=== PATIENT | female | born 2000 | race Asian ===

== ENCOUNTER 2022-06-03 15:49 | Inpatient (IN) ==
--- NOTE | 2022-06-03 16:01 | ED Triage Note ---
Date of Service June 03, 2022 History of Present Illness This patient was briefly evaluated while in triage. An abbreviated physical exam was performed. This patient is a 22-year-old Female who presents to the ED for evaluation of vaginal bleeding with positive test. LMP 04/15/22. Reports passing a large blood clot on 05/29. She denies any further bleeding. Reports fever, back and pelvic pain. States home tests continue to be positive. Physical Exam Constitutional: alert and oriented x3. no acute distress. Respiratory: lungs are clear to auscultation without wheezes, rhonchi, or rales bilaterally. equal chest rise. normal respiratory effort, no accessory muscle use. Cardiovascular: normal heart sounds without murmur. regular rate and rhythm. GI: abdomen is soft, nontender. nl bowel sounds present throughout. No palpable masses. No rebound tenderness or guarding. Psych:appropriate mood and affect. Initial orders for labs and / or imaging were placed and patient was placed in the waiting area until a bed is available. Please see further documentation for the full ED course.
[2022-06-03 16:30] LABS: Appearance Urine Clear (Clear); Bilirubin Urine Negative (Negative); Blood Urine Negative (Negative); Color Urine Yellow; Glucose Urine UA Negative (Negative); Ketones Urine Negative (Negative); Leukocyte Esterase Urine Negative (Negative); Nitrite Urine Negative (Negative); Protein Urine Negative (Negative); Specific Gravity Urine 1.004 (1.000-1.030); Urobilinogen Urine Negative (Negative); pH Urine 7.5 (4.5-7.5)
[2022-06-03 16:49] LABS: Alanine Aminotransferase 20 U/L (7-52); Albumin Globulin Ratio 1.6 (0.9-2); Albumin Level 4.5 gm/dl (3.4-5.0); Alkaline Phosphatase 50 U/L (34-104); Anion Gap 6 (3-11); Aspartate Aminotransferase 24 U/L (13-39); BUN Creatinine Ratio 16.4 (10-20); Bilirubin,Total 0.3 mg/dl (0.2-1.0); Blood Urea Nitrogen 9 mg/dl (6-23); Calcium 9.5 mg/dl (8.6-10.3); Carbon Dioxide 28 mmol/L (21-32); Chloride 105 mmol/L (98-107); Creatinine Clr Calc Pharmacy 138.5 ml/min; Est GFR (African American) > 150.0 ml/min; Est GFR (Non-African American) 133.1 ml/min; Globulin 2.8 gm/dl (2.5-4.0); Glucose 91 mg/dl (70-99(Fasting)); Lipase 18 U/L (11-82); Potassium 3.4 mmol/L (3.5-5.1); Sodium 139 mmol/L (136-145); Total Protein 7.3 gm/dl (6.0-8.3)
[2022-06-03 16:53] LABS: Hematocrit (blood only) 36.3 % (37.0-47.0); Hemoglobin 12.1 g/dl (12.0-16.0); Mean Corpuscular Hemoglobin 27.4 pg (25.0-34.0); Mean Corpuscular Hgb Conc 33.3 g/dL (32.0-36.0); Mean Corpuscular Volume 82.3 fL (80.0-100.0); Mean Platelet Volume 8.5 fL (9.4-12.4); Platelet Count 329 K/uL (130-400); RDW Coefficient of Variation 13.8 % (11.5-14.5); RDW Standard Deviation 41.3 fL (36.4-46.3); Red Blood Count 4.41 M/uL (4.20-5.40); White Blood Count 8.11 K/ul (4.8-10.8)
[2022-06-03 17:53] LABS: Basophils # (auto) 0.08 K/uL (0-0.2); Eosinophils # (auto) 0.14 K/uL (0-0.50); Eosinophils % (auto) 1.7 %; Immature Granulocytes # (auto) 0.02 K/uL (0.01-0.20); Immature Granulocytes % (auto) 0.2 %; Lymphocytes # (auto) 4.64 K/uL (1.2-3.4); Lymphocytes % (auto) 57.2 %; Monocytes % (auto) 7.4 %; Neutrophils # (auto) 2.63 K/uL (1.40-6.50); Neutrophils % (auto) 32.5 %
--- NOTE | 2022-06-03 18:04 | Emergency Department Note ---
Impression & Plan Ectopic ED Provider Note HISTORY OF PRESENT ILLNESS: Patient is a 22-year-old female presenting with fatigue and vaginal spotting. Patient reports she had a positive home test 2 weeks ago. She reports that for the following week she had some spotting and vaginal bleeding. Reports passing large clots. She thought she had miscarried. However, in the last 5 days she has been having a continually positive home test. Reports that she had a fever last week. Has had some nausea and fatigue for the last 5 days. Denies any dysuria or hematuria. Denies any chest pain or shortness of breath. Denies any abdominal pain. Reports that last week she was having a low-grade fever and some left-sided low back pain. Reports that she still having brown blood discharge from her vagina. She reports that she had previously had a miscarriage in February 2022. She is not evaluated at the time for this. She is unsure her blood type. ROS: as above PHYSICAL EXAM: Constitutional: Patient appears in no acute distress. HENT: Head: Normocephalic and atraumatic. Eyes: EOMI, PERRL Mouth/Throat: Mucous membranes moist. Neck: Trachea midline. Neck supple. Cardiovascular: RRR, No murmurs, rubs or gallops. Intact distal pulses. Pulmonary/Chest: No respiratory distress. Breath sounds clear and equal bilaterally. No wheezes or rales. Abdominal: BS +. Abdomen soft, no tenderness, rebound or guarding. Musculoskeletal: No edema, tenderness or deformity noted. Skin: Warm and dry. No rash, erythema, pallor or cyanosis Psychiatric: Appropriate mood and affect for situation. Neurological: Alert and keenly responsive. CN II-XII grossly intact, moving all extremities equally and fully. MDM: - Vitals signs showed tachycardia - History obtained via patient. Patient presents with fatigue and vaginal spotting. Patient reports she had a positive home test 2 weeks ago. Reports that 1 week ago she had some spotting and vaginal bleeding and passing of large clots. She thought she had miscarried. She states that for the last 5 days she has been having a continually positive home test but no longer bleeding. She has had significant nausea and fatigue in the last 5 days. Reports that a week ago she had a low-grade fever and some left-sided low back pain. Reports she still having some brown vaginal discharge. - Chronic conditions affecting care: None - Differential diagnoses include, but are not limited to: retained products of conception; UTI; ectopic - Order placed for continuous cardiac monitoring. At this time, monitor showed rate of 90 bpm with normal sinus rhythm, per my interpretation. - External medical records reviewed. - Laboratory workup interpreted by myself showed normal WBC; stable hemoglobin; hypokalemia (K 3.4) - UA negative for infection - hCG positive - Transvaginal and transabdominal ultrasound show findings suspicious for ectopic in left adnexa. - Blood type is O positive. - Discussion had with OB concrete tile machine operator, Dr. Matos, about patient's case. He came to evaluate the patient and plans to take the patient to the OR. ASSESSMENT AND PLAN: Diagnosis: left adnexa ectopic Plan: To OR Past Med/Surg History Medical History (Updated 06/03/22 @ 21:08 by Jo Mazariegos MD) No significant medical problems Surgical History (Updated 06/03/22 @ 21:06 by Lynn Velazquez DO) No significant past surgical history Social History Smoking Status: Never smoker Feels Safe at Home: Yes Allergies Allergies Allergy/AdvReac Type Severity Reaction Status Date / Time amoxicillin Allergy Rash Unverified 04/04/22 11:29 Home Meds Home Medications Medication Instructions Recorded Confirmed methylphenidate HCl 10 mg tablet 0 mg PO UD 04/04/22 04/04/22 methylphenidate HCl 27 mg 27 mg PO DAILY 04/04/22 04/04/22 tablet,extended release 24 hr Previous Rx's Medication Instructions Recorded sulfamethoxazole 800 1 tab PO Q12H #14 tabs 04/04/22 mg-trimethoprim 160 mg tablet (Bactrim DS) Results & Data (ED) Vital Signs Vital Signs - 24 hr 06/03/22 15:57 06/03/22 19:10 06/03/22 20:55 Temperature 36.4 C L Temperature Source Temporal Artery Scan Pulse Rate 114 H 90 Pulse Rate [Finger] 90 Pulse Rhythm Regular Respiratory Rate 20 16 16 Respiratory Effort / Characteristics Non-Labored Spontaneous Non-Labored Spontaneous Respiratory Depth Normal Normal Respiratory Pattern Regular Blood Pressure 115/75 135/80 Blood Pressure [Left Arm] 116/74 Blood Pressure Mean 88 Blood Pressure Mean [Left Arm] 88 Pulse Oximetry 99 97 97 Oxygen Delivery Method Room Air Room Air Sepsis Recent Fever Within 48 Hours No Sepsis New/Unexplained Change in Mental Status No Sepsis Action Taken by Nursing No Action Required Laboratory Data 06/03/22 16:18 06/03/22 16:18 Lab Results 06/03/22 06/03/22 06/03/22 Range/Units 16:18 16:18 16:18 WBC 8.11 (4.8-10.8) K/ul RBC 4.41 (4.20-5.40) M/uL Hgb 12.1 (12.0-16.0) g/dl Hct 36.3 L (37.0-47.0) % MCV 82.3 (80.0-100.0) fL MCH 27.4 (25.0-34.0) pg MCHC 33.3 (32.0-36.0) g/dL RDW Std Deviation 41.3 (36.4-46.3) fL RDW Coeff of Myra 13.8 (11.5-14.5) % Plt Count 329 (130-400) K/uL MPV 8.5 L (9.4-12.4) fL Immature Gran % (Auto) 0.2 % Neut % (Auto) 32.5 % Lymph % (Auto) 57.2 % [place] % (Auto) 7.4 % Eos % (Auto) 1.7 % Baso % (Auto) 1.0 % Neut # (Auto) 2.63 (1.40-6.50) K/uL Lymph # (Auto) 4.64 H (1.2-3.4) K/uL [place] # (Auto) 0.60 H (0.11-0.59) K/uL Eos # (Auto) 0.14 (0-0.50) K/uL Baso # (Auto) 0.08 (0-0.2) K/uL Immature Gran # (Auto) 0.02 (0.01-0.20) K/uL Sodium 139 (136-145) mmol/L Potassium 3.4 L (3.5-5.1) mmol/L Chloride 105 (98-107) mmol/L Carbon Dioxide 28 (21-32) mmol/L Anion Gap 6 (3-11) BUN 9 (6-23) mg/dl Creatinine 0.55 L (0.6-1.2) mg/dl Est Cr Clr Drug Dosing 138.5 ml/min Est GFR ( Amer) > 150.0 ml/min Est GFR (Non-Af Amer) 133.1 ml/min BUN/Creatinine Ratio 16.4 (10-20) Glucose 91 (70-99(Fasting)) mg/dl Calcium 9.5 (8.6-10.3) mg/dl Total Bilirubin 0.3 (0.2-1.0) mg/dl AST 24 (13-39) U/L ALT 20 (7-52) U/L Alkaline Phosphatase 50 (34-104) U/L Total Protein 7.3 (6.0-8.3) gm/dl Albumin 4.5 (3.4-5.0) gm/dl Globulin 2.8 (2.5-4.0) gm/dl Albumin/Globulin Ratio 1.6 (0.9-2) Lipase 18 (11-82) U/L HCG, Quant 7249 mIU/ml Urine Color Urine Appearance (Clear) Urine pH (4.5-7.5) Ur Specific [place] (1.000-1.030) Urine Protein (Negative) Urine Glucose (UA) (Negative) Urine Ketones (Negative) Urine Blood (Negative) Urine Nitrite (Negative) Urine Bilirubin (Negative) Urine Urobilinogen (Negative) Ur Leukocyte Esterase (Negative) Blood Type Antibody Screen 06/03/22 06/03/22 Range/Units 18:09 Unknown WBC (4.8-10.8) K/ul RBC (4.20-5.40) M/uL Hgb (12.0-16.0) g/dl Hct (37.0-47.0) % MCV (80.0-100.0) fL MCH (25.0-34.0) pg MCHC (32.0-36.0) g/dL RDW Std Deviation (36.4-46.3) fL RDW Coeff of Myra (11.5-14.5) % Plt Count (130-400) K/uL MPV (9.4-12.4) fL Immature Gran % (Auto) % Neut % (Auto) % Lymph % (Auto) % [place] % (Auto) % Eos % (Auto) % Baso % (Auto) % Neut # (Auto) (1.40-6.50) K/uL Lymph # (Auto) (1.2-3.4) K/uL [place] # (Auto) (0.11-0.59) K/uL Eos # (Auto) (0-0.50) K/uL Baso # (Auto) (0-0.2) K/uL Immature Gran # (Auto) (0.01-0.20) K/uL Sodium (136-145) mmol/L Potassium (3.5-5.1) mmol/L Chloride (98-107) mmol/L Carbon Dioxide (21-32) mmol/L Anion Gap (3-11) BUN (6-23) mg/dl Creatinine (0.6-1.2) mg/dl Est Cr Clr Drug Dosing ml/min Est GFR ( Amer) ml/min Est GFR (Non-Af Amer) ml/min BUN/Creatinine Ratio (10-20) Glucose (70-99(Fasting)) mg/dl Calcium (8.6-10.3) mg/dl Total Bilirubin (0.2-1.0) mg/dl AST (13-39) U/L ALT (7-52) U/L Alkaline Phosphatase (34-104) U/L Total Protein (6.0-8.3) gm/dl Albumin (3.4-5.0) gm/dl Globulin (2.5-4.0) gm/dl Albumin/Globulin Ratio (0.9-2) Lipase (11-82) U/L HCG, Quant mIU/ml Urine Color Yellow Urine Appearance Clear (Clear) Urine pH 7.5 (4.5-7.5) Ur Specific [place] 1.004 (1.000-1.030) Urine Protein Negative (Negative) Urine Glucose (UA) Negative (Negative) Urine Ketones Negative (Negative) Urine Blood Negative (Negative) Urine Nitrite Negative (Negative) Urine Bilirubin Negative (Negative) Urine Urobilinogen Negative (Negative) Ur Leukocyte Esterase Negative (Negative) Blood Type O Positive Antibody Screen NEGATIVE Imaging Data Radiologist's Impression: Pelvic/Transvag US 06/03/22 16:01 US ectopic CLINICAL HISTORY: +hpt, vaginal bleeding, abd pain Technique: Real-time sonographic images of the pelvic contents were obtained with transabdominal and transvaginal technique. COMPARISON: None available at the time of this dictation. FINDINGS: Uterus measures 7.5 x 4.0 x 4.1 cm. Endometrial stripe measures 0.9 cm. No gestational sac is seen. The right ovary measures 2.1 x 3.1 x 1.3 cm. Left ovary measures 2.9 x 1.9 x 1.9 cm. Blood flow is seen bilaterally. There is a 1.2 x 0.9 x 1.0 cm cystic lesion in the left ovary with surrounding blood flow, this may represent a corpus luteum cyst. There is a 1.8 x 1.6 x 1.7 cm structure in the left adnexa superior to the uterus with a likely pole and heart motion. [place]-rump length is 0.4 cm, heart rate 122 bpm. IMPRESSION: Findings are highly suspicious for an ectopic in the left adnexa, which may be isthmic in location. ACT 112: Negative or not required by law. Electronically signed by: Jovanny Mccartney M.D. 06/03/2022 7:12 PM Discharge Plan Visit Data Chief Complaint: Abdominal Pain Stated Complaint: PREG,STOMACH PAIN,HEADACHE,FATIGUE ED Provider: Jo Mazariegos Discharge Problem: Ectopic Discharge Instructions Interventions: ED Discharge Assessment Last Done: 06/03/22 20:55 Forms Stand Alone Forms: My [facility] [employer] Prescriptions Prescriptions: No Action methylphenidate HCl 10 mg tablet 0 mg PO UD methylphenidate HCl 27 mg tablet extended release 24hr 27 mg PO DAILY sulfamethoxazole-trimethoprim [Bactrim DS] 800-160 mg tablet 1 tab PO Q12H Qty: 14 0RF Referrals Referrals: [place] [Primary Care Provider] -
--- NOTE | 2022-06-03 19:14 | Ultrasound Report ---
US ectopic CLINICAL HISTORY: +hpt, vaginal bleeding, abd pain Technique: Real-time sonographic images of the pelvic contents were obtained with transabdominal and transvaginal technique. COMPARISON: None available at the time of this dictation. FINDINGS: Uterus measures 7.5 x 4.0 x 4.1 cm. Endometrial stripe measures 0.9 cm. No gestational sac is seen. The right ovary measures 2.1 x 3.1 x 1.3 cm. Left ovary measures 2.9 x 1.9 x 1.9 cm. Blood flow is se en bilaterally. There is a 1.2 x 0.9 x 1.0 cm cystic lesion in the left ovary with surrounding blood flow, this may r epresent a corpus luteum cyst. There is a 1.8 x 1.6 x 1.7 cm structure in the left adnexa superior to the uterus with a likely pole and heart motion. [place]-rump length is 0.4 cm, heart rate 122 bpm. IMPRESSION: Findings are highly suspicious for an ectopic in the left adnexa, which may be isthmic in l ocation. ACT 112: Negative or not required by law. Electronically signed by: Jovanny Mccartney M.D. 06/03/2022 7:12 PM
--- NOTE | 2022-06-03 20:53 | History & Physical Report ---
Date of Service June 03, 2022 History of Present Illness Chief Complaint: vaginal bleeding Primary Care Provider: [facility] 22 F [id number] LMP 04/15/22 regular with unprotected intercourse and no control use had positvei home test and c/o vaginal bleeding with passage of small clot 05/29. No abdominal pain or any significant heavy vaginal bleeding. She thought she had a spontaneous miscarriage and wanted to come to ER to see if she was still . Had what she describes as chemical last year with no treatment. No prior control use. 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 no contraceptive use Review of Systems All systems reviewed & are unremarkable except as noted in HPI & below Physical Exam Constitutional: WD/WN, vitals as above Eyes: PERRL, conjunctivae normal, anicteric sclerae Respiratory: normal respiratory effort, lungs clear to auscultation Cardiovascular: RRR, no murmur, no edema Gastrointestinal (Abdomen): normal bowel sounds, soft, nontender, no hepatosplenomegaly Musculoskeletal: Extremities: extremities normal to inspection Skin: no rashes, warm and dry Neurologic: patellar DTR's 2+ bilat, sensation intact Psychiatric: A+Ox3, euthymic affect Genitourinary: neg Results & Data Vital Signs (Past 12 Hours) Vital Signs Temp Pulse Pulse Resp BP BP Pulse Ox 06/03/22 19:10 90 16 116/74 97 06/03/22 15:57 36.4 C L 114 H 20 115/75 99 O2 Del Method 06/03/22 19:10 Room Air 06/03/22 15:57 Laboratory Results Laboratory Results - last 72 hr 04/06/03/22 06/03/22 16:18 16:18 16:18 WBC 8.11 RBC 4.41 Hgb 12.1 Hct 36.3 L MCV 82.3 MCH 27.4 MCHC 33.3 RDW Std Deviation 41.3 RDW Coeff of Myra 13.8 Plt Count 329 MPV 8.5 L Immature Gran % (Auto) 0.2 Neut % (Auto) 32.5 Lymph % (Auto) 57.2 [place] % (Auto) 7.4 Eos % (Auto) 1.7 Baso % (Auto) 1.0 Neut # (Auto) 2.63 Lymph # (Auto) 4.64 H [place] # (Auto) 0.60 H Eos # (Auto) 0.14 Baso # (Auto) 0.08 Immature Gran # (Auto) 0.02 Sodium 139 Potassium 3.4 L Chloride 105 Carbon Dioxide 28 Anion Gap 6 BUN 9 Creatinine 0.55 L Est Cr Clr Drug Dosing 138.5 Est GFR ( Amer) > 150.0 Est GFR (Non-Af Amer) 133.1 BUN/Creatinine Ratio 16.4 Glucose 91 Calcium 9.5 Total Bilirubin 0.3 AST 24 ALT 20 Alkaline Phosphatase 50 Total Protein 7.3 Albumin 4.5 Globulin 2.8 Albumin/Globulin Ratio 1.6 Lipase 18 HCG, Quant 7249 Urine Color Urine Appearance Urine pH Ur Specific [place] Urine Protein Urine Glucose (UA) Urine Ketones Urine Blood Urine Nitrite Urine Bilirubin Urine Urobilinogen Ur Leukocyte Esterase Blood Type Antibody Screen 06/03/22 06/03/22 18:09 Unknown WBC RBC Hgb Hct MCV MCH MCHC RDW Std Deviation RDW Coeff of Myra Plt Count MPV Immature Gran % (Auto) Neut % (Auto) Lymph % (Auto) [place] % (Auto) Eos % (Auto) Baso % (Auto) Neut # (Auto) Lymph # (Auto) [place] # (Auto) Eos # (Auto) Baso # (Auto) Immature Gran # (Auto) Sodium Potassium Chloride Carbon Dioxide Anion Gap BUN Creatinine Est Cr Clr Drug Dosing Est GFR ( Amer) Est GFR (Non-Af Amer) BUN/Creatinine Ratio Glucose Calcium Total Bilirubin AST ALT Alkaline Phosphatase Total Protein Albumin Globulin Albumin/Globulin Ratio Lipase HCG, Quant Urine Color Yellow Urine Appearance Clear Urine pH 7.5 Ur Specific [place] 1.004 Urine Protein Negative Urine Glucose (UA) Negative Urine Ketones Negative Urine Blood Negative Urine Nitrite Negative Urine Bilirubin Negative Urine Urobilinogen Negative Ur Leukocyte Esterase Negative Blood Type O Positive Antibody Screen NEGATIVE Code Status & VTE Plan VTE Prophylaxis Plan VTE Prophylaxis will be ordered: No
[2022-06-03] MEDS ORDERED: ePHEDrine sulfate 50 MG/ML AMP IV PRN (21:06)
[2022-06-03] MEDS ORDERED: ONDANSETRON INJ 2 MG/ML 2 ML VIAL IV PRN (21:06)
[2022-06-03] MEDS ORDERED: MEPERIDINE HCL 25 MG/ML CARP/VIAL IV PRN (21:06)
[2022-06-03] MEDS ORDERED: ATROPINE SULFATE 0.1 MG/ML 10ML SYR IV PRN (21:06)
[2022-06-03] MEDS ORDERED: MoRPHine SULFATE 10 MG/ML CARP/VIAL IV PRN (21:06)
[2022-06-03] MEDS ORDERED: PROMETHAZINE HCL 12.5 MG in SODIUM CHLORIDE 0.9% 50 ML IV PRN (21:06)
[2022-06-03] MEDS ORDERED: fentaNYL citrate PF 100 MCG/2 ML VIAL IV PRN (21:06)
--- NOTE | 2022-06-03 21:06 | Anesthesiology Consultation ---
Date of Service June 03, 2022 Assessment & Plan Chart Review Chart Review: Acceptable Risk for Surgery Consults Requested none ASA [id number] Proposed Anesthesia Anesthesia Type: General (RSI) Risk / Benefits Reviewed With: PT / POA / Parent / Guardian, Accepts Plan and Informed Consent Obtained History Surgery Operation Date: 06/03/22 21:30 Proposed Procedures p Laparoscopic Operative(Left) - Cliff Matos MD Height/Weight Height: 5 ft 4 in Weight: 58.2 kg Allergies Allergy/AdvReac Type Severity Reaction Status Date / Time amoxicillin Allergy Rash Unverified 04/04/22 11:29 Medications Home Medications Medication Instructions Recorded Confirmed Last Taken methylphenidate HCl 10 mg tablet 0 mg PO UD 04/04/22 04/04/22 Unknown methylphenidate HCl 27 mg 27 mg PO DAILY 04/04/22 04/04/22 04/04/22 tablet,extended release 24 hr sulfamethoxazole 800 1 tab PO Q12H #14 tabs 04/04/22 Unknown mg-trimethoprim 160 mg tablet (Bactrim DS) NPO Date Last Intake of Fluids: 06/03/22 Time Last Intake of Fluids: 16:00 Date Last Intake of Solids: 06/03/22 Time Last Intake of Solids: 13:00 Past Medical History Medical History ADD (attention deficit disorder) Marijuana use Exercise / Class Metabolic Activity II 4-5 Yardwork/Stairs/Walk up hill Past Surgical History Surgical History (Updated 06/03/22 @ 21:26 by Lynn Velazquez DO) History of strabismus surgery Past Anesthesia History No Hx of Anesthesia Complications and No Family Hx of Anesthesia Complications History of PONV No Hx of PONV and No Hx of Motion Sickness Social History Smoking Status: Never smoker Hx Substance Use: Yes substance use type: marijuana (most days) Physical Exam Vital Signs Last Vital Signs Temp 36.4 C L 06/03/22 15:57 Pulse 90 06/03/22 20:55 Resp 16 06/03/22 20:55 BP 135/80 06/03/22 20:55 Pulse Ox 97 06/03/22 20:55 O2 Del Method Room Air 06/03/22 20:55 Constitutional no acute distress ENMT Mouth: no TMJ abnormality Thyromental Distance: > or= 3.5 Finger Breadths Mallampati Class: II Neck normal visual inspection and trachea midline; neck extension not limited Respiratory normal respiratory effort Auscultation: lungs clear to auscultation bilaterally Cardiovascular Rate/Rhythm: regular rate and regular rhythm Heart Sounds: no murmur Musculoskeletal Spine: normal cervical ROM Extremities: full ROM of extremities Neurologic moves all extremities Psychiatric Orientation: alert and oriented x 3 Testing Laboratory Results 06/03/22 16:18 06/03/22 16:18 HCG, Quant 7249 mIU/ml 06/03/22 16:18 Urine Color Yellow 06/03/22 Unknown Urine Appearance Clear (Clear) 06/03/22 Unknown Urine pH 7.5 (4.5-7.5) 06/03/22 Unknown Ur Specific [place] 1.004 (1.000-1.030) 06/03/22 Unknown Urine Protein Negative (Negative) 06/03/22 Unknown Urine Glucose (UA) Negative (Negative) 06/03/22 Unknown Urine Ketones Negative (Negative) 06/03/22 Unknown Urine Nitrite Negative (Negative) 06/03/22 Unknown Ur Leukocyte Esterase Negative (Negative) 06/03/22 Unknown Blood Type O Positive 06/03/22 18:09 Antibody Screen NEGATIVE 06/03/22 18:09 06/03/22 16:18 HCG, Quant 7249
[2022-06-03] MEDS ORDERED: LIDOCAINE 2% 20 MG/ML 5 ML SYR IV ONE (21:11)
[2022-06-03] MEDS ORDERED: SUCCINYLCHOLINE CHLORIDE 20 MG/ML 10 ML VIAL IV ONE (21:11)
[2022-06-03] MEDS ORDERED: fentaNYL citrate PF 100 MCG/2 ML VIAL ONE ×2 (21:11→22:07)
[2022-06-03] MEDS ORDERED: MIDAZOLAM HCL 1 MG/ML 2ML VIAL ONE (21:11)
[2022-06-03] MEDS ORDERED: METOCLOPRAMIDE HCL INJ 5 MG/ML 2 ML VIAL ONE (21:11)
[2022-06-03] MEDS ORDERED: PROPOFOL IV EMULSION 10 MG/ML 20 ML VIAL IV ONE (21:11)
[2022-06-03] MEDS ORDERED: ONDANSETRON INJ 2 MG/ML 2 ML VIAL ONE (21:11)
[2022-06-03] MEDS ORDERED: DEXAMETHASONE SOD INJ 4 MG/ML VIAL ONE (21:13)
[2022-06-03] MEDS ORDERED: BUPIVACAINE 0.5 % 5 MG/1 ML MPF 30ML VIAL ONE (21:54)
[2022-06-03] MEDS ORDERED: ROCURONIUM BROMIDE 10 MG/ML 5 ML VIAL IV ONE (21:59)
[2022-06-03] MEDS ORDERED: NEOSTIGMINE METHYLSULFATE 1 MG/ML 10ML VIAL ONE (22:19)
[2022-06-03] MEDS ORDERED: GLYCOPYRROLATE 0.2 MG/ML VIAL ONE (22:19)
[2022-06-03] MEDS ORDERED: KETOROLAC 30 MG/ML VIAL ONE (22:41)
--- NOTE | 2022-06-03 23:17 | Post Operative Brief Note ---
Immediate Post Op Note v1 Date of Surgery June 03, 2022 Pre & Post Diagnosis Operation Date: 06/03/22 21:30 Pre-Op Diagnosis: Left Ectopic Post-Op Diagnosis: Left Ectopic I identified the patient and participated in the time-out.: Yes Procedure Operation Date: 06/03/22 21:30 Actual Procedures p Laparoscopic Left Partial Salpingectomy with Removal of Ectopic (Left) - Cliff Matos MD Surgeon Cliff Matos MD Screen Printing Paster Nicole VIBRATING SCREEN OPERATOR Estimated Blood Loss 5 Findings Consistent with Post-Op Diagnosis left isthmic ectopic unruptured Fluids LR Specimens left partial tube and ectopic Anesthesia Type General Complications none Disposition Accompanied Patient To Recovery: Yes Overlapping Procedure I was present for: the critical portions of procedure. I was immediately available: during the entire case. Back up surgeon: was not required during procedure.
[2022-06-03] MEDS ORDERED: TRIAMCINOLONE ACET 40 MG/ML VIAL ONE ×2 (23:22→23:23)
[2022-06-03] MEDS ORDERED: BUPIVACAINE 0.5 % 5 MG/1 ML PF 10ML VIAL ONE (23:26)
[2022-06-03] MEDS ORDERED: LACTATED RINGER'S 1,000 ML IV SCH (23:38)
[2022-06-03] MEDS: LACTATED RINGER'S 1,000 ML IV SCH (23:43)
--- NOTE | 2022-06-03 23:58 | Operative Report (OR) ---
DATE OF SURGERY: 06/03/2022 PREOPERATIVE DIAGNOSIS: Left ectopic . POSTOPERATIVE DIAGNOSIS: Left ectopic . PROCEDURE PERFORMED: Laparoscopic left partial salpingectomy with removal of ectopic on the left. SURGEON: Cliff Matos MD. MACHINE PRINTER: MIREILLE Rivera. ESTIMATED BLOOD LOSS: 5 mL FINDINGS: Consistent with postoperative diagnosis left isthmic ectopic unruptured. COMPLICATIONS: None. ANESTHESIA: General. DRAINS: None. CLINICAL HISTORY: The patient is a 22-year-old female, para 0-0-1-0, who presents to the [facility] with complaints of vaginal bleeding. Home test was positive and passage of clot several days ago. She presented to find out if she was still . An ultrasound revealed that she had a left ectopic and a decision was made for operative intervention due to the fact that the hCG was elevated with heartbeat noted. DESCRIPTION OF PROCEDURE: Under satisfactory general endotracheal anesthesia, the patient was prepped and draped in the usual sterile fashion. Goss catheter was inserted. HUMI intrauterine manipulator was inserted into the cervix. Attention was then directed abdominally where an infraumbilical local of 0.5% Marcaine was given along with a suprapubic infiltration as well. Stab wound was made with a #11 knife blade. Veress needle was inserted and approximately 2.5 liters of carbon dioxide were instilled creating the artificial pneumoperitoneum. The Veress needle was withdrawn. The incision was widened slightly. A 5 trocar was inserted and the scope was inserted visualizing the pelvic and abdominal organs. There was a small amount of blood in the cul-de-sac. The upper abdomen was explored and the liver edge was smooth and there was no blood in the upper abdomen. A 5 mm trocar was inserted under direct visualization in the midline. A probe was inserted and the left tube and ovary were found to be consistent with an ectopic that was unruptured in the isthmus. The right tube and ovary were normal. The uterus appeared normal. A third port was placed laterally on the left hand side. A grasper was inserted through this port and then the LigaSure device was attached and then the ectopic was lifted up and then the ectopic was then removed with the LigaSure device. The 5 mm port was then replaced in the midline with an 8 mm port and then the EndoCatch bag large was inserted through this port and then the tube with the ectopic was removed through this port after the incision was widened slightly and then removing the bag. The bag was intact at the end of the procedure. The ectopic was then submitted to Pathology as a separate specimen. The tube was inspected. There was no bleeding from the remaining portion of the tube and the ovary was within normal limits. All remaining instruments were then removed from the abdomen. The pneumoperitoneum was then removed. The 3 ports were then closed with 3-0 Vicryl suture. The instrument was then removed from the cervix and then the Goss was then removed. Goss draining 100 mL of clear urine. ESTIMATED BLOOD LOSS: 5 mL. The final sponge, needle, and instrument count were found to be correct. The patient was then placed supine on a stretcher. She was removed to recovery in stable condition. Job ID: [id number] [facility]
--- NOTE | 2022-06-04 00:04 | Anesthesiology Progress Note ---
Date of Service June 04, 2022 Anesthesia Post Procedure Vital Signs Vital Signs: Temp Pulse Pulse Resp BP BP Pulse Ox 06/04/22 00:00 36.8 C 84 16 113/74 99 06/03/22 23:45 36.6 C 84 12 118/73 100 06/03/22 23:26 36.5 C 82 20 113/73 99 06/03/22 23:16 36.5 C 81 17 115/73 100 06/03/22 23:05 36.5 C 74 14 113/73 100 06/03/22 20:55 90 16 135/80 97 06/03/22 19:10 90 16 116/74 97 06/03/22 15:57 36.4 C L 114 H 20 115/75 99 O2 Del Method O2 Flow Rate 06/04/22 00:00 Room Air 06/03/22 23:45 Room Air 06/03/22 23:26 Room Air 06/03/22 23:16 Room Air 06/03/22 23:05 Oxymask 7 06/03/22 20:55 Room Air 06/03/22 19:10 Room Air 06/03/22 15:57 Pain Intensity Abdomen: Pain Intensity: 4 Transfer of Care Handoff Completed per policy Notes Mental Status: alert / awake / arousable Patient Amnestic to Procedure: Yes Nausea / Vomiting: adequately controlled Pain: adequately controlled Airway Patency, RR, SpO2: stable & adequate BP & HR: stable & adequate Hydration State: stable & adequate Anesthetic Complications: no major complications apparent and Pt Satisfied with anesthetic care
[2022-06-04] MEDS: KETOROLAC 30 MG/ML VIAL IV PRN ×2 (00:53→18:49)
[2022-06-04 06:35] LABS: Hematocrit (blood only) 34.2 % (37.0-47.0); Hemoglobin 11.5 g/dl (12.0-16.0); Mean Corpuscular Hemoglobin 27.2 pg (25.0-34.0); Mean Corpuscular Hgb Conc 33.6 g/dL (32.0-36.0); Mean Corpuscular Volume 80.9 fL (80.0-100.0); Mean Platelet Volume 8.5 fL (9.4-12.4); Platelet Count 292 K/uL (130-400); RDW Coefficient of Variation 13.7 % (11.5-14.5); RDW Standard Deviation 40.1 fL (36.4-46.3); Red Blood Count 4.23 M/uL (4.20-5.40); White Blood Count 9.84 K/ul (4.8-10.8)
[2022-06-04] MEDS: IBUPROFEN 600 MG TAB PO PRN ×3 (09:07→20:33)
--- NOTE | 2022-06-04 09:40 | Gynecologic Progress Note ---
Date of Service June 04, 2022 Assessment & Plan Admission and Anticipated Discharge Date Admission Date: June 03, 2022 Subjective Postop check Patient is seen and examined Feels well, no complaints Pain is under control with meds No CP/ SOB/ Dizziness/ N&V/ VB/ Leg pain OOB to BRX2 Tolerating clears, is hungry and ready to eat her breakfast. Vital Signs Temp Pulse Resp BP Pulse Ox O2 Del Method O2 Flow Rate 06/04/22 09:05 37 C 93 H 16 109/62 100 Room Air 06/04/22 03:00 36.8 C 72 18 108/60 98 Room Air 06/04/22 01:50 36.8 C 71 16 110/60 97 Room Air 06/04/22 00:45 36.7 C 77 16 117/72 97 Room Air 06/04/22 00:15 36.9 C 80 16 120/70 98 Room Air 06/04/22 00:00 36.8 C 84 16 113/74 99 Room Air 06/03/22 23:45 36.6 C 84 12 118/73 100 Room Air 06/03/22 23:26 36.5 C 82 20 113/73 99 Room Air 06/03/22 23:16 36.5 C 81 17 115/73 100 Room Air 06/03/22 23:05 36.5 C 74 14 113/73 100 Oxymask 7 Lab Results 06/03/22 06/03/22 06/03/22 Range/Units 16:18 16:18 16:18 WBC 8.11 (4.8-10.8) K/ul RBC 4.41 (4.20-5.40) M/uL Hgb 12.1 (12.0-16.0) g/dl Hct 36.3 L (37.0-47.0) % MCV 82.3 (80.0-100.0) fL MCH 27.4 (25.0-34.0) pg MCHC 33.3 (32.0-36.0) g/dL RDW Std Deviation 41.3 (36.4-46.3) fL RDW Coeff of Myra 13.8 (11.5-14.5) % Plt Count 329 (130-400) K/uL MPV 8.5 L (9.4-12.4) fL Immature Gran % (Auto) 0.2 % Neut % (Auto) 32.5 % Lymph % (Auto) 57.2 % Hunt % (Auto) 7.4 % Eos % (Auto) 1.7 % Baso % (Auto) 1.0 % Neut # (Auto) 2.63 (1.40-6.50) K/uL Lymph # (Auto) 4.64 H (1.2-3.4) K/uL Hunt # (Auto) 0.60 H (0.11-0.59) K/uL Eos # (Auto) 0.14 (0-0.50) K/uL Baso # (Auto) 0.08 (0-0.2) K/uL Immature Gran # (Auto) 0.02 (0.01-0.20) K/uL Sodium 139 (136-145) mmol/L Potassium 3.4 L (3.5-5.1) mmol/L Chloride 105 (98-107) mmol/L Carbon Dioxide 28 (21-32) mmol/L Anion Gap 6 (3-11) BUN 9 (6-23) mg/dl Creatinine 0.55 L (0.6-1.2) mg/dl Est Cr Clr Drug Dosing 138.5 ml/min Est GFR ( Amer) > 150.0 ml/min Est GFR (Non-Af Amer) 133.1 ml/min BUN/Creatinine Ratio 16.4 (10-20) Glucose 91 (70-99(Fasting)) mg/dl Calcium 9.5 (8.6-10.3) mg/dl Total Bilirubin 0.3 (0.2-1.0) mg/dl AST 24 (13-39) U/L ALT 20 (7-52) U/L Alkaline Phosphatase 50 (34-104) U/L Total Protein 7.3 (6.0-8.3) gm/dl Albumin 4.5 (3.4-5.0) gm/dl Globulin 2.8 (2.5-4.0) gm/dl Albumin/Globulin Ratio 1.6 (0.9-2) Lipase 18 (11-82) U/L HCG, Quant 7249 mIU/ml Urine Color Urine Appearance (Clear) Urine pH (4.5-7.5) Ur Specific [place] (1.000-1.030) Urine Protein (Negative) Urine Glucose (UA) (Negative) Urine Ketones (Negative) Urine Blood (Negative) Urine Nitrite (Negative) Urine Bilirubin (Negative) Urine Urobilinogen (Negative) Ur Leukocyte Esterase (Negative) SARS-CoV-2, RNA, NAAT (NEGATIVE) Blood Type Antibody Screen 06/03/22 06/03/22 06/03/22 Range/Units 18:09 20:42 Unknown WBC (4.8-10.8) K/ul RBC (4.20-5.40) M/uL Hgb (12.0-16.0) g/dl Hct (37.0-47.0) % MCV (80.0-100.0) fL MCH (25.0-34.0) pg MCHC (32.0-36.0) g/dL RDW Std Deviation (36.4-46.3) fL RDW Coeff of Myra (11.5-14.5) % Plt Count (130-400) K/uL MPV (9.4-12.4) fL Immature Gran % (Auto) % Neut % (Auto) % Lymph % (Auto) % Hunt % (Auto) % Eos % (Auto) % Baso % (Auto) % Neut # (Auto) (1.40-6.50) K/uL Lymph # (Auto) (1.2-3.4) K/uL Hunt # (Auto) (0.11-0.59) K/uL Eos # (Auto) (0-0.50) K/uL Baso # (Auto) (0-0.2) K/uL Immature Gran # (Auto) (0.01-0.20) K/uL Sodium (136-145) mmol/L Potassium (3.5-5.1) mmol/L Chloride (98-107) mmol/L Carbon Dioxide (21-32) mmol/L Anion Gap (3-11) BUN (6-23) mg/dl Creatinine (0.6-1.2) mg/dl Est Cr Clr Drug Dosing ml/min Est GFR ( Amer) ml/min Est GFR (Non-Af Amer) ml/min BUN/Creatinine Ratio (10-20) Glucose (70-99(Fasting)) mg/dl Calcium (8.6-10.3) mg/dl Total Bilirubin (0.2-1.0) mg/dl AST (13-39) U/L ALT (7-52) U/L Alkaline Phosphatase (34-104) U/L Total Protein (6.0-8.3) gm/dl Albumin (3.4-5.0) gm/dl Globulin (2.5-4.0) gm/dl Albumin/Globulin Ratio (0.9-2) Lipase (11-82) U/L HCG, Quant mIU/ml Urine Color Yellow Urine Appearance Clear (Clear) Urine pH 7.5 (4.5-7.5) Ur Specific [place] 1.004 (1.000-1.030) Urine Protein Negative (Negative) Urine Glucose (UA) Negative (Negative) Urine Ketones Negative (Negative) Urine Blood Negative (Negative) Urine Nitrite Negative (Negative) Urine Bilirubin Negative (Negative) Urine Urobilinogen Negative (Negative) Ur Leukocyte Esterase Negative (Negative) SARS-CoV-2, RNA, NAAT NEGATIVE (NEGATIVE) Blood Type O Positive Antibody Screen NEGATIVE 06/04/22 Range/Units 05:56 WBC 9.84 (4.8-10.8) K/ul RBC 4.23 (4.20-5.40) M/uL Hgb 11.5 L (12.0-16.0) g/dl Hct 34.2 L (37.0-47.0) % MCV 80.9 (80.0-100.0) fL MCH 27.2 (25.0-34.0) pg MCHC 33.6 (32.0-36.0) g/dL RDW Std Deviation 40.1 (36.4-46.3) fL RDW Coeff of Myra 13.7 (11.5-14.5) % Plt Count 292 (130-400) K/uL MPV 8.5 L (9.4-12.4) fL Immature Gran % (Auto) % Neut % (Auto) % Lymph % (Auto) % Hunt % (Auto) % Eos % (Auto) % Baso % (Auto) % Neut # (Auto) (1.40-6.50) K/uL Lymph # (Auto) (1.2-3.4) K/uL Hunt # (Auto) (0.11-0.59) K/uL Eos # (Auto) (0-0.50) K/uL Baso # (Auto) (0-0.2) K/uL Immature Gran # (Auto) (0.01-0.20) K/uL Sodium (136-145) mmol/L Potassium (3.5-5.1) mmol/L Chloride (98-107) mmol/L Carbon Dioxide (21-32) mmol/L Anion Gap (3-11) BUN (6-23) mg/dl Creatinine (0.6-1.2) mg/dl Est Cr Clr Drug Dosing ml/min Est GFR ( Amer) ml/min Est GFR (Non-Af Amer) ml/min BUN/Creatinine Ratio (10-20) Glucose (70-99(Fasting)) mg/dl Calcium (8.6-10.3) mg/dl Total Bilirubin (0.2-1.0) mg/dl AST (13-39) U/L ALT (7-52) U/L Alkaline Phosphatase (34-104) U/L Total Protein (6.0-8.3) gm/dl Albumin (3.4-5.0) gm/dl Globulin (2.5-4.0) gm/dl Albumin/Globulin Ratio (0.9-2) Lipase (11-82) U/L HCG, Quant mIU/ml Urine Color Urine Appearance (Clear) Urine pH (4.5-7.5) Ur Specific [place] (1.000-1.030) Urine Protein (Negative) Urine Glucose (UA) (Negative) Urine Ketones (Negative) Urine Blood (Negative) Urine Nitrite (Negative) Urine Bilirubin (Negative) Urine Urobilinogen (Negative) Ur Leukocyte Esterase (Negative) SARS-CoV-2, RNA, NAAT (NEGATIVE) Blood Type Antibody Screen PE: General: Alert, orientedx3, NAD CVS: S1S2 RRR Lungs: CTAB Abd: soft, NT, ND, BS+, Incisions C/D/I No VB Ext: NT, no edema, SCD's on AP: 22 yo female s/p Laparoscopy for ectopic and left partial salpingectomy by Dr Matos, pod#1 VSS Afebrile doing well Continue to routine postop care Encourage PO intake, may ambulate D/C home today Results & Data Vital Signs (Past 12 Hours) Vital Signs Temp Pulse Resp BP Pulse Ox O2 Del Method O2 Flow Rate 06/04/22 09:05 37 C 93 H 16 109/62 100 Room Air 06/04/22 03:00 36.8 C 72 18 108/60 98 Room Air 06/04/22 01:50 36.8 C 71 16 110/60 97 Room Air 06/04/22 00:45 36.7 C 77 16 117/72 97 Room Air 06/04/22 00:15 36.9 C 80 16 120/70 98 Room Air 06/04/22 00:00 36.8 C 84 16 113/74 99 Room Air 06/03/22 23:45 36.6 C 84 12 118/73 100 Room Air 06/03/22 23:26 36.5 C 82 20 113/73 99 Room Air 06/03/22 23:16 36.5 C 81 17 115/73 100 Room Air 06/03/22 23:05 36.5 C 74 14 113/73 100 Oxymask 7
[2022-06-04] MEDS: oxyCODONE HCL IR 5 MG TAB (IMMEDIATE RELEASE) PO PRN ×2 (15:27→20:07)
[2022-06-04] MEDS: ACETAMINOPHEN 325 MG TAB PO PRN ×2 (16:02→22:06)
[2022-06-04] MEDS: MoRPHine SULFATE 2 MG/ML CARP IV PRN (16:57)
[2022-06-04 17:58] LABS: Albumin Level 3.6 gm/dl (3.4-5.0); Bilirubin,Total 0.3 mg/dl (0.2-1.0); Calcium 8.4 mg/dl (8.6-10.3); Potassium 3.8 mmol/L (3.5-5.1)
[2022-06-04 18:04] LABS: Albumin Globulin Ratio 1.3 (0.9-2); BUN Creatinine Ratio 16.1 (10-20); Creatinine Clr Calc Pharmacy 122.9 ml/min; Est GFR (African American) 148.3 ml/min; Globulin 2.7 gm/dl (2.5-4.0); Total Protein 6.3 gm/dl (6.0-8.3)
[2022-06-04 19:05] LABS: Hematocrit (blood only) 35.4 % (37.0-47.0); Hemoglobin 11.6 g/dl (12.0-16.0); Mean Corpuscular Hemoglobin 27.6 pg (25.0-34.0); Mean Corpuscular Hgb Conc 32.8 g/dL (32.0-36.0); Mean Corpuscular Volume 84.3 fL (80.0-100.0); Mean Platelet Volume 8.8 fL (9.4-12.4); Platelet Count 291 K/uL (130-400); RDW Coefficient of Variation 13.7 % (11.5-14.5); RDW Standard Deviation 42.3 fL (36.4-46.3); White Blood Count 18.26 K/ul (4.8-10.8)
[2022-06-04] MEDS ORDERED: GENTAMICIN CONSULT ACTIVE PRN (19:18)
[2022-06-04] MEDS: CLINDAMYCIN/D5W 900 MG/50 ML BAG IV SCH (19:36)
[2022-06-04 19:47] LABS: Basophils # (auto) 0.11 K/uL (0-0.2); Basophils % (auto) 0.6 %; Echinocytes 2+; Eosinophils # (auto) 0.07 K/uL (0-0.50); Eosinophils % (auto) 0.4 %; Immature Granulocytes # (auto) 0.06 K/uL (0.01-0.20); Immature Granulocytes % (auto) 0.3 %; Lymphocytes # (auto) 3.79 K/uL (1.2-3.4); Lymphocytes % (auto) 20.8 %; Monocytes % (auto) 4.4 %; Neutrophils # (auto) 13.43 K/uL (1.40-6.50); Neutrophils % (auto) 73.5 %
[2022-06-04] MEDS ORDERED: GENTAMICIN SULFATE IV ONE (20:00)
[2022-06-04] MEDS ORDERED: DEXTROSE 5% IV ONE (20:00)
--- NOTE | 2022-06-04 21:05 | Obstetrical Progress Note ---
Date of Service June 04, 2022 Assessment & Plan Admission and Anticipated Discharge Date Admission Date: June 03, 2022 Subjective Patient started to have increased pain this afternoon and unable to walk in hallways She has received IV Morphine earlier and now asking for PO Oxycodone. She c/o lower pelvic and vaginal pain. Paased gas once No BM Had lunch with no N7V, skipped dinner PE: Skin facial erythema, warm to touch, feels like she has fever, temp is 37.7 Abd soft, tender to palpation, ND, +BS, INCISIONS C/D/I VE; 1 finger, normal, no foreign objects Rectal exam, anal sph message done by patient's permission with her nurse in the room Vital Signs Temp Pulse Resp BP Pulse Ox O2 Del Method 06/04/22 16:25 36.9 C 86 20 96/55 L 100 Room Air 06/04/22 12:00 36.6 C 95 H 18 121/65 98 Room Air Lab Results 06/03/22 06/03/22 06/03/22 Range/Units 16:18 16:18 16:18 WBC 8.11 (4.8-10.8) K/ul RBC 4.41 (4.20-5.40) M/uL Hgb 12.1 (12.0-16.0) g/dl Hct 36.3 L (37.0-47.0) % MCV 82.3 (80.0-100.0) fL MCH 27.4 (25.0-34.0) pg MCHC 33.3 (32.0-36.0) g/dL RDW Std Deviation 41.3 (36.4-46.3) fL RDW Coeff of Myra 13.8 (11.5-14.5) % Plt Count 329 (130-400) K/uL MPV 8.5 L (9.4-12.4) fL Immature Gran % (Auto) 0.2 % Neut % (Auto) 32.5 % Lymph % (Auto) 57.2 % Andrew % (Auto) 7.4 % Eos % (Auto) 1.7 % Baso % (Auto) 1.0 % Neut # (Auto) 2.63 (1.40-6.50) K/uL Lymph # (Auto) 4.64 H (1.2-3.4) K/uL Andrew # (Auto) 0.60 H (0.11-0.59) K/uL Eos # (Auto) 0.14 (0-0.50) K/uL Baso # (Auto) 0.08 (0-0.2) K/uL Immature Gran # (Auto) 0.02 (0.01-0.20) K/uL Echinocytes Sodium 139 (136-145) mmol/L Potassium 3.4 L (3.5-5.1) mmol/L Chloride 105 (98-107) mmol/L Carbon Dioxide 28 (21-32) mmol/L Anion Gap 6 (3-11) BUN 9 (6-23) mg/dl Creatinine 0.55 L (0.6-1.2) mg/dl Est Cr Clr Drug Dosing 138.5 ml/min Est GFR ( Amer) > 150.0 ml/min Est GFR (Non-Af Amer) 133.1 ml/min BUN/Creatinine Ratio 16.4 (10-20) Glucose 91 (70-99(Fasting)) mg/dl Calcium 9.5 (8.6-10.3) mg/dl Total Bilirubin 0.3 (0.2-1.0) mg/dl AST 24 (13-39) U/L ALT 20 (7-52) U/L Alkaline Phosphatase 50 (34-104) U/L Total Protein 7.3 (6.0-8.3) gm/dl Albumin 4.5 (3.4-5.0) gm/dl Globulin 2.8 (2.5-4.0) gm/dl Albumin/Globulin Ratio 1.6 (0.9-2) Lipase 18 (11-82) U/L HCG, Quant 7249 mIU/ml Urine Color Urine Appearance (Clear) Urine pH (4.5-7.5) Ur Specific [place] (1.000-1.030) Urine Protein (Negative) Urine Glucose (UA) (Negative) Urine Ketones (Negative) Urine Blood (Negative) Urine Nitrite (Negative) Urine Bilirubin (Negative) Urine Urobilinogen (Negative) Ur Leukocyte Esterase (Negative) SARS-CoV-2, RNA, NAAT (NEGATIVE) Blood Type Antibody Screen 06/03/22 06/03/22 06/03/22 Range/Units 18:09 20:42 Unknown WBC (4.8-10.8) K/ul RBC (4.20-5.40) M/uL Hgb (12.0-16.0) g/dl Hct (37.0-47.0) % MCV (80.0-100.0) fL MCH (25.0-34.0) pg MCHC (32.0-36.0) g/dL RDW Std Deviation (36.4-46.3) fL RDW Coeff of Myra (11.5-14.5) % Plt Count (130-400) K/uL MPV (9.4-12.4) fL Immature Gran % (Auto) % Neut % (Auto) % Lymph % (Auto) % Andrew % (Auto) % Eos % (Auto) % Baso % (Auto) % Neut # (Auto) (1.40-6.50) K/uL Lymph # (Auto) (1.2-3.4) K/uL Andrew # (Auto) (0.11-0.59) K/uL Eos # (Auto) (0-0.50) K/uL Baso # (Auto) (0-0.2) K/uL Immature Gran # (Auto) (0.01-0.20) K/uL Echinocytes Sodium (136-145) mmol/L Potassium (3.5-5.1) mmol/L Chloride (98-107) mmol/L Carbon Dioxide (21-32) mmol/L Anion Gap (3-11) BUN (6-23) mg/dl Creatinine (0.6-1.2) mg/dl Est Cr Clr Drug Dosing ml/min Est GFR ( Amer) ml/min Est GFR (Non-Af Amer) ml/min BUN/Creatinine Ratio (10-20) Glucose (70-99(Fasting)) mg/dl Calcium (8.6-10.3) mg/dl Total Bilirubin (0.2-1.0) mg/dl AST (13-39) U/L ALT (7-52) U/L Alkaline Phosphatase (34-104) U/L Total Protein (6.0-8.3) gm/dl Albumin (3.4-5.0) gm/dl Globulin (2.5-4.0) gm/dl Albumin/Globulin Ratio (0.9-2) Lipase (11-82) U/L HCG, Quant mIU/ml Urine Color Yellow Urine Appearance Clear (Clear) Urine pH 7.5 (4.5-7.5) Ur Specific [place] 1.004 (1.000-1.030) Urine Protein Negative (Negative) Urine Glucose (UA) Negative (Negative) Urine Ketones Negative (Negative) Urine Blood Negative (Negative) Urine Nitrite Negative (Negative) Urine Bilirubin Negative (Negative) Urine Urobilinogen Negative (Negative) Ur Leukocyte Esterase Negative (Negative) SARS-CoV-2, RNA, NAAT NEGATIVE (NEGATIVE) Blood Type O Positive Antibody Screen NEGATIVE 06/04/22 06/04/22 06/04/22 Range/Units 05:56 17:30 17:30 WBC 9.84 18.26 H (4.8-10.8) K/ul RBC 4.23 4.20 (4.20-5.40) M/uL Hgb 11.5 L 11.6 L (12.0-16.0) g/dl Hct 34.2 L 35.4 L (37.0-47.0) % MCV 80.9 84.3 (80.0-100.0) fL MCH 27.2 27.6 (25.0-34.0) pg MCHC 33.6 32.8 (32.0-36.0) g/dL RDW Std Deviation 40.1 42.3 (36.4-46.3) fL RDW Coeff of Myra 13.7 13.7 (11.5-14.5) % Plt Count 292 291 (130-400) K/uL MPV 8.5 L 8.8 L (9.4-12.4) fL Immature Gran % (Auto) 0.3 % Neut % (Auto) 73.5 % Lymph % (Auto) 20.8 % Andrew % (Auto) 4.4 % Eos % (Auto) 0.4 % Baso % (Auto) 0.6 % Neut # (Auto) 13.43 H (1.40-6.50) K/uL Lymph # (Auto) 3.79 H (1.2-3.4) K/uL Andrew # (Auto) 0.80 H (0.11-0.59) K/uL Eos # (Auto) 0.07 (0-0.50) K/uL Baso # (Auto) 0.11 (0-0.2) K/uL Immature Gran # (Auto) 0.06 (0.01-0.20) K/uL Echinocytes 2+ Sodium 135 L (136-145) mmol/L Potassium 3.8 (3.5-5.1) mmol/L Chloride 105 (98-107) mmol/L Carbon Dioxide 22 (21-32) mmol/L Anion Gap 8 (3-11) BUN 10 (6-23) mg/dl Creatinine 0.62 (0.6-1.2) mg/dl Est Cr Clr Drug Dosing 122.9 ml/min Est GFR ( Amer) 148.3 ml/min Est GFR (Non-Af Amer) 128.0 ml/min BUN/Creatinine Ratio 16.1 (10-20) Glucose 116 H (70-99(Fasting)) mg/dl Calcium 8.4 L (8.6-10.3) mg/dl Total Bilirubin 0.3 (0.2-1.0) mg/dl AST 30 (13-39) U/L ALT 18 (7-52) U/L Alkaline Phosphatase 41 (34-104) U/L Total Protein 6.3 (6.0-8.3) gm/dl Albumin 3.6 (3.4-5.0) gm/dl Globulin 2.7 (2.5-4.0) gm/dl Albumin/Globulin Ratio 1.3 (0.9-2) Lipase (11-82) U/L HCG, Quant mIU/ml Urine Color Urine Appearance (Clear) Urine pH (4.5-7.5) Ur Specific [place] (1.000-1.030) Urine Protein (Negative) Urine Glucose (UA) (Negative) Urine Ketones (Negative) Urine Blood (Negative) Urine Nitrite (Negative) Urine Bilirubin (Negative) Urine Urobilinogen (Negative) Ur Leukocyte Esterase (Negative) SARS-CoV-2, RNA, NAAT (NEGATIVE) Blood Type Antibody Screen H&H stable Elevated WBCC, low K Plan to start IV AB, KCL, PO reglan, continue to monitor closely Results & Data Vital Signs (Past 12 Hours) Vital Signs Temp Pulse Resp BP Pulse Ox O2 Del Method 06/04/22 16:25 36.9 C 86 20 96/55 L 100 Room Air 06/04/22 12:00 36.6 C 95 H 18 121/65 98 Room Air 06/04/22 09:05 37 C 93 H 16 109/62 100 Room Air
[2022-06-04] MEDS: METOCLOPRAMIDE HCL 10 MG TABLET PO SCH (21:15)
[2022-06-04] MEDS ORDERED: SIMETHICONE 80 MG CHEW PO ONE (21:27)
[2022-06-04] MEDS ORDERED: Nursing to Pharmacy Communication SCH (21:45)
[2022-06-04] MEDS: POTASSIUM CHLORIDE / WTR 10 MEQ/100 ML PLCT IV SCH ×2 (21:47→22:58)
[2022-06-04] MEDS ORDERED: ACETAMINOPHEN 325 MG TAB PO STA (23:14)
--- NOTE | 2022-06-05 00:43 | Gynecologic Progress Note ---
Date of Service June 05, 2022 Assessment & Plan Admission and Anticipated Discharge Date Admission Date: June 03, 2022 Subjective Patient is reevaluated. She has been sleeping. We had to woke her up to talk. Denies pain in abdomen/ pelvis nor vagina. No CP/SOB/ Fever/ chills Temp has came down CXR appears normal, report pending. Abd soft, NT, ND, incisions C/D/I No VB Continue to monitor closely Moraning labs Results & Data Vital Signs (Past 12 Hours) Vital Signs Temp Pulse Resp BP Pulse Ox O2 Del Method 06/05/22 00:35 37.0 C 06/04/22 23:03 38.4 C H 105 H 18 117/57 L 96 Room Air 06/04/22 22:00 37.5 C 06/04/22 20:15 37.6 C H 06/04/22 21:15 38.4 C H 06/04/22 19:30 Room Air 06/04/22 19:30 37.1 C 108 H 18 116/60 94 Room Air 06/04/22 16:25 36.9 C 86 20 96/55 L 100 Room Air
[2022-06-05] MEDS: IBUPROFEN 600 MG TAB PO PRN (02:03)
[2022-06-05] MEDS: METOCLOPRAMIDE HCL 10 MG TABLET PO SCH ×4 (02:05→19:42)
[2022-06-05] MEDS: CLINDAMYCIN/D5W 900 MG/50 ML BAG IV SCH ×2 (03:40→12:06)
[2022-06-05] MEDS: oxyCODONE HCL IR 5 MG TAB (IMMEDIATE RELEASE) PO PRN ×3 (05:02→23:25)
--- NOTE | 2022-06-05 07:02 | XRay Report ---
TWO VIEW CHEST CLINICAL HISTORY: Postoperative fever. FINDINGS: PA and lateral chest radiographs are obtained. No prior studies are available for compariso n at the time of dictation. The cardiomediastinal silhouette is unremarkable. The lungs and pleural spaces are clear. There is no pneumothorax. The bony thorax appears intact. Intraperitoneal free air is seen below the diaphragm. IMPRESSION: 1. The lungs are clear. 2. Intraperitoneal free air is seen below the diaphragm. This may be related to recent surgery and cl inical correlation will be essential. ACT 112: Negative or not required by law. Electronically signed by: Delta Loredo M.D. 06/05/2022 7:01 AM
[2022-06-05 07:34] LABS: Hematocrit (blood only) 32.1 % (37.0-47.0); Mean Corpuscular Hemoglobin 27.5 pg (25.0-34.0); Mean Corpuscular Hgb Conc 34.3 g/dL (32.0-36.0); Mean Corpuscular Volume 80.3 fL (80.0-100.0); Mean Platelet Volume 8.5 fL (9.4-12.4); Platelet Count 283 K/uL (130-400); RDW Standard Deviation 40.9 fL (36.4-46.3); White Blood Count 24.61 K/ul (4.8-10.8)
[2022-06-05] MEDS ORDERED: SIMETHICONE 80 MG CHEW PO PRN (08:00)
[2022-06-05 08:06] LABS: Albumin Globulin Ratio 1.4 (0.9-2); Albumin Level 3.3 gm/dl (3.4-5.0); BUN Creatinine Ratio 13.8 (10-20); Bilirubin,Total 0.6 mg/dl (0.2-1.0); Calcium 8.3 mg/dl (8.6-10.3); Creatinine Clr Calc Pharmacy 117.2 ml/min; Est GFR (African American) 146.1 ml/min; Globulin 2.4 gm/dl (2.5-4.0); Potassium 3.7 mmol/L (3.5-5.1); Total Protein 5.7 gm/dl (6.0-8.3)
--- NOTE | 2022-06-05 08:30 | Gynecologic Progress Note ---
Date of Service June 05, 2022 Assessment & Plan Admission and Anticipated Discharge Date Admission Date: June 03, 2022 Subjective Patient slept for most of the night. Now she states she is about the same, pain is 5/10. Unable to pass gas Afebrile since MN. WBCC is more elevated 24 K. Abd: tender to palpation, guarding+, slightly distended compared to yesterday, decreased BS Plan to order CT of abdomen pelvis, signed out to Dr Dias. Lab Results 06/03/22 06/03/22 06/03/22 Range/Units 16:18 16:18 16:18 WBC 8.11 (4.8-10.8) K/ul RBC 4.41 (4.20-5.40) M/uL Hgb 12.1 (12.0-16.0) g/dl Hct 36.3 L (37.0-47.0) % MCV 82.3 (80.0-100.0) fL MCH 27.4 (25.0-34.0) pg MCHC 33.3 (32.0-36.0) g/dL RDW Std Deviation 41.3 (36.4-46.3) fL RDW Coeff of Myra 13.8 (11.5-14.5) % Plt Count 329 (130-400) K/uL MPV 8.5 L (9.4-12.4) fL Immature Gran % (Auto) 0.2 % Neut % (Auto) 32.5 % Lymph % (Auto) 57.2 % [place] % (Auto) 7.4 % Eos % (Auto) 1.7 % Baso % (Auto) 1.0 % Neut # (Auto) 2.63 (1.40-6.50) K/uL Lymph # (Auto) 4.64 H (1.2-3.4) K/uL [place] # (Auto) 0.60 H (0.11-0.59) K/uL Eos # (Auto) 0.14 (0-0.50) K/uL Baso # (Auto) 0.08 (0-0.2) K/uL Immature Gran # (Auto) 0.02 (0.01-0.20) K/uL Absolute Nucleated RBC Nucleated RBC % (auto) Neutrophils % (Manual) Band Neutrophils % Lymphocytes % (Manual) Prolymphocyte % Reactive Lymphs % (Man) Monocytes % (Manual) Eosinophils % (Manual) Basophils % (Manual) Metamyelocytes % (Man) Myelocytes % (Man) Promyelocytes % (Man) Blast Cells % (Manual) Plasma Cell % (Manual) Other Cells % Nucleated RBC % Neutrophils # (Manual) Band Neutrophils # Total Absolute Neuts Lymphocytes # (Manual) Prolymphocyte # Reactive Lymphs # Total Abs Lymphocytes Monocytes # (Manual) Eosinophils # (Manual) Basophils # (Manual) Metamyelocytes # (Man) Myelocytes # (Manual) Promyelocytes # (Man) Blast Cells # (Man) Plasma Cell # (Manual) Other Cells # Nucleated RBCs # (Man) Hypersegmented Neuts Hyposegmented Neuts Hypogranular Neuts Large Granular Lymphs # Lrg Granular Lymphs Hairy Cells Smudge Cells Toxic Granulation Toxic Vacuolation Dohle Bodies David Rods Platelet Estimate Hypogranular Platelets Giant Platelets Platelet Satelliting RBC Morphology Polychromasia Hypochromasia Poikilocytosis Basophilic Stippling Anisocytosis Microcytosis Macrocytosis Spherocytes Pappenheimer Bodies Sickle Cells Target Cells Tear Drop Cells Ovalocytes Stomatocytes Hunter-Sprague Bodies Echinocytes Acanthocytes (Spur) Rouleaux RBC Agglutinates Schistocytes Sezary Cell Sodium 139 (136-145) mmol/L Potassium 3.4 L (3.5-5.1) mmol/L Chloride 105 (98-107) mmol/L Carbon Dioxide 28 (21-32) mmol/L Anion Gap 6 (3-11) BUN 9 (6-23) mg/dl Creatinine 0.55 L (0.6-1.2) mg/dl Est Cr Clr Drug Dosing 138.5 ml/min Est GFR ( Amer) > 150.0 ml/min Est GFR (Non-Af Amer) 133.1 ml/min BUN/Creatinine Ratio 16.4 (10-20) Glucose 91 (70-99(Fasting)) mg/dl Calcium 9.5 (8.6-10.3) mg/dl Total Bilirubin 0.3 (0.2-1.0) mg/dl AST 24 (13-39) U/L ALT 20 (7-52) U/L Alkaline Phosphatase 50 (34-104) U/L Total Protein 7.3 (6.0-8.3) gm/dl Albumin 4.5 (3.4-5.0) gm/dl Globulin 2.8 (2.5-4.0) gm/dl Albumin/Globulin Ratio 1.6 (0.9-2) Lipase 18 (11-82) U/L HCG, Quant 7249 mIU/ml Urine Color Urine Appearance (Clear) Urine pH (4.5-7.5) Ur Specific Bishop (1.000-1.030) Urine Protein (Negative) Urine Glucose (UA) (Negative) Urine Ketones (Negative) Urine Blood (Negative) Urine Nitrite (Negative) Urine Bilirubin (Negative) Urine Urobilinogen (Negative) Ur Leukocyte Esterase (Negative) SARS-CoV-2, RNA, NAAT (NEGATIVE) Blood Parasites ID Blood Type Antibody Screen 06/03/22 06/03/22 06/03/22 Range/Units 18:09 20:42 Unknown WBC (4.8-10.8) K/ul RBC (4.20-5.40) M/uL Hgb (12.0-16.0) g/dl Hct (37.0-47.0) % MCV (80.0-100.0) fL MCH (25.0-34.0) pg MCHC (32.0-36.0) g/dL RDW Std Deviation (36.4-46.3) fL RDW Coeff of Myra (11.5-14.5) % Plt Count (130-400) K/uL MPV (9.4-12.4) fL Immature Gran % (Auto) % Neut % (Auto) % Lymph % (Auto) % [place] % (Auto) % Eos % (Auto) % Baso % (Auto) % Neut # (Auto) (1.40-6.50) K/uL Lymph # (Auto) (1.2-3.4) K/uL [place] # (Auto) (0.11-0.59) K/uL Eos # (Auto) (0-0.50) K/uL Baso # (Auto) (0-0.2) K/uL Immature Gran # (Auto) (0.01-0.20) K/uL Absolute Nucleated RBC Nucleated RBC % (auto) Neutrophils % (Manual) Band Neutrophils % Lymphocytes % (Manual) Prolymphocyte % Reactive Lymphs % (Man) Monocytes % (Manual) Eosinophils % (Manual) Basophils % (Manual) Metamyelocytes % (Man) Myelocytes % (Man) Promyelocytes % (Man) Blast Cells % (Manual) Plasma Cell % (Manual) Other Cells % Nucleated RBC % Neutrophils # (Manual) Band Neutrophils # Total Absolute Neuts Lymphocytes # (Manual) Prolymphocyte # Reactive Lymphs # Total Abs Lymphocytes Monocytes # (Manual) Eosinophils # (Manual) Basophils # (Manual) Metamyelocytes # (Man) Myelocytes # (Manual) Promyelocytes # (Man) Blast Cells # (Man) Plasma Cell # (Manual) Other Cells # Nucleated RBCs # (Man) Hypersegmented Neuts Hyposegmented Neuts Hypogranular Neuts Large Granular Lymphs # Lrg Granular Lymphs Hairy Cells Smudge Cells Toxic Granulation Toxic Vacuolation Dohle Bodies David Rods Platelet Estimate Hypogranular Platelets Giant Platelets Platelet Satelliting RBC Morphology Polychromasia Hypochromasia Poikilocytosis Basophilic Stippling Anisocytosis Microcytosis Macrocytosis Spherocytes Pappenheimer Bodies Sickle Cells Target Cells Tear Drop Cells Ovalocytes Stomatocytes Hunter-Sprague Bodies Echinocytes Acanthocytes (Spur) Rouleaux RBC Agglutinates Schistocytes Sezary Cell Sodium (136-145) mmol/L Potassium (3.5-5.1) mmol/L Chloride (98-107) mmol/L Carbon Dioxide (21-32) mmol/L Anion Gap (3-11) BUN (6-23) mg/dl Creatinine (0.6-1.2) mg/dl Est Cr Clr Drug Dosing ml/min Est GFR ( Amer) ml/min Est GFR (Non-Af Amer) ml/min BUN/Creatinine Ratio (10-20) Glucose (70-99(Fasting)) mg/dl Calcium (8.6-10.3) mg/dl Total Bilirubin (0.2-1.0) mg/dl AST (13-39) U/L ALT (7-52) U/L Alkaline Phosphatase (34-104) U/L Total Protein (6.0-8.3) gm/dl Albumin (3.4-5.0) gm/dl Globulin (2.5-4.0) gm/dl Albumin/Globulin Ratio (0.9-2) Lipase (11-82) U/L HCG, Quant mIU/ml Urine Color Yellow Urine Appearance Clear (Clear) Urine pH 7.5 (4.5-7.5) Ur Specific Bishop 1.004 (1.000-1.030) Urine Protein Negative (Negative) Urine Glucose (UA) Negative (Negative) Urine Ketones Negative (Negative) Urine Blood Negative (Negative) Urine Nitrite Negative (Negative) Urine Bilirubin Negative (Negative) Urine Urobilinogen Negative (Negative) Ur Leukocyte Esterase Negative (Negative) SARS-CoV-2, RNA, NAAT NEGATIVE (NEGATIVE) Blood Parasites ID Blood Type O Positive Antibody Screen NEGATIVE 06/04/22 06/04/22 06/04/22 Range/Units 05:56 17:30 17:30 WBC 9.84 18.26 H (4.8-10.8) K/ul RBC 4.23 4.20 (4.20-5.40) M/uL Hgb 11.5 L 11.6 L (12.0-16.0) g/dl Hct 34.2 L 35.4 L (37.0-47.0) % MCV 80.9 84.3 (80.0-100.0) fL MCH 27.2 27.6 (25.0-34.0) pg MCHC 33.6 32.8 (32.0-36.0) g/dL RDW Std Deviation 40.1 42.3 (36.4-46.3) fL RDW Coeff of Myra 13.7 13.7 (11.5-14.5) % Plt Count 292 291 (130-400) K/uL MPV 8.5 L 8.8 L (9.4-12.4) fL Immature Gran % (Auto) 0.3 % Neut % (Auto) 73.5 % Lymph % (Auto) 20.8 % [place] % (Auto) 4.4 % Eos % (Auto) 0.4 % Baso % (Auto) 0.6 % Neut # (Auto) 13.43 H (1.40-6.50) K/uL Lymph # (Auto) 3.79 H (1.2-3.4) K/uL [place] # (Auto) 0.80 H (0.11-0.59) K/uL Eos # (Auto) 0.07 (0-0.50) K/uL Baso # (Auto) 0.11 (0-0.2) K/uL Immature Gran # (Auto) 0.06 (0.01-0.20) K/uL Absolute Nucleated RBC Nucleated RBC % (auto) Neutrophils % (Manual) Band Neutrophils % Lymphocytes % (Manual) Prolymphocyte % Reactive Lymphs % (Man) Monocytes % (Manual) Eosinophils % (Manual) Basophils % (Manual) Metamyelocytes % (Man) Myelocytes % (Man) Promyelocytes % (Man) Blast Cells % (Manual) Plasma Cell % (Manual) Other Cells % Nucleated RBC % Neutrophils # (Manual) Band Neutrophils # Total Absolute Neuts Lymphocytes # (Manual) Prolymphocyte # Reactive Lymphs # Total Abs Lymphocytes Monocytes # (Manual) Eosinophils # (Manual) Basophils # (Manual) Metamyelocytes # (Man) Myelocytes # (Manual) Promyelocytes # (Man) Blast Cells # (Man) Plasma Cell # (Manual) Other Cells # Nucleated RBCs # (Man) Hypersegmented Neuts Hyposegmented Neuts Hypogranular Neuts Large Granular Lymphs # Lrg Granular Lymphs Hairy Cells Smudge Cells Toxic Granulation Toxic Vacuolation Dohle Bodies David Rods Platelet Estimate Hypogranular Platelets Giant Platelets Platelet Satelliting RBC Morphology Polychromasia Hypochromasia Poikilocytosis Basophilic Stippling Anisocytosis Microcytosis Macrocytosis Spherocytes Pappenheimer Bodies Sickle Cells Target Cells Tear Drop Cells Ovalocytes Stomatocytes Hunter-Sprague Bodies Echinocytes 2+ Acanthocytes (Spur) Rouleaux RBC Agglutinates Schistocytes Sezary Cell Sodium 135 L (136-145) mmol/L Potassium 3.8 (3.5-5.1) mmol/L Chloride 105 (98-107) mmol/L Carbon Dioxide 22 (21-32) mmol/L Anion Gap 8 (3-11) BUN 10 (6-23) mg/dl Creatinine 0.62 (0.6-1.2) mg/dl Est Cr Clr Drug Dosing 122.9 ml/min Est GFR ( Amer) 148.3 ml/min Est GFR (Non-Af Amer) 128.0 ml/min BUN/Creatinine Ratio 16.1 (10-20) Glucose 116 H (70-99(Fasting)) mg/dl Calcium 8.4 L (8.6-10.3) mg/dl Total Bilirubin 0.3 (0.2-1.0) mg/dl AST 30 (13-39) U/L ALT 18 (7-52) U/L Alkaline Phosphatase 41 (34-104) U/L Total Protein 6.3 (6.0-8.3) gm/dl Albumin 3.6 (3.4-5.0) gm/dl Globulin 2.7 (2.5-4.0) gm/dl Albumin/Globulin Ratio 1.3 (0.9-2) Lipase (11-82) U/L HCG, Quant mIU/ml Urine Color Urine Appearance (Clear) Urine pH (4.5-7.5) Ur Specific Bishop (1.000-1.030) Urine Protein (Negative) Urine Glucose (UA) (Negative) Urine Ketones (Negative) Urine Blood (Negative) Urine Nitrite (Negative) Urine Bilirubin (Negative) Urine Urobilinogen (Negative) Ur Leukocyte Esterase (Negative) SARS-CoV-2, RNA, NAAT (NEGATIVE) Blood Parasites ID Blood Type Antibody Screen 06/05/22 06/05/22 06/05/22 Range/Units 05:53 05:53 07:09 WBC Cancelled 24.61 H (4.8-10.8) K/ul RBC Cancelled 4.00 L (4.20-5.40) M/uL Hgb Cancelled 11.0 L (12.0-16.0) g/dl Hct Cancelled 32.1 L (37.0-47.0) % MCV Cancelled 80.3 (80.0-100.0) fL MCH Cancelled 27.5 (25.0-34.0) pg MCHC Cancelled 34.3 (32.0-36.0) g/dL RDW Std Deviation Cancelled 40.9 (36.4-46.3) fL RDW Coeff of Myra Cancelled 14.0 (11.5-14.5) % Plt Count Cancelled 283 (130-400) K/uL MPV Cancelled 8.5 L (9.4-12.4) fL Immature Gran % (Auto) Cancelled % Neut % (Auto) Cancelled % Lymph % (Auto) Cancelled % [place] % (Auto) Cancelled % Eos % (Auto) Cancelled % Baso % (Auto) Cancelled % Neut # (Auto) Cancelled (1.40-6.50) K/uL Lymph # (Auto) Cancelled (1.2-3.4) K/uL [place] # (Auto) Cancelled (0.11-0.59) K/uL Eos # (Auto) Cancelled (0-0.50) K/uL Baso # (Auto) Cancelled (0-0.2) K/uL Immature Gran # (Auto) Cancelled (0.01-0.20) K/uL Absolute Nucleated RBC Cancelled Nucleated RBC % (auto) Cancelled Neutrophils % (Manual) Cancelled Band Neutrophils % Cancelled Lymphocytes % (Manual) Cancelled Prolymphocyte % Cancelled Reactive Lymphs % (Man) Cancelled Monocytes % (Manual) Cancelled Eosinophils % (Manual) Cancelled Basophils % (Manual) Cancelled Metamyelocytes % (Man) Cancelled Myelocytes % (Man) Cancelled Promyelocytes % (Man) Cancelled Blast Cells % (Manual) Cancelled Plasma Cell % (Manual) Cancelled Other Cells % Cancelled Nucleated RBC % Cancelled Neutrophils # (Manual) Cancelled Band Neutrophils # Cancelled Total Absolute Neuts Cancelled Lymphocytes # (Manual) Cancelled Prolymphocyte # Cancelled Reactive Lymphs # Cancelled Total Abs Lymphocytes Cancelled Monocytes # (Manual) Cancelled Eosinophils # (Manual) Cancelled Basophils # (Manual) Cancelled Metamyelocytes # (Man) Cancelled Myelocytes # (Manual) Cancelled Promyelocytes # (Man) Cancelled Blast Cells # (Man) Cancelled Plasma Cell # (Manual) Cancelled Other Cells # Cancelled Nucleated RBCs # (Man) Cancelled Hypersegmented Neuts Cancelled Hyposegmented Neuts Cancelled Hypogranular Neuts Cancelled Large Granular Lymphs Cancelled # Lrg Granular Lymphs Cancelled Hairy Cells Cancelled Smudge Cells Cancelled Toxic Granulation Cancelled Toxic Vacuolation Cancelled Dohle Bodies Cancelled David Rods Cancelled Platelet Estimate Cancelled Hypogranular Platelets Cancelled Giant Platelets Cancelled Platelet Satelliting Cancelled RBC Morphology Cancelled Polychromasia Cancelled Hypochromasia Cancelled Poikilocytosis Cancelled Basophilic Stippling Cancelled Anisocytosis Cancelled Microcytosis Cancelled Macrocytosis Cancelled Spherocytes Cancelled Pappenheimer Bodies Cancelled Sickle Cells Cancelled Target Cells Cancelled Tear Drop Cells Cancelled Ovalocytes Cancelled Stomatocytes Cancelled Hunter-Sprague Bodies Cancelled Echinocytes Cancelled Acanthocytes (Spur) Cancelled Rouleaux Cancelled RBC Agglutinates Cancelled Schistocytes Cancelled Sezary Cell Cancelled Sodium 133 L (136-145) mmol/L Potassium 3.7 (3.5-5.1) mmol/L Chloride 103 (98-107) mmol/L Carbon Dioxide 19 L (21-32) mmol/L Anion Gap 11 (3-11) BUN 9 (6-23) mg/dl Creatinine 0.65 (0.6-1.2) mg/dl Est Cr Clr Drug Dosing 117.2 ml/min Est GFR ( Amer) 146.1 ml/min Est GFR (Non-Af Amer) 126.0 ml/min BUN/Creatinine Ratio 13.8 (10-20) Glucose 141 H (70-99(Fasting)) mg/dl Calcium 8.3 L (8.6-10.3) mg/dl Total Bilirubin 0.6 (0.2-1.0) mg/dl AST 27 (13-39) U/L ALT 18 (7-52) U/L Alkaline Phosphatase 35 (34-104) U/L Total Protein 5.7 L (6.0-8.3) gm/dl Albumin 3.3 L (3.4-5.0) gm/dl Globulin 2.4 L (2.5-4.0) gm/dl Albumin/Globulin Ratio 1.4 (0.9-2) Lipase (11-82) U/L HCG, Quant mIU/ml Urine Color Urine Appearance (Clear) Urine pH (4.5-7.5) Ur Specific Bishop (1.000-1.030) Urine Protein (Negative) Urine Glucose (UA) (Negative) Urine Ketones (Negative) Urine Blood (Negative) Urine Nitrite (Negative) Urine Bilirubin (Negative) Urine Urobilinogen (Negative) Ur Leukocyte Esterase (Negative) SARS-CoV-2, RNA, NAAT (NEGATIVE) Blood Parasites ID Cancelled Blood Type Antibody Screen Results & Data Vital Signs (Past 12 Hours) Vital Signs Temp Pulse Resp BP Pulse Ox O2 Del Method 06/05/22 03:30 37.3 C 105 H 18 110/62 96 Room Air 06/05/22 04:53 36.8 C 108 H 16 105/60 98 Room Air 06/05/22 02:00 37.7 C H 06/05/22 00:35 37.0 C 06/04/22 23:03 38.4 C H 105 H 18 117/57 L 96 Room Air 06/04/22 22:00 37.5 C 06/04/22 21:15 38.4 C H
[2022-06-05 08:48] LABS: Basophils # (auto) 0.07 K/uL (0-0.2); Basophils % (auto) 0.3 %; Echinocytes 1+; Immature Granulocytes % (auto) 0.8 %; Lymphocytes # (auto) 3.48 K/uL (1.2-3.4); Lymphocytes % (auto) 14.1 %; Monocytes # (auto) 0.38 K/uL (0.11-0.59); Monocytes % (auto) 1.5 %; Neutrophils # (auto) 20.48 K/uL (1.40-6.50); Neutrophils % (auto) 83.3 %; Ovalocytes 1+
[2022-06-05] MEDS: LACTATED RINGER'S 1,000 ML IV SCH ×3 (08:54→20:35)
[2022-06-05] MEDS: KETOROLAC 30 MG/ML VIAL IV PRN ×2 (10:49→19:43)
[2022-06-05] MEDS ORDERED: OPTIRAY 350 100ml IV ONE (11:35)
[2022-06-05] MEDS ORDERED: DEXTROSE 5% IV SCH ×2 (12:00→20:00)
[2022-06-05] MEDS ORDERED: GENTAMICIN SULFATE IV SCH ×2 (12:00→20:00)
--- NOTE | 2022-06-05 12:10 | Pharmacy Report ---
Pharmacy PK ABX Note - Date of Service June 05, 2022 - Assessment and Plan Assessment 22 year old F receiving gentamicin and clindamycin for treatment of infection. Blood cultures pending, renal function stable. Day #1 of antimicrobial therapy. Plan Gentamicin * Gentamicin 290mg X 1 last evening (~5mg/kg- Urban-Deni) * Random level this AM (~9hr level), 1.15mcg/mL. * Based upon Urban-Deni nomogram, will initiate gentamicin 5mg/kg IV q24H * Will repeat a level in 48-72h if gentamicin continued, or sooner if clinically indicated Pharmacy will continue to follow and will adjust dose/frequency as necessary. Thank you.
--- NOTE | 2022-06-05 12:15 | CT Scan Report ---
ABDOMEN AND PELVIS CT WITH IV AND ORAL CONTRAST CT DOSE: 319.83 mGy.cm HISTORY: postop pain, no bowel sounds TECHNIQUE: Multiaxial CT images of the abdomen and pelvis were performed following the use of intrave nous and oral contrast. A dose lowering technique was utilized adhering to the principles of ALARA. COMPARISON STUDY: Pelvic ultrasound 06/03/2022. FINDINGS: The lung bases are clear. Small amount of pneumoperitoneum. This is nonspecific but favors the recent postoperative change rather than bowel perforation. No pneumatosis identified. No acute fr actures. The liver, gallbladder, pancreas, spleen, and adrenal glands are unremarkable. The kidneys e nhance normally. No hydronephrosis. The main portal vein is patent. No retroperitoneal hematoma or ly mphadenopathy. Normal caliber abdominal aorta. The major mesenteric vessels appear patent. Small to m oderate amount of fluid seen throughout the abdomen and pelvis. This is partially likely within the p elvic cul-de-sac. This demonstrates slight increased density and may represent hemoperitoneum. Within the left lower paracolic gutter on image 340 there is a small focus of hyperdensity which is concern ing for active arterial extravasation. The bladder is unremarkable. The uterus enhances normally. [place] ateral ovaries are symmetric in size. Moderate stool within the proximal colon. Normal appendix. Mult iple thickened loops of small bowel seen throughout the abdomen which are also slightly dilated. No t ransition point to suggest a small bowel obstruction. IMPRESSION: 1. Small amount of pneumoperitoneum. This is nonspecific but favors the recent postoperative change. 2. Small to moderate amount of intermediate density fluid seen throughout the abdomen and pelvis. Thi s is concerning for hemoperitoneum. This is partially loculated within the pelvic cul-de-sac. Superin fection would be difficult to exclude but considered less likely given the recent postoperative fish e. 3. Within the left lower paracolic gutter there is a punctate focus of increased density . This could represent a small focus of active arterial extravasation. Recommend correlation with the patient's h emoglobin/hematocrit. 4. Near diffuse small bowel wall thickening consistent with a nonspecific enteritis. This could be re active from a mild peritonitis are the suspected hemoperitoneum. 5. No evidence for bowel obstruction. 6. Normal appendix. ACT 112: Negative or not required by law. Electronically signed by: Winston Pérez M.D. 06/05/2022 12:14 PM
--- NOTE | 2022-06-05 12:36 | Progress Note ---
Date of Service June 05, 2022 Assessment & Plan (1) Post-op pain: Plan: CT findings were reviewed with on-call radiologist, they do not believe patient is actively bleeding and his hemoglobin has been stable. More concerning for postop abscess, as patient had fevers overnight and elevated white count. 12 PM CBC pending at this time however lactate was normal earlier today. Patient is currently on gentamicin and clindamycin. Plan to keep patient n.p.o. and LR fluids at 80 at this time Will consult internal medicine to help manage patient's postop infection, and help with IV antibiotics. (2) Ectopic : Admission and Anticipated Discharge Date Admission Date: June 03, 2022 Subjective Patient came back from CT scan, informed by nursing that patient appeared to be more distended. Still having pain, received 1 dose of Toradol. Uncomfortable in bed Results & Data Vital Signs (Past 12 Hours) Vital Signs Temp Pulse Resp BP Pulse Ox O2 Del Method 06/05/22 12:07 36.5 C 91 H 16 108/59 L 98 Room Air 06/05/22 08:11 36.6 C 90 16 104/52 L 98 Room Air 06/05/22 03:30 37.3 C 105 H 18 110/62 96 Room Air 06/05/22 04:53 36.8 C 108 H 16 105/60 98 Room Air 06/05/22 02:00 37.7 C H 06/05/22 00:35 37.0 C Laboratory Results Laboratory Results WBC 24.61 K/ul (4.8-10.8) H 06/05/22 07:09 RBC 4.00 M/uL (4.20-5.40) L 06/05/22 07:09 Hgb 11.0 g/dl (12.0-16.0) L 06/05/22 07:09 Hct 32.1 % (37.0-47.0) L 06/05/22 07:09 MCV 80.3 fL (80.0-100.0) 06/05/22 07:09 MCH 27.5 pg (25.0-34.0) 06/05/22 07:09 MCHC 34.3 g/dL (32.0-36.0) 06/05/22 07:09 RDW Std Deviation 40.9 fL (36.4-46.3) 06/05/22 07:09 RDW Coeff of Myra 14.0 % (11.5-14.5) 06/05/22 07:09 Plt Count 283 K/uL (130-400) 06/05/22 07:09 MPV 8.5 fL (9.4-12.4) L 06/05/22 07:09 Immature Gran % (Auto) 0.8 % 06/05/22 07:09 Neut % (Auto) 83.3 % 06/05/22 07:09 Lymph % (Auto) 14.1 % 06/05/22 07:09 Spink % (Auto) 1.5 % 06/05/22 07:09 Eos % (Auto) 0.0 % 06/05/22 07:09 Baso % (Auto) 0.3 % 06/05/22 07:09 Neut # (Auto) 20.48 K/uL (1.40-6.50) H 06/05/22 07:09 Lymph # (Auto) 3.48 K/uL (1.2-3.4) H 06/05/22 07:09 Spink # (Auto) 0.38 K/uL (0.11-0.59) 06/05/22 07:09 Eos # (Auto) 0.00 K/uL (0-0.50) 06/05/22 07:09 Baso # (Auto) 0.07 K/uL (0-0.2) 06/05/22 07:09 Immature Gran # (Auto) 0.20 K/uL (0.01-0.20) 06/05/22 07:09 Absolute Nucleated RBC Cancelled 06/05/22 05:53 Nucleated RBC % (auto) Cancelled 06/05/22 05:53 Neutrophils % (Manual) Cancelled 06/05/22 05:53 Band Neutrophils % Cancelled 06/05/22 05:53 Lymphocytes % (Manual) Cancelled 06/05/22 05:53 Prolymphocyte % Cancelled 06/05/22 05:53 Reactive Lymphs % (Man) Cancelled 06/05/22 05:53 Monocytes % (Manual) Cancelled 06/05/22 05:53 Eosinophils % (Manual) Cancelled 06/05/22 05:53 Basophils % (Manual) Cancelled 06/05/22 05:53 Metamyelocytes % (Man) Cancelled 06/05/22 05:53 Myelocytes % (Man) Cancelled 06/05/22 05:53 Promyelocytes % (Man) Cancelled 06/05/22 05:53 Blast Cells % (Manual) Cancelled 06/05/22 05:53 Plasma Cell % (Manual) Cancelled 06/05/22 05:53 Other Cells % Cancelled 06/05/22 05:53 Nucleated RBC % Cancelled 06/05/22 05:53 Neutrophils # (Manual) Cancelled 06/05/22 05:53 Band Neutrophils # Cancelled 06/05/22 05:53 Total Absolute Neuts Cancelled 06/05/22 05:53 Lymphocytes # (Manual) Cancelled 06/05/22 05:53 Prolymphocyte # Cancelled 06/05/22 05:53 Reactive Lymphs # Cancelled 06/05/22 05:53 Total Abs Lymphocytes Cancelled 06/05/22 05:53 Monocytes # (Manual) Cancelled 06/05/22 05:53 Eosinophils # (Manual) Cancelled 06/05/22 05:53 Basophils # (Manual) Cancelled 06/05/22 05:53 Metamyelocytes # (Man) Cancelled 06/05/22 05:53 Myelocytes # (Manual) Cancelled 06/05/22 05:53 Promyelocytes # (Man) Cancelled 06/05/22 05:53 Blast Cells # (Man) Cancelled 06/05/22 05:53 Plasma Cell # (Manual) Cancelled 06/05/22 05:53 Other Cells # Cancelled 06/05/22 05:53 Nucleated RBCs # (Man) Cancelled 06/05/22 05:53 Hypersegmented Neuts Cancelled 06/05/22 05:53 Hyposegmented Neuts Cancelled 06/05/22 05:53 Hypogranular Neuts Cancelled 06/05/22 05:53 Large Granular Lymphs Cancelled 06/05/22 05:53 # Lrg Granular Lymphs Cancelled 06/05/22 05:53 Hairy Cells Cancelled 06/05/22 05:53 Smudge Cells Cancelled 06/05/22 05:53 Toxic Granulation Cancelled 06/05/22 05:53 Toxic Vacuolation Cancelled 06/05/22 05:53 Dohle Bodies Cancelled 06/05/22 05:53 David Rods Cancelled 06/05/22 05:53 Platelet Estimate Cancelled 06/05/22 05:53 Hypogranular Platelets Cancelled 06/05/22 05:53 Giant Platelets Cancelled 06/05/22 05:53 Platelet Satelliting Cancelled 06/05/22 05:53 RBC Morphology Cancelled 06/05/22 05:53 Polychromasia Cancelled 06/05/22 05:53 Hypochromasia Cancelled 06/05/22 05:53 Poikilocytosis Cancelled 06/05/22 05:53 Basophilic Stippling Cancelled 06/05/22 05:53 Anisocytosis Cancelled 06/05/22 05:53 Microcytosis Cancelled 06/05/22 05:53 Macrocytosis Cancelled 06/05/22 05:53 Spherocytes Cancelled 06/05/22 05:53 Pappenheimer Bodies Cancelled 06/05/22 05:53 Sickle Cells Cancelled 06/05/22 05:53 Target Cells Cancelled 06/05/22 05:53 Tear Drop Cells Cancelled 06/05/22 05:53 Ovalocytes 1+ 06/05/22 07:09 Stomatocytes Cancelled 06/05/22 05:53 [place] Bodies Cancelled 06/05/22 05:53 Echinocytes 1+ 06/05/22 07:09 Acanthocytes (Spur) Cancelled 06/05/22 05:53 Rouleaux Cancelled 06/05/22 05:53 RBC Agglutinates Cancelled 06/05/22 05:53 Schistocytes Cancelled 06/05/22 05:53 Sezary Cell Cancelled 06/05/22 05:53 Sodium 133 mmol/L (136-145) L 06/05/22 05:53 Potassium 3.7 mmol/L (3.5-5.1) 06/05/22 05:53 Chloride 103 mmol/L (98-107) 06/05/22 05:53 Carbon Dioxide 19 mmol/L (21-32) L 06/05/22 05:53 Anion Gap 11 (3-11) 06/05/22 05:53 BUN 9 mg/dl (6-23) 06/05/22 05:53 Creatinine 0.65 mg/dl (0.6-1.2) 06/05/22 05:53 Est Cr Clr Drug Dosing 117.2 ml/min 06/05/22 05:53 Est GFR ( Amer) 146.1 ml/min 06/05/22 05:53 Est GFR (Non-Af Amer) 126.0 ml/min 06/05/22 05:53 BUN/Creatinine Ratio 13.8 (10-20) 06/05/22 05:53 Glucose 141 mg/dl (70-99(Fasting)) H 06/05/22 05:53 Lactate 1.3 mmol/L (0.4-2.0) 06/05/22 08:16 Calcium 8.3 mg/dl (8.6-10.3) L 06/05/22 05:53 Total Bilirubin 0.6 mg/dl (0.2-1.0) 06/05/22 05:53 AST 27 U/L (13-39) 06/05/22 05:53 ALT 18 U/L (7-52) 06/05/22 05:53 Alkaline Phosphatase 35 U/L (34-104) 06/05/22 05:53 Total Protein 5.7 gm/dl (6.0-8.3) L 06/05/22 05:53 Albumin 3.3 gm/dl (3.4-5.0) L 06/05/22 05:53 Globulin 2.4 gm/dl (2.5-4.0) L 06/05/22 05:53 Albumin/Globulin Ratio 1.4 (0.9-2) 06/05/22 05:53 Lipase 18 U/L (11-82) 06/03/22 16:18 HCG, Quant 7249 mIU/ml 06/03/22 16:18 Urine Color Yellow 06/03/22 Unknown Urine Appearance Clear (Clear) 06/03/22 Unknown Urine pH 7.5 (4.5-7.5) 06/03/22 Unknown Ur Specific [place] 1.004 (1.000-1.030) 06/03/22 Unknown Urine Protein Negative (Negative) 06/03/22 Unknown Urine Glucose (UA) Negative (Negative) 06/03/22 Unknown Urine Ketones Negative (Negative) 06/03/22 Unknown Urine Blood Negative (Negative) 06/03/22 Unknown Urine Nitrite Negative (Negative) 06/03/22 Unknown Urine Bilirubin Negative (Negative) 06/03/22 Unknown Urine Urobilinogen Negative (Negative) 06/03/22 Unknown Ur Leukocyte Esterase Negative (Negative) 06/03/22 Unknown Random Gentamicin Cancelled 06/05/22 05:53 SARS-CoV-2, RNA, NAAT NEGATIVE (NEGATIVE) 06/03/22 20:42 Blood Parasites ID Cancelled 06/05/22 05:53 Blood Type O Positive 06/03/22 18:09 Antibody Screen NEGATIVE 06/03/22 18:09 Impressions Pelvic/Transvag US 06/03/22 16:01 US ectopic CLINICAL HISTORY: +hpt, vaginal bleeding, abd pain Technique: Real-time sonographic images of the pelvic contents were obtained with transabdominal and transvaginal technique. COMPARISON: None available at the time of this dictation. FINDINGS: Uterus measures 7.5 x 4.0 x 4.1 cm. Endometrial stripe measures 0.9 cm. No gestational sac is seen. The right ovary measures 2.1 x 3.1 x 1.3 cm. Left ovary measures 2.9 x 1.9 x 1.9 cm. Blood flow is seen bilaterally. There is a 1.2 x 0.9 x 1.0 cm cystic lesion in the left ovary with surrounding blood flow, this may represent a corpus luteum cyst. There is a 1.8 x 1.6 x 1.7 cm structure in the left adnexa superior to the uterus with a likely pole and heart motion. [place]-rump length is 0.4 cm, heart rate 122 bpm. IMPRESSION: Findings are highly suspicious for an ectopic in the left adnexa, which may be isthmic in location. ACT 112: Negative or not required by law. Electronically signed by: Jovanny Mccartney M.D. 06/03/2022 7:12 PM Chest X-Ray 06/04/22 23:13 TWO VIEW CHEST CLINICAL HISTORY: Postoperative fever. FINDINGS: PA and lateral chest radiographs are obtained. No prior studies are available for comparison at the time of dictation. The cardiomediastinal silhouette is unremarkable. The lungs and pleural spaces are clear. There is no pneumothorax. The bony thorax appears intact. Intraperitoneal free air is seen below the diaphragm. IMPRESSION: 1. The lungs are clear. 2. Intraperitoneal free air is seen below the diaphragm. This may be related to recent surgery and clinical correlation will be essential. ACT 112: Negative or not required by law. Electronically signed by: Delta Loredo M.D. 06/05/2022 7:01 AM Abdomen/Pelvis CT 06/05/22 08:[address] WITH IV AND ORAL CONTRAST CT DOSE: 319.83 mGy.cm HISTORY: postop pain, no bowel sounds TECHNIQUE: Multiaxial CT images of the abdomen and pelvis were performed following the use of intravenous and oral contrast. A dose lowering technique was utilized adhering to the principles of ALARA. COMPARISON STUDY: Pelvic ultrasound 06/03/2022. FINDINGS: The lung bases are clear. Small amount of pneumoperitoneum. This is nonspecific but favors the recent postoperative change rather than bowel perforation. No pneumatosis identified. No acute fractures. The liver, gallbladder, pancreas, spleen, and adrenal glands are unremarkable. The kidneys enhance normally. No hydronephrosis. The main portal vein is patent. No retroperitoneal hematoma or lymphadenopathy. Normal caliber abdominal aorta. The major mesenteric vessels appear patent. Small to moderate amount of fluid seen throughout the abdomen and pelvis. This is partially likely within the pelvic cul-de-sac. This demonstrates slight increased density and may represent hemoperitoneum. Within the left lower paracolic gutter on image 340 there is a small focus of hyperdensity which is concerning for active arterial extravasation. The bladder is unremarkable. The uterus enhances normally. B ilateral ovaries are symmetric in size. Moderate stool within the proximal colon. Normal appendix. Multiple thickened loops of small bowel seen throughout the abdomen which are also slightly dilated. No transition point to suggest a small bowel obstruction. IMPRESSION: 1. Small amount of pneumoperitoneum. This is nonspecific but favors the recent postoperative change. 2. Small to moderate amount of intermediate density fluid seen throughout the abdomen and pelvis. This is concerning for hemoperitoneum. This is partially loculated within the pelvic cul-de-sac. Superinfection would be difficult to exclude but considered less likely given the recent postoperative change. 3. Within the left lower paracolic gutter there is a punctate focus of increased density . This could represent a small focus of active arterial extravasation. Recommend correlation with the patient's hemoglobin/hematocrit. 4. Near diffuse small bowel wall thickening consistent with a nonspecific enteritis. This could be reactive from a mild peritonitis are the suspected hemoperitoneum. 5. No evidence for bowel obstruction. 6. Normal appendix. ACT 112: Negative or not required by law. Electronically signed by: Winston Pérez M.D. 06/05/2022 12:14 PM
[2022-06-05 12:44] LABS: Chlam trach RNA(Genit,Ureth,Ur Not Detected (NotDetected); GC(Neis gon)RNA(Genit,Ureth,Ur Not Detected (NotDetected)
[2022-06-05 12:46] LABS: Hematocrit (blood only) 32.7 % (37.0-47.0); Hemoglobin 10.9 g/dl (12.0-16.0); Mean Corpuscular Hemoglobin 27.1 pg (25.0-34.0); Mean Corpuscular Hgb Conc 33.3 g/dL (32.0-36.0); Mean Corpuscular Volume 81.3 fL (80.0-100.0); Mean Platelet Volume 8.4 fL (9.4-12.4); Platelet Count 274 K/uL (130-400); RDW Standard Deviation 41.7 fL (36.4-46.3); Red Blood Count 4.02 M/uL (4.20-5.40); White Blood Count 20.35 K/ul (4.8-10.8)
[2022-06-05 13:12] LABS: Basophils # (auto) 0.06 K/uL (0-0.2); Basophils % (auto) 0.3 %; Echinocytes 1+; Eosinophils # (auto) 0.03 K/uL (0-0.50); Eosinophils % (auto) 0.1 %; Immature Granulocytes # (auto) 0.11 K/uL (0.01-0.20); Immature Granulocytes % (auto) 0.5 %; Lymphocytes # (auto) 2.98 K/uL (1.2-3.4); Lymphocytes % (auto) 14.6 %; Monocytes # (auto) 0.35 K/uL (0.11-0.59); Monocytes % (auto) 1.7 %; Neutrophils # (auto) 16.82 K/uL (1.40-6.50); Neutrophils % (auto) 82.8 %; Polychromasia 1+
--- NOTE | 2022-06-05 16:30 | Surgery Consultation ---
Date of Consultation June 05, 2022 Assessment & Plan (1) Post-op pain: (2) Abdominal distention: Plan 22 year-old female who presented to emergency room with vaginal bleeding and recent positive home test. She was found to have left ectopic and underwent surgery on 06/03/2022. She developed increased leukocytosis on POD # 1 as well as some distention. WBC increase to 24K this morning and slightly improved to 20k on repeat. Hemoglobin stable 11.5->11.0->10.9. Increasing abdominal distention and pain today prompted CT scan which is showing concern for possible small to moderate hemoperitoneum as well as possible active bleeding along left paracolic gutter and reactive diffuse small bowel wall thickening. Exam with distention and firm without peritonitis. Tenderness throughout abdomen. She is hemodynamically stable. Plan: Reviewed CT scan images with Dr. Palm and Dr. Pérez with radiology. Consider NGT for abdominal distention and continued nausea and belching. Continue pain management as needed Continue IV Antibiotics Continue serial abdominal exams Continue to monitor H&H q [address] Palm has seen and examined pt, see addendum for further recommendations/plan. Supervising Physician Co-Signing Physician Notes I have seen and examined the patient personally. She is 2 days status post surgery for a left ectopic done by [facility] [facility] [facility]. CT scan demonstrates what appears to be a postoperative bleed with possible active extravasation along the left paracolic gutter, complication from the original surgery. I agree with the above recommendations by Destinee Cho PA-C. Otherwise, management as per the primary [facility] [facility] [facility] surgery team. If the [facility] [facility] [facility] team, being the primary surgical team, decides that she requires an exploration for this complication, general surgery will be available for assistance if any bowel related complications, or other complications outside of the purview of [facility] [facility] surgery, are noted. History of Present Illness Reason for Consultation: postop pain Postop infection, intra-abdominal abscess? postop ileus? Requesting Physician: Uzma Chavez MD Attending Physician: Cliff Matos MD History of Present Illness Ms. De Luna is a pleasant 22 year-old female who presented to emergency room on 06/03/2022 with positive home test and c/o vaginal bleeding with passage of small clot 05/29. She was found to have left ectopic and underwent Laparoscopic left partial salpingectomy with removal of ectopic on the left. She states that she started becoming bloated yesterday but not as severe as today. Passed gas only one time since surgery. Starting noticing increased bloating and pain throughout this morning with nausea and belching. Had to drink contrast for CT scan today and had vomited small amount of the enteric contrast. Not passing any gas today. generalized abdominal pain 6/10 due to bloating. Uncomfortable. Took Oxycodone and Toradol which is not helping with the pain. Allergies Allergy/AdvReac Type Severity Reaction Status Date / Time amoxicillin Allergy Rash Unverified 04/04/22 11:29 Home Medications Medication Instructions Recorded Confirmed Type methylphenidate HCl 10 mg tablet 0 mg PO UD 04/04/22 04/04/22 History methylphenidate HCl 27 mg 27 mg PO DAILY 04/04/22 04/04/22 History tablet,extended release 24 hr sulfamethoxazole 800 1 tab PO Q12H #14 tabs 04/04/22 Rx mg-trimethoprim 160 mg tablet (Bactrim DS) ibuprofen 600 mg tablet 600 mg PO Q6H PRN pain #30 tabs 06/03/22 Rx oxycodone 5 mg tablet 5 mg PO Q4H #12 tabs 06/04/22 Rx Patient History Medical History ADD (attention deficit disorder) Marijuana use Surgical History (Updated 06/03/22 @ 21:26 by Lynn Velazquez DO) History of strabismus surgery Social History Smoking Status: Never smoker Hx Substance Use: Yes Communication Ability: Effective Feels Safe at Home: Yes Assistive Devices: None Physical Exam Constitutional: well developed, well nourished and cooperative; no acute distress, + uncomfortable and not combative not in distress but looks uncomfortable, able to get up to bathroom with some help during my exam. Neck: normal visual inspection and trachea midline Respiratory: normal respiratory effort; no respiratory distress, no labored br eathing and no retractions Gastrointestinal (Abdomen): Inspection/Auscultation: + abdomen distended, + abdominal surgical incision (clean/dry/intact with dermabond) and + hypoactive bowel sounds; + abnormal bowel sounds Percussion/Palpation: + abdomen tender (generalized on palpation, more in LUQ), + tympanic to percussion and + abdomen firm; no guarding and + abdomen not soft No peritonitis on exam but very firm due to distention Skin: no rashes, warm and dry no jaundice Psychiatric: Orientation: alert and oriented x 3 Results & Data Vital Signs (Past 12 Hours) Vital Signs Temp Pulse Resp BP Pulse Ox O2 Del Method 06/05/22 15:32 36.9 C 102 H 18 110/59 L 98 Room Air 06/05/22 12:07 36.5 C 91 H 16 108/59 L 98 Room Air 06/05/22 08:11 36.6 C 90 16 104/52 L 98 Room Air 06/05/22 04:53 36.8 C 108 H 16 105/60 98 Room Air Laboratory Results 06/05/22 06/05/22 06/05/22 Range/Units 12:21 08:16 07:09 WBC 20.35 H 24.61 H (4.8-10.8) K/ul RBC 4.02 L 4.00 L (4.20-5.40) M/uL Hgb 10.9 L 11.0 L (12.0-16.0) g/dl Hct 32.7 L 32.1 L (37.0-47.0) % MCV 81.3 80.3 (80.0-100.0) fL MCH 27.1 27.5 (25.0-34.0) pg MCHC 33.3 34.3 (32.0-36.0) g/dL RDW Std Deviation 41.7 40.9 (36.4-46.3) fL RDW Coeff of Myra 14.0 14.0 (11.5-14.5) % Plt Count 274 283 (130-400) K/uL MPV 8.4 L 8.5 L (9.4-12.4) fL Immature Gran % (Auto) 0.5 0.8 % Neut % (Auto) 82.8 83.3 % Lymph % (Auto) 14.6 14.1 % Clay % (Auto) 1.7 1.5 % Eos % (Auto) 0.1 0.0 % Baso % (Auto) 0.3 0.3 % Neut # (Auto) 16.82 H 20.48 H (1.40-6.50) K/uL Lymph # (Auto) 2.98 3.48 H (1.2-3.4) K/uL Clay # (Auto) 0.35 0.38 (0.11-0.59) K/uL Eos # (Auto) 0.03 0.00 (0-0.50) K/uL Baso # (Auto) 0.06 0.07 (0-0.2) K/uL Immature Gran # (Auto) 0.11 0.20 (0.01-0.20) K/uL Absolute Nucleated RBC Nucleated RBC % (auto) Neutrophils % (Manual) Band Neutrophils % Lymphocytes % (Manual) Prolymphocyte % Reactive Lymphs % (Man) Monocytes % (Manual) Eosinophils % (Manual) Basophils % (Manual) Metamyelocytes % (Man) Myelocytes % (Man) Promyelocytes % (Man) Blast Cells % (Manual) Plasma Cell % (Manual) Other Cells % Nucleated RBC % Neutrophils # (Manual) Band Neutrophils # Total Absolute Neuts Lymphocytes # (Manual) Prolymphocyte # Reactive Lymphs # Total Abs Lymphocytes Monocytes # (Manual) Eosinophils # (Manual) Basophils # (Manual) Metamyelocytes # (Man) Myelocytes # (Manual) Promyelocytes # (Man) Blast Cells # (Man) Plasma Cell # (Manual) Other Cells # Nucleated RBCs # (Man) Hypersegmented Neuts Hyposegmented Neuts Hypogranular Neuts Large Granular Lymphs # Lrg Granular Lymphs Hairy Cells Smudge Cells Toxic Granulation Toxic Vacuolation Dohle Bodies David Rods Platelet Estimate Hypogranular Platelets Giant Platelets Platelet Satelliting RBC Morphology Polychromasia 1+ Hypochromasia Poikilocytosis Basophilic Stippling Anisocytosis Microcytosis Macrocytosis Spherocytes Pappenheimer Bodies Sickle Cells Target Cells Tear Drop Cells Ovalocytes 1+ Stomatocytes [place] Bodies Echinocytes 1+ 1+ Acanthocytes (Spur) Rouleaux RBC Agglutinates Schistocytes Sezary Cell Sodium (136-145) mmol/L Potassium (3.5-5.1) mmol/L Chloride (98-107) mmol/L Carbon Dioxide (21-32) mmol/L Anion Gap (3-11) BUN (6-23) mg/dl Creatinine (0.6-1.2) mg/dl Est Cr Clr Drug Dosing ml/min Est GFR ( Amer) ml/min Est GFR (Non-Af Amer) ml/min BUN/Creatinine Ratio (10-20) Glucose (70-99(Fasting)) mg/dl Lactate 1.3 (0.4-2.0) mmol/L Calcium (8.6-10.3) mg/dl Total Bilirubin (0.2-1.0) mg/dl AST (13-39) U/L ALT (7-52) U/L Alkaline Phosphatase (34-104) U/L Total Protein (6.0-8.3) gm/dl Albumin (3.4-5.0) gm/dl Globulin (2.5-4.0) gm/dl Albumin/Globulin Ratio (0.9-2) Random Gentamicin mcg/ml C.trachomatis RNA (NotDetected) N.gonorrhoeae RNA (NotDetected) Blood Parasites ID 06/05/22 06/05/22 06/05/22 Range/Units 05:53 05:53 05:53 WBC Cancelled (4.8-10.8) K/ul RBC Cancelled (4.20-5.40) M/uL Hgb Cancelled (12.0-16.0) g/dl Hct Cancelled (37.0-47.0) % MCV Cancelled (80.0-100.0) fL MCH Cancelled (25.0-34.0) pg MCHC Cancelled (32.0-36.0) g/dL RDW Std Deviation Cancelled (36.4-46.3) fL RDW Coeff of Myra Cancelled (11.5-14.5) % Plt Count Cancelled (130-400) K/uL MPV Cancelled (9.4-12.4) fL Immature Gran % (Auto) Cancelled % Neut % (Auto) Cancelled % Lymph % (Auto) Cancelled % Clay % (Auto) Cancelled % Eos % (Auto) Cancelled % Baso % (Auto) Cancelled % Neut # (Auto) Cancelled (1.40-6.50) K/uL Lymph # (Auto) Cancelled (1.2-3.4) K/uL Clay # (Auto) Cancelled (0.11-0.59) K/uL Eos # (Auto) Cancelled (0-0.50) K/uL Baso # (Auto) Cancelled (0-0.2) K/uL Immature Gran # (Auto) Cancelled (0.01-0.20) K/uL Absolute Nucleated RBC Cancelled Nucleated RBC % (auto) Cancelled Neutrophils % (Manual) Cancelled Band Neutrophils % Cancelled Lymphocytes % (Manual) Cancelled Prolymphocyte % Cancelled Reactive Lymphs % (Man) Cancelled Monocytes % (Manual) Cancelled Eosinophils % (Manual) Cancelled Basophils % (Manual) Cancelled Metamyelocytes % (Man) Cancelled Myelocytes % (Man) Cancelled Promyelocytes % (Man) Cancelled Blast Cells % (Manual) Cancelled Plasma Cell % (Manual) Cancelled Other Cells % Cancelled Nucleated RBC % Cancelled Neutrophils # (Manual) Cancelled Band Neutrophils # Cancelled Total Absolute Neuts Cancelled Lymphocytes # (Manual) Cancelled Prolymphocyte # Cancelled Reactive Lymphs # Cancelled Total Abs Lymphocytes Cancelled Monocytes # (Manual) Cancelled Eosinophils # (Manual) Cancelled Basophils # (Manual) Cancelled Metamyelocytes # (Man) Cancelled Myelocytes # (Manual) Cancelled Promyelocytes # (Man) Cancelled Blast Cells # (Man) Cancelled Plasma Cell # (Manual) Cancelled Other Cells # Cancelled Nucleated RBCs # (Man) Cancelled Hypersegmented Neuts Cancelled Hyposegmented Neuts Cancelled Hypogranular Neuts Cancelled Large Granular Lymphs Cancelled # Lrg Granular Lymphs Cancelled Hairy Cells Cancelled Smudge Cells Cancelled Toxic Granulation Cancelled Toxic Vacuolation Cancelled Dohle Bodies Cancelled David Rods Cancelled Platelet Estimate Cancelled Hypogranular Platelets Cancelled Giant Platelets Cancelled Platelet Satelliting Cancelled RBC Morphology Cancelled Polychromasia Cancelled Hypochromasia Cancelled Poikilocytosis Cancelled Basophilic Stippling Cancelled Anisocytosis Cancelled Microcytosis Cancelled Macrocytosis Cancelled Spherocytes Cancelled Pappenheimer Bodies Cancelled Sickle Cells Cancelled Target Cells Cancelled Tear Drop Cells Cancelled Ovalocytes Cancelled Stomatocytes Cancelled [place] Bodies Cancelled Echinocytes Cancelled Acanthocytes (Spur) Cancelled Rouleaux Cancelled RBC Agglutinates Cancelled Schistocytes Cancelled Sezary Cell Cancelled Sodium 133 L (136-145) mmol/L Potassium 3.7 (3.5-5.1) mmol/L Chloride 103 (98-107) mmol/L Carbon Dioxide 19 L (21-32) mmol/L Anion Gap 11 (3-11) BUN 9 (6-23) mg/dl Creatinine 0.65 (0.6-1.2) mg/dl Est Cr Clr Drug Dosing 117.2 ml/min Est GFR ( Amer) 146.1 ml/min Est GFR (Non-Af Amer) 126.0 ml/min BUN/Creatinine Ratio 13.8 (10-20) Glucose 141 H (70-99(Fasting)) mg/dl Lactate (0.4-2.0) mmol/L Calcium 8.3 L (8.6-10.3) mg/dl Total Bilirubin 0.6 (0.2-1.0) mg/dl AST 27 (13-39) U/L ALT 18 (7-52) U/L Alkaline Phosphatase 35 (34-104) U/L Total Protein 5.7 L (6.0-8.3) gm/dl Albumin 3.3 L (3.4-5.0) gm/dl Globulin 2.4 L (2.5-4.0) gm/dl Albumin/Globulin Ratio 1.4 (0.9-2) Random Gentamicin Cancelled mcg/ml C.trachomatis RNA (NotDetected) N.gonorrhoeae RNA (NotDetected) Blood Parasites ID Cancelled 06/05/22 06/05/22 06/04/22 Range/Units 05:33 02:05 17:30 WBC (4.8-10.8) K/ul RBC (4.20-5.40) M/uL Hgb (12.0-16.0) g/dl Hct (37.0-47.0) % MCV (80.0-100.0) fL MCH (25.0-34.0) pg MCHC (32.0-36.0) g/dL RDW Std Deviation (36.4-46.3) fL RDW Coeff of Myra (11.5-14.5) % Plt Count (130-400) K/uL MPV (9.4-12.4) fL Immature Gran % (Auto) % Neut % (Auto) % Lymph % (Auto) % Clay % (Auto) % Eos % (Auto) % Baso % (Auto) % Neut # (Auto) (1.40-6.50) K/uL Lymph # (Auto) (1.2-3.4) K/uL Clay # (Auto) (0.11-0.59) K/uL Eos # (Auto) (0-0.50) K/uL Baso # (Auto) (0-0.2) K/uL Immature Gran # (Auto) (0.01-0.20) K/uL Absolute Nucleated RBC Nucleated RBC % (auto) Neutrophils % (Manual) Band Neutrophils % Lymphocytes % (Manual) Prolymphocyte % Reactive Lymphs % (Man) Monocytes % (Manual) Eosinophils % (Manual) Basophils % (Manual) Metamyelocytes % (Man) Myelocytes % (Man) Promyelocytes % (Man) Blast Cells % (Manual) Plasma Cell % (Manual) Other Cells % Nucleated RBC % Neutrophils # (Manual) Band Neutrophils # Total Absolute Neuts Lymphocytes # (Manual) Prolymphocyte # Reactive Lymphs # Total Abs Lymphocytes Monocytes # (Manual) Eosinophils # (Manual) Basophils # (Manual) Metamyelocytes # (Man) Myelocytes # (Manual) Promyelocytes # (Man) Blast Cells # (Man) Plasma Cell # (Manual) Other Cells # Nucleated RBCs # (Man) Hypersegmented Neuts Hyposegmented Neuts Hypogranular Neuts Large Granular Lymphs # Lrg Granular Lymphs Hairy Cells Smudge Cells Toxic Granulation Toxic Vacuolation Dohle Bodies David Rods Platelet Estimate Hypogranular Platelets Giant Platelets Platelet Satelliting RBC Morphology Polychromasia Hypochromasia Poikilocytosis Basophilic Stippling Anisocytosis Microcytosis Macrocytosis Spherocytes Pappenheimer Bodies Sickle Cells Target Cells Tear Drop Cells Ovalocytes Stomatocytes [place] Bodies Echinocytes Acanthocytes (Spur) Rouleaux RBC Agglutinates Schistocytes Sezary Cell Sodium 135 L (136-145) mmol/L Potassium 3.8 (3.5-5.1) mmol/L Chloride 105 (98-107) mmol/L Carbon Dioxide 22 (21-32) mmol/L Anion Gap 8 (3-11) BUN 10 (6-23) mg/dl Creatinine 0.62 (0.6-1.2) mg/dl Est Cr Clr Drug Dosing 122.9 ml/min Est GFR ( Amer) 148.3 ml/min Est GFR (Non-Af Amer) 128.0 ml/min BUN/Creatinine Ratio 16.1 (10-20) Glucose 116 H (70-99(Fasting)) mg/dl Lactate (0.4-2.0) mmol/L Calcium 8.4 L (8.6-10.3) mg/dl Total Bilirubin 0.3 (0.2-1.0) mg/dl AST 30 (13-39) U/L ALT 18 (7-52) U/L Alkaline Phosphatase 41 (34-104) U/L Total Protein 6.3 (6.0-8.3) gm/dl Albumin 3.6 (3.4-5.0) gm/dl Globulin 2.7 (2.5-4.0) gm/dl Albumin/Globulin Ratio 1.3 (0.9-2) Random Gentamicin 1.15 mcg/ml C.trachomatis RNA Not Detected (NotDetected) N.gonorrhoeae RNA Not Detected (NotDetected) Blood Parasites ID 06/04/22 Range/Units 17:30 WBC 18.26 H (4.8-10.8) K/ul RBC 4.20 (4.20-5.40) M/uL Hgb 11.6 L (12.0-16.0) g/dl Hct 35.4 L (37.0-47.0) % MCV 84.3 (80.0-100.0) fL MCH 27.6 (25.0-34.0) pg MCHC 32.8 (32.0-36.0) g/dL RDW Std Deviation 42.3 (36.4-46.3) fL RDW Coeff of Myra 13.7 (11.5-14.5) % Plt Count 291 (130-400) K/uL MPV 8.8 L (9.4-12.4) fL Immature Gran % (Auto) 0.3 % Neut % (Auto) 73.5 % Lymph % (Auto) 20.8 % Clay % (Auto) 4.4 % Eos % (Auto) 0.4 % Baso % (Auto) 0.6 % Neut # (Auto) 13.43 H (1.40-6.50) K/uL Lymph # (Auto) 3.79 H (1.2-3.4) K/uL Clay # (Auto) 0.80 H (0.11-0.59) K/uL Eos # (Auto) 0.07 (0-0.50) K/uL Baso # (Auto) 0.11 (0-0.2) K/uL Immature Gran # (Auto) 0.06 (0.01-0.20) K/uL Absolute Nucleated RBC Nucleated RBC % (auto) Neutrophils % (Manual) Band Neutrophils % Lymphocytes % (Manual) Prolymphocyte % Reactive Lymphs % (Man) Monocytes % (Manual) Eosinophils % (Manual) Basophils % (Manual) Metamyelocytes % (Man) Myelocytes % (Man) Promyelocytes % (Man) Blast Cells % (Manual) Plasma Cell % (Manual) Other Cells % Nucleated RBC % Neutrophils # (Manual) Band Neutrophils # Total Absolute Neuts Lymphocytes # (Manual) Prolymphocyte # Reactive Lymphs # Total Abs Lymphocytes Monocytes # (Manual) Eosinophils # (Manual) Basophils # (Manual) Metamyelocytes # (Man) Myelocytes # (Manual) Promyelocytes # (Man) Blast Cells # (Man) Plasma Cell # (Manual) Other Cells # Nucleated RBCs # (Man) Hypersegmented Neuts Hyposegmented Neuts Hypogranular Neuts Large Granular Lymphs # Lrg Granular Lymphs Hairy Cells Smudge Cells Toxic Granulation Toxic Vacuolation Dohle Bodies David Rods Platelet Estimate Hypogranular Platelets Giant Platelets Platelet Satelliting RBC Morphology Polychromasia Hypochromasia Poikilocytosis Basophilic Stippling Anisocytosis Microcytosis Macrocytosis Spherocytes Pappenheimer Bodies Sickle Cells Target Cells Tear Drop Cells Ovalocytes Stomatocytes [place] Bodies Echinocytes 2+ Acanthocytes (Spur) Rouleaux RBC Agglutinates Schistocytes Sezary Cell Sodium (136-145) mmol/L Potassium (3.5-5.1) mmol/L Chloride (98-107) mmol/L Carbon Dioxide (21-32) mmol/L Anion Gap (3-11) BUN (6-23) mg/dl Creatinine (0.6-1.2) mg/dl Est Cr Clr Drug Dosing ml/min Est GFR ( Amer) ml/min Est GFR (Non-Af Amer) ml/min BUN/Creatinine Ratio (10-20) Glucose (70-99(Fasting)) mg/dl Lactate (0.4-2.0) mmol/L Calcium (8.6-10.3) mg/dl Total Bilirubin (0.2-1.0) mg/dl AST (13-39) U/L ALT (7-52) U/L Alkaline Phosphatase (34-104) U/L Total Protein (6.0-8.3) gm/dl Albumin (3.4-5.0) gm/dl Globulin (2.5-4.0) gm/dl Albumin/Globulin Ratio (0.9-2) Random Gentamicin mcg/ml C.trachomatis RNA (NotDetected) N.gonorrhoeae RNA (NotDetected) Blood Parasites ID Diagnostic Findings ABDOMEN AND PELVIS CT WITH IV AND ORAL CONTRAST CT DOSE: 319.83 mGy.cm HISTORY: postop pain, no bowel sounds TECHNIQUE: Multiaxial CT images of the abdomen and pelvis were performed following the use of intravenous and oral contrast. A dose lowering technique was utilized adhering to the principles of ALARA. COMPARISON STUDY: Pelvic ultrasound 06/03/2022. FINDINGS: The lung bases are clear. Small amount of pneumoperitoneum. This is nonspecific but favors the recent postoperative change rather than bowel perforation. No pneumatosis identified. No acute fractures. The liver, gallbladder, pancreas, spleen, and adrenal glands are unremarkable. The kidneys enhance normally. No hydronephrosis. The main portal vein is patent. No retroperitoneal hematoma or lymphadenopathy. Normal caliber abdominal aorta. The major mesenteric vessels appear patent. Small to moderate amount of fluid seen throughout the abdomen and pelvis. This is partially likely within the pelvic cul-de-sac. This demonstrates slight increased density and may represent hemoperitoneum. Within the left lower paracolic gutter on image 340 there is a small focus of hyperdensity which is concerning for active arterial extravasation. The bladder is unremarkable. The uterus enhances normally. Bilateral ovaries are symmetric in size. Moderate stool within the proximal colo n. Normal appendix. Multiple thickened loops of small bowel seen throughout the abdomen which are also slightly dilated. No transition point to suggest a small bowel obstruction. IMPRESSION: 1. Small amount of pneumoperitoneum. This is nonspecific but favors the recent postoperative change. 2. Small to moderate amount of intermediate density fluid seen throughout the abdomen and pelvis. This is concerning for hemoperitoneum. This is partially loculated within the pelvic cul-de-sac. Superinfection would be difficult to exclude but considered less likely given the recent postoperative change. 3. Within the left lower paracolic gutter there is a punctate focus of increased density . This could represent a small focus of active arterial extravasation. Recommend correlation with the patient's hemoglobin/hematocrit. 4. Near diffuse small bowel wall thickening consistent with a nonspecific enteritis. This could be reactive from a mild peritonitis are the suspected hemoperitoneum. 5. No evidence for bowel obstruction. 6. Normal appendix. ACT 112: Negative or not required by law. Electronically signed by: Winston Pérez M.D.
[2022-06-05] MEDS: MoRPHine SULFATE 2 MG/ML CARP IV PRN (17:01)
[2022-06-05] MEDS: CEFEPIME 2,000 MG in SYRINGE 0 ML IV SCH (17:08)
[2022-06-05] MEDS: metroNIDAZOLE 500 MG/100 ML BAG IV SCH (18:15)
[2022-06-05 18:51] LABS: Hematocrit (blood only) 33.8 % (37.0-47.0); Hemoglobin 11.3 g/dl (12.0-16.0)
--- NOTE | 2022-06-05 19:01 | Progress Note ---
Date of Service June 05, 2022 Assessment & Plan (1) Post-op pain: Plan: Repeat H&H stable Continue antibiotics Repeat H&H at 12 AM, CBC and morning labs at 6 AM Pelvic ultrasound in the a.m. Keep n.p.o. Continue IV fluids Continue pain control Will insert NG tube if needed (2) Ectopic : Admission and Anticipated Discharge Date Admission Date: June 03, 2022 Subjective Patient lying comfortably in bed, states pain is still about the same since she had the IV morphine. Has not had any additional flatus, no bowel movement. Still belching, has been able to tolerate sips of water at the bedside. Asking if she needs the NG tube Physical Exam Constitutional: WD/WN, vitals as above Respiratory: normal respiratory effort, lungs clear to auscultation Cardiovascular: RRR, no murmur, no edema Gastrointestinal (Abdomen): Mild distention, tenderness to palpation, mild guarding, no rebound, incisions x3 clean dry intact well-healing Positive bowel sounds, quiet in all 4 quadrant Results & Data Vital Signs (Past 12 Hours) Vital Signs Temp Pulse Resp BP Pulse Ox O2 Del Method 06/05/22 15:32 36.9 C 102 H 18 110/59 L 98 Room Air 06/05/22 12:07 36.5 C 91 H 16 108/59 L 98 Room Air 06/05/22 08:11 36.6 C 90 16 104/52 L 98 Room Air Laboratory Results Laboratory Results WBC 20.35 K/ul (4.8-10.8) H 06/05/22 12:21 RBC 4.02 M/uL (4.20-5.40) L 06/05/22 12:21 Hgb 11.3 g/dl (12.0-16.0) L 06/05/22 18:14 Hct 33.8 % (37.0-47.0) L 06/05/22 18:14 MCV 81.3 fL (80.0-100.0) 06/05/22 12:21 MCH 27.1 pg (25.0-34.0) 06/05/22 12:21 MCHC 33.3 g/dL (32.0-36.0) 06/05/22 12:21 RDW Std Deviation 41.7 fL (36.4-46.3) 06/05/22 12:21 RDW Coeff of Myra 14.0 % (11.5-14.5) 06/05/22 12:21 Plt Count 274 K/uL (130-400) 06/05/22 12:21 MPV 8.4 fL (9.4-12.4) L 06/05/22 12:21 Immature Gran % (Auto) 0.5 % 06/05/22 12:21 Neut % (Auto) 82.8 % 06/05/22 12:21 Lymph % (Auto) 14.6 % 06/05/22 12:21 [place] % (Auto) 1.7 % 06/05/22 12:21 Eos % (Auto) 0.1 % 06/05/22 12:21 Baso % (Auto) 0.3 % 06/05/22 12:21 Neut # (Auto) 16.82 K/uL (1.40-6.50) H 06/05/22 12:21 Lymph # (Auto) 2.98 K/uL (1.2-3.4) 06/05/22 12:21 [place] # (Auto) 0.35 K/uL (0.11-0.59) 06/05/22 12:21 Eos # (Auto) 0.03 K/uL (0-0.50) 06/05/22 12:21 Baso # (Auto) 0.06 K/uL (0-0.2) 06/05/22 12:21 Immature Gran # (Auto) 0.11 K/uL (0.01-0.20) 06/05/22 12:21 Absolute Nucleated RBC Cancelled 06/05/22 05:53 Nucleated RBC % (auto) Cancelled 06/05/22 05:53 Neutrophils % (Manual) Cancelled 06/05/22 05:53 Band Neutrophils % Cancelled 06/05/22 05:53 Lymphocytes % (Manual) Cancelled 06/05/22 05:53 Prolymphocyte % Cancelled 06/05/22 05:53 Reactive Lymphs % (Man) Cancelled 06/05/22 05:53 Monocytes % (Manual) Cancelled 06/05/22 05:53 Eosinophils % (Manual) Cancelled 06/05/22 05:53 Basophils % (Manual) Cancelled 06/05/22 05:53 Metamyelocytes % (Man) Cancelled 06/05/22 05:53 Myelocytes % (Man) Cancelled 06/05/22 05:53 Promyelocytes % (Man) Cancelled 06/05/22 05:53 Blast Cells % (Manual) Cancelled 06/05/22 05:53 Plasma Cell % (Manual) Cancelled 06/05/22 05:53 Other Cells % Cancelled 06/05/22 05:53 Nucleated RBC % Cancelled 06/05/22 05:53 Neutrophils # (Manual) Cancelled 06/05/22 05:53 Band Neutrophils # Cancelled 06/05/22 05:53 Total Absolute Neuts Cancelled 06/05/22 05:53 Lymphocytes # (Manual) Cancelled 06/05/22 05:53 Prolymphocyte # Cancelled 06/05/22 05:53 Reactive Lymphs # Cancelled 06/05/22 05:53 Total Abs Lymphocytes Cancelled 06/05/22 05:53 Monocytes # (Manual) Cancelled 06/05/22 05:53 Eosinophils # (Manual) Cancelled 06/05/22 05:53 Basophils # (Manual) Cancelled 06/05/22 05:53 Metamyelocytes # (Man) Cancelled 06/05/22 05:53 Myelocytes # (Manual) Cancelled 06/05/22 05:53 Promyelocytes # (Man) Cancelled 06/05/22 05:53 Blast Cells # (Man) Cancelled 06/05/22 05:53 Plasma Cell # (Manual) Cancelled 06/05/22 05:53 Other Cells # Cancelled 06/05/22 05:53 Nucleated RBCs # (Man) Cancelled 06/05/22 05:53 Hypersegmented Neuts Cancelled 06/05/22 05:53 Hyposegmented Neuts Cancelled 06/05/22 05:53 Hypogranular Neuts Cancelled 06/05/22 05:53 Large Granular Lymphs Cancelled 06/05/22 05:53 # Lrg Granular Lymphs Cancelled 06/05/22 05:53 Hairy Cells Cancelled 06/05/22 05:53 Smudge Cells Cancelled 06/05/22 05:53 Toxic Granulation Cancelled 06/05/22 05:53 Toxic Vacuolation Cancelled 06/05/22 05:53 Dohle Bodies Cancelled 06/05/22 05:53 David Rods Cancelled 06/05/22 05:53 Platelet Estimate Cancelled 06/05/22 05:53 Hypogranular Platelets Cancelled 06/05/22 05:53 Giant Platelets Cancelled 06/05/22 05:53 Platelet Satelliting Cancelled 06/05/22 05:53 RBC Morphology Cancelled 06/05/22 05:53 Polychromasia 1+ 06/05/22 12:21 Hypochromasia Cancelled 06/05/22 05:53 Poikilocytosis Cancelled 06/05/22 05:53 Basophilic Stippling Cancelled 06/05/22 05:53 Anisocytosis Cancelled 06/05/22 05:53 Microcytosis Cancelled 06/05/22 05:53 Macrocytosis Cancelled 06/05/22 05:53 Spherocytes Cancelled 06/05/22 05:53 Pappenheimer Bodies Cancelled 06/05/22 05:53 Sickle Cells Cancelled 06/05/22 05:53 Target Cells Cancelled 06/05/22 05:53 Tear Drop Cells Cancelled 06/05/22 05:53 Ovalocytes 1+ 06/05/22 07:09 Stomatocytes Cancelled 06/05/22 05:53 [place] Bodies Cancelled 06/05/22 05:53 Echinocytes 1+ 06/05/22 12:21 Acanthocytes (Spur) Cancelled 06/05/22 05:53 Rouleaux Cancelled 06/05/22 05:53 RBC Agglutinates Cancelled 06/05/22 05:53 Schistocytes Cancelled 06/05/22 05:53 Sezary Cell Cancelled 06/05/22 05:53 Sodium 133 mmol/L (136-145) L 06/05/22 05:53 Potassium 3.7 mmol/L (3.5-5.1) 06/05/22 05:53 Chloride 103 mmol/L (98-107) 06/05/22 05:53 Carbon Dioxide 19 mmol/L (21-32) L 06/05/22 05:53 Anion Gap 11 (3-11) 06/05/22 05:53 BUN 9 mg/dl (6-23) 06/05/22 05:53 Creatinine 0.65 mg/dl (0.6-1.2) 06/05/22 05:53 Est Cr Clr Drug Dosing 117.2 ml/min 06/05/22 05:53 Est GFR ( Amer) 146.1 ml/min 06/05/22 05:53 Est GFR (Non-Af Amer) 126.0 ml/min 06/05/22 05:53 BUN/Creatinine Ratio 13.8 (10-20) 06/05/22 05:53 Glucose 141 mg/dl (70-99(Fasting)) H 06/05/22 05:53 Lactate 1.3 mmol/L (0.4-2.0) 06/05/22 08:16 Calcium 8.3 mg/dl (8.6-10.3) L 06/05/22 05:53 Total Bilirubin 0.6 mg/dl (0.2-1.0) 06/05/22 05:53 AST 27 U/L (13-39) 06/05/22 05:53 ALT 18 U/L (7-52) 06/05/22 05:53 Alkaline Phosphatase 35 U/L (34-104) 06/05/22 05:53 Total Protein 5.7 gm/dl (6.0-8.3) L 06/05/22 05:53 Albumin 3.3 gm/dl (3.4-5.0) L 06/05/22 05:53 Globulin 2.4 gm/dl (2.5-4.0) L 06/05/22 05:53 Albumin/Globulin Ratio 1.4 (0.9-2) 06/05/22 05:53 Lipase 18 U/L (11-82) 06/03/22 16:18 HCG, Quant 7249 mIU/ml 06/03/22 16:18 Urine Color Yellow 06/03/22 Unknown Urine Appearance Clear (Clear) 06/03/22 Unknown Urine pH 7.5 (4.5-7.5) 06/03/22 Unknown Ur Specific [place] 1.004 (1.000-1.030) 06/03/22 Unknown Urine Protein Negative (Negative) 06/03/22 Unknown Urine Glucose (UA) Negative (Negative) 06/03/22 Unknown Urine Ketones Negative (Negative) 06/03/22 Unknown Urine Blood Negative (Negative) 06/03/22 Unknown Urine Nitrite Negative (Negative) 06/03/22 Unknown Urine Bilirubin Negative (Negative) 06/03/22 Unknown Urine Urobilinogen Negative (Negative) 06/03/22 Unknown Ur Leukocyte Esterase Negative (Negative) 06/03/22 Unknown Random Gentamicin Cancelled 06/05/22 05:53 C.trachomatis RNA Not Detected (NotDetected) 06/05/22 02:05 N.gonorrhoeae RNA Not Detected (NotDetected) 06/05/22 02:05 SARS-CoV-2, RNA, NAAT NEGATIVE (NEGATIVE) 06/03/22 20:42 Blood Parasites ID Cancelled 06/05/22 05:53 Blood Type O Positive 06/03/22 18:09 Antibody Screen NEGATIVE 06/03/22 18:09 Impressions Pelvic/Transvag US 06/03/22 16:01 US ectopic CLINICAL HISTORY: +hpt, vaginal bleeding, abd pain Technique: Real-time sonographic images of the pelvic contents were obtained with transabdominal and transvaginal technique. COMPARISON: None available at the time of this dictation. FINDINGS: Uterus measures 7.5 x 4.0 x 4.1 cm. Endometrial stripe measures 0.9 cm. No gestational sac is seen. The right ovary measures 2.1 x 3.1 x 1.3 cm. Left ovary measures 2.9 x 1.9 x 1.9 cm. Blood flow is seen bilaterally. There is a 1.2 x 0.9 x 1.0 cm cystic lesion in the left ovary with surrounding blood flow, this may represent a corpus luteum cyst. There is a 1.8 x 1.6 x 1.7 cm structure in the left adnexa superior to the uterus with a likely pole and heart motion. [place]-rump length is 0.4 cm, heart rate 122 bpm. IMPRESSION: Findings are highly suspicious for an ectopic in the left adnexa, which may be isthmic in location. ACT 112: Negative or not required by law. Electronically signed by: Jovanny Mccartney M.D. 06/03/2022 7:12 PM Chest X-Ray 06/04/22 23:13 TWO VIEW CHEST CLINICAL HISTORY: Postoperative fever. FINDINGS: PA and lateral chest radiographs are obtained. No prior studies are available for comparison at the time of dictation. The cardiomediastinal silhouette is unremarkable. The lungs and pleural spaces are clear. There is no pneumothorax. The bony thorax appears intact. Intraperitoneal free air is seen below the diaphragm. IMPRESSION: 1. The lungs are clear. 2. Intraperitoneal free air is seen below the diaphragm. This may be related to recent surgery and clinical correlation will be essential. ACT 112: Negative or not required by law. Electronically signed by: Delta Loredo M.D. 06/05/2022 7:01 AM Abdomen/Pelvis CT 06/05/22 08:[address] WITH IV AND ORAL CONTRAST CT DOSE: 319.83 mGy.cm HISTORY: postop pain, no bowel sounds TECHNIQUE: Multiaxial CT images of the abdomen and pelvis were performed following the use of intravenous and oral contrast. A dose lowering technique was utilized adhering to the principles of ALARA. COMPARISON STUDY: Pelvic ultrasound 06/03/2022. FINDINGS: The lung bases are clear. Small amount of pneumoperitoneum. This is nonspecific but favors the recent postoperative change rather than bowel perforation. No pneumatosis identified. No acute fractures. The liver, gallbladder, pancreas, spleen, and adrenal glands are unremarkable. The kidneys enhance normally. No hydronephrosis. The main portal vein is patent. No retroperitoneal hematoma or lymphadenopathy. Normal caliber abdominal aorta. The major mesenteric vessels appear patent. Small to moderate amount of fluid seen throughout the abdomen and pelvis. This is partially likely within the pelvic cul-de-sac. This demonstrates slight increased density and may represent hemoperitoneum. Within the left lower paracolic gutter on image 340 there is a small focus of hyperdensity which is concerning for active arterial extravasation. The bladder is unremarkable. The uterus enhances normally. Bilateral ovaries are symmetric in size. Moderate stool within the proximal colon. Normal appendix. Multiple thickened loops of small bowel seen throughout the abdomen which are also slightly dilated. No transition point to suggest a small bowel obstruction. IMPRESSION: 1. Small amount of pneumoperitoneum. This is nonspecific but favors the recent postoperative change. 2. Small to moderate amount of intermediate density fluid seen throughout the abdomen and pelvis. This is concerning for hemoperitoneum. This is partially loculated within the pelvic cul-de-sac. Superinfection would be difficult to exclude but considered less likely given the recent postoperative change. 3. Within the left lower paracolic gutter there is a punctate focus of increased density . This could represent a small focus of active arterial extravasation. Recommend correlation with the patient's hemoglobin/hematocrit. 4. Near diffuse small bowel wall thickening consistent with a nonspecific enteritis. This could be reactive from a mild peritonitis are the suspected hemoperitoneum. 5. No evidence for bowel obstruction. 6. Normal appendix. ACT 112: Negative or not required by law. Electronically signed by: Winston Pérez M.D. 06/05/2022 12:14 PM
[2022-06-06] MEDS: MoRPHine SULFATE 2 MG/ML CARP IV PRN ×3 (00:22→08:35)
[2022-06-06 01:08] LABS: Hematocrit (blood only) 32.6 % (37.0-47.0)
[2022-06-06] MEDS: metroNIDAZOLE 500 MG/100 ML BAG IV SCH ×3 (02:05→18:15)
[2022-06-06] MEDS: METOCLOPRAMIDE HCL 10 MG TABLET PO SCH ×3 (02:05→17:14)
[2022-06-06] MEDS: CEFEPIME 2,000 MG in SYRINGE 0 ML IV SCH (04:10)
[2022-06-06] MEDS: KETOROLAC 30 MG/ML VIAL IV PRN ×2 (04:10→21:27)
[2022-06-06] MEDS ORDERED: LACTATED RINGER'S 1,000 ML IV ONE ×2 (04:34→09:32)
[2022-06-06] MEDS: LACTATED RINGER'S 1,000 ML IV SCH ×4 (05:30→19:57)
[2022-06-06 06:28] LABS: Albumin Globulin Ratio 1.2 (0.9-2); Albumin Level 3.1 gm/dl (3.4-5.0); BUN Creatinine Ratio 17.4 (10-20); Bilirubin,Total 0.7 mg/dl (0.2-1.0); Calcium 8.2 mg/dl (8.6-10.3); Creatinine Clr Calc Pharmacy 110.4 ml/min; Est GFR (African American) 143.2 ml/min; Est GFR (Non-African American) 123.6 ml/min; Globulin 2.6 gm/dl (2.5-4.0); Potassium 3.5 mmol/L (3.5-5.1); Total Protein 5.7 gm/dl (6.0-8.3)
[2022-06-06 07:03] LABS: Basophils # (auto) 0.08 K/uL (0-0.2); Basophils % (auto) 0.3 %; Dohle Bodies 1+; Eosinophils # (auto) 0.01 K/uL (0-0.50); Hematocrit (blood only) 32.4 % (37.0-47.0); Hemoglobin 10.9 g/dl (12.0-16.0); Immature Granulocytes # (auto) 0.84 K/uL (0.01-0.20); Immature Granulocytes % (auto) 3.2 %; Lymphocytes % (auto) 8.3 %; Mean Corpuscular Hemoglobin 27.4 pg (25.0-34.0); Mean Corpuscular Hgb Conc 33.6 g/dL (32.0-36.0); Mean Corpuscular Volume 81.4 fL (80.0-100.0); Mean Platelet Volume 8.8 fL (9.4-12.4); Monocytes # (auto) 0.68 K/uL (0.11-0.59); Monocytes % (auto) 2.6 %; Neutrophils # (auto) 22.58 K/uL (1.40-6.50); Neutrophils % (auto) 85.6 %; Platelet Count 317 K/uL (130-400); RDW Coefficient of Variation 14.3 % (11.5-14.5); RDW Standard Deviation 42.2 fL (36.4-46.3); Red Blood Count 3.98 M/uL (4.20-5.40); White Blood Count 26.39 K/ul (4.8-10.8)
--- NOTE | 2022-06-06 07:03 | Progress Note ---
Date of Service June 06, 2022 Assessment & Plan (1) Post-op pain: Plan: Repeat H&H stable Continue antibiotics Pelvic ultrasound this morning Keep n.p.o. Continue IV fluids Continue pain control Consider surgical reexploration, in the setting of worsening tachycardia, and distention, despite fluid bolus and NG tube. Appreciate general surgery's help, if they are needed at the time of surgical case. Will discuss with Dr. Baldwin this morning as she is oncoming physician, and pelvic US pending (2) Ectopic : (3) Postoperative ileus: (4) Tachycardia: Admission and Anticipated Discharge Date Admission Date: June 03, 2022 Subjective Patient lying comfortably in bed at this time, NG tube in place. States her pain is still about the same, despite having pain medication overnight. Has not passed any additional episodes of flatus. Denies any nausea or vomiting. Patient had complained to nursing staff overnight that her urine was more concentrated, and due to her tachycardia she was given a 1 L bolus approximately 1 hour ago Physical Exam Constitutional: WD/WN, vitals as above Respiratory: normal respiratory effort, lungs clear to auscultation Cardiovascular: RRR, no murmur, no edema Gastrointestinal (Abdomen): Soft, mild tenderness to palpation, no guarding or rebound. Hypoactive bowel sounds Incisions x3 clean dry intact and well-healing Results & Data Vital Signs (Past 12 Hours) Vital Signs Temp Pulse Pulse Resp BP Pulse Ox O2 Del Method 06/06/22 06:30 122 H 18 98 Room Air 06/06/22 04:10 37.5 C 134 H 20 113/56 L 98 Room Air 06/05/22 23:25 36.9 C 112 H 18 121/57 L 98 Room Air 06/05/22 19:25 36.7 C 112 H 18 110/60 98 Room Air Laboratory Results Laboratory Results WBC 26.39 K/ul (4.8-10.8) H 06/06/22 05:33 RBC 3.98 M/uL (4.20-5.40) L 06/06/22 05:33 Hgb 10.9 g/dl (12.0-16.0) L 06/06/22 05:33 Hct 32.4 % (37.0-47.0) L 06/06/22 05:33 MCV 81.4 fL (80.0-100.0) 06/06/22 05:33 MCH 27.4 pg (25.0-34.0) 06/06/22 05:33 MCHC 33.6 g/dL (32.0-36.0) 06/06/22 05:33 RDW Std Deviation 42.2 fL (36.4-46.3) 06/06/22 05:33 RDW Coeff of Myra 14.3 % (11.5-14.5) 06/06/22 05:33 Plt Count 317 K/uL (130-400) 06/06/22 05:33 MPV 8.8 fL (9.4-12.4) L 06/06/22 05:33 Immature Gran % (Auto) 3.2 % 06/06/22 05:33 Neut % (Auto) 85.6 % 06/06/22 05:33 Lymph % (Auto) 8.3 % 06/06/22 05:33 [place] % (Auto) 2.6 % 06/06/22 05:33 Eos % (Auto) 0.0 % 06/06/22 05:33 Baso % (Auto) 0.3 % 06/06/22 05:33 Neut # (Auto) 22.58 K/uL (1.40-6.50) H 06/06/22 05:33 Lymph # (Auto) 2.20 K/uL (1.2-3.4) 06/06/22 05:33 [place] # (Auto) 0.68 K/uL (0.11-0.59) H 06/06/22 05:33 Eos # (Auto) 0.01 K/uL (0-0.50) 06/06/22 05:33 Baso # (Auto) 0.08 K/uL (0-0.2) 06/06/22 05:33 Immature Gran # (Auto) 0.84 K/uL (0.01-0.20) H 06/06/22 05:33 Absolute Nucleated RBC Cancelled 06/05/22 05:53 Nucleated RBC % (auto) Cancelled 06/05/22 05:53 Neutrophils % (Manual) Cancelled 06/05/22 05:53 Band Neutrophils % Cancelled 06/05/22 05:53 Lymphocytes % (Manual) Cancelled 06/05/22 05:53 Prolymphocyte % Cancelled 06/05/22 05:53 Reactive Lymphs % (Man) Cancelled 06/05/22 05:53 Monocytes % (Manual) Cancelled 06/05/22 05:53 Eosinophils % (Manual) Cancelled 06/05/22 05:53 Basophils % (Manual) Cancelled 06/05/22 05:53 Metamyelocytes % (Man) Cancelled 06/05/22 05:53 Myelocytes % (Man) Cancelled 06/05/22 05:53 Promyelocytes % (Man) Cancelled 06/05/22 05:53 Blast Cells % (Manual) Cancelled 06/05/22 05:53 Plasma Cell % (Manual) Cancelled 06/05/22 05:53 Other Cells % Cancelled 06/05/22 05:53 Nucleated RBC % Cancelled 06/05/22 05:53 Neutrophils # (Manual) Cancelled 06/05/22 05:53 Band Neutrophils # Cancelled 06/05/22 05:53 Total Absolute Neuts Cancelled 06/05/22 05:53 Lymphocytes # (Manual) Cancelled 06/05/22 05:53 Prolymphocyte # Cancelled 06/05/22 05:53 Reactive Lymphs # Cancelled 06/05/22 05:53 Total Abs Lymphocytes Cancelled 06/05/22 05:53 Monocytes # (Manual) Cancelled 06/05/22 05:53 Eosinophils # (Manual) Cancelled 06/05/22 05:53 Basophils # (Manual) Cancelled 06/05/22 05:53 Metamyelocytes # (Man) Cancelled 06/05/22 05:53 Myelocytes # (Manual) Cancelled 06/05/22 05:53 Promyelocytes # (Man) Cancelled 06/05/22 05:53 Blast Cells # (Man) Cancelled 06/05/22 05:53 Plasma Cell # (Manual) Cancelled 06/05/22 05:53 Other Cells # Cancelled 06/05/22 05:53 Nucleated RBCs # (Man) Cancelled 06/05/22 05:53 Hypersegmented Neuts Cancelled 06/05/22 05:53 Hyposegmented Neuts Cancelled 06/05/22 05:53 Hypogranular Neuts Cancelled 06/05/22 05:53 Large Granular Lymphs Cancelled 06/05/22 05:53 # Lrg Granular Lymphs Cancelled 06/05/22 05:53 Hairy Cells Cancelled 06/05/22 05:53 Smudge Cells Cancelled 06/05/22 05:53 Toxic Granulation Cancelled 06/05/22 05:53 Toxic Vacuolation Cancelled 06/05/22 05:53 Dohle Bodies 1+ 06/06/22 05:33 David Rods Cancelled 06/05/22 05:53 Platelet Estimate Cancelled 06/05/22 05:53 Hypogranular Platelets Cancelled 06/05/22 05:53 Giant Platelets Cancelled 06/05/22 05:53 Platelet Satelliting Cancelled 06/05/22 05:53 RBC Morphology Cancelled 06/05/22 05:53 Polychromasia 1+ 06/05/22 12:21 Hypochromasia Cancelled 06/05/22 05:53 Poikilocytosis Cancelled 06/05/22 05:53 Basophilic Stippling Cancelled 06/05/22 05:53 Anisocytosis Cancelled 06/05/22 05:53 Microcytosis Cancelled 06/05/22 05:53 Macrocytosis Cancelled 06/05/22 05:53 Spherocytes Cancelled 06/05/22 05:53 Pappenheimer Bodies Cancelled 06/05/22 05:53 Sickle Cells Cancelled 06/05/22 05:53 Target Cells Cancelled 06/05/22 05:53 Tear Drop Cells Cancelled 06/05/22 05:53 Ovalocytes 1+ 06/05/22 07:09 Stomatocytes Cancelled 06/05/22 05:53 [place] Bodies Cancelled 06/05/22 05:53 Echinocytes 1+ 06/05/22 12:21 Acanthocytes (Spur) Cancelled 06/05/22 05:53 Rouleaux Cancelled 06/05/22 05:53 RBC Agglutinates Cancelled 06/05/22 05:53 Schistocytes Cancelled 06/05/22 05:53 Sezary Cell Cancelled 06/05/22 05:53 Sodium 131 mmol/L (136-145) L 06/06/22 05:33 Potassium 3.5 mmol/L (3.5-5.1) 06/06/22 05:33 Chloride 101 mmol/L (98-107) 06/06/22 05:33 Carbon Dioxide 20 mmol/L (21-32) L 06/06/22 05:33 Anion Gap 10 (3-11) 06/06/22 05:33 BUN 12 mg/dl (6-23) 06/06/22 05:33 Creatinine 0.69 mg/dl (0.6-1.2) 06/06/22 05:33 Est Cr Clr Drug Dosing 110.4 ml/min 06/06/22 05:33 Est GFR ( Amer) 143.2 ml/min 06/06/22 05:33 Est GFR (Non-Af Amer) 123.6 ml/min 06/06/22 05:33 BUN/Creatinine Ratio 17.4 (10-20) 06/06/22 05:33 Glucose 111 mg/dl (70-99(Fasting)) H 06/06/22 05:33 Lactate 1.3 mmol/L (0.4-2.0) 06/05/22 08:16 Calcium 8.2 mg/dl (8.6-10.3) L 06/06/22 05:33 Total Bilirubin 0.7 mg/dl (0.2-1.0) 06/06/22 05:33 AST 19 U/L (13-39) 06/06/22 05:33 ALT 15 U/L (7-52) 06/06/22 05:33 Alkaline Phosphatase 52 U/L (34-104) 06/06/22 05:33 Total Protein 5.7 gm/dl (6.0-8.3) L 06/06/22 05:33 Albumin 3.1 gm/dl (3.4-5.0) L 06/06/22 05:33 Globulin 2.6 gm/dl (2.5-4.0) 06/06/22 05:33 Albumin/Globulin Ratio 1.2 (0.9-2) 06/06/22 05:33 Lipase 18 U/L (11-82) 06/03/22 16:18 HCG, Quant 7249 mIU/ml 06/03/22 16:18 Urine Color Yellow 06/03/22 Unknown Urine Appearance Clear (Clear) 06/03/22 Unknown Urine pH 7.5 (4.5-7.5) 06/03/22 Unknown Ur Specific [place] 1.004 (1.000-1.030) 06/03/22 Unknown Urine Protein Negative (Negative) 06/03/22 Unknown Urine Glucose (UA) Negative (Negative) 06/03/22 Unknown Urine Ketones Negative (Negative) 06/03/22 Unknown Urine Blood Negative (Negative) 06/03/22 Unknown Urine Nitrite Negative (Negative) 06/03/22 Unknown Urine Bilirubin Negative (Negative) 06/03/22 Unknown Urine Urobilinogen Negative (Negative) 06/03/22 Unknown Ur Leukocyte Esterase Negative (Negative) 06/03/22 Unknown Random Gentamicin Cancelled 06/05/22 05:53 C.trachomatis RNA Not Detected (NotDetected) 06/05/22 02:05 N.gonorrhoeae RNA Not Detected (NotDetected) 06/05/22 02:05 SARS-CoV-2, RNA, NAAT NEGATIVE (NEGATIVE) 06/03/22 20:42 Blood Parasites ID Cancelled 06/05/22 05:53 Blood Type O Positive 06/03/22 18:09 Antibody Screen NEGATIVE 06/03/22 18:09 Impressions Pelvic/Transvag US 06/03/22 16:01 US ectopic CLINICAL HISTORY: +hpt, vaginal bleeding, abd pain Technique: Real-time sonographic images of the pelvic contents were obtained with transabdominal and transvaginal technique. COMPARISON: None available at the time of this dictation. FINDINGS: Uterus measures 7.5 x 4.0 x 4.1 cm. Endometrial stripe measures 0.9 cm. No gestational sac is seen. The right ovary measures 2.1 x 3.1 x 1.3 cm. Left ovary measures 2.9 x 1.9 x 1.9 cm. Blood flow is seen bilaterally. There is a 1.2 x 0.9 x 1.0 cm cystic lesion in the left ovary with surrounding blood flow, this may represent a corpus luteum cyst. There is a 1.8 x 1.6 x 1.7 cm structure in the left adnexa superior to the uterus with a likely pole and heart motion. [place]-rump length is 0.4 cm, heart rate 122 bpm. IMPRESSION: Findings are highly suspicious for an ectopic in the left adnexa, which may be isthmic in location. ACT 112: Negative or not required by law. Electronically signed by: Jovanny Mccartney M.D. 06/03/2022 7:12 PM Chest X-Ray 04/25/23 23:13 TWO VIEW CHEST CLINICAL HISTORY: Postoperative fever. FINDINGS: PA and lateral chest radiographs are obtained. No prior studies are available for comparison at the time of dictation. The cardiomediastinal silhouette is unremarkable. The lungs and pleural spaces are clear. There is no pneumothorax. The bony thorax appears intact. Intraperitoneal free air is seen below the diaphragm. IMPRESSION: 1. The lungs are clear. 2. Intraperitoneal free air is seen below the diaphragm. This may be related to recent surgery and clinical correlation will be essential. ACT 112: Negative or not required by law. Electronically signed by: Delta Loredo M.D. 06/05/2022 7:01 AM Abdomen/Pelvis CT 06/05/22 08:[address] WITH IV AND ORAL CONTRAST CT DOSE: 319.83 mGy.cm HISTORY: postop pain, no bowel sounds TECHNIQUE: Multiaxial CT images of the abdomen and pelvis were performed following the use of intravenous and oral contrast. A dose lowering technique was utilized adhering to the principles of ALARA. COMPARISON STUDY: Pelvic ultrasound 06/03/2022. FINDINGS: The lung bases are clear. Small amount of pneumoperitoneum. This is nonspecific but favors the recent postoperative change rather than bowel perforation. No pneumatosis identified. No acute fractures. The liver, gallbladder, pancreas, spleen, and adrenal glands are unremarkable. The kidneys enhance normally. No hydronephrosis. The main portal vein is patent. No retroperitoneal hematoma or lymphadenopathy. Normal caliber abdominal aorta. The major mesenteric vessels appear patent. Small to moderate amount of fluid seen throughout the abdomen and pelvis. This is partially likely within the pelvic cul-de-sac. This demonstrates slight increased density and may represent hemoperitoneum. Within the left lower paracolic gutter on image 340 there is a small focus of hyperdensity which is concerning for active arterial extravasation. The bladder is unremarkable. The uterus enhances normally. Bilateral ovaries are symmetric in size. Moderate stool within the proximal colon. Normal appendix. Multiple thickened loops of small bowel seen throughout the abdomen which are also slightly dilated. No transition point to suggest a small bowel obstruction. IMPRESSION: 1. Small amount of pneumoperitoneum. This is nonspecific but favors the recent postoperative change. 2. Small to moderate amount of intermediate density fluid seen throughout the abdomen and pelvis. This is concerning for hemoperitoneum. This is partially loculated within the pelvic cul-de-sac. Superinfection would be difficult to exclude but considered less likely given the recent postoperative change. 3. Within the left lower paracolic gutter there is a punctate focus of increased density . This could represent a small focus of active arterial extravasation. Recommend correlation with the patient's hemoglobin/hematocrit. 4. Near diffuse small bowel wall thickening consistent with a nonspecific enteritis. This could be reactive from a mild peritonitis are the suspected hemoperitoneum. 5. No evidence for bowel obstruction. 6. Normal appendix. ACT 112: Negative or not required by law. Electronically signed by: Winston Pérez M.D. 06/05/2022 12:14 PM
--- NOTE | 2022-06-06 09:31 | Gynecologic Progress Note ---
Date of Service June 06, 2022 Assessment & Plan Admission and Anticipated Discharge Date Admission Date: June 03, 2022 Subjective Patient is seen and examined She has not been to US yet. NGT was placed this morning around 06:30 She is c/o NGT and wants it out. States she is not getting any better, still has pain. Her pulse has been elevated. 120-130's, BP normal She has H&H stable but WBC count came up again. Flushed face, trending temp again 37.7 C Abd: firm, distended, tender to palpation, no rebound Bed side US: Echogenic collection on upper pelvis: 7x8 cm Patient had low UOP overnight and was given 1 lt of IVF bolus, voided 300 ml dark urine this morning. Will order stalt labs, call US to bed side and prepare for OR. Lab Results 06/03/22 06/03/22 06/03/22 Range/Units 16:18 16:18 16:18 WBC 8.11 (4.8-10.8) K/ul RBC 4.41 (4.20-5.40) M/uL Hgb 12.1 (12.0-16.0) g/dl Hct 36.3 L (37.0-47.0) % MCV 82.3 (80.0-100.0) fL MCH 27.4 (25.0-34.0) pg MCHC 33.3 (32.0-36.0) g/dL RDW Std Deviation 41.3 (36.4-46.3) fL RDW Coeff of Myra 13.8 (11.5-14.5) % Plt Count 329 (130-400) K/uL MPV 8.5 L (9.4-12.4) fL Immature Gran % (Auto) 0.2 % Neut % (Auto) 32.5 % Lymph % (Auto) 57.2 % [place] % (Auto) 7.4 % Eos % (Auto) 1.7 % Baso % (Auto) 1.0 % Neut # (Auto) 2.63 (1.40-6.50) K/uL Lymph # (Auto) 4.64 H (1.2-3.4) K/uL [place] # (Auto) 0.60 H (0.11-0.59) K/uL Eos # (Auto) 0.14 (0-0.50) K/uL Baso # (Auto) 0.08 (0-0.2) K/uL Immature Gran # (Auto) 0.02 (0.01-0.20) K/uL Absolute Nucleated RBC Nucleated RBC % (auto) Neutrophils % (Manual) Band Neutrophils % Lymphocytes % (Manual) Prolymphocyte % Reactive Lymphs % (Man) Monocytes % (Manual) Eosinophils % (Manual) Basophils % (Manual) Metamyelocytes % (Man) Myelocytes % (Man) Promyelocytes % (Man) Blast Cells % (Manual) Plasma Cell % (Manual) Other Cells % Nucleated RBC % Neutrophils # (Manual) Band Neutrophils # Total Absolute Neuts Lymphocytes # (Manual) Prolymphocyte # Reactive Lymphs # Total Abs Lymphocytes Monocytes # (Manual) Eosinophils # (Manual) Basophils # (Manual) Metamyelocytes # (Man) Myelocytes # (Manual) Promyelocytes # (Man) Blast Cells # (Man) Plasma Cell # (Manual) Other Cells # Nucleated RBCs # (Man) Hypersegmented Neuts Hyposegmented Neuts Hypogranular Neuts Large Granular Lymphs # Lrg Granular Lymphs Hairy Cells Smudge Cells Toxic Granulation Toxic Vacuolation Dohle Bodies David Rods Platelet Estimate Hypogranular Platelets Giant Platelets Platelet Satelliting RBC Morphology Polychromasia Hypochromasia Poikilocytosis Basophilic Stippling Anisocytosis Microcytosis Macrocytosis Spherocytes Pappenheimer Bodies Sickle Cells Target Cells Tear Drop Cells Ovalocytes Stomatocytes [place] Bodies Echinocytes Acanthocytes (Spur) Rouleaux RBC Agglutinates Schistocytes Sezary Cell Sodium 139 (136-145) mmol/L Potassium 3.4 L (3.5-5.1) mmol/L Chloride 105 (98-107) mmol/L Carbon Dioxide 28 (21-32) mmol/L Anion Gap 6 (3-11) BUN 9 (6-23) mg/dl Creatinine 0.55 L (0.6-1.2) mg/dl Est Cr Clr Drug Dosing 138.5 ml/min Est GFR ( Amer) > 150.0 ml/min Est GFR (Non-Af Amer) 133.1 ml/min BUN/Creatinine Ratio 16.4 (10-20) Glucose 91 (70-99(Fasting)) mg/dl Lactate (0.4-2.0) mmol/L Calcium 9.5 (8.6-10.3) mg/dl Total Bilirubin 0.3 (0.2-1.0) mg/dl AST 24 (13-39) U/L ALT 20 (7-52) U/L Alkaline Phosphatase 50 (34-104) U/L Total Protein 7.3 (6.0-8.3) gm/dl Albumin 4.5 (3.4-5.0) gm/dl Globulin 2.8 (2.5-4.0) gm/dl Albumin/Globulin Ratio 1.6 (0.9-2) Lipase 18 (11-82) U/L HCG, Quant 7249 mIU/ml Urine Color Urine Appearance (Clear) Urine pH (4.5-7.5) Ur Specific [place] (1.000-1.030) Urine Protein (Negative) Urine Glucose (UA) (Negative) Urine Ketones (Negative) Urine Blood (Negative) Urine Nitrite (Negative) Urine Bilirubin (Negative) Urine Urobilinogen (Negative) Ur Leukocyte Esterase (Negative) Random Gentamicin mcg/ml C.trachomatis RNA (NotDetected) N.gonorrhoeae RNA (NotDetected) SARS-CoV-2, RNA, NAAT (NEGATIVE) Blood Parasites ID Blood Type Antibody Screen 06/03/22 06/03/22 06/03/22 Range/Units 18:09 20:42 Unknown WBC (4.8-10.8) K/ul RBC (4.20-5.40) M/uL Hgb (12.0-16.0) g/dl Hct (37.0-47.0) % MCV (80.0-100.0) fL MCH (25.0-34.0) pg MCHC (32.0-36.0) g/dL RDW Std Deviation (36.4-46.3) fL RDW Coeff of Myra (11.5-14.5) % Plt Count (130-400) K/uL MPV (9.4-12.4) fL Immature Gran % (Auto) % Neut % (Auto) % Lymph % (Auto) % [place] % (Auto) % Eos % (Auto) % Baso % (Auto) % Neut # (Auto) (1.40-6.50) K/uL Lymph # (Auto) (1.2-3.4) K/uL [place] # (Auto) (0.11-0.59) K/uL Eos # (Auto) (0-0.50) K/uL Baso # (Auto) (0-0.2) K/uL Immature Gran # (Auto) (0.01-0.20) K/uL Absolute Nucleated RBC Nucleated RBC % (auto) Neutrophils % (Manual) Band Neutrophils % Lymphocytes % (Manual) Prolymphocyte % Reactive Lymphs % (Man) Monocytes % (Manual) Eosinophils % (Manual) Basophils % (Manual) Metamyelocytes % (Man) Myelocytes % (Man) Promyelocytes % (Man) Blast Cells % (Manual) Plasma Cell % (Manual) Other Cells % Nucleated RBC % Neutrophils # (Manual) Band Neutrophils # Total Absolute Neuts Lymphocytes # (Manual) Prolymphocyte # Reactive Lymphs # Total Abs Lymphocytes Monocytes # (Manual) Eosinophils # (Manual) Basophils # (Manual) Metamyelocytes # (Man) Myelocytes # (Manual) Promyelocytes # (Man) Blast Cells # (Man) Plasma Cell # (Manual) Other Cells # Nucleated RBCs # (Man) Hypersegmented Neuts Hyposegmented Neuts Hypogranular Neuts Large Granular Lymphs # Lrg Granular Lymphs Hairy Cells Smudge Cells Toxic Granulation Toxic Vacuolation Dohle Bodies David Rods Platelet Estimate Hypogranular Platelets Giant Platelets Platelet Satelliting RBC Morphology Polychromasia Hypochromasia Poikilocytosis Basophilic Stippling Anisocytosis Microcytosis Macrocytosis Spherocytes Pappenheimer Bodies Sickle Cells Target Cells Tear Drop Cells Ovalocytes Stomatocytes [place] Bodies Echinocytes Acanthocytes (Spur) Rouleaux RBC Agglutinates Schistocytes Sezary Cell Sodium (136-145) mmol/L Potassium (3.5-5.1) mmol/L Chloride (98-107) mmol/L Carbon Dioxide (21-32) mmol/L Anion Gap (3-11) BUN (6-23) mg/dl Creatinine (0.6-1.2) mg/dl Est Cr Clr Drug Dosing ml/min Est GFR ( Amer) ml/min Est GFR (Non-Af Amer) ml/min BUN/Creatinine Ratio (10-20) Glucose (70-99(Fasting)) mg/dl Lactate (0.4-2.0) mmol/L Calcium (8.6-10.3) mg/dl Total Bilirubin (0.2-1.0) mg/dl AST (13-39) U/L ALT (7-52) U/L Alkaline Phosphatase (34-104) U/L Total Protein (6.0-8.3) gm/dl Albumin (3.4-5.0) gm/dl Globulin (2.5-4.0) gm/dl Albumin/Globulin Ratio (0.9-2) Lipase (11-82) U/L HCG, Quant mIU/ml Urine Color Yellow Urine Appearance Clear (Clear) Urine pH 7.5 (4.5-7.5) Ur Specific [place] 1.004 (1.000-1.030) Urine Protein Negative (Negative) Urine Glucose (UA) Negative (Negative) Urine Ketones Negative (Negative) Urine Blood Negative (Negative) Urine Nitrite Negative (Negative) Urine Bilirubin Negative (Negative) Urine Urobilinogen Negative (Negative) Ur Leukocyte Esterase Negative (Negative) Random Gentamicin mcg/ml C.trachomatis RNA (NotDetected) N.gonorrhoeae RNA (NotDetected) SARS-CoV-2, RNA, NAAT NEGATIVE (NEGATIVE) Blood Parasites ID Blood Type O Positive Antibody Screen NEGATIVE 06/04/22 06/04/22 06/04/22 Range/Units 05:56 17:30 17:30 WBC 9.84 18.26 H (4.8-10.8) K/ul RBC 4.23 4.20 (4.20-5.40) M/uL Hgb 11.5 L 11.6 L (12.0-16.0) g/dl Hct 34.2 L 35.4 L (37.0-47.0) % MCV 80.9 84.3 (80.0-100.0) fL MCH 27.2 27.6 (25.0-34.0) pg MCHC 33.6 32.8 (32.0-36.0) g/dL RDW Std Deviation 40.1 42.3 (36.4-46.3) fL RDW Coeff of Myra 13.7 13.7 (11.5-14.5) % Plt Count 292 291 (130-400) K/uL MPV 8.5 L 8.8 L (9.4-12.4) fL Immature Gran % (Auto) 0.3 % Neut % (Auto) 73.5 % Lymph % (Auto) 20.8 % [place] % (Auto) 4.4 % Eos % (Auto) 0.4 % Baso % (Auto) 0.6 % Neut # (Auto) 13.43 H (1.40-6.50) K/uL Lymph # (Auto) 3.79 H (1.2-3.4) K/uL [place] # (Auto) 0.80 H (0.11-0.59) K/uL Eos # (Auto) 0.07 (0-0.50) K/uL Baso # (Auto) 0.11 (0-0.2) K/uL Immature Gran # (Auto) 0.06 (0.01-0.20) K/uL Absolute Nucleated RBC Nucleated RBC % (auto) Neutrophils % (Manual) Band Neutrophils % Lymphocytes % (Manual) Prolymphocyte % Reactive Lymphs % (Man) Monocytes % (Manual) Eosinophils % (Manual) Basophils % (Manual) Metamyelocytes % (Man) Myelocytes % (Man) Promyelocytes % (Man) Blast Cells % (Manual) Plasma Cell % (Manual) Other Cells % Nucleated RBC % Neutrophils # (Manual) Band Neutrophils # Total Absolute Neuts Lymphocytes # (Manual) Prolymphocyte # Reactive Lymphs # Total Abs Lymphocytes Monocytes # (Manual) Eosinophils # (Manual) Basophils # (Manual) Metamyelocytes # (Man) Myelocytes # (Manual) Promyelocytes # (Man) Blast Cells # (Man) Plasma Cell # (Manual) Other Cells # Nucleated RBCs # (Man) Hypersegmented Neuts Hyposegmented Neuts Hypogranular Neuts Large Granular Lymphs # Lrg Granular Lymphs Hairy Cells Smudge Cells Toxic Granulation Toxic Vacuolation Dohle Bodies David Rods Platelet Estimate Hypogranular Platelets Giant Platelets Platelet Satelliting RBC Morphology Polychromasia Hypochromasia Poikilocytosis Basophilic Stippling Anisocytosis Microcytosis Macrocytosis Spherocytes Pappenheimer Bodies Sickle Cells Target Cells Tear Drop Cells Ovalocytes Stomatocytes [place] Bodies Echinocytes 2+ Acanthocytes (Spur) Rouleaux RBC Agglutinates Schistocytes Sezary Cell Sodium 135 L (136-145) mmol/L Potassium 3.8 (3.5-5.1) mmol/L Chloride 105 (98-107) mmol/L Carbon Dioxide 22 (21-32) mmol/L Anion Gap 8 (3-11) BUN 10 (6-23) mg/dl Creatinine 0.62 (0.6-1.2) mg/dl Est Cr Clr Drug Dosing 122.9 ml/min Est GFR ( Amer) 148.3 ml/min Est GFR (Non-Af Amer) 128.0 ml/min BUN/Creatinine Ratio 16.1 (10-20) Glucose 116 H (70-99(Fasting)) mg/dl Lactate (0.4-2.0) mmol/L Calcium 8.4 L (8.6-10.3) mg/dl Total Bilirubin 0.3 (0.2-1.0) mg/dl AST 30 (13-39) U/L ALT 18 (7-52) U/L Alkaline Phosphatase 41 (34-104) U/L Total Protein 6.3 (6.0-8.3) gm/dl Albumin 3.6 (3.4-5.0) gm/dl Globulin 2.7 (2.5-4.0) gm/dl Albumin/Globulin Ratio 1.3 (0.9-2) Lipase (11-82) U/L HCG, Quant mIU/ml Urine Color Urine Appearance (Clear) Urine pH (4.5-7.5) Ur Specific [place] (1.000-1.030) Urine Protein (Negative) Urine Glucose (UA) (Negative) Urine Ketones (Negative) Urine Blood (Negative) Urine Nitrite (Negative) Urine Bilirubin (Negative) Urine Urobilinogen (Negative) Ur Leukocyte Esterase (Negative) Random Gentamicin mcg/ml C.trachomatis RNA (NotDetected) N.gonorrhoeae RNA (NotDetected) SARS-CoV-2, RNA, NAAT (NEGATIVE) Blood Parasites ID Blood Type Antibody Screen 06/05/22 06/05/22 06/05/22 Range/Units 02:05 05:33 05:53 WBC (4.8-10.8) K/ul RBC (4.20-5.40) M/uL Hgb (12.0-16.0) g/dl Hct (37.0-47.0) % MCV (80.0-100.0) fL MCH (25.0-34.0) pg MCHC (32.0-36.0) g/dL RDW Std Deviation (36.4-46.3) fL RDW Coeff of Myra (11.5-14.5) % Plt Count (130-400) K/uL MPV (9.4-12.4) fL Immature Gran % (Auto) % Neut % (Auto) % Lymph % (Auto) % [place] % (Auto) % Eos % (Auto) % Baso % (Auto) % Neut # (Auto) (1.40-6.50) K/uL Lymph # (Auto) (1.2-3.4) K/uL [place] # (Auto) (0.11-0.59) K/uL Eos # (Auto) (0-0.50) K/uL Baso # (Auto) (0-0.2) K/uL Immature Gran # (Auto) (0.01-0.20) K/uL Absolute Nucleated RBC Nucleated RBC % (auto) Neutrophils % (Manual) Band Neutrophils % Lymphocytes % (Manual) Prolymphocyte % Reactive Lymphs % (Man) Monocytes % (Manual) Eosinophils % (Manual) Basophils % (Manual) Metamyelocytes % (Man) Myelocytes % (Man) Promyelocytes % (Man) Blast Cells % (Manual) Plasma Cell % (Manual) Other Cells % Nucleated RBC % Neutrophils # (Manual) Band Neutrophils # Total Absolute Neuts Lymphocytes # (Manual) Prolymphocyte # Reactive Lymphs # Total Abs Lymphocytes Monocytes # (Manual) Eosinophils # (Manual) Basophils # (Manual) Metamyelocytes # (Man) Myelocytes # (Manual) Promyelocytes # (Man) Blast Cells # (Man) Plasma Cell # (Manual) Other Cells # Nucleated RBCs # (Man) Hypersegmented Neuts Hyposegmented Neuts Hypogranular Neuts Large Granular Lymphs # Lrg Granular Lymphs Hairy Cells Smudge Cells Toxic Granulation Toxic Vacuolation Dohle Bodies David Rods Platelet Estimate Hypogranular Platelets Giant Platelets Platelet Satelliting RBC Morphology Polychromasia Hypochromasia Poikilocytosis Basophilic Stippling Anisocytosis Microcytosis Macrocytosis Spherocytes Pappenheimer Bodies Sickle Cells Target Cells Tear Drop Cells Ovalocytes Stomatocytes [place] Bodies Echinocytes Acanthocytes (Spur) Rouleaux RBC Agglutinates Schistocytes Sezary Cell Sodium (136-145) mmol/L Potassium (3.5-5.1) mmol/L Chloride (98-107) mmol/L Carbon Dioxide (21-32) mmol/L Anion Gap (3-11) BUN (6-23) mg/dl Creatinine (0.6-1.2) mg/dl Est Cr Clr Drug Dosing ml/min Est GFR ( Amer) ml/min Est GFR (Non-Af Amer) ml/min BUN/Creatinine Ratio (10-20) Glucose (70-99(Fasting)) mg/dl Lactate (0.4-2.0) mmol/L Calcium (8.6-10.3) mg/dl Total Bilirubin (0.2-1.0) mg/dl AST (13-39) U/L ALT (7-52) U/L Alkaline Phosphatase (34-104) U/L Total Protein (6.0-8.3) gm/dl Albumin (3.4-5.0) gm/dl Globulin (2.5-4.0) gm/dl Albumin/Globulin Ratio (0.9-2) Lipase (11-82) U/L HCG, Quant mIU/ml Urine Color Urine Appearance (Clear) Urine pH (4.5-7.5) Ur Specific [place] (1.000-1.030) Urine Protein (Negative) Urine Glucose (UA) (Negative) Urine Ketones (Negative) Urine Blood (Negative) Urine Nitrite (Negative) Urine Bilirubin (Negative) Urine Urobilinogen (Negative) Ur Leukocyte Esterase (Negative) Random Gentamicin 1.15 Cancelled mcg/ml C.trachomatis RNA Not Detected (NotDetected) N.gonorrhoeae RNA Not Detected (NotDetected) SARS-CoV-2, RNA, NAAT (NEGATIVE) Blood Parasites ID Blood Type Antibody Screen 06/05/22 06/05/22 06/05/22 Range/Units 05:53 05:53 07:09 WBC Cancelled 24.61 H (4.8-10.8) K/ul RBC Cancelled 4.00 L (4.20-5.40) M/uL Hgb Cancelled 11.0 L (12.0-16.0) g/dl Hct Cancelled 32.1 L (37.0-47.0) % MCV Cancelled 80.3 (80.0-100.0) fL MCH Cancelled 27.5 (25.0-34.0) pg MCHC Cancelled 34.3 (32.0-36.0) g/dL RDW Std Deviation Cancelled 40.9 (36.4-46.3) fL RDW Coeff of Myra Cancelled 14.0 (11.5-14.5) % Plt Count Cancelled 283 (130-400) K/uL MPV Cancelled 8.5 L (9.4-12.4) fL Immature Gran % (Auto) Cancelled 0.8 % Neut % (Auto) Cancelled 83.3 % Lymph % (Auto) Cancelled 14.1 % [place] % (Auto) Cancelled 1.5 % Eos % (Auto) Cancelled 0.0 % Baso % (Auto) Cancelled 0.3 % Neut # (Auto) Cancelled 20.48 H (1.40-6.50) K/uL Lymph # (Auto) Cancelled 3.48 H (1.2-3.4) K/uL [place] # (Auto) Cancelled 0.38 (0.11-0.59) K/uL Eos # (Auto) Cancelled 0.00 (0-0.50) K/uL Baso # (Auto) Cancelled 0.07 (0-0.2) K/uL Immature Gran # (Auto) Cancelled 0.20 (0.01-0.20) K/uL Absolute Nucleated RBC Cancelled Nucleated RBC % (auto) Cancelled Neutrophils % (Manual) Cancelled Band Neutrophils % Cancelled Lymphocytes % (Manual) Cancelled Prolymphocyte % Cancelled Reactive Lymphs % (Man) Cancelled Monocytes % (Manual) Cancelled Eosinophils % (Manual) Cancelled Basophils % (Manual) Cancelled Metamyelocytes % (Man) Cancelled Myelocytes % (Man) Cancelled Promyelocytes % (Man) Cancelled Blast Cells % (Manual) Cancelled Plasma Cell % (Manual) Cancelled Other Cells % Cancelled Nucleated RBC % Cancelled Neutrophils # (Manual) Cancelled Band Neutrophils # Cancelled Total Absolute Neuts Cancelled Lymphocytes # (Manual) Cancelled Prolymphocyte # Cancelled Reactive Lymphs # Cancelled Total Abs Lymphocytes Cancelled Monocytes # (Manual) Cancelled Eosinophils # (Manual) Cancelled Basophils # (Manual) Cancelled Metamyelocytes # (Man) Cancelled Myelocytes # (Manual) Cancelled Promyelocytes # (Man) Cancelled Blast Cells # (Man) Cancelled Plasma Cell # (Manual) Cancelled Other Cells # Cancelled Nucleated RBCs # (Man) Cancelled Hypersegmented Neuts Cancelled Hyposegmented Neuts Cancelled Hypogranular Neuts Cancelled Large Granular Lymphs Cancelled # Lrg Granular Lymphs Cancelled Hairy Cells Cancelled Smudge Cells Cancelled Toxic Granulation Cancelled Toxic Vacuolation Cancelled Dohle Bodies Cancelled David Rods Cancelled Platelet Estimate Cancelled Hypogranular Platelets Cancelled Giant Platelets Cancelled Platelet Satelliting Cancelled RBC Morphology Cancelled Polychromasia Cancelled Hypochromasia Cancelled Poikilocytosis Cancelled Basophilic Stippling Cancelled Anisocytosis Cancelled Microcytosis Cancelled Macrocytosis Cancelled Spherocytes Cancelled Pappenheimer Bodies Cancelled Sickle Cells Cancelled Target Cells Cancelled Tear Drop Cells Cancelled Ovalocytes Cancelled 1+ Stomatocytes Cancelled [place] Bodies Cancelled Echinocytes Cancelled 1+ Acanthocytes (Spur) Cancelled Rouleaux Cancelled RBC Agglutinates Cancelled Schistocytes Cancelled Sezary Cell Cancelled Sodium 133 L (136-145) mmol/L Potassium 3.7 (3.5-5.1) mmol/L Chloride 103 (98-107) mmol/L Carbon Dioxide 19 L (21-32) mmol/L Anion Gap 11 (3-11) BUN 9 (6-23) mg/dl Creatinine 0.65 (0.6-1.2) mg/dl Est Cr Clr Drug Dosing 117.2 ml/min Est GFR ( Amer) 146.1 ml/min Est GFR (Non-Af Amer) 126.0 ml/min BUN/Creatinine Ratio 13.8 (10-20) Glucose 141 H (70-99(Fasting)) mg/dl Lactate (0.4-2.0) mmol/L Calcium 8.3 L (8.6-10.3) mg/dl Total Bilirubin 0.6 (0.2-1.0) mg/dl AST 27 (13-39) U/L ALT 18 (7-52) U/L Alkaline Phosphatase 35 (34-104) U/L Total Protein 5.7 L (6.0-8.3) gm/dl Albumin 3.3 L (3.4-5.0) gm/dl Globulin 2.4 L (2.5-4.0) gm/dl Albumin/Globulin Ratio 1.4 (0.9-2) Lipase (11-82) U/L HCG, Quant mIU/ml Urine Color Urine Appearance (Clear) Urine pH (4.5-7.5) Ur Specific [place] (1.000-1.030) Urine Protein (Negative) Urine Glucose (UA) (Negative) Urine Ketones (Negative) Urine Blood (Negative) Urine Nitrite (Negative) Urine Bilirubin (Negative) Urine Urobilinogen (Negative) Ur Leukocyte Esterase (Negative) Random Gentamicin mcg/ml C.trachomatis RNA (NotDetected) N.gonorrhoeae RNA (NotDetected) SARS-CoV-2, RNA, NAAT (NEGATIVE) Blood Parasites ID Cancelled Blood Type Antibody Screen 06/05/22 06/05/22 06/05/22 Range/Units 08:16 12:21 18:14 WBC 20.35 H (4.8-10.8) K/ul RBC 4.02 L (4.20-5.40) M/uL Hgb 10.9 L 11.3 L (12.0-16.0) g/dl Hct 32.7 L 33.8 L (37.0-47.0) % MCV 81.3 (80.0-100.0) fL MCH 27.1 (25.0-34.0) pg MCHC 33.3 (32.0-36.0) g/dL RDW Std Deviation 41.7 (36.4-46.3) fL RDW Coeff of Myra 14.0 (11.5-14.5) % Plt Count 274 (130-400) K/uL MPV 8.4 L (9.4-12.4) fL Immature Gran % (Auto) 0.5 % Neut % (Auto) 82.8 % Lymph % (Auto) 14.6 % [place] % (Auto) 1.7 % Eos % (Auto) 0.1 % Baso % (Auto) 0.3 % Neut # (Auto) 16.82 H (1.40-6.50) K/uL Lymph # (Auto) 2.98 (1.2-3.4) K/uL [place] # (Auto) 0.35 (0.11-0.59) K/uL Eos # (Auto) 0.03 (0-0.50) K/uL Baso # (Auto) 0.06 (0-0.2) K/uL Immature Gran # (Auto) 0.11 (0.01-0.20) K/uL Absolute Nucleated RBC Nucleated RBC % (auto) Neutrophils % (Manual) Band Neutrophils % Lymphocytes % (Manual) Prolymphocyte % Reactive Lymphs % (Man) Monocytes % (Manual) Eosinophils % (Manual) Basophils % (Manual) Metamyelocytes % (Man) Myelocytes % (Man) Promyelocytes % (Man) Blast Cells % (Manual) Plasma Cell % (Manual) Other Cells % Nucleated RBC % Neutrophils # (Manual) Band Neutrophils # Total Absolute Neuts Lymphocytes # (Manual) Prolymphocyte # Reactive Lymphs # Total Abs Lymphocytes Monocytes # (Manual) Eosinophils # (Manual) Basophils # (Manual) Metamyelocytes # (Man) Myelocytes # (Manual) Promyelocytes # (Man) Blast Cells # (Man) Plasma Cell # (Manual) Other Cells # Nucleated RBCs # (Man) Hypersegmented Neuts Hyposegmented Neuts Hypogranular Neuts Large Granular Lymphs # Lrg Granular Lymphs Hairy Cells Smudge Cells Toxic Granulation Toxic Vacuolation Dohle Bodies David Rods Platelet Estimate Hypogranular Platelets Giant Platelets Platelet Satelliting RBC Morphology Polychromasia 1+ Hypochromasia Poikilocytosis Basophilic Stippling Anisocytosis Microcytosis Macrocytosis Spherocytes Pappenheimer Bodies Sickle Cells Target Cells Tear Drop Cells Ovalocytes Stomatocytes [place] Bodies Echinocytes 1+ Acanthocytes (Spur) Rouleaux RBC Agglutinates Schistocytes Sezary Cell Sodium (136-145) mmol/L Potassium (3.5-5.1) mmol/L Chloride (98-107) mmol/L Carbon Dioxide (21-32) mmol/L Anion Gap (3-11) BUN (6-23) mg/dl Creatinine (0.6-1.2) mg/dl Est Cr Clr Drug Dosing ml/min Est GFR ( Amer) ml/min Est GFR (Non-Af Amer) ml/min BUN/Creatinine Ratio (10-20) Glucose (70-99(Fasting)) mg/dl Lactate 1.3 (0.4-2.0) mmol/L Calcium (8.6-10.3) mg/dl Total Bilirubin (0.2-1.0) mg/dl AST (13-39) U/L ALT (7-52) U/L Alkaline Phosphatase (34-104) U/L Total Protein (6.0-8.3) gm/dl Albumin (3.4-5.0) gm/dl Globulin (2.5-4.0) gm/dl Albumin/Globulin Ratio (0.9-2) Lipase (11-82) U/L HCG, Quant mIU/ml Urine Color Urine Appearance (Clear) Urine pH (4.5-7.5) Ur Specific [place] (1.000-1.030) Urine Protein (Negative) Urine Glucose (UA) (Negative) Urine Ketones (Negative) Urine Blood (Negative) Urine Nitrite (Negative) Urine Bilirubin (Negative) Urine Urobilinogen (Negative) Ur Leukocyte Esterase (Negative) Random Gentamicin mcg/ml C.trachomatis RNA (NotDetected) N.gonorrhoeae RNA (NotDetected) SARS-CoV-2, RNA, NAAT (NEGATIVE) Blood Parasites ID Blood Type Antibody Screen 06/06/22 06/06/22 06/06/22 Range/Units 00:45 05:33 05:33 WBC 26.39 H (4.8-10.8) K/ul RBC 3.98 L (4.20-5.40) M/uL Hgb 11.0 L 10.9 L (12.0-16.0) g/dl Hct 32.6 L 32.4 L (37.0-47.0) % MCV 81.4 (80.0-100.0) fL MCH 27.4 (25.0-34.0) pg MCHC 33.6 (32.0-36.0) g/dL RDW Std Deviation 42.2 (36.4-46.3) fL RDW Coeff of Myra 14.3 (11.5-14.5) % Plt Count 317 (130-400) K/uL MPV 8.8 L (9.4-12.4) fL Immature Gran % (Auto) 3.2 % Neut % (Auto) 85.6 % Lymph % (Auto) 8.3 % [place] % (Auto) 2.6 % Eos % (Auto) 0.0 % Baso % (Auto) 0.3 % Neut # (Auto) 22.58 H (1.40-6.50) K/uL Lymph # (Auto) 2.20 (1.2-3.4) K/uL [place] # (Auto) 0.68 H (0.11-0.59) K/uL Eos # (Auto) 0.01 (0-0.50) K/uL Baso # (Auto) 0.08 (0-0.2) K/uL Immature Gran # (Auto) 0.84 H (0.01-0.20) K/uL Absolute Nucleated RBC Nucleated RBC % (auto) Neutrophils % (Manual) Band Neutrophils % Lymphocytes % (Manual) Prolymphocyte % Reactive Lymphs % (Man) Monocytes % (Manual) Eosinophils % (Manual) Basophils % (Manual) Metamyelocytes % (Man) Myelocytes % (Man) Promyelocytes % (Man) Blast Cells % (Manual) Plasma Cell % (Manual) Other Cells % Nucleated RBC % Neutrophils # (Manual) Band Neutrophils # Total Absolute Neuts Lymphocytes # (Manual) Prolymphocyte # Reactive Lymphs # Total Abs Lymphocytes Monocytes # (Manual) Eosinophils # (Manual) Basophils # (Manual) Metamyelocytes # (Man) Myelocytes # (Manual) Promyelocytes # (Man) Blast Cells # (Man) Plasma Cell # (Manual) Other Cells # Nucleated RBCs # (Man) Hypersegmented Neuts Hyposegmented Neuts Hypogranular Neuts Large Granular Lymphs # Lrg Granular Lymphs Hairy Cells Smudge Cells Toxic Granulation Toxic Vacuolation Dohle Bodies 1+ David Rods Platelet Estimate Hypogranular Platelets Giant Platelets Platelet Satelliting RBC Morphology Polychromasia Hypochromasia Poikilocytosis Basophilic Stippling Anisocytosis Microcytosis Macrocytosis Spherocytes Pappenheimer Bodies Sickle Cells Target Cells Tear Drop Cells Ovalocytes Stomatocytes [place] Bodies Echinocytes Acanthocytes (Spur) Rouleaux RBC Agglutinates Schistocytes [place] Cell Sodium 131 L (136-145) mmol/L Potassium 3.5 (3.5-5.1) mmol/L Chloride 101 (98-107) mmol/L Carbon Dioxide 20 L (21-32) mmol/L Anion Gap 10 (3-11) BUN 12 (6-23) mg/dl Creatinine 0.69 (0.6-1.2) mg/dl Est Cr Clr Drug Dosing 110.4 ml/min Est GFR ( Amer) 143.2 ml/min Est GFR (Non-Af Amer) 123.6 ml/min BUN/Creatinine Ratio 17.4 (10-20) Glucose 111 H (70-99(Fasting)) mg/dl Lactate (0.4-2.0) mmol/L Calcium 8.2 L (8.6-10.3) mg/dl Total Bilirubin 0.7 (0.2-1.0) mg/dl AST 19 (13-39) U/L ALT 15 (7-52) U/L Alkaline Phosphatase 52 (34-104) U/L Total Protein 5.7 L (6.0-8.3) gm/dl Albumin 3.1 L (3.4-5.0) gm/dl Globulin 2.6 (2.5-4.0) gm/dl Albumin/Globulin Ratio 1.2 (0.9-2) Lipase (11-82) U/L HCG, Quant mIU/ml Urine Color Urine Appearance (Clear) Urine pH (4.5-7.5) Ur Specific [place] (1.000-1.030) Urine Protein (Negative) Urine Glucose (UA) (Negative) Urine Ketones (Negative) Urine Blood (Negative) Urine Nitrite (Negative) Urine Bilirubin (Negative) Urine Urobilinogen (Negative) Ur Leukocyte Esterase (Negative) Random Gentamicin mcg/ml C.trachomatis RNA (NotDetected) N.gonorrhoeae RNA (NotDetected) SARS-CoV-2, RNA, NAAT (NEGATIVE) Blood Parasites ID Blood Type Antibody Screen Results & Data Vital Signs (Past 12 Hours) Vital Signs Temp Pulse Pulse Resp BP Pulse Ox O2 Del Method 06/06/22 06:30 122 H 18 98 Room Air 06/06/22 04:10 37.5 C 134 H 20 113/56 L 98 Room Air 06/05/22 23:25 36.9 C 112 H 18 121/57 L 98 Room Air
--- NOTE | 2022-06-06 09:54 | Ultrasound Report ---
PELVIC ULTRASOUND CLINICAL HISTORY: s/p ectopic, followup pelvic pain COMPARISON STUDY: Pelvic ultrasound June 03, 2022. CT of the abdomen and pelvis June 05, 2022. TECHNIQUE: Transabdominal sonography of the pelvis was performed. In addition, sonography of the upp er quadrants was performed. FINDINGS: Note is made of a moderate to large amount of complex fluid throughout the abdomen and pelv is. This includes fluid within the pelvis, paracolic gutters and upper quadrants. Innumerable septati ons are noted within this fluid. The amount of fluid has increased since CT of June 05, 2022. Pelvic viscera are obscured by this suspected clot. IMPRESSION: Moderate to large amount of complex fluid throughout the abdomen and pelvis, as described above. Septations throughout the fluid. Amount of fluid increased since CT of June 05, 2022. The fi ndings suggest age indeterminate hemoperitoneum. Superimposed infection cannot be excluded by sonogra phy. This finding will be called/faxed to the ordering provider at time of dictation. ACT 112: Negative or not required by law. Electronically signed by: Rodriguez Thomson M.D. 06/06/2022 9:51 AM
[2022-06-06] MEDS ORDERED: ROCURONIUM BROMIDE 10 MG/ML 5 ML VIAL IV ONE ×3 (10:06→12:18)
--- NOTE | 2022-06-06 10:12 | Gynecologic Progress Note ---
Date of Service June 06, 2022 Assessment & Plan Admission and Anticipated Discharge Date Admission Date: June 03, 2022 Subjective US is back: FINDINGS: Note is made of a moderate to large amount of complex fluid throughout the abdomen and pelvis. This includes fluid within the pelvis, paracolic gutters and upper quadrants. Innumerable septations are noted within this fluid. The amount of fluid has increased since CT of June 05, 2022. Pelvic viscera are obscured by this suspected clot. IMPRESSION: Moderate to large amount of complex fluid throughout the abdomen and pelvis, as described above. Septations throughout the fluid. Amount of fluid increased since CT of June 05, 2022. The findings suggest age indeterminate hemoperitoneum. Superimposed infection cannot be excluded by sonography. This finding will be called/faxed to the ordering provider at time of dictation. Blood work partially back Lactate 2.1 OR is getting ready. Patient is consented for Laparoscopy, evacuation of blood cloths/ fluid, possible laparotomy She understands the risks and benefits and signed an informed consent. Results & Data Vital Signs (Past 12 Hours) Vital Signs Temp Pulse Pulse Resp BP Pulse Ox O2 Del Method 06/06/22 07:38 36.8 C 127 H 31 H 125/71 97 Room Air 06/06/22 06:30 122 H 18 98 Room Air 06/06/22 04:10 37.5 C 134 H 20 113/56 L 98 Room Air 06/05/22 23:25 36.9 C 112 H 18 121/57 L 98 Room Air
[2022-06-06] MEDS ORDERED: SODIUM CHLORIDE 0.9% 250 ML IV PRN (10:13)
--- NOTE | 2022-06-06 10:20 | History & Physical Bridge Note ---
Date of Service June 06, 2022 History & Physical Bridge Note I have examined the patient, reviewed the History & Physical and in the interval since the performance of the History & Physical I have noted the following changes of clinical significance: no changes noted other than postop course.
[2022-06-06 10:44] LABS: Basophils % (auto) 0.4 %; Dohle Bodies 1+; Eosinophils # (auto) 0.01 K/uL (0-0.50); Hematocrit (blood only) 34.6 % (37.0-47.0); Hemoglobin 11.3 g/dl (12.0-16.0); Immature Granulocytes # (auto) 1.41 K/uL (0.01-0.20); Immature Granulocytes % (auto) 5.3 %; Lymphocytes % (auto) 7.1 %; Mean Corpuscular Hgb Conc 32.7 g/dL (32.0-36.0); Mean Corpuscular Volume 82.8 fL (80.0-100.0); Mean Platelet Volume 8.8 fL (9.4-12.4); Monocytes % (auto) 2.6 %; Neutrophils # (auto) 22.52 K/uL (1.40-6.50); Neutrophils % (auto) 84.6 %; Platelet Count 339 K/uL (130-400); RDW Coefficient of Variation 14.5 % (11.5-14.5); RDW Standard Deviation 43.6 fL (36.4-46.3); Red Blood Count 4.18 M/uL (4.20-5.40); Toxic Vacuolation 1+; White Blood Count 26.64 K/ul (4.8-10.8)
[2022-06-06] MEDS ORDERED: CEFEPIME 2,000 MG/20 ML VIAL IV STA (10:50)
[2022-06-06] MEDS ORDERED: BUPIVACAINE/EPINEPHRINE 0.5% MPF 1:200,000 30 ML VIAL ONE (10:52)
--- NOTE | 2022-06-06 10:56 | Anesthesiology Consultation ---
Date of Service June 06, 2022 Assessment & Plan Chart Review Chart Review: Acceptable Risk for Surgery and Patient NOT seen in Pre Admission Testing Consults Requested none ASA [id number] Proposed Anesthesia Anesthesia Type: General Risk / Benefits Reviewed With: PT / POA / Parent / Guardian, Accepts Plan and Informed Consent Obtained History Surgery Operation Date: 06/03/22 21:30 Proposed Procedures p Laparoscopic Operative(Left) - Cliff Matos MD Operation Date: 06/06/22 10:50 Proposed Procedures p Laparoscopic for Blood Clots, Irrigation of Pelvis and Abdomen, Possible Laparotomy - Gem Ramírez MD Height/Weight Height: 5 ft 4 in Weight: 58.2 kg Allergies Allergy/AdvReac Type Severity Reaction Status Date / Time amoxicillin Allergy Rash Unverified 04/04/22 11:29 Medications Home Medications Medication Instructions Recorded Confirmed Last Taken methylphenidate HCl 10 mg tablet 0 mg PO UD 04/04/22 04/04/22 Unknown methylphenidate HCl 27 mg 27 mg PO DAILY 04/04/22 04/04/22 04/04/22 tablet,extended release 24 hr sulfamethoxazole 800 1 tab PO Q12H #14 tabs 04/04/22 Unknown mg-trimethoprim 160 mg tablet (Bactrim DS) ibuprofen 600 mg tablet 600 mg PO Q6H PRN pain #30 tabs 06/03/22 Unknown oxycodone 5 mg tablet 5 mg PO Q4H #12 tabs 06/04/22 Unknown Active Medications Generic Name Dose Route Start Last Admin Trade Name Freq PRN Reason Stop Dose Admin Acetaminophen 650 mg 06/03/22 23:38 06/04/22 22:06 Acetaminophen 325 Mg Tab PO 07/03/22 23:37 650 mg Q6H PRN Administration Pain & Pre PT Metronidazole 500 mg in 100 mls @ 100 mls/hr 06/05/22 18:00 06/06/22 03:10 Flagyl IV 06/07/22 16:14 Infused Q8H RAUDEL Infusion Cefepime HCl 2,000 mg/ Syringe 20 mls @ 5 mls/min 06/05/22 17:00 06/06/22 04:10 IV 06/07/22 16:14 5 mls/min Q12H RAUDEL Administration Protocol Lactated Ringer's 1,000 mls @ 125 mls/hr 06/05/22 20:29 06/06/22 09:45 Lr IV 07/05/22 20:28 0 mls/hr .Q8H RAUDEL Infusion Ibuprofen 600 mg 06/03/22 23:38 06/05/22 02:03 Ibuprofen 600 Mg Tab PO 07/03/22 23:37 600 mg Q4 PRN Administration Pain & Pre PT Ketorolac Tromethamine 30 mg 06/03/22 23:38 06/06/22 04:10 Ketorolac 30 Mg/Ml Vial IV 06/08/22 23:37 30 mg Q6H PRN Administration Pain & Pre PT Metoclopramide HCl 10 mg 06/04/22 20:30 06/06/22 10:18 Metoclopramide Hcl 10 Mg Tablet PO 07/04/22 20:29 Not Given Q6H RAUDEL Morphine Sulfate 2 mg 06/03/22 23:38 06/06/22 08:35 Morphine Sulfate 2 Mg/Ml Carp IV 06/17/22 23:37 2 mg Q3H PRN Administration Pain (1,2,3,4,5) & Pre PT Oxycodone HCl 5 mg 06/03/22 23:38 06/05/22 23:25 Oxycodone Hcl Ir 5 Mg Tab (Immediate Release) PO 06/17/22 23:37 5 mg Q4H PRN Administration MODERATE Pain (4,5,6) & Pre PT Simethicone 80 mg 06/05/22 08:00 06/05/22 08:17 Simethicone 80 Mg Chew PO 07/05/22 07:59 80 mg Q6H PRN Administration Flatulence NPO Date Last Intake of Fluids: 06/05/22 Time Last Intake of Fluids: 00:00 Date Last Intake of Solids: 06/04/22 Time Last Intake of Solids: 09:00 Past Medical History Medical History ADD (attention deficit disorder) Marijuana use Exercise / Class Metabolic Activity II 4-5 Yardwork/Stairs/Walk up hill Past Surgical History Surgical History History of strabismus surgery Past Anesthesia History No Hx of Anesthesia Complications and No Family Hx of Anesthesia Complications History of PONV No Hx of PONV and No Hx of Motion Sickness Social History Smoking Status: Never smoker Hx Substance Use: Yes substance use type: marijuana (most days) Physical Exam Vital Signs Last Vital Signs Temp 36.8 C 06/06/22 10:37 Pulse 132 H 06/06/22 10:37 Resp 25 H 06/06/22 10:37 BP 117/57 L 06/06/22 10:37 Pulse Ox 100 06/06/22 10:37 O2 Del Method Room Air 06/06/22 10:37 O2 Flow Rate 7 06/03/22 23:05 Constitutional + acute distress; not cachectic ENMT Mouth: no dentition abnormality Thyromental Distance: < 3.5 Finger Breadths Mallampati Class: II Neck normal visual inspection and trachea midline; neck extension not limited Respiratory + tachypneic Auscultation: + diminished lung sounds Cardiovascular Rate/Rhythm: + tachycardic Heart Sounds: no murmur Musculoskeletal Spine: normal cervical ROM and no pain with cervical ROM Extremities: full ROM of extremities Neurologic moves all extremities Motor/Sensory: no sensory deficit Psychiatric Orientation: alert and oriented x 3 Testing Laboratory Results 06/06/22 09:39 06/06/22 05:33 HCG, Quant 7249 mIU/ml 06/03/22 16:18 Urine Color Yellow 06/03/22 Unknown Urine Appearance Clear (Clear) 06/03/22 Unknown Urine pH 7.5 (4.5-7.5) 06/03/22 Unknown Ur Specific [place] 1.004 (1.000-1.030) 06/03/22 Unknown Urine Protein Negative (Negative) 06/03/22 Unknown Urine Glucose (UA) Negative (Negative) 06/03/22 Unknown Urine Ketones Negative (Negative) 06/03/22 Unknown Urine Nitrite Negative (Negative) 06/03/22 Unknown Ur Leukocyte Esterase Negative (Negative) 06/03/22 Unknown Blood Type O Positive 06/03/22 18:09 Antibody Screen NEGATIVE 06/03/22 18:09 06/04/22 23:44 Aerobic Blood Culture - Preliminary Blood No growth in Aerobic bottle after 24 hours. Anaerobic Blood Culture - Preliminary No growth in Anaerobic bottle after 24 hours. 06/04/22 23:44 Aerobic Blood Culture - Preliminary Blood No growth in Aerobic bottle after 24 hours. Anaerobic Blood Culture - Preliminary No growth in Anaerobic bottle after 24 hours. 06/03/22 16:18 HCG, Quant [id number]
[2022-06-06 11:01] LABS: Fibrinogen 558 mg/dl (184-400); INR 1.3 (0.9-1.1); Partial Thromboplastin Ratio 1.4; Partial Thromboplastin Time 39.1 Seconds (21.0-31.0); Prothrombin Time 14.5 Seconds (9.0-12.0)
[2022-06-06] MEDS ORDERED: MIDAZOLAM HCL 1 MG/ML 2ML VIAL ONE (11:04)
[2022-06-06] MEDS ORDERED: fentaNYL citrate PF 100 MCG/2 ML VIAL ONE ×2 (11:19→13:04)
--- NOTE | 2022-06-06 11:31 | Gynecologic Progress Note ---
Date of Service June 06, 2022 Assessment & Plan Admission and Anticipated Discharge Date Admission Date: June 03, 2022 Subjective Late entry from this morning encounter Patient declined any family member or friend notified about her condition. Results & Data Vital Signs (Past 12 Hours) Vital Signs Temp Pulse Pulse Resp BP Pulse Ox O2 Del Method 06/06/22 10:37 36.8 C 132 H 25 H 117/57 L 100 Room Air 06/06/22 07:38 36.8 C 127 H 31 H 125/71 97 Room Air 06/06/22 06:30 122 H 18 98 Room Air 06/06/22 04:10 37.5 C 134 H 20 113/56 L 98 Room Air
[2022-06-06] MEDS ORDERED: ACETAMINOPHEN 1000 MG/100 ML IV IV ONE (11:56)
[2022-06-06] MEDS ORDERED: SUGAMMADEX SODIUM 200 MG/2 ML VIAL IV ONE (13:32)
--- NOTE | 2022-06-06 13:50 | Post Operative Brief Note ---
Immediate Post Op Note v1 Date of Surgery June 06, 2022 Pre & Post Diagnosis Operation Date: 06/06/22 10:50 Pre-Op Diagnosis: Post-op pain Abdominal distention Post-Op Diagnosis: Post-op pain Abdominal distention I identified the patient and participated in the time-out.: Yes Procedure Operation Date: 06/06/22 10:50 Actual Procedures s Laparoscopy, Irrigation of Pelvis and Abdomen - Gem Ramírez MD p Exploratory Laparotomy, Bowel Resection, and Washout - Jack Palm MD Surgeon Gem Ramírez MD [employer] Nicole French REACTOR SERVICE OPERATOR Estimated Blood Loss 10 Findings Consistent with Post-Op Diagnosis Specimens left partial tube and ectopic Drains Goss Catheter and Alejandro-Blair Drain (15Fr round) Anesthesia Type General Complications none Disposition Accompanied Patient To Recovery: Yes
[2022-06-06] MEDS ORDERED: HYDROmorphone INJ 2 MG/ML SYR/VIAL ONE (14:01)
--- NOTE | 2022-06-06 14:03 | XRay Report ---
XR pelvis 1-2V routine CLINICAL HISTORY: INCORRECT COUNT, MISSING MULTIPLE FORCEPS COMPARISON STUDY: None. FINDINGS: There are lower midline skin isiah and a pelvic drain. A nasogastric tube terminates in t he stomach. No additional radiopaque foreign bodies identified within the abdomen or pelvis. Mildly d ilated gas-filled loops of large and small bowel favor an ileus. Specifically, no evidence for a forc ep. IMPRESSION: No abnormal radiopaque foreign bodies identified within the abdomen or pelvis. ACT 112: Negative or not required by law. Electronically signed by: Winston Pérez M.D. 06/06/2022 2:01 PM
--- NOTE | 2022-06-06 14:10 | Operative Report ---
Post Operative Report Pre & Post Diagnosis Operation Date: 06/06/22 10:50 Pre-Op Diagnosis: Post-op pain Abdominal distention Post-Op Diagnosis: Post-op pain Abdominal distention I identified the patient and participated in the time-out.: Yes Procedure Operation Date: 06/06/22 10:50 Actual Procedures s Laparoscopy, Irrigation of Pelvis and Abdomen - Gem Baldwin-MD Phill p Exploratory Laparotomy, Bowel Resection, and Washout - Jack Palm MD Surgeon Jack Palm MD Accountant Tax Nicole French FIELD SPEC Estimated Blood Loss 10 Findings Consistent with Post-Op Diagnosis Small bowel perforation at the level of the mid to distal ileum; large amount of enteric contents within the abdominal cavity Specimens Small bowel Drains 15 Citizen Of [place] round MIKAELA Anesthesia Type General Complications No immediate complications Description of Procedure The patient had been taken to the OR, and prepped and draped in the normal sterile fashion. The case was started by Dr. Baldwin and Dr. Matos. Upon laparoscopic entry into the abdominal cavity, a large amount of adhesions, inflammation, and greenish fluid was noted in the lower abdomen. This appeared to be most consistent with a bowel perforation. At this point, I scrubbed into the case. A lower midline incision was made with a 15 blade scalpel and carried down to the level of the fascia. The fascia was opened to its fullest length, and the peritoneum was entered. We encountered a large amount of greenish enteric fluid. This was suctioned free with a pull sucker. The omentum was reflected out and upwards. This exposed the small bowel, which was significantly inflamed. I began to run the small bowel down towards the low terminal ileum. In the mid to distal ileum, I noted a perforation of the small bowel, which was the source of the enteric fluid. The remainder of the bowel was run, and no other area of perforation was identified. The decision was made to do a resection and reanastomosis of this bowel. A site was selected proximally and distally to the perforation, and was transected with the ZAC stapler. The mesentery was taken with the LigaSure device. The loop of small bowel was sent off the field for specimen. It measured approximately 6 cm. A [id number] functional end-to-end anastomosis was then created to reconnect the small bowel. This was done with the ZAC stapler. The common channel was then closed in 2 layers, an inner layer of running 3-0 Vicryl, and an outer seromuscular layer of interrupted 3-0 silk suture. A stitch was placed at the base of the anastomosis of 3-0 silk. The mesenteric defect was then closed with a running 3-0 Vicryl. Attention was turned to the abdominal contents. Again the bowel was run with no evidence of other injury. The wound was copiously irrigated with multiple liters of warm saline. This was suctioned free. A 15 Citizen [place] round MIKAELA drain was placed through separate stab incision and was secured with a 3-0 nylon suture. The fascia was closed with a running #1 PDS. The skin was closed with surgical clips. Dressings were applied. She tolerated the procedure without complication, was transferred in stable condition to the PACU. All instrument, needle, and sponge counts were correct at the end of the case. My workforce development assistant was necessary throughout the procedure for tissue retraction, possible camera operation, and closure of the wounds. I understand that section 1842(b)(7)(D) of the Social Security act generally prohibits Medicare physician fee schedule payment for the services of assistants at surgery in teaching hospitals when qualified residents are available to furnish such services. I certify that the services for which payment is claimed were medically necessary and that no qualified resident was available to perform the services. I further understand that these services are subject to postpayment review by the Medicare carrier. I attest to the content of the Intraoperative Record and any orders documented therein. Any exceptions are noted below.
[2022-06-06] MEDS ORDERED: ATROPINE SULFATE 0.1 MG/ML 10ML SYR IV PRN (14:38)
[2022-06-06] MEDS ORDERED: ePHEDrine sulfate 50 MG/ML AMP IV PRN (14:38)
[2022-06-06] MEDS ORDERED: FLUMAZENIL 0.1 MG/1 ML 10 ML VIAL IV PRN (14:38)
[2022-06-06] MEDS ORDERED: HYDROmorphone INJ 1 MG/ML SYRINGE IV PRN (14:38)
[2022-06-06] MEDS ORDERED: ONDANSETRON INJ 2 MG/ML 2 ML VIAL IV PRN (14:38)
[2022-06-06] MEDS ORDERED: PROMETHAZINE HCL 12.5 MG in SODIUM CHLORIDE 0.9% 50 ML IV PRN (14:38)
[2022-06-06] MEDS ORDERED: fentaNYL citrate PF 100 MCG/2 ML VIAL IV PRN (14:38)
[2022-06-06] MEDS ORDERED: NALOXONE HCL 0.4 MG/1 ML VIAL/CARP IV PRN (14:38)
--- NOTE | 2022-06-06 14:48 | Anesthesiology Progress Note ---
Date of Service June 06, 2022 Anesthesia Post Procedure Vital Signs Vital Signs: Temp Pulse Pulse Resp BP Pulse Ox O2 Del Method 06/06/22 14:25 96 H 15 121/68 100 Room Air 06/06/22 14:15 110 H 16 111/69 100 Oxymask 06/06/22 14:07 36.3 C L 102 H 18 116/65 100 Oxymask 06/06/22 08:03 37.9 C H 130 H 28 H 128/66 100 Room Air 06/06/22 10:37 36.8 C 132 H 25 H 117/57 L 100 Room Air 06/06/22 07:38 Room Air 06/06/22 07:38 36.8 C 127 H 31 H 125/71 97 Room Air 06/06/22 06:30 122 H 18 98 Room Air 06/06/22 04:10 37.5 C 134 H 20 113/56 L 98 Room Air 06/05/22 23:25 36.9 C 112 H 18 121/57 L 98 Room Air 06/05/22 19:25 36.7 C 112 H 18 110/60 98 Room Air 06/05/22 15:32 36.9 C 102 H 18 110/59 L 98 Room Air O2 Flow Rate 06/06/22 14:25 06/06/22 14:15 6 06/06/22 14:07 6 06/06/22 08:03 06/06/22 10:37 06/06/22 07:38 06/06/22 07:38 06/06/22 06:30 06/06/22 04:10 06/05/22 23:25 06/05/22 19:25 06/05/22 15:32 Pain Intensity Abdomen: Pain Intensity: 6 Transfer of Care Handoff Completed per policy Notes Mental Status: alert / awake / arousable Patient Amnestic to Procedure: Yes Nausea / Vomiting: adequately controlled Pain: adequately controlled Airway Patency, RR, SpO2: stable & adequate BP & HR: stable & adequate Hydration State: stable & adequate Anesthetic Complications: no major complications apparent
[2022-06-06] MEDS ORDERED: MoRPHine SULFATE 4 MG/ML 1 ML CARP\\VIAL IV PRN (16:37)
[2022-06-06] MEDS: CIPROFLOXACIN / D5W 400 MG/200 ML BAG IV SCH (17:31)
[2022-06-06] MEDS: PANTOprazole 40 MG in SYRINGE 0 ML IV SCH (18:19)
--- NOTE | 2022-06-06 19:35 | Gynecologic Progress Note ---
Date of Service June 06, 2022 Assessment & Plan Admission and Anticipated Discharge Date Admission Date: June 03, 2022 Subjective Postop check Patient is seen and examined Feels much better, complaints of acid reflux and NGT tube Pain is under control with meds No CP/ SOB/ Dizziness/ N&V/ VB/ Leg pain Not OOB yet Explained about the surgery and findings Vital Signs Temp Pulse Pulse Resp BP Pulse Ox O2 Del Method 06/06/22 18:22 36.4 C L 110 H 16 112/65 98 Room Air 06/06/22 16:10 36.5 C 95 H 14 103/61 95 Room Air 06/06/22 16:57 104 H 16 112/65 97 Room Air 06/06/22 16:00 94 H 16 108/58 L 97 Room Air 06/06/22 15:45 96 H 12 107/61 94 Room Air 06/06/22 15:30 36.9 C 98 H 16 112/60 96 Room Air 06/06/22 15:15 95 H 18 115/58 L 95 Room Air 06/06/22 15:00 95 H 14 122/70 96 Room Air 06/06/22 14:45 95 H 14 116/73 96 Room Air 06/06/22 14:35 36.4 C L 95 H 12 120/65 96 Room Air 06/06/22 14:25 96 H 15 121/68 100 Room Air 06/06/22 14:15 110 H 16 111/69 100 Oxymask 06/06/22 14:07 36.3 C L 102 H 18 116/65 100 Oxymask 06/06/22 08:03 37.9 C H 130 H 28 H 128/66 100 Room Air 06/06/22 10:37 36.8 C 132 H 25 H 117/57 L 100 Room Air 06/06/22 07:38 Room Air 06/06/22 07:38 36.8 C 127 H 31 H 125/71 97 Room Air O2 Flow Rate 06/06/22 18:22 06/06/22 16:10 06/06/22 16:57 06/06/22 16:00 06/06/22 15:45 06/06/22 15:30 06/06/22 15:15 06/06/22 15:00 06/06/22 14:45 06/06/22 14:35 06/06/22 14:25 06/06/22 14:15 6 06/06/22 14:07 6 06/06/22 08:03 06/06/22 10:37 06/06/22 07:38 06/06/22 07:38 Lab Results 06/03/22 06/03/22 06/03/22 Range/Units 16:18 16:18 16:18 WBC 8.11 (4.8-10.8) K/ul RBC 4.41 (4.20-5.40) M/uL Hgb 12.1 (12.0-16.0) g/dl Hct 36.3 L (37.0-47.0) % MCV 82.3 (80.0-100.0) fL MCH 27.4 (25.0-34.0) pg MCHC 33.3 (32.0-36.0) g/dL RDW Std Deviation 41.3 (36.4-46.3) fL RDW Coeff of Myra 13.8 (11.5-14.5) % Plt Count 329 (130-400) K/uL MPV 8.5 L (9.4-12.4) fL Immature Gran % (Auto) 0.2 % Neut % (Auto) 32.5 % Lymph % (Auto) 57.2 % [place] % (Auto) 7.4 % Eos % (Auto) 1.7 % Baso % (Auto) 1.0 % Neut # (Auto) 2.63 (1.40-6.50) K/uL Lymph # (Auto) 4.64 H (1.2-3.4) K/uL [place] # (Auto) 0.60 H (0.11-0.59) K/uL Eos # (Auto) 0.14 (0-0.50) K/uL Baso # (Auto) 0.08 (0-0.2) K/uL Immature Gran # (Auto) 0.02 (0.01-0.20) K/uL Absolute Nucleated RBC Nucleated RBC % (auto) Neutrophils % (Manual) Band Neutrophils % Lymphocytes % (Manual) Prolymphocyte % Reactive Lymphs % (Man) Monocytes % (Manual) Eosinophils % (Manual) Basophils % (Manual) Metamyelocytes % (Man) Myelocytes % (Man) Promyelocytes % (Man) Blast Cells % (Manual) Plasma Cell % (Manual) Other Cells % Nucleated RBC % Neutrophils # (Manual) Band Neutrophils # Total Absolute Neuts Lymphocytes # (Manual) Prolymphocyte # Reactive Lymphs # Total Abs Lymphocytes Monocytes # (Manual) Eosinophils # (Manual) Basophils # (Manual) Metamyelocytes # (Man) Myelocytes # (Manual) Promyelocytes # (Man) Blast Cells # (Man) Plasma Cell # (Manual) Other Cells # Nucleated RBCs # (Man) Hypersegmented Neuts Hyposegmented Neuts Hypogranular Neuts Large Granular Lymphs # Lrg Granular Lymphs Hairy Cells Smudge Cells Toxic Granulation Toxic Vacuolation Dohle Bodies David Rods Platelet Estimate Hypogranular Platelets Giant Platelets Platelet Satelliting RBC Morphology Polychromasia Hypochromasia Poikilocytosis Basophilic Stippling Anisocytosis Microcytosis Macrocytosis Spherocytes Pappenheimer Bodies Sickle Cells Target Cells Tear Drop Cells Ovalocytes Stomatocytes Hunter-Hogeland Bodies Echinocytes Acanthocytes (Spur) Rouleaux RBC Agglutinates Schistocytes Sezary Cell PT (9.0-12.0) Seconds INR (0.9-1.1) APTT (21.0-31.0) Seconds PTT Ratio Fibrinogen (184-400) mg/dl Sodium 139 (136-145) mmol/L Potassium 3.4 L (3.5-5.1) mmol/L Chloride 105 (98-107) mmol/L Carbon Dioxide 28 (21-32) mmol/L Anion Gap 6 (3-11) BUN 9 (6-23) mg/dl Creatinine 0.55 L (0.6-1.2) mg/dl Est Cr Clr Drug Dosing 138.5 ml/min Est GFR ( Amer) > 150.0 ml/min Est GFR (Non-Af Amer) 133.1 ml/min BUN/Creatinine Ratio 16.4 (10-20) Glucose 91 (70-99(Fasting)) mg/dl Lactate (0.4-2.0) mmol/L Calcium 9.5 (8.6-10.3) mg/dl Total Bilirubin 0.3 (0.2-1.0) mg/dl AST 24 (13-39) U/L ALT 20 (7-52) U/L Alkaline Phosphatase 50 (34-104) U/L Total Protein 7.3 (6.0-8.3) gm/dl Albumin 4.5 (3.4-5.0) gm/dl Globulin 2.8 (2.5-4.0) gm/dl Albumin/Globulin Ratio 1.6 (0.9-2) Lipase 18 (11-82) U/L HCG, Quant 7249 mIU/ml Urine Color Urine Appearance (Clear) Urine pH (4.5-7.5) Ur Specific [place] (1.000-1.030) Urine Protein (Negative) Urine Glucose (UA) (Negative) Urine Ketones (Negative) Urine Blood (Negative) Urine Nitrite (Negative) Urine Bilirubin (Negative) Urine Urobilinogen (Negative) Ur Leukocyte Esterase (Negative) Random Gentamicin mcg/ml C.trachomatis RNA (NotDetected) N.gonorrhoeae RNA (NotDetected) SARS-CoV-2, RNA, NAAT (NEGATIVE) Blood Parasites ID Blood Type Blood Type Recheck Antibody Screen 06/03/22 06/03/22 06/03/22 Range/Units 18:09 20:42 Unknown WBC (4.8-10.8) K/ul RBC (4.20-5.40) M/uL Hgb (12.0-16.0) g/dl Hct (37.0-47.0) % MCV (80.0-100.0) fL MCH (25.0-34.0) pg MCHC (32.0-36.0) g/dL RDW Std Deviation (36.4-46.3) fL RDW Coeff of Myra (11.5-14.5) % Plt Count (130-400) K/uL MPV (9.4-12.4) fL Immature Gran % (Auto) % Neut % (Auto) % Lymph % (Auto) % [place] % (Auto) % Eos % (Auto) % Baso % (Auto) % Neut # (Auto) (1.40-6.50) K/uL Lymph # (Auto) (1.2-3.4) K/uL [place] # (Auto) (0.11-0.59) K/uL Eos # (Auto) (0-0.50) K/uL Baso # (Auto) (0-0.2) K/uL Immature Gran # (Auto) (0.01-0.20) K/uL Absolute Nucleated RBC Nucleated RBC % (auto) Neutrophils % (Manual) Band Neutrophils % Lymphocytes % (Manual) Prolymphocyte % Reactive Lymphs % (Man) Monocytes % (Manual) Eosinophils % (Manual) Basophils % (Manual) Metamyelocytes % (Man) Myelocytes % (Man) Promyelocytes % (Man) Blast Cells % (Manual) Plasma Cell % (Manual) Other Cells % Nucleated RBC % Neutrophils # (Manual) Band Neutrophils # Total Absolute Neuts Lymphocytes # (Manual) Prolymphocyte # Reactive Lymphs # Total Abs Lymphocytes Monocytes # (Manual) Eosinophils # (Manual) Basophils # (Manual) Metamyelocytes # (Man) Myelocytes # (Manual) Promyelocytes # (Man) Blast Cells # (Man) Plasma Cell # (Manual) Other Cells # Nucleated RBCs # (Man) Hypersegmented Neuts Hyposegmented Neuts Hypogranular Neuts Large Granular Lymphs # Lrg Granular Lymphs Hairy Cells Smudge Cells Toxic Granulation Toxic Vacuolation Dohle Bodies David Rods Platelet Estimate Hypogranular Platelets Giant Platelets Platelet Satelliting RBC Morphology Polychromasia Hypochromasia Poikilocytosis Basophilic Stippling Anisocytosis Microcytosis Macrocytosis Spherocytes Pappenheimer Bodies Sickle Cells Target Cells Tear Drop Cells Ovalocytes Stomatocytes Hunter-Hogeland Bodies Echinocytes Acanthocytes (Spur) Rouleaux RBC Agglutinates Schistocytes Sezary Cell PT (9.0-12.0) Seconds INR (0.9-1.1) APTT (21.0-31.0) Seconds PTT Ratio Fibrinogen (184-400) mg/dl Sodium (136-145) mmol/L Potassium (3.5-5.1) mmol/L Chloride (98-107) mmol/L Carbon Dioxide (21-32) mmol/L Anion Gap (3-11) BUN (6-23) mg/dl Creatinine (0.6-1.2) mg/dl Est Cr Clr Drug Dosing ml/min Est GFR ( Amer) ml/min Est GFR (Non-Af Amer) ml/min BUN/Creatinine Ratio (10-20) Glucose (70-99(Fasting)) mg/dl Lactate (0.4-2.0) mmol/L Calcium (8.6-10.3) mg/dl Total Bilirubin (0.2-1.0) mg/dl AST (13-39) U/L ALT (7-52) U/L Alkaline Phosphatase (34-104) U/L Total Protein (6.0-8.3) gm/dl Albumin (3.4-5.0) gm/dl Globulin (2.5-4.0) gm/dl Albumin/Globulin Ratio (0.9-2) Lipase (11-82) U/L HCG, Quant mIU/ml Urine Color Yellow Urine Appearance Clear (Clear) Urine pH 7.5 (4.5-7.5) Ur Specific [place] 1.004 (1.000-1.030) Urine Protein Negative (Negative) Urine Glucose (UA) Negative (Negative) Urine Ketones Negative (Negative) Urine Blood Negative (Negative) Urine Nitrite Negative (Negative) Urine Bilirubin Negative (Negative) Urine Urobilinogen Negative (Negative) Ur Leukocyte Esterase Negative (Negative) Random Gentamicin mcg/ml C.trachomatis RNA (NotDetected) N.gonorrhoeae RNA (NotDetected) SARS-CoV-2, RNA, NAAT NEGATIVE (NEGATIVE) Blood Parasites ID Blood Type O Positive Blood Type Recheck Antibody Screen NEGATIVE 06/04/22 06/04/22 06/04/22 Range/Units 05:56 17:30 17:30 WBC 9.84 18.26 H (4.8-10.8) K/ul RBC 4.23 4.20 (4.20-5.40) M/uL Hgb 11.5 L 11.6 L (12.0-16.0) g/dl Hct 34.2 L 35.4 L (37.0-47.0) % MCV 80.9 84.3 (80.0-100.0) fL MCH 27.2 27.6 (25.0-34.0) pg MCHC 33.6 32.8 (32.0-36.0) g/dL RDW Std Deviation 40.1 42.3 (36.4-46.3) fL RDW Coeff of Myra 13.7 13.7 (11.5-14.5) % Plt Count 292 291 (130-400) K/uL MPV 8.5 L 8.8 L (9.4-12.4) fL Immature Gran % (Auto) 0.3 % Neut % (Auto) 73.5 % Lymph % (Auto) 20.8 % [place] % (Auto) 4.4 % Eos % (Auto) 0.4 % Baso % (Auto) 0.6 % Neut # (Auto) 13.43 H (1.40-6.50) K/uL Lymph # (Auto) 3.79 H (1.2-3.4) K/uL [place] # (Auto) 0.80 H (0.11-0.59) K/uL Eos # (Auto) 0.07 (0-0.50) K/uL Baso # (Auto) 0.11 (0-0.2) K/uL Immature Gran # (Auto) 0.06 (0.01-0.20) K/uL Absolute Nucleated RBC Nucleated RBC % (auto) Neutrophils % (Manual) Band Neutrophils % Lymphocytes % (Manual) Prolymphocyte % Reactive Lymphs % (Man) Monocytes % (Manual) Eosinophils % (Manual) Basophils % (Manual) Metamyelocytes % (Man) Myelocytes % (Man) Promyelocytes % (Man) Blast Cells % (Manual) Plasma Cell % (Manual) Other Cells % Nucleated RBC % Neutrophils # (Manual) Band Neutrophils # Total Absolute Neuts Lymphocytes # (Manual) Prolymphocyte # Reactive Lymphs # Total Abs Lymphocytes Monocytes # (Manual) Eosinophils # (Manual) Basophils # (Manual) Metamyelocytes # (Man) Myelocytes # (Manual) Promyelocytes # (Man) Blast Cells # (Man) Plasma Cell # (Manual) Other Cells # Nucleated RBCs # (Man) Hypersegmented Neuts Hyposegmented Neuts Hypogranular Neuts Large Granular Lymphs # Lrg Granular Lymphs Hairy Cells Smudge Cells Toxic Granulation Toxic Vacuolation Dohle Bodies David Rods Platelet Estimate Hypogranular Platelets Giant Platelets Platelet Satelliting RBC Morphology Polychromasia Hypochromasia Poikilocytosis Basophilic Stippling Anisocytosis Microcytosis Macrocytosis Spherocytes Pappenheimer Bodies Sickle Cells Target Cells Tear Drop Cells Ovalocytes Stomatocytes Hunter-Hogeland Bodies Echinocytes 2+ Acanthocytes (Spur) Rouleaux RBC Agglutinates Schistocytes Sezary Cell PT (9.0-12.0) Seconds INR (0.9-1.1) APTT (21.0-31.0) Seconds PTT Ratio Fibrinogen (184-400) mg/dl Sodium 135 L (136-145) mmol/L Potassium 3.8 (3.5-5.1) mmol/L Chloride 105 (98-107) mmol/L Carbon Dioxide 22 (21-32) mmol/L Anion Gap 8 (3-11) BUN 10 (6-23) mg/dl Creatinine 0.62 (0.6-1.2) mg/dl Est Cr Clr Drug Dosing 122.9 ml/min Est GFR ( Amer) 148.3 ml/min Est GFR (Non-Af Amer) 128.0 ml/min BUN/Creatinine Ratio 16.1 (10-20) Glucose 116 H (70-99(Fasting)) mg/dl Lactate (0.4-2.0) mmol/L Calcium 8.4 L (8.6-10.3) mg/dl Total Bilirubin 0.3 (0.2-1.0) mg/dl AST 30 (13-39) U/L ALT 18 (7-52) U/L Alkaline Phosphatase 41 (34-104) U/L Total Protein 6.3 (6.0-8.3) gm/dl Albumin 3.6 (3.4-5.0) gm/dl Globulin 2.7 (2.5-4.0) gm/dl Albumin/Globulin Ratio 1.3 (0.9-2) Lipase (11-82) U/L HCG, Quant mIU/ml Urine Color Urine Appearance (Clear) Urine pH (4.5-7.5) Ur Specific [place] (1.000-1.030) Urine Protein (Negative) Urine Glucose (UA) (Negative) Urine Ketones (Negative) Urine Blood (Negative) Urine Nitrite (Negative) Urine Bilirubin (Negative) Urine Urobilinogen (Negative) Ur Leukocyte Esterase (Negative) Random Gentamicin mcg/ml C.trachomatis RNA (NotDetected) N.gonorrhoeae RNA (NotDetected) SARS-CoV-2, RNA, NAAT (NEGATIVE) Blood Parasites ID Blood Type Blood Type Recheck Antibody Screen 06/05/22 06/05/22 06/05/22 Range/Units 02:05 05:33 05:53 WBC (4.8-10.8) K/ul RBC (4.20-5.40) M/uL Hgb (12.0-16.0) g/dl Hct (37.0-47.0) % MCV (80.0-100.0) fL MCH (25.0-34.0) pg MCHC (32.0-36.0) g/dL RDW Std Deviation (36.4-46.3) fL RDW Coeff of Myra (11.5-14.5) % Plt Count (130-400) K/uL MPV (9.4-12.4) fL Immature Gran % (Auto) % Neut % (Auto) % Lymph % (Auto) % [place] % (Auto) % Eos % (Auto) % Baso % (Auto) % Neut # (Auto) (1.40-6.50) K/uL Lymph # (Auto) (1.2-3.4) K/uL [place] # (Auto) (0.11-0.59) K/uL Eos # (Auto) (0-0.50) K/uL Baso # (Auto) (0-0.2) K/uL Immature Gran # (Auto) (0.01-0.20) K/uL Absolute Nucleated RBC Nucleated RBC % (auto) Neutrophils % (Manual) Band Neutrophils % Lymphocytes % (Manual) Prolymphocyte % Reactive Lymphs % (Man) Monocytes % (Manual) Eosinophils % (Manual) Basophils % (Manual) Metamyelocytes % (Man) Myelocytes % (Man) Promyelocytes % (Man) Blast Cells % (Manual) Plasma Cell % (Manual) Other Cells % Nucleated RBC % Neutrophils # (Manual) Band Neutrophils # Total Absolute Neuts Lymphocytes # (Manual) Prolymphocyte # Reactive Lymphs # Total Abs Lymphocytes Monocytes # (Manual) Eosinophils # (Manual) Basophils # (Manual) Metamyelocytes # (Man) Myelocytes # (Manual) Promyelocytes # (Man) Blast Cells # (Man) Plasma Cell # (Manual) Other Cells # Nucleated RBCs # (Man) Hypersegmented Neuts Hyposegmented Neuts Hypogranular Neuts Large Granular Lymphs # Lrg Granular Lymphs Hairy Cells Smudge Cells Toxic Granulation Toxic Vacuolation Dohle Bodies David Rods Platelet Estimate Hypogranular Platelets Giant Platelets Platelet Satelliting RBC Morphology Polychromasia Hypochromasia Poikilocytosis Basophilic Stippling Anisocytosis Microcytosis Macrocytosis Spherocytes Pappenheimer Bodies Sickle Cells Target Cells Tear Drop Cells Ovalocytes Stomatocytes Hunter-Hogeland Bodies Echinocytes Acanthocytes (Spur) Rouleaux RBC Agglutinates Schistocytes Sezary Cell PT (9.0-12.0) Seconds INR (0.9-1.1) APTT (21.0-31.0) Seconds PTT Ratio Fibrinogen (184-400) mg/dl Sodium (136-145) mmol/L Potassium (3.5-5.1) mmol/L Chloride (98-107) mmol/L Carbon Dioxide (21-32) mmol/L Anion Gap (3-11) BUN (6-23) mg/dl Creatinine (0.6-1.2) mg/dl Est Cr Clr Drug Dosing ml/min Est GFR ( Amer) ml/min Est GFR (Non-Af Amer) ml/min BUN/Creatinine Ratio (10-20) Glucose (70-99(Fasting)) mg/dl Lactate (0.4-2.0) mmol/L Calcium (8.6-10.3) mg/dl Total Bilirubin (0.2-1.0) mg/dl AST (13-39) U/L ALT (7-52) U/L Alkaline Phosphatase (34-104) U/L Total Protein (6.0-8.3) gm/dl Albumin (3.4-5.0) gm/dl Globulin (2.5-4.0) gm/dl Albumin/Globulin Ratio (0.9-2) Lipase (11-82) U/L HCG, Quant mIU/ml Urine Color Urine Appearance (Clear) Urine pH (4.5-7.5) Ur Specific [place] (1.000-1.030) Urine Protein (Negative) Urine Glucose (UA) (Negative) Urine Ketones (Negative) Urine Blood (Negative) Urine Nitrite (Negative) Urine Bilirubin (Negative) Urine Urobilinogen (Negative) Ur Leukocyte Esterase (Negative) Random Gentamicin 1.15 Cancelled mcg/ml C.trachomatis RNA Not Detected (NotDetected) N.gonorrhoeae RNA Not Detected (NotDetected) SARS-CoV-2, RNA, NAAT (NEGATIVE) Blood Parasites ID Blood Type Blood Type Recheck Antibody Screen 06/05/22 06/05/22 06/05/22 Range/Units 05:53 05:53 07:09 WBC Cancelled 24.61 H (4.8-10.8) K/ul RBC Cancelled 4.00 L (4.20-5.40) M/uL Hgb Cancelled 11.0 L (12.0-16.0) g/dl Hct Cancelled 32.1 L (37.0-47.0) % MCV Cancelled 80.3 (80.0-100.0) fL MCH Cancelled 27.5 (25.0-34.0) pg MCHC Cancelled 34.3 (32.0-36.0) g/dL RDW Std Deviation Cancelled 40.9 (36.4-46.3) fL RDW Coeff of Myra Cancelled 14.0 (11.5-14.5) % Plt Count Cancelled 283 (130-400) K/uL MPV Cancelled 8.5 L (9.4-12.4) fL Immature Gran % (Auto) Cancelled 0.8 % Neut % (Auto) Cancelled 83.3 % Lymph % (Auto) Cancelled 14.1 % [place] % (Auto) Cancelled 1.5 % Eos % (Auto) Cancelled 0.0 % Baso % (Auto) Cancelled 0.3 % Neut # (Auto) Cancelled 20.48 H (1.40-6.50) K/uL Lymph # (Auto) Cancelled 3.48 H (1.2-3.4) K/uL [place] # (Auto) Cancelled 0.38 (0.11-0.59) K/uL Eos # (Auto) Cancelled 0.00 (0-0.50) K/uL Baso # (Auto) Cancelled 0.07 (0-0.2) K/uL Immature Gran # (Auto) Cancelled 0.20 (0.01-0.20) K/uL Absolute Nucleated RBC Cancelled Nucleated RBC % (auto) Cancelled Neutrophils % (Manual) Cancelled Band Neutrophils % Cancelled Lymphocytes % (Manual) Cancelled Prolymphocyte % Cancelled Reactive Lymphs % (Man) Cancelled Monocytes % (Manual) Cancelled Eosinophils % (Manual) Cancelled Basophils % (Manual) Cancelled Metamyelocytes % (Man) Cancelled Myelocytes % (Man) Cancelled Promyelocytes % (Man) Cancelled Blast Cells % (Manual) Cancelled Plasma Cell % (Manual) Cancelled Other Cells % Cancelled Nucleated RBC % Cancelled Neutrophils # (Manual) Cancelled Band Neutrophils # Cancelled Total Absolute Neuts Cancelled Lymphocytes # (Manual) Cancelled Prolymphocyte # Cancelled Reactive Lymphs # Cancelled Total Abs Lymphocytes Cancelled Monocytes # (Manual) Cancelled Eosinophils # (Manual) Cancelled Basophils # (Manual) Cancelled Metamyelocytes # (Man) Cancelled Myelocytes # (Manual) Cancelled Promyelocytes # (Man) Cancelled Blast Cells # (Man) Cancelled Plasma Cell # (Manual) Cancelled Other Cells # Cancelled Nucleated RBCs # (Man) Cancelled Hypersegmented Neuts Cancelled Hyposegmented Neuts Cancelled Hypogranular Neuts Cancelled Large Granular Lymphs Cancelled # Lrg Granular Lymphs Cancelled Hairy Cells Cancelled Smudge Cells Cancelled Toxic Granulation Cancelled Toxic Vacuolation Cancelled Dohle Bodies Cancelled David Rods Cancelled Platelet Estimate Cancelled Hypogranular Platelets Cancelled Giant Platelets Cancelled Platelet Satelliting Cancelled RBC Morphology Cancelled Polychromasia Cancelled Hypochromasia Cancelled Poikilocytosis Cancelled Basophilic Stippling Cancelled Anisocytosis Cancelled Microcytosis Cancelled Macrocytosis Cancelled Spherocytes Cancelled Pappenheimer Bodies Cancelled Sickle Cells Cancelled Target Cells Cancelled Tear Drop Cells Cancelled Ovalocytes Cancelled 1+ Stomatocytes Cancelled Hunter-Hogeland Bodies Cancelled Echinocytes Cancelled 1+ Acanthocytes (Spur) Cancelled Rouleaux Cancelled RBC Agglutinates Cancelled Schistocytes Cancelled Sezary Cell Cancelled PT (9.0-12.0) Seconds INR (0.9-1.1) APTT (21.0-31.0) Seconds PTT Ratio Fibrinogen (184-400) mg/dl Sodium 133 L (136-145) mmol/L Potassium 3.7 (3.5-5.1) mmol/L Chloride 103 (98-107) mmol/L Carbon Dioxide 19 L (21-32) mmol/L Anion Gap 11 (3-11) BUN 9 (6-23) mg/dl Creatinine 0.65 (0.6-1.2) mg/dl Est Cr Clr Drug Dosing 117.2 ml/min Est GFR ( Amer) 146.1 ml/min Est GFR (Non-Af Amer) 126.0 ml/min BUN/Creatinine Ratio 13.8 (10-20) Glucose 141 H (70-99(Fasting)) mg/dl Lactate (0.4-2.0) mmol/L Calcium 8.3 L (8.6-10.3) mg/dl Total Bilirubin 0.6 (0.2-1.0) mg/dl AST 27 (13-39) U/L ALT 18 (7-52) U/L Alkaline Phosphatase 35 (34-104) U/L Total Protein 5.7 L (6.0-8.3) gm/dl Albumin 3.3 L (3.4-5.0) gm/dl Globulin 2.4 L (2.5-4.0) gm/dl Albumin/Globulin Ratio 1.4 (0.9-2) Lipase (11-82) U/L HCG, Quant mIU/ml Urine Color Urine Appearance (Clear) Urine pH (4.5-7.5) Ur Specific [place] (1.000-1.030) Urine Protein (Negative) Urine Glucose (UA) (Negative) Urine Ketones (Negative) Urine Blood (Negative) Urine Nitrite (Negative) Urine Bilirubin (Negative) Urine Urobilinogen (Negative) Ur Leukocyte Esterase (Negative) Random Gentamicin mcg/ml C.trachomatis RNA (NotDetected) N.gonorrhoeae RNA (NotDetected) SARS-CoV-2, RNA, NAAT (NEGATIVE) Blood Parasites ID Cancelled Blood Type Blood Type Recheck Antibody Screen 06/05/22 06/05/22 06/05/22 Range/Units 08:16 12:21 18:14 WBC 20.35 H (4.8-10.8) K/ul RBC 4.02 L (4.20-5.40) M/uL Hgb 10.9 L 11.3 L (12.0-16.0) g/dl Hct 32.7 L 33.8 L (37.0-47.0) % MCV 81.3 (80.0-100.0) fL MCH 27.1 (25.0-34.0) pg MCHC 33.3 (32.0-36.0) g/dL RDW Std Deviation 41.7 (36.4-46.3) fL RDW Coeff of Myra 14.0 (11.5-14.5) % Plt Count 274 (130-400) K/uL MPV 8.4 L (9.4-12.4) fL Immature Gran % (Auto) 0.5 % Neut % (Auto) 82.8 % Lymph % (Auto) 14.6 % [place] % (Auto) 1.7 % Eos % (Auto) 0.1 % Baso % (Auto) 0.3 % Neut # (Auto) 16.82 H (1.40-6.50) K/uL Lymph # (Auto) 2.98 (1.2-3.4) K/uL [place] # (Auto) 0.35 (0.11-0.59) K/uL Eos # (Auto) 0.03 (0-0.50) K/uL Baso # (Auto) 0.06 (0-0.2) K/uL Immature Gran # (Auto) 0.11 (0.01-0.20) K/uL Absolute Nucleated RBC Nucleated RBC % (auto) Neutrophils % (Manual) Band Neutrophils % Lymphocytes % (Manual) Prolymphocyte % Reactive Lymphs % (Man) Monocytes % (Manual) Eosinophils % (Manual) Basophils % (Manual) Metamyelocytes % (Man) Myelocytes % (Man) Promyelocytes % (Man) Blast Cells % (Manual) Plasma Cell % (Manual) Other Cells % Nucleated RBC % Neutrophils # (Manual) Band Neutrophils # Total Absolute Neuts Lymphocytes # (Manual) Prolymphocyte # Reactive Lymphs # Total Abs Lymphocytes Monocytes # (Manual) Eosinophils # (Manual) Basophils # (Manual) Metamyelocytes # (Man) Myelocytes # (Manual) Promyelocytes # (Man) Blast Cells # (Man) Plasma Cell # (Manual) Other Cells # Nucleated RBCs # (Man) Hypersegmented Neuts Hyposegmented Neuts Hypogranular Neuts Large Granular Lymphs # Lrg Granular Lymphs Hairy Cells Smudge Cells Toxic Granulation Toxic Vacuolation Dohle Bodies David Rods Platelet Estimate Hypogranular Platelets Giant Platelets Platelet Satelliting RBC Morphology Polychromasia 1+ Hypochromasia Poikilocytosis Basophilic Stippling Anisocytosis Microcytosis Macrocytosis Spherocytes Pappenheimer Bodies Sickle Cells Target Cells Tear Drop Cells Ovalocytes Stomatocytes Hunter-Hogeland Bodies Echinocytes 1+ Acanthocytes (Spur) Rouleaux RBC Agglutinates Schistocytes Sezary Cell PT (9.0-12.0) Seconds INR (0.9-1.1) APTT (21.0-31.0) Seconds PTT Ratio Fibrinogen (184-400) mg/dl Sodium (136-145) mmol/L Potassium (3.5-5.1) mmol/L Chloride (98-107) mmol/L Carbon Dioxide (21-32) mmol/L Anion Gap (3-11) BUN (6-23) mg/dl Creatinine (0.6-1.2) mg/dl Est Cr Clr Drug Dosing ml/min Est GFR ( Amer) ml/min Est GFR (Non-Af Amer) ml/min BUN/Creatinine Ratio (10-20) Glucose (70-99(Fasting)) mg/dl Lactate 1.3 (0.4-2.0) mmol/L Calcium (8.6-10.3) mg/dl Total Bilirubin (0.2-1.0) mg/dl AST (13-39) U/L ALT (7-52) U/L Alkaline Phosphatase (34-104) U/L Total Protein (6.0-8.3) gm/dl Albumin (3.4-5.0) gm/dl Globulin (2.5-4.0) gm/dl Albumin/Globulin Ratio (0.9-2) Lipase (11-82) U/L HCG, Quant mIU/ml Urine Color Urine Appearance (Clear) Urine pH (4.5-7.5) Ur Specific Sanders (1.000-1.030) Urine Protein (Negative) Urine Glucose (UA) (Negative) Urine Ketones (Negative) Urine Blood (Negative) Urine Nitrite (Negative) Urine Bilirubin (Negative) Urine Urobilinogen (Negative) Ur Leukocyte Esterase (Negative) Random Gentamicin mcg/ml C.trachomatis RNA (NotDetected) N.gonorrhoeae RNA (NotDetected) SARS-CoV-2, RNA, NAAT (NEGATIVE) Blood Parasites ID Blood Type Blood Type Recheck Antibody Screen 06/06/22 06/06/22 06/06/22 Range/Units 00:45 05:33 05:33 WBC 26.39 H (4.8-10.8) K/ul RBC 3.98 L (4.20-5.40) M/uL Hgb 11.0 L 10.9 L (12.0-16.0) g/dl Hct 32.6 L 32.4 L (37.0-47.0) % MCV 81.4 (80.0-100.0) fL MCH 27.4 (25.0-34.0) pg MCHC 33.6 (32.0-36.0) g/dL RDW Std Deviation 42.2 (36.4-46.3) fL RDW Coeff of Myra 14.3 (11.5-14.5) % Plt Count 317 (130-400) K/uL MPV 8.8 L (9.4-12.4) fL Immature Gran % (Auto) 3.2 % Neut % (Auto) 85.6 % Lymph % (Auto) 8.3 % [place] % (Auto) 2.6 % Eos % (Auto) 0.0 % Baso % (Auto) 0.3 % Neut # (Auto) 22.58 H (1.40-6.50) K/uL Lymph # (Auto) 2.20 (1.2-3.4) K/uL [place] # (Auto) 0.68 H (0.11-0.59) K/uL Eos # (Auto) 0.01 (0-0.50) K/uL Baso # (Auto) 0.08 (0-0.2) K/uL Immature Gran # (Auto) 0.84 H (0.01-0.20) K/uL Absolute Nucleated RBC Nucleated RBC % (auto) Neutrophils % (Manual) Band Neutrophils % Lymphocytes % (Manual) Prolymphocyte % Reactive Lymphs % (Man) Monocytes % (Manual) Eosinophils % (Manual) Basophils % (Manual) Metamyelocytes % (Man) Myelocytes % (Man) Promyelocytes % (Man) Blast Cells % (Manual) Plasma Cell % (Manual) Other Cells % Nucleated RBC % Neutrophils # (Manual) Band Neutrophils # Total Absolute Neuts Lymphocytes # (Manual) Prolymphocyte # Reactive Lymphs # Total Abs Lymphocytes Monocytes # (Manual) Eosinophils # (Manual) Basophils # (Manual) Metamyelocytes # (Man) Myelocytes # (Manual) Promyelocytes # (Man) Blast Cells # (Man) Plasma Cell # (Manual) Other Cells # Nucleated RBCs # (Man) Hypersegmented Neuts Hyposegmented Neuts Hypogranular Neuts Large Granular Lymphs # Lrg Granular Lymphs Hairy Cells Smudge Cells Toxic Granulation Toxic Vacuolation Dohle Bodies 1+ David Rods Platelet Estimate Hypogranular Platelets Giant Platelets Platelet Satelliting RBC Morphology Polychromasia Hypochromasia Poikilocytosis Basophilic Stippling Anisocytosis Microcytosis Macrocytosis Spherocytes Pappenheimer Bodies Sickle Cells Target Cells Tear Drop Cells Ovalocytes Stomatocytes Hunter-Hogeland Bodies Echinocytes Acanthocytes (Spur) Rouleaux RBC Agglutinates Schistocytes Sezary Cell PT (9.0-12.0) Seconds INR (0.9-1.1) APTT (21.0-31.0) Seconds PTT Ratio Fibrinogen (184-400) mg/dl Sodium 131 L (136-145) mmol/L Potassium 3.5 (3.5-5.1) mmol/L Chloride 101 (98-107) mmol/L Carbon Dioxide 20 L (21-32) mmol/L Anion Gap 10 (3-11) BUN 12 (6-23) mg/dl Creatinine 0.69 (0.6-1.2) mg/dl Est Cr Clr Drug Dosing 110.4 ml/min Est GFR ( Amer) 143.2 ml/min Est GFR (Non-Af Amer) 123.6 ml/min BUN/Creatinine Ratio 17.4 (10-20) Glucose 111 H (70-99(Fasting)) mg/dl Lactate (0.4-2.0) mmol/L Calcium 8.2 L (8.6-10.3) mg/dl Total Bilirubin 0.7 (0.2-1.0) mg/dl AST 19 (13-39) U/L ALT 15 (7-52) U/L Alkaline Phosphatase 52 (34-104) U/L Total Protein 5.7 L (6.0-8.3) gm/dl Albumin 3.1 L (3.4-5.0) gm/dl Globulin 2.6 (2.5-4.0) gm/dl Albumin/Globulin Ratio 1.2 (0.9-2) Lipase (11-82) U/L HCG, Quant mIU/ml Urine Color Urine Appearance (Clear) Urine pH (4.5-7.5) Ur Specific Sanders (1.000-1.030) Urine Protein (Negative) Urine Glucose (UA) (Negative) Urine Ketones (Negative) Urine Blood (Negative) Urine Nitrite (Negative) Urine Bilirubin (Negative) Urine Urobilinogen (Negative) Ur Leukocyte Esterase (Negative) Random Gentamicin mcg/ml C.trachomatis RNA (NotDetected) N.gonorrhoeae RNA (NotDetected) SARS-CoV-2, RNA, NAAT (NEGATIVE) Blood Parasites ID Blood Type Blood Type Recheck Antibody Screen 06/06/22 06/06/22 06/06/22 Range/Units 05:33 09:39 09:39 WBC 26.64 H (4.8-10.8) K/ul RBC 4.18 L (4.20-5.40) M/uL Hgb 11.3 L (12.0-16.0) g/dl Hct 34.6 L (37.0-47.0) % MCV 82.8 (80.0-100.0) fL MCH 27.0 (25.0-34.0) pg MCHC 32.7 (32.0-36.0) g/dL RDW Std Deviation 43.6 (36.4-46.3) fL RDW Coeff of Myra 14.5 (11.5-14.5) % Plt Count 339 (130-400) K/uL MPV 8.8 L (9.4-12.4) fL Immature Gran % (Auto) 5.3 % Neut % (Auto) 84.6 % Lymph % (Auto) 7.1 % [place] % (Auto) 2.6 % Eos % (Auto) 0.0 % Baso % (Auto) 0.4 % Neut # (Auto) 22.52 H (1.40-6.50) K/uL Lymph # (Auto) 1.90 (1.2-3.4) K/uL [place] # (Auto) 0.70 H (0.11-0.59) K/uL Eos # (Auto) 0.01 (0-0.50) K/uL Baso # (Auto) 0.10 (0-0.2) K/uL Immature Gran # (Auto) 1.41 H (0.01-0.20) K/uL Absolute Nucleated RBC Nucleated RBC % (auto) Neutrophils % (Manual) Band Neutrophils % Lymphocytes % (Manual) Prolymphocyte % Reactive Lymphs % (Man) Monocytes % (Manual) Eosinophils % (Manual) Basophils % (Manual) Metamyelocytes % (Man) Myelocytes % (Man) Promyelocytes % (Man) Blast Cells % (Manual) Plasma Cell % (Manual) Other Cells % Nucleated RBC % Neutrophils # (Manual) Band Neutrophils # Total Absolute Neuts Lymphocytes # (Manual) Prolymphocyte # Reactive Lymphs # Total Abs Lymphocytes Monocytes # (Manual) Eosinophils # (Manual) Basophils # (Manual) Metamyelocytes # (Man) Myelocytes # (Manual) Promyelocytes # (Man) Blast Cells # (Man) Plasma Cell # (Manual) Other Cells # Nucleated RBCs # (Man) Hypersegmented Neuts Hyposegmented Neuts Hypogranular Neuts Large Granular Lymphs # Lrg Granular Lymphs Hairy Cells Smudge Cells Toxic Granulation Toxic Vacuolation 1+ Dohle Bodies 1+ David Rods Platelet Estimate Hypogranular Platelets Giant Platelets Platelet Satelliting RBC Morphology Polychromasia Hypochromasia Poikilocytosis Basophilic Stippling Anisocytosis Microcytosis Macrocytosis Spherocytes Pappenheimer Bodies Sickle Cells Target Cells Tear Drop Cells Ovalocytes Stomatocytes Hunter-Hogeland Bodies Echinocytes Acanthocytes (Spur) Rouleaux RBC Agglutinates Schistocytes Sezary Cell PT 14.5 H (9.0-12.0) Seconds INR 1.3 H (0.9-1.1) APTT 39.1 H (21.0-31.0) Seconds PTT Ratio 1.4 Fibrinogen 558 H (184-400) mg/dl Sodium (136-145) mmol/L Potassium (3.5-5.1) mmol/L Chloride (98-107) mmol/L Carbon Dioxide (21-32) mmol/L Anion Gap (3-11) BUN (6-23) mg/dl Creatinine (0.6-1.2) mg/dl Est Cr Clr Drug Dosing ml/min Est GFR ( Amer) ml/min Est GFR (Non-Af Amer) ml/min BUN/Creatinine Ratio (10-20) Glucose (70-99(Fasting)) mg/dl Lactate (0.4-2.0) mmol/L Calcium (8.6-10.3) mg/dl Total Bilirubin (0.2-1.0) mg/dl AST (13-39) U/L ALT (7-52) U/L Alkaline Phosphatase (34-104) U/L Total Protein (6.0-8.3) gm/dl Albumin (3.4-5.0) gm/dl Globulin (2.5-4.0) gm/dl Albumin/Globulin Ratio (0.9-2) Lipase (11-82) U/L HCG, Quant mIU/ml Urine Color Urine Appearance (Clear) Urine pH (4.5-7.5) Ur Specific Sanders (1.000-1.030) Urine Protein (Negative) Urine Glucose (UA) (Negative) Urine Ketones (Negative) Urine Blood (Negative) Urine Nitrite (Negative) Urine Bilirubin (Negative) Urine Urobilinogen (Negative) Ur Leukocyte Esterase (Negative) Random Gentamicin mcg/ml C.trachomatis RNA (NotDetected) N.gonorrhoeae RNA (NotDetected) SARS-CoV-2, RNA, NAAT (NEGATIVE) Blood Parasites ID Blood Type Blood Type Recheck O Positive Antibody Screen 06/06/22 06/06/22 Range/Units 09:39 Unknown WBC (4.8-10.8) K/ul RBC (4.20-5.40) M/uL Hgb (12.0-16.0) g/dl Hct (37.0-47.0) % MCV (80.0-100.0) fL MCH (25.0-34.0) pg MCHC (32.0-36.0) g/dL RDW Std Deviation (36.4-46.3) fL RDW Coeff of Myra (11.5-14.5) % Plt Count (130-400) K/uL MPV (9.4-12.4) fL Immature Gran % (Auto) % Neut % (Auto) % Lymph % (Auto) % [place] % (Auto) % Eos % (Auto) % Baso % (Auto) % Neut # (Auto) (1.40-6.50) K/uL Lymph # (Auto) (1.2-3.4) K/uL [place] # (Auto) (0.11-0.59) K/uL Eos # (Auto) (0-0.50) K/uL Baso # (Auto) (0-0.2) K/uL Immature Gran # (Auto) (0.01-0.20) K/uL Absolute Nucleated RBC Nucleated RBC % (auto) Neutrophils % (Manual) Band Neutrophils % Lymphocytes % (Manual) Prolymphocyte % Reactive Lymphs % (Man) Monocytes % (Manual) Eosinophils % (Manual) Basophils % (Manual) Metamyelocytes % (Man) Myelocytes % (Man) Promyelocytes % (Man) Blast Cells % (Manual) Plasma Cell % (Manual) Other Cells % Nucleated RBC % Neutrophils # (Manual) Band Neutrophils # Total Absolute Neuts Lymphocytes # (Manual) Prolymphocyte # Reactive Lymphs # Total Abs Lymphocytes Monocytes # (Manual) Eosinophils # (Manual) Basophils # (Manual) Metamyelocytes # (Man) Myelocytes # (Manual) Promyelocytes # (Man) Blast Cells # (Man) Plasma Cell # (Manual) Other Cells # Nucleated RBCs # (Man) Hypersegmented Neuts Hyposegmented Neuts Hypogranular Neuts Large Granular Lymphs # Lrg Granular Lymphs Hairy Cells Smudge Cells Toxic Granulation Toxic Vacuolation Dohle Bodies David Rods Platelet Estimate Hypogranular Platelets Giant Platelets Platelet Satelliting RBC Morphology Polychromasia Hypochromasia Poikilocytosis Basophilic Stippling Anisocytosis Microcytosis Macrocytosis Spherocytes Pappenheimer Bodies Sickle Cells Target Cells Tear Drop Cells Ovalocytes Stomatocytes Hunter-Hogeland Bodies Echinocytes Acanthocytes (Spur) Rouleaux RBC Agglutinates Schistocytes Sezary Cell PT (9.0-12.0) Seconds INR (0.9-1.1) APTT (21.0-31.0) Seconds PTT Ratio Fibrinogen (184-400) mg/dl Sodium (136-145) mmol/L Potassium (3.5-5.1) mmol/L Chloride (98-107) mmol/L Carbon Dioxide (21-32) mmol/L Anion Gap (3-11) BUN (6-23) mg/dl Creatinine (0.6-1.2) mg/dl Est Cr Clr Drug Dosing ml/min Est GFR ( Amer) ml/min Est GFR (Non-Af Amer) ml/min BUN/Creatinine Ratio (10-20) Glucose (70-99(Fasting)) mg/dl Lactate 2.1 H* 2.0 (0.4-2.0) mmol/L Calcium (8.6-10.3) mg/dl Total Bilirubin (0.2-1.0) mg/dl AST (13-39) U/L ALT (7-52) U/L Alkaline Phosphatase (34-104) U/L Total Protein (6.0-8.3) gm/dl Albumin (3.4-5.0) gm/dl Globulin (2.5-4.0) gm/dl Albumin/Globulin Ratio (0.9-2) Lipase (11-82) U/L HCG, Quant mIU/ml Urine Color Urine Appearance (Clear) Urine pH (4.5-7.5) Ur Specific Sanders (1.000-1.030) Urine Protein (Negative) Urine Glucose (UA) (Negative) Urine Ketones (Negative) Urine Blood (Negative) Urine Nitrite (Negative) Urine Bilirubin (Negative) Urine Urobilinogen (Negative) Ur Leukocyte Esterase (Negative) Random Gentamicin mcg/ml C.trachomatis RNA (NotDetected) N.gonorrhoeae RNA (NotDetected) SARS-CoV-2, RNA, NAAT (NEGATIVE) Blood Parasites ID Blood Type Blood Type Recheck Antibody Screen PE: General: Alert, orientedx3, NAD, smiling CVS: S1S2 RRR Lungs: CTAB Abd: softer, appropriately tender, less distended than this morning,dressing, C/D/I, MIKAELA drain is full with light pink serous fluid No VB Ext: NT, no edema, SCD's on AP: 22 yo female s/p Laparoscopy, salpingectomy for ectopic on 06/03, now ex lap, small bowel resection and MIKAELA drain placement for s bowel perforation this morning , pod#0 VSS Afebrile doing well/ better NGT was not suctioning,adjusted and started to suction at bed side and felt much better Continue to routine postop care Orders per G Surgery team Results & Data Vital Signs (Past 12 Hours) Vital Signs Temp Pulse Pulse Resp BP Pulse Ox O2 Del Method 06/06/22 18:22 36.4 C L 110 H 16 112/65 98 Room Air 06/06/22 16:10 36.5 C 95 H 14 103/61 95 Room Air 06/06/22 16:57 104 H 16 112/65 97 Room Air 06/06/22 16:00 94 H 16 108/58 L 97 Room Air 06/06/22 15:45 96 H 12 107/61 94 Room Air 06/06/22 15:30 36.9 C 98 H 16 112/60 96 Room Air 06/06/22 15:15 95 H 18 115/58 L 95 Room Air 06/06/22 15:00 95 H 14 122/70 96 Room Air 06/06/22 14:45 95 H 14 116/73 96 Room Air 06/06/22 14:35 36.4 C L 95 H 12 120/65 96 Room Air 06/06/22 14:25 96 H 15 121/68 100 Room Air 06/06/22 14:15 110 H 16 111/69 100 Oxymask 06/06/22 14:07 36.3 C L 102 H 18 116/65 100 Oxymask 06/06/22 08:03 37.9 C H 130 H 28 H 128/66 100 Room Air 06/06/22 10:37 36.8 C 132 H 25 H 117/57 L 100 Room Air 06/06/22 07:38 Room Air 06/06/22 07:38 36.8 C 127 H 31 H 125/71 97 Room Air O2 Flow Rate 06/06/22 18:22 06/06/22 16:10 06/06/22 16:57 06/06/22 16:00 06/06/22 15:45 06/06/22 15:30 06/06/22 15:15 06/06/22 15:00 06/06/22 14:45 06/06/22 14:35 06/06/22 14:25 06/06/22 14:15 6 06/06/22 14:07 6 06/06/22 08:03 06/06/22 10:37 06/06/22 07:38 06/06/22 07:38
--- NOTE | 2022-06-07 00:04 | Operative Report (OR) ---
DATE OF SURGERY: 06/06/2022. PREOPERATIVE DIAGNOSES: The patient is a 22-year-old G1, P0-0-1-0, who is status post operative laparoscopy, left salpingectomy for treatment of left tubal ectopic on 06/03/2022, now with abdominal distention, increasing abdominal pain, fever, elevated white count, fluid collection in the pelvis, suggesting intra-abdominal bleeding versus abscess formation versus bowel obstruction versus bowel perforation. POSTOPERATIVE DIAGNOSES: The patient is a 22-year-old G1, P0-0-1-0, who is status post operative laparoscopy, left salpingectomy for treatment of left tubal ectopic on 06/03/2022, now with abdominal distention, increasing abdominal pain, fever, an elevated white count, fluid collection in the pelvis Small bowel perforation and pus in the pelvis, cul-de-sac and abdomen. PROCEDURE: Laparoscopy, irrigation of the pelvis and abdomen, and conversion into exploratory laparotomy, small bowel resection and washout with intraoperative consultation by General Surgery. SURGEON: Dr. Gem Ramírez for laparoscopy and the rest of the surgery Dr. Jack Palm was called for Laparatomy and small bowel resection part. See his dictation. DRY CELL BATTERY ASSEMBLER: Dr. Matos. ESTIMATED BLOOD LOSS: 10 mL. DRAINS: Goss catheter and Alejandro-Blair drain. ANESTHESIA: General. ANESTHESIOLOGIST: Dr. Melissa. COMPLICATIONS: None. FINDINGS: Exam under anesthesia revealed normal-appearing cervix, vagina and fullness in the cul-de-sac with fluid collection. Uterus normal size and abdomen was distended. INTRAOPERATIVE FINDINGS: Pus and fluid collection in the pelvis and abdomen. Bowel surfaces are inflamed with the pus. Normal surgical site from left salpingectomy with no bleeding. DESCRIPTION OF PROCEDURE: The patient was taken to the operating room where general anesthesia was given without difficulty. She was placed in dorsal lithotomy position, prepared and draped in the usual sterile fashion. She had a Goss catheter before surgery and exam under anesthesia was done by myself. Cervix was low in the vagina and the cul-de-sac was full suggesting the intra- abdominal pelvic fluid pushing uterus and cervix down. Cervix was visualized and grasped with single tooth tenaculum and then it was placed in the vagina to provide manipulation during surgery. Gloves were changed. Attention was turned to the patient's abdomen where a periumbilical skin incision was made about 10 mm and then the fascia was identified, grasped with 2 Emile clamps, elevated, and incised in the midline with the scalpel and then hemostat was used to puncture the peritoneum and the abdomen was entered. Two S Deavers were placed from this incision, and the 10 mm trochar was placed and CO2 gas started for insufflation. Intra-abdominal placement was confirmed with the scope. Upon entering the the abdomen, it started to drain serosanguineous fluid. It was suctioned with the tip of the suction from the outside umbilical opening. There were adhesions of omentum and some of bowel to the lower anterior abdominal wall. Anterior abdominal wall was visualized to be covered with pus and small white spots suggesting infection, bowel perforation. Some of the fluid was suctioned from umbilical opening. General Surgeon, Dr. Palm was called to the room who recommended midline laparotomy. Laparoscopic trocar was removed from the patient's abdomen and then a midline vertical incision was made by Dr. Palm. Upon entry into the abdomen, the abundant fluid and pus was visualized and suctioned. Abdomen was irrigated with warm normal saline and suctioned multiple times and then a small bowel perforation was visualized. Small bowel was partially removed and reanastomosed by Dr. Palm. See his dictated op note for details for his part. Then again the pelvis and abdomen was irrigated with warm normal saline and suctioned. Uterus, fallopian tubes were visualized to be normal, except covered by pus and fluids. Those were irrigated and suctioned and the salpingectomy part was intact and hemostatic. No bleeding seen in the pelvis. After all inspection was done and irrigation was repeated and MIKAELA drain was placed by Dr Palm. Then the abdominal wall was closed with #1 PDS in a continuous fashion and the skin with isiah. No complications happened. I was, Dr. Matos and Dr. Palm and his PA senior agricultural assistant was present during the whole surgery. At the end of the abdominal part, I removed the tenaculum from the cervix. The tenaculum site was oozing minimal blood. It was controlled with pressure with a sponge by myself and it was hemostatic. All instruments were removed from the patient's vagina. The patient was cleaned, dried, taken out from lithotomy position. She was taken to recovery room in stable condition. She has received 1 gram of cefoxitin and 500 mg of Flagyl before surgery. My asisstant was needed, for retration, visualization and aid during procedure. Job ID: [id number] CRISTI
[2022-06-07] MEDS: metroNIDAZOLE 500 MG/100 ML BAG IV SCH ×3 (01:08→18:39)
[2022-06-07] MEDS: LACTATED RINGER'S 1,000 ML IV SCH ×2 (03:48→12:34)
[2022-06-07] MEDS: CIPROFLOXACIN / D5W 400 MG/200 ML BAG IV SCH ×2 (04:09→16:35)
[2022-06-07] MEDS: KETOROLAC 30 MG/ML VIAL IV PRN ×3 (05:53→18:41)
[2022-06-07] MEDS: ENOXAPARIN INJ 30 MG/0.3 ML SYR SQ SCH (09:29)
[2022-06-07] MEDS: PANTOprazole 40 MG in SYRINGE 0 ML IV SCH (09:29)
[2022-06-07 09:38] LABS: Hematocrit (blood only) 26.7 % (37.0-47.0); Hemoglobin 9.2 g/dl (12.0-16.0); Mean Corpuscular Hemoglobin 27.5 pg (25.0-34.0); Mean Corpuscular Hgb Conc 34.5 g/dL (32.0-36.0); Mean Corpuscular Volume 79.7 fL (80.0-100.0); Mean Platelet Volume 8.9 fL (9.4-12.4); Platelet Count 319 K/uL (130-400); RDW Coefficient of Variation 14.4 % (11.5-14.5); RDW Standard Deviation 41.8 fL (36.4-46.3); Red Blood Count 3.35 M/uL (4.20-5.40); White Blood Count 22.94 K/ul (4.8-10.8)
[2022-06-07 09:52] LABS: Anion Gap 7 (3-11); BUN Creatinine Ratio 19.1 (10-20); Blood Urea Nitrogen 9 mg/dl (6-23); Calcium 8.3 mg/dl (8.6-10.3); Carbon Dioxide 24 mmol/L (21-32); Chloride 107 mmol/L (98-107); Creatinine Clr Calc Pharmacy 162.1 ml/min; Est GFR (African American) > 150.0 ml/min; Est GFR (Non-African American) 140.2 ml/min; Glucose 94 mg/dl (70-99(Fasting)); Potassium 3.4 mmol/L (3.5-5.1); Sodium 138 mmol/L (136-145)
[2022-06-07 10:00] LABS: Basophils # (auto) 0.04 K/uL (0-0.2); Basophils % (auto) 0.2 %; Eosinophils # (auto) 0.04 K/uL (0-0.50); Eosinophils % (auto) 0.2 %; Immature Granulocytes # (auto) 0.55 K/uL (0.01-0.20); Immature Granulocytes % (auto) 2.4 %; Lymphocytes # (auto) 2.19 K/uL (1.2-3.4); Lymphocytes % (auto) 9.5 %; Monocytes % (auto) 3.9 %; Neutrophils # (auto) 19.22 K/uL (1.40-6.50); Neutrophils % (auto) 83.8 %
--- NOTE | 2022-06-07 11:53 | Surgery Progress Note ---
Date of Service June 07, 2022 Assessment & Plan (1) Ectopic : Plan: POD # 4 s/p laparoscopic left partial salpingectomy with removal of ectopic on the left. (2) Small bowel perforation: Plan: POD # 1 s/p ex lap with small bowel resection -afebrile, vss - leukocytosis improved to 22k - Hgb down to 9.2 but hemodynamically stable likely dilutional - NGT with brownish/bilious output - no return of bowel function yet - abdomen still slightly distended but soft, improved Plan: Continue pain management as needed Continue NPO Continue NGT to LIS Continue IV antibiotics Continue Antiemetics Continue nigel drain to bulb suction repeat am labs, follow wbc Lovenox and SCDs for DVT prophylaxis oob to chair and ambulate Dr. Krugeer covering this weekend Dr. Barnett has seen and examined pt agrees with above. Admission and Anticipated Discharge Date Admission Date: June 03, 2022 Subjective feeling okay still feeling bloated but feeling much better than 2 days ago still belching no n,v no flatus yet no chest pain or shortness of breath urinating on own, catheter removed last night Physical Exam Constitutional: WD/WN, vitals as above cooperative and comfortable; no acute distress and not ill appearing Respiratory: normal respiratory effort; no respiratory distress and no labored breathing Gastrointestinal (Abdomen): Inspection/Auscultation: + abdomen distended, + abdominal surgical incision (covered with clean/dry dressing) and + abdominal surgical drain present (slightly cloudy serous drainage); + abnormal bowel sounds Percussion/Palpation: + abdomen tender (at midline incision) and abdomen soft; no guarding and abdomen not rigid NGT with brownish output in canister, green to clear in tubing Skin: no rashes, warm and dry Psychiatric: A+Ox3, euthymic affect Results & Data Vital Signs (Past 12 Hours) Vital Signs Temp Pulse Resp BP Pulse Ox O2 Del Method 06/07/22 08:11 36.6 C 102 H 16 105/57 L 97 Room Air 06/07/22 03:09 36.5 C 89 20 106/68 98 Room Air Laboratory Results 06/07/22 06/07/22 06/06/22 Range/Units 09:10 09:10 Unknown WBC 22.94 H (4.8-10.8) K/ul RBC 3.35 L (4.20-5.40) M/uL Hgb 9.2 L (12.0-16.0) g/dl Hct 26.7 L (37.0-47.0) % MCV 79.7 L (80.0-100.0) fL MCH 27.5 (25.0-34.0) pg MCHC 34.5 (32.0-36.0) g/dL RDW Std Deviation 41.8 (36.4-46.3) fL RDW Coeff of Myra 14.4 (11.5-14.5) % Plt Count 319 (130-400) K/uL MPV 8.9 L (9.4-12.4) fL Immature Gran % (Auto) 2.4 % Neut % (Auto) 83.8 % Lymph % (Auto) 9.5 % [place] % (Auto) 3.9 % Eos % (Auto) 0.2 % Baso % (Auto) 0.2 % Neut # (Auto) 19.22 H (1.40-6.50) K/uL Lymph # (Auto) 2.19 (1.2-3.4) K/uL [place] # (Auto) 0.90 H (0.11-0.59) K/uL Eos # (Auto) 0.04 (0-0.50) K/uL Baso # (Auto) 0.04 (0-0.2) K/uL Immature Gran # (Auto) 0.55 H (0.01-0.20) K/uL Sodium 138 (136-145) mmol/L Potassium 3.4 L (3.5-5.1) mmol/L Chloride 107 (98-107) mmol/L Carbon Dioxide 24 (21-32) mmol/L Anion Gap 7 (3-11) BUN 9 (6-23) mg/dl Creatinine 0.47 L (0.6-1.2) mg/dl Est Cr Clr Drug Dosing 162.1 ml/min Est GFR ( Amer) > 150.0 ml/min Est GFR (Non-Af Amer) 140.2 ml/min BUN/Creatinine Ratio 19.1 (10-20) Glucose 94 (70-99(Fasting)) mg/dl Lactate 2.0 (0.4-2.0) mmol/L Calcium 8.3 L (8.6-10.3) mg/dl Microbiology 06/06/22 12:20 Gram Stain - Final Abdomen Aerobic and Anaerobic Culture - Preliminary No growth to date. 06/04/22 23:30 Urine Culture - Final Urine,Clean Catch No growth - less than 1,000 colonies/mL. 06/04/22 23:44 Aerobic Blood Culture - Preliminary Blood No growth in Aerobic bottle after 48 hours. Anaerobic Blood Culture - Preliminary No growth in Anaerobic bottle after 48 hours. 06/04/22 23:44 Aerobic Blood Culture - Preliminary Blood No growth in Aerobic bottle after 48 hours. Anaerobic Blood Culture - Preliminary No growth in Anaerobic bottle after 48 hours.
--- NOTE | 2022-06-07 13:14 | Operative Report ---
Post Operative Report Pre & Post Diagnosis Operation Date: 06/06/22 10:50 Pre-Op Diagnosis: Post-op pain Abdominal distention Post-Op Diagnosis: Post-op pain Abdominal distention Small bowel perforation at the level of the mid to distal ileum; large amount of enteric contents within the abdominal cavity I identified the patient and participated in the time-out.: Yes Procedure Operation Date: 06/06/22 10:50 Actual Procedures s Laparoscopy, Irrigation of Pelvis and Abdomen - Gem Ramírez MD p Exploratory Laparotomy, Bowel Resection, and Washout(Left) - Jack Palm MD Surgeon Cliff Matos MD Purification Supervisor Nicole French BAG SEALER Estimated Blood Loss 10 Findings Consistent with Post-Op Diagnosis left ectopic Fluids LR Specimens ectopic Drains none Anesthesia Type General Complications none Disposition Accompanied Patient To Recovery: Yes Description of Procedure see op note I attest to the content of the Intraoperative Record and any orders documented therein. Any exceptions are noted below.
--- NOTE | 2022-06-07 13:18 | Gynecologic Progress Note ---
Date of Service June 07, 2022 Assessment & Plan (1) Small bowel perforation: (2) Postoperative ileus: (3) Ectopic : Plan per general surgery Admission and Anticipated Discharge Date Admission Date: June 03, 2022 Subjective POD#1 bowel surgery doing well less pain passing gas Physical Exam Constitutional: WD/WN, vitals as above Gastrointestinal (Abdomen): Inspection/Auscultation: abdomen normal to inspec tion and + abdominal surgical incision abdomen less distended and soft. non-tender Musculoskeletal: Extremities: extremities normal to inspection Results & Data Vital Signs (Past 12 Hours) Vital Signs Temp Pulse Resp BP Pulse Ox O2 Del Method 06/07/22 08:11 36.6 C 102 H 16 105/57 L 97 Room Air 06/07/22 03:09 36.5 C 89 20 106/68 98 Room Air Laboratory Results Laboratory Results - last 72 hr 06/04/22 06/04/22 06/05/22 17:30 17:30 02:05 WBC 18.26 H RBC 4.20 Hgb 11.6 L Hct 35.4 L MCV 84.3 MCH 27.6 MCHC 32.8 RDW Std Deviation 42.3 RDW Coeff of Myra 13.7 Plt Count 291 MPV 8.8 L Immature Gran % (Auto) 0.3 Neut % (Auto) 73.5 Lymph % (Auto) 20.8 [place] % (Auto) 4.4 Eos % (Auto) 0.4 Baso % (Auto) 0.6 Neut # (Auto) 13.43 H Lymph # (Auto) 3.79 H [place] # (Auto) 0.80 H Eos # (Auto) 0.07 Baso # (Auto) 0.11 Immature Gran # (Auto) 0.06 Absolute Nucleated RBC Nucleated RBC % (auto) Neutrophils % (Manual) Band Neutrophils % Lymphocytes % (Manual) Prolymphocyte % Reactive Lymphs % (Man) Monocytes % (Manual) Eosinophils % (Manual) Basophils % (Manual) Metamyelocytes % (Man) Myelocytes % (Man) Promyelocytes % (Man) Blast Cells % (Manual) Plasma Cell % (Manual) Other Cells % Nucleated RBC % Neutrophils # (Manual) Band Neutrophils # Total Absolute Neuts Lymphocytes # (Manual) Prolymphocyte # Reactive Lymphs # Total Abs Lymphocytes Monocytes # (Manual) Eosinophils # (Manual) Basophils # (Manual) Metamyelocytes # (Man) Myelocytes # (Manual) Promyelocytes # (Man) Blast Cells # (Man) Plasma Cell # (Manual) Other Cells # Nucleated RBCs # (Man) Hypersegmented Neuts Hyposegmented Neuts Hypogranular Neuts Large Granular Lymphs # Lrg Granular Lymphs Hairy Cells Smudge Cells Toxic Granulation Toxic Vacuolation Dohle Bodies David Rods Platelet Estimate Hypogranular Platelets Giant Platelets Platelet Satelliting RBC Morphology Polychromasia Hypochromasia Poikilocytosis Basophilic Stippling Anisocytosis Microcytosis Macrocytosis Spherocytes Pappenheimer Bodies Sickle Cells Target Cells Tear Drop Cells Ovalocytes Stomatocytes [place] Bodies Echinocytes 2+ Acanthocytes (Spur) Rouleaux RBC Agglutinates Schistocytes Sezary Cell PT INR APTT PTT Ratio Fibrinogen Sodium 135 L Potassium 3.8 Chloride 105 Carbon Dioxide 22 Anion Gap 8 BUN 10 Creatinine 0.62 Est Cr Clr Drug Dosing 122.9 Est GFR ( Amer) 148.3 Est GFR (Non-Af Amer) 128.0 BUN/Creatinine Ratio 16.1 Glucose 116 H Lactate Calcium 8.4 L Total Bilirubin 0.3 AST 30 ALT 18 Alkaline Phosphatase 41 Total Protein 6.3 Albumin 3.6 Globulin 2.7 Albumin/Globulin Ratio 1.3 Random Gentamicin C.trachomatis RNA Not Detected N.gonorrhoeae RNA Not Detected Blood Parasites ID Blood Type Recheck 06/05/22 06/05/22 06/05/22 05:33 05:53 05:53 WBC Cancelled RBC Cancelled Hgb Cancelled Hct Cancelled MCV Cancelled MCH Cancelled MCHC Cancelled RDW Std Deviation Cancelled RDW Coeff of Myra Cancelled Plt Count Cancelled MPV Cancelled Immature Gran % (Auto) Cancelled Neut % (Auto) Cancelled Lymph % (Auto) Cancelled [place] % (Auto) Cancelled Eos % (Auto) Cancelled Baso % (Auto) Cancelled Neut # (Auto) Cancelled Lymph # (Auto) Cancelled [place] # (Auto) Cancelled Eos # (Auto) Cancelled Baso # (Auto) Cancelled Immature Gran # (Auto) Cancelled Absolute Nucleated RBC Cancelled Nucleated RBC % (auto) Cancelled Neutrophils % (Manual) Cancelled Band Neutrophils % Cancelled Lymphocytes % (Manual) Cancelled Prolymphocyte % Cancelled Reactive Lymphs % (Man) Cancelled Monocytes % (Manual) Cancelled Eosinophils % (Manual) Cancelled Basophils % (Manual) Cancelled Metamyelocytes % (Man) Cancelled Myelocytes % (Man) Cancelled Promyelocytes % (Man) Cancelled Blast Cells % (Manual) Cancelled Plasma Cell % (Manual) Cancelled Other Cells % Cancelled Nucleated RBC % Cancelled Neutrophils # (Manual) Cancelled Band Neutrophils # Cancelled Total Absolute Neuts Cancelled Lymphocytes # (Manual) Cancelled Prolymphocyte # Cancelled Reactive Lymphs # Cancelled Total Abs Lymphocytes Cancelled Monocytes # (Manual) Cancelled Eosinophils # (Manual) Cancelled Basophils # (Manual) Cancelled Metamyelocytes # (Man) Cancelled Myelocytes # (Manual) Cancelled Promyelocytes # (Man) Cancelled Blast Cells # (Man) Cancelled Plasma Cell # (Manual) Cancelled Other Cells # Cancelled Nucleated RBCs # (Man) Cancelled Hypersegmented Neuts Cancelled Hyposegmented Neuts Cancelled Hypogranular Neuts Cancelled Large Granular Lymphs Cancelled # Lrg Granular Lymphs Cancelled Hairy Cells Cancelled Smudge Cells Cancelled Toxic Granulation Cancelled Toxic Vacuolation Cancelled Dohle Bodies Cancelled David Rods Cancelled Platelet Estimate Cancelled Hypogranular Platelets Cancelled Giant Platelets Cancelled Platelet Satelliting Cancelled RBC Morphology Cancelled Polychromasia Cancelled Hypochromasia Cancelled Poikilocytosis Cancelled Basophilic Stippling Cancelled Anisocytosis Cancelled Microcytosis Cancelled Macrocytosis Cancelled Spherocytes Cancelled Pappenheimer Bodies Cancelled Sickle Cells Cancelled Target Cells Cancelled Tear Drop Cells Cancelled Ovalocytes Cancelled Stomatocytes Cancelled [place] Bodies Cancelled Echinocytes Cancelled Acanthocytes (Spur) Cancelled Rouleaux Cancelled RBC Agglutinates Cancelled Schistocytes Cancelled Sezary Cell Cancelled PT INR APTT PTT Ratio Fibrinogen Sodium Potassium Chloride Carbon Dioxide Anion Gap BUN Creatinine Est Cr Clr Drug Dosing Est GFR ( Amer) Est GFR (Non-Af Amer) BUN/Creatinine Ratio Glucose Lactate Calcium Total Bilirubin AST ALT Alkaline Phosphatase Total Protein Albumin Globulin Albumin/Globulin Ratio Random Gentamicin 1.15 Cancelled C.trachomatis RNA N.gonorrhoeae RNA Blood Parasites ID Cancelled Blood Type Recheck 06/05/22 06/05/22 06/05/22 05:53 07:09 08:16 WBC 24.61 H RBC 4.00 L Hgb 11.0 L Hct 32.1 L MCV 80.3 MCH 27.5 MCHC 34.3 RDW Std Deviation 40.9 RDW Coeff of Myra 14.0 Plt Count 283 MPV 8.5 L Immature Gran % (Auto) 0.8 Neut % (Auto) 83.3 Lymph % (Auto) 14.1 [place] % (Auto) 1.5 Eos % (Auto) 0.0 Baso % (Auto) 0.3 Neut # (Auto) 20.48 H Lymph # (Auto) 3.48 H [place] # (Auto) 0.38 Eos # (Auto) 0.00 Baso # (Auto) 0.07 Immature Gran # (Auto) 0.20 Absolute Nucleated RBC Nucleated RBC % (auto) Neutrophils % (Manual) Band Neutrophils % Lymphocytes % (Manual) Prolymphocyte % Reactive Lymphs % (Man) Monocytes % (Manual) Eosinophils % (Manual) Basophils % (Manual) Metamyelocytes % (Man) Myelocytes % (Man) Promyelocytes % (Man) Blast Cells % (Manual) Plasma Cell % (Manual) Other Cells % Nucleated RBC % Neutrophils # (Manual) Band Neutrophils # Total Absolute Neuts Lymphocytes # (Manual) Prolymphocyte # Reactive Lymphs # Total Abs Lymphocytes Monocytes # (Manual) Eosinophils # (Manual) Basophils # (Manual) Metamyelocytes # (Man) Myelocytes # (Manual) Promyelocytes # (Man) Blast Cells # (Man) Plasma Cell # (Manual) Other Cells # Nucleated RBCs # (Man) Hypersegmented Neuts Hyposegmented Neuts Hypogranular Neuts Large Granular Lymphs # Lrg Granular Lymphs Hairy Cells Smudge Cells Toxic Granulation Toxic Vacuolation Dohle Bodies David Rods Platelet Estimate Hypogranular Platelets Giant Platelets Platelet Satelliting RBC Morphology Polychromasia Hypochromasia Poikilocytosis Basophilic Stippling Anisocytosis Microcytosis Macrocytosis Spherocytes Pappenheimer Bodies Sickle Cells Target Cells Tear Drop Cells Ovalocytes 1+ Stomatocytes [place] Bodies Echinocytes 1+ Acanthocytes (Spur) Rouleaux RBC Agglutinates Schistocytes Sezary Cell PT INR APTT PTT Ratio Fibrinogen Sodium 133 L Potassium 3.7 Chloride 103 Carbon Dioxide 19 L Anion Gap 11 BUN 9 Creatinine 0.65 Est Cr Clr Drug Dosing 117.2 Est GFR ( Amer) 146.1 Est GFR (Non-Af Amer) 126.0 BUN/Creatinine Ratio 13.8 Glucose 141 H Lactate 1.3 Calcium 8.3 L Total Bilirubin 0.6 AST 27 ALT 18 Alkaline Phosphatase 35 Total Protein 5.7 L Albumin 3.3 L Globulin 2.4 L Albumin/Globulin Ratio 1.4 Random Gentamicin C.trachomatis RNA N.gonorrhoeae RNA Blood Parasites ID Blood Type Recheck 06/05/22 06/05/22 06/06/22 12:21 18:14 00:45 WBC 20.35 H RBC 4.02 L Hgb 10.9 L 11.3 L 11.0 L Hct 32.7 L 33.8 L 32.6 L MCV 81.3 MCH 27.1 MCHC 33.3 RDW Std Deviation 41.7 RDW Coeff of Myra 14.0 Plt Count 274 MPV 8.4 L Immature Gran % (Auto) 0.5 Neut % (Auto) 82.8 Lymph % (Auto) 14.6 [place] % (Auto) 1.7 Eos % (Auto) 0.1 Baso % (Auto) 0.3 Neut # (Auto) 16.82 H Lymph # (Auto) 2.98 [place] # (Auto) 0.35 Eos # (Auto) 0.03 Baso # (Auto) 0.06 Immature Gran # (Auto) 0.11 Absolute Nucleated RBC Nucleated RBC % (auto) Neutrophils % (Manual) Band Neutrophils % Lymphocytes % (Manual) Prolymphocyte % Reactive Lymphs % (Man) Monocytes % (Manual) Eosinophils % (Manual) Basophils % (Manual) Metamyelocytes % (Man) Myelocytes % (Man) Promyelocytes % (Man) Blast Cells % (Manual) Plasma Cell % (Manual) Other Cells % Nucleated RBC % Neutrophils # (Manual) Band Neutrophils # Total Absolute Neuts Lymphocytes # (Manual) Prolymphocyte # Reactive Lymphs # Total Abs Lymphocytes Monocytes # (Manual) Eosinophils # (Manual) Basophils # (Manual) Metamyelocytes # (Man) Myelocytes # (Manual) Promyelocytes # (Man) Blast Cells # (Man) Plasma Cell # (Manual) Other Cells # Nucleated RBCs # (Man) Hypersegmented Neuts Hyposegmented Neuts Hypogranular Neuts Large Granular Lymphs # Lrg Granular Lymphs Hairy Cells Smudge Cells Toxic Granulation Toxic Vacuolation Dohle Bodies David Rods Platelet Estimate Hypogranular Platelets Giant Platelets Platelet Satelliting RBC Morphology Polychromasia 1+ Hypochromasia Poikilocytosis Basophilic Stippling Anisocytosis Microcytosis Macrocytosis Spherocytes Pappenheimer Bodies Sickle Cells Target Cells Tear Drop Cells Ovalocytes Stomatocytes [place] Bodies Echinocytes 1+ Acanthocytes (Spur) Rouleaux RBC Agglutinates Schistocytes Sezary Cell PT INR APTT PTT Ratio Fibrinogen Sodium Potassium Chloride Carbon Dioxide Anion Gap BUN Creatinine Est Cr Clr Drug Dosing Est GFR ( Amer) Est GFR (Non-Af Amer) BUN/Creatinine Ratio Glucose Lactate Calcium Total Bilirubin AST ALT Alkaline Phosphatase Total Protein Albumin Globulin Albumin/Globulin Ratio Random Gentamicin C.trachomatis RNA N.gonorrhoeae RNA Blood Parasites ID Blood Type Recheck 06/06/22 06/06/22 06/06/22 05:33 05:33 05:33 WBC 26.39 H RBC 3.98 L Hgb 10.9 L Hct 32.4 L MCV 81.4 MCH 27.4 MCHC 33.6 RDW Std Deviation 42.2 RDW Coeff of Myra 14.3 Plt Count 317 MPV 8.8 L Immature Gran % (Auto) 3.2 Neut % (Auto) 85.6 Lymph % (Auto) 8.3 [place] % (Auto) 2.6 Eos % (Auto) 0.0 Baso % (Auto) 0.3 Neut # (Auto) 22.58 H Lymph # (Auto) 2.20 [place] # (Auto) 0.68 H Eos # (Auto) 0.01 Baso # (Auto) 0.08 Immature Gran # (Auto) 0.84 H Absolute Nucleated RBC Nucleated RBC % (auto) Neutrophils % (Manual) Band Neutrophils % Lymphocytes % (Manual) Prolymphocyte % Reactive Lymphs % (Man) Monocytes % (Manual) Eosinophils % (Manual) Basophils % (Manual) Metamyelocytes % (Man) Myelocytes % (Man) Promyelocytes % (Man) Blast Cells % (Manual) Plasma Cell % (Manual) Other Cells % Nucleated RBC % Neutrophils # (Manual) Band Neutrophils # Total Absolute Neuts Lymphocytes # (Manual) Prolymphocyte # Reactive Lymphs # Total Abs Lymphocytes Monocytes # (Manual) Eosinophils # (Manual) Basophils # (Manual) Metamyelocytes # (Man) Myelocytes # (Manual) Promyelocytes # (Man) Blast Cells # (Man) Plasma Cell # (Manual) Other Cells # Nucleated RBCs # (Man) Hypersegmented Neuts Hyposegmented Neuts Hypogranular Neuts Large Granular Lymphs # Lrg Granular Lymphs Hairy Cells Smudge Cells Toxic Granulation Toxic Vacuolation Dohle Bodies 1+ David Rods Platelet Estimate Hypogranular Platelets Giant Platelets Platelet Satelliting RBC Morphology Polychromasia Hypochromasia Poikilocytosis Basophilic Stippling Anisocytosis Microcytosis Macrocytosis Spherocytes Pappenheimer Bodies Sickle Cells Target Cells Tear Drop Cells Ovalocytes Stomatocytes [place] Bodies Echinocytes Acanthocytes (Spur) Rouleaux RBC Agglutinates Schistocytes Sezary Cell PT INR APTT PTT Ratio Fibrinogen Sodium 131 L Potassium 3.5 Chloride 101 Carbon Dioxide 20 L Anion Gap 10 BUN 12 Creatinine 0.69 Est Cr Clr Drug Dosing 110.4 Est GFR ( Amer) 143.2 Est GFR (Non-Af Amer) 123.6 BUN/Creatinine Ratio 17.4 Glucose 111 H Lactate Calcium 8.2 L Total Bilirubin 0.7 AST 19 ALT 15 Alkaline Phosphatase 52 Total Protein 5.7 L Albumin 3.1 L Globulin 2.6 Albumin/Globulin Ratio 1.2 Random Gentamicin C.trachomatis RNA N.gonorrhoeae RNA Blood Parasites ID Blood Type Recheck O Positive 06/06/22 06/06/22 06/06/22 09:39 09:39 09:39 WBC 26.64 H RBC 4.18 L Hgb 11.3 L Hct 34.6 L MCV 82.8 MCH 27.0 MCHC 32.7 RDW Std Deviation 43.6 RDW Coeff of Myra 14.5 Plt Count 339 MPV 8.8 L Immature Gran % (Auto) 5.3 Neut % (Auto) 84.6 Lymph % (Auto) 7.1 [place] % (Auto) 2.6 Eos % (Auto) 0.0 Baso % (Auto) 0.4 Neut # (Auto) 22.52 H Lymph # (Auto) 1.90 [place] # (Auto) 0.70 H Eos # (Auto) 0.01 Baso # (Auto) 0.10 Immature Gran # (Auto) 1.41 H Absolute Nucleated RBC Nucleated RBC % (auto) Neutrophils % (Manual) Band Neutrophils % Lymphocytes % (Manual) Prolymphocyte % Reactive Lymphs % (Man) Monocytes % (Manual) Eosinophils % (Manual) Basophils % (Manual) Metamyelocytes % (Man) Myelocytes % (Man) Promyelocytes % (Man) Blast Cells % (Manual) Plasma Cell % (Manual) Other Cells % Nucleated RBC % Neutrophils # (Manual) Band Neutrophils # Total Absolute Neuts Lymphocytes # (Manual) Prolymphocyte # Reactive Lymphs # Total Abs Lymphocytes Monocytes # (Manual) Eosinophils # (Manual) Basophils # (Manual) Metamyelocytes # (Man) Myelocytes # (Manual) Promyelocytes # (Man) Blast Cells # (Man) Plasma Cell # (Manual) Other Cells # Nucleated RBCs # (Man) Hypersegmented Neuts Hyposegmented Neuts Hypogranular Neuts Large Granular Lymphs # Lrg Granular Lymphs Hairy Cells Smudge Cells Toxic Granulation Toxic Vacuolation 1+ Dohle Bodies 1+ David Rods Platelet Estimate Hypogranular Platelets Giant Platelets Platelet Satelliting RBC Morphology Polychromasia Hypochromasia Poikilocytosis Basophilic Stippling Anisocytosis Microcytosis Macrocytosis Spherocytes Pappenheimer Bodies Sickle Cells Target Cells Tear Drop Cells Ovalocytes Stomatocytes [place] Bodies Echinocytes Acanthocytes (Spur) Rouleaux RBC Agglutinates Schistocytes Sezary Cell PT 14.5 H INR 1.3 H APTT 39.1 H PTT Ratio 1.4 Fibrinogen 558 H Sodium Potassium Chloride Carbon Dioxide Anion Gap BUN Creatinine Est Cr Clr Drug Dosing Est GFR ( Amer) Est GFR (Non-Af Amer) BUN/Creatinine Ratio Glucose Lactate 2.1 H* Calcium Total Bilirubin AST ALT Alkaline Phosphatase Total Protein Albumin Globulin Albumin/Globulin Ratio Random Gentamicin C.trachomatis RNA N.gonorrhoeae RNA Blood Parasites ID Blood Type Recheck 06/06/22 06/07/22 06/07/22 Unknown 09:10 09:10 WBC 22.94 H RBC 3.35 L Hgb 9.2 L Hct 26.7 L MCV 79.7 L MCH 27.5 MCHC 34.5 RDW Std Deviation 41.8 RDW Coeff of Myra 14.4 Plt Count 319 MPV 8.9 L Immature Gran % (Auto) 2.4 Neut % (Auto) 83.8 Lymph % (Auto) 9.5 [place] % (Auto) 3.9 Eos % (Auto) 0.2 Baso % (Auto) 0.2 Neut # (Auto) 19.22 H Lymph # (Auto) 2.19 [place] # (Auto) 0.90 H Eos # (Auto) 0.04 Baso # (Auto) 0.04 Immature Gran # (Auto) 0.55 H Absolute Nucleated RBC Nucleated RBC % (auto) Neutrophils % (Manual) Band Neutrophils % Lymphocytes % (Manual) Prolymphocyte % Reactive Lymphs % (Man) Monocytes % (Manual) Eosinophils % (Manual) Basophils % (Manual) Metamyelocytes % (Man) Myelocytes % (Man) Promyelocytes % (Man) Blast Cells % (Manual) Plasma Cell % (Manual) Other Cells % Nucleated RBC % Neutrophils # (Manual) Band Neutrophils # Total Absolute Neuts Lymphocytes # (Manual) Prolymphocyte # Reactive Lymphs # Total Abs Lymphocytes Monocytes # (Manual) Eosinophils # (Manual) Basophils # (Manual) Metamyelocytes # (Man) Myelocytes # (Manual) Promyelocytes # (Man) Blast Cells # (Man) Plasma Cell # (Manual) Other Cells # Nucleated RBCs # (Man) Hypersegmented Neuts Hyposegmented Neuts Hypogranular Neuts Large Granular Lymphs # Lrg Granular Lymphs Hairy Cells Smudge Cells Toxic Granulation Toxic Vacuolation Dohle Bodies David Rods Platelet Estimate Hypogranular Platelets Giant Platelets Platelet Satelliting RBC Morphology Polychromasia Hypochromasia Poikilocytosis Basophilic Stippling Anisocytosis Microcytosis Macrocytosis Spherocytes Pappenheimer Bodies Sickle Cells Target Cells Tear Drop Cells Ovalocytes Stomatocytes [place] Bodies Echinocytes Acanthocytes (Spur) Rouleaux RBC Agglutinates Schistocytes Sezary Cell PT INR APTT PTT Ratio Fibrinogen Sodium 138 Potassium 3.4 L Chloride 107 Carbon Dioxide 24 Anion Gap 7 BUN 9 Creatinine 0.47 L Est Cr Clr Drug Dosing 162.1 Est GFR ( Amer) > 150.0 Est GFR (Non-Af Amer) 140.2 BUN/Creatinine Ratio 19.1 Glucose 94 Lactate 2.0 Calcium 8.3 L Total Bilirubin AST ALT Alkaline Phosphatase Total Protein Albumin Globulin Albumin/Globulin Ratio Random Gentamicin C.trachomatis RNA N.gonorrhoeae RNA Blood Parasites ID Blood Type Recheck
[2022-06-07] MEDS ORDERED: CHLORASEPTIC 1.4% SOLN 180 ML BTL MT PRN (16:23)
[2022-06-07] MEDS ORDERED: ACETAMINOPHEN 1000 MG/100 ML IV IV STA (20:39)
[2022-06-07] MEDS: ONDANSETRON INJ 2 MG/ML 2 ML VIAL IV PRN (20:48)
[2022-06-08] MEDS: LACTATED RINGER'S 1,000 ML IV SCH ×2 (00:45→11:18)
[2022-06-08] MEDS: metroNIDAZOLE 500 MG/100 ML BAG IV SCH ×3 (01:24→19:35)
[2022-06-08] MEDS: ACETAMINOPHEN 1,000 MG/100 ML VIAL IV PRN ×2 (04:00→13:33)
--- NOTE | 2022-06-08 04:00 | Surgery Progress Note ---
Date of Service June 08, 2022 Assessment & Plan (1) Ectopic : (2) Small bowel perforation: Plan: Patient is status post laparoscopic left partial salpingectomy with removal of ectopic on 06/03/2022 (postop day #5) Patient is status post exploratory laparotomy with bowel resection and abdominal washout on 06/06/2022 (postop day #2) During this operation a perforation of the small bowel was noted with leakage of enteric contents into the abdomen. Small bowel was transected and reanastomosis was performed I was notified by nursing staff of patient's febrile state at approximately 3:24 AM on 06/08/2022. I responded to the patient's bedside within 5 minutes. Concerning the patient's febrile state we will proceed as follows: The patient did have cultures sent of abdominal contents at time of surgery. Gram stain of this did not show any organisms. Cultures are negative to date. We will check a urinalysis and culture. The patient did have a urine culture on 06/04/2022 which was negative for growth. The patient has requested to the nursing staff that we check urine for STIsI have ordered GC and chlamydia to the urine culture. I have ordered a chest x-ray which has been completed. I do not appreciate any definite intraperitoneal free air on this study. There does not appear to be any infiltrates in the lung watters. We will repeat blood cultures. Of note, the patient did have blood cultures on 06/04/2022 which were negative for growth thus far. The patient does have morning laboratories ordered including a CBC and chemistry. I have asked nursing staff to call the lab and get these labs drawn at this time. We will maintain the patient on intravenous fluids. She is currently receiving lactated Ringer's at 100 cc/h. I will increase this to 125 cc/h. Maintain patient on current antibiotics which include intravenous Cipro and Flagyl I have ordered as needed intravenous acetaminophen for fevers We will await the patient's morning laboratories and may consider ordering repeat CT scan of the abdomen and pelvis based on these results. I have requested a hospitalist evaluation of this patient to assist with her care. I discussed case with my attending physician Dr. Krueger who is in agreement. Concerning patient's additional postoperative care we will proceed as follows: Continue analgesics as needed Continue antiemetics as needed Continue intravenous fluids as noted above Continue MIKAELA drain to bulb suction Maintain the patient's NG tube in place for the present time. Consideration may be given to removing later this morning as she has been passing flatus. Prior to making this decision we will await the ensuing fever evaluation as noted above Maintain n.p.o. status for the present time Lovenox is in place for DVT prevention Admission and Anticipated Discharge Date Admission Date: June 03, 2022 Subjective I was called by nursing staff noting that patient has been having intermittent fevers as high as 103.2. They previously notify the [employer] service and received a one-time dose of Tylenol at approximately 7:00 PM. It was also noted by n aguilaing staff that patient was tachycardic with heart rate in the 120s. She was not hypotensive and her pulse ox was 97% on room air. I visited with the patient at the bedside and the patient notes that she feels intermittently hot and cold due to her fevers. She denies any chills. She denies any cough or shortness of breath. She notes that she has minimal abdominal pain. Since her surgery she has been passing flatus and notes that she feels like she needs to have a bowel movement. Physical Exam Constitutional: WD/WN, vitals as above Respiratory: normal respiratory effort; no respiratory distress and no labored breathing Cardiovascular: Rate/Rhythm: regular rate, regular rhythm and + tachycardic Gastrointestinal (Abdomen): Abdomen is soft and nonrigid. Patient did have some slight tenderness near surgical incision which which appears to be appropriate for her postoperative state. A MIKAELA drain is in place draining serous fluid. Musculoskeletal: No calf tenderness. Feet are warm and well-perfused. DP pulses are present. Results & Data Vital Signs (Past 12 Hours) Vital Signs Temp Pulse Resp BP Pulse Ox O2 Del Method 06/08/22 03:27 123 H 104/65 97 Room Air 06/08/22 03:20 39.5 C H 06/07/22 19:20 Room Air 06/07/22 21:49 37.6 C H 112 H 16 111/71 97 Room Air 06/07/22 19:20 38.3 C H 130 H 16 106/64 97 Room Air PG Care Time/CCT Total # of Minutes Spent Total Time Spent with Patient: Total time spent is greater than 50% in coordination of care (as documented) at patient's floor/unit and/or counseling patient: Coding Level of Care Code 70534 Post Operative Follow-Up Diagnoses Ectopic O00.90 Small bowel perforation K63.1
[2022-06-08 04:43] LABS: Basophils # (auto) 0.07 K/uL (0-0.2); Basophils % (auto) 0.4 %; Eosinophils # (auto) 0.01 K/uL (0-0.50); Eosinophils % (auto) 0.1 %; Hematocrit (blood only) 27.4 % (37.0-47.0); Hemoglobin 9.3 g/dl (12.0-16.0); Immature Granulocytes # (auto) 0.15 K/uL (0.01-0.20); Immature Granulocytes % (auto) 0.8 %; Lymphocytes # (auto) 2.26 K/uL (1.2-3.4); Lymphocytes % (auto) 11.7 %; Mean Corpuscular Hemoglobin 27.4 pg (25.0-34.0); Mean Corpuscular Hgb Conc 33.9 g/dL (32.0-36.0); Mean Corpuscular Volume 80.6 fL (80.0-100.0); Mean Platelet Volume 8.3 fL (9.4-12.4); Monocytes # (auto) 1.18 K/uL (0.11-0.59); Monocytes % (auto) 6.1 %; Neutrophils % (auto) 80.9 %; Platelet Count 343 K/uL (130-400); RDW Coefficient of Variation 14.5 % (11.5-14.5); RDW Standard Deviation 42.7 fL (36.4-46.3); White Blood Count 19.37 K/ul (4.8-10.8)
--- NOTE | 2022-06-08 04:48 | Hospitalist Consultation ---
Date of Consultation June 08, 2022 Assessment & Plan (1) Postoperative fever: 22 yo POD5 s/p laparoscopic L partial salpingectomy with ectopic removal (06/03) complicated by small bowel perforation, POD2 s/p exploratory laparotomy with small bowel resection/anastomosis with washout (06/06) now presenting with postoperative fever. Hospitalist consultation requested by general surgery. -Noted previous BCx, UCx and abdominal fluid cultures NGTD -WBC 23 downtrend to 19 on repeat CBC, noted consistent downtrend over past few days -CXR without evidence of pneumonia -Lactate, ESR, PT/INR, fibrinogen, D-dimer, procalcitonin, LFTs, UA pending -Repeat BCx, UCx, urine GC/chlamydia, MRSA nares pending -Agree with potential repeat of CTAP pending results of infectious workup -Continue ciprofloxacin/Flagyl at present -IV Tylenol PRN fever control -Recommend Q2h vitals (2) Tachycardia: -Sinus tachycardia in setting of postoperative fever and suspected infection -Management as above (3) Hypokalemia: -K 3.1 noted -Will check Mg -Replete with IV potassium -Trend BMP (4) Anemia: -Hgb 9.3, stable from 9.2 on day prior -Transfuse Hgb < 7 -Trend CBC (5) Small bowel perforation: -POD5 s/p laparoscopic L partial salpingectomy with ectopic removal (06/03) complicated by small bowel perforation -POD2 s/p exploratory laparotomy with small bowel resection/anastomosis with washout (06/06) -Postoperative management per general surgery (6) Postoperative ileus: -Agree with continued NPO, NGT and aggressive IVF- LR 125 cc/hr -NGT removal per general surgery (7) Ectopic : -POD5 s/p laparoscopic L partial salpingectomy with ectopic removal (06/03) complicated by small bowel perforation -Postoperative LIFE AGENT management per OBGYN and outlined above Plan FENGI: NPO, NGT in place, IVF Code status: Full DVT ppx: Lovenox Isolation: None Dispo: Medical/surgical Supervising Physician Co-Signing Physician Notes Attending addendum: I have physically seen this patient, have supervised the medical residents activities, and agree with the H&P unless as otherwise noted. Assessment and Plan: Postoperative fever/tachycardia- Seen postoperatively with systolic blood pressure 104, heart rate 124 with n ormal respirations Temperature elevated to 39.5 Recent ectopic surgery, and small bowel perforation Continue Cipro and Flagyl IV for now. Allergy to amoxicillin noted, may need to change Cipro to meropenem Following urine culture and sensitivities, blood culture and sensitivities, Add ESR, LFTs, procalcitonin, lactate, MRSA swab, PT/INR/PTT, D-dimer and fibrinogen levels IV fluid rehydration as noted Hypokalemia- Potassium 3.1 replete with IV potassium, check magnesium level Repeat laboratories in a.m. Postoperative ileus- Orders per surgery Other notations as noted, will follow during hospital stay History of Present Illness Reason for Consultation: Postoperative fever Requesting Physician: Marquis Krueger MD Attending Physician: Cliff Matos MD History of Present Illness 22 yo POD5 s/p laparoscopic L partial salpingectomy with ectopic removal (06/03) complicated by small bowel perforation, POD2 s/p exploratory laparotomy with small bowel resection/anastomosis with washout (06/06) now presenting with postoperative fever. Hospitalist consultation requested by general surgery. Pt became tachycardic 110s-130s with fever (38.3 C, Tmax 39.5 C) overnight. Was seen by general surgery who initiated extensive infectious workup and maintained pt on IVF, current postoperative antibiotics of ciprofloxacin/Flagyl. Pt did receive doses of IV Tylenol after her fevers with tachycardia began. On my evaluation, pt reports 2/10 abdominal pain. She reports fever, dysuria and her heart racing but feels better after being given Tylenol. Reports passing flatus. Allergies Allergy/AdvReac Type Severity Reaction Status Date / Time amoxicillin Allergy Rash Unverified 04/04/22 11:29 Home Medications Medication Instructions Recorded Confirmed Type methylphenidate HCl 10 mg tablet 0 mg PO UD 04/04/22 04/04/22 History methylphenidate HCl 27 mg 27 mg PO DAILY 04/04/22 04/04/22 History tablet,extended release 24 hr sulfamethoxazole 800 1 tab PO Q12H #14 tabs 04/04/22 Rx mg-trimethoprim 160 mg tablet (Bactrim DS) ibuprofen 600 mg tablet 600 mg PO Q6H PRN pain #30 tabs 06/03/22 Rx oxycodone 5 mg tablet 5 mg PO Q4H #12 tabs 06/04/22 Rx Patient History Medical History ADD (attention deficit disorder) Marijuana use Surgical History History of strabismus surgery Social History Smoking Status: Never smoker Hx Substance Use: Yes Communication Ability: Effective Feels Safe at Home: Yes Assistive Devices: None Review of Systems Review of Systems: Per HPI/Subjective Physical Exam Physical Exam: General: well-appearing, no acute distress, NG tube in place draining bilious fluid HEENT: PERRL, EOMI, conjunctivae clear without injection, anicteric sclerae, moist mucous membranes, clear oropharynx without exudate or erythema Neck: supple, trachea midline, no thyromegaly, no JVD, no cervical lymphadenopathy CV: Tachycardic, regular rhythm, normal S1 and S2, no murmurs Resp: CTAB, no increased work of breathing, no crackles or wheezes Abd: Soft, mildly distended, mild generalized tenderness without guarding or rebound, no hepatosplenomegaly, high pitched bowel sounds. MIKAELA drain with serosanginous fluid MSK: Normal bulk of all four extremities Neuro: AOx3, no focal motor or sensory deficits Skin: no rashes or lesions, warm and dry Ext: no LE peripheral edema or erythema, capillary refill <2s in all four extremities, 2+ LE peripheral pulses b/l Results & Data Results & Data Vital Signs (Past 12 Hours) Vital Signs Temp Pulse Resp BP Pulse Ox O2 Del Method 06/08/22 03:27 123 H 104/65 97 Room Air 06/08/22 03:20 39.5 C H 06/07/22 19:20 Room Air 06/07/22 21:49 37.6 C H 112 H 16 111/71 97 Room Air 06/07/22 19:20 38.3 C H 130 H 16 106/64 97 Room Air Resident Activity Tracking Resident Involvement: Resident Care Provided Care Provided: Adult Hospital Medicine
[2022-06-08 05:00] LABS: Anion Gap 11 (3-11); Blood Urea Nitrogen 7 mg/dl (6-23); Calcium 7.7 mg/dl (8.6-10.3); Carbon Dioxide 20 mmol/L (21-32); Chloride 104 mmol/L (98-107); Creatinine Clr Calc Pharmacy 152.4 ml/min; Est GFR (African American) > 150.0 ml/min; Est GFR (Non-African American) 137.4 ml/min; Glucose 96 mg/dl (70-99(Fasting)); Potassium 3.1 mmol/L (3.5-5.1); Sodium 135 mmol/L (136-145)
[2022-06-08] MEDS: CIPROFLOXACIN / D5W 400 MG/200 ML BAG IV SCH ×2 (05:00→17:08)
[2022-06-08 05:26] LABS: Albumin Level 2.7 gm/dl (3.4-5.0); Bilirubin Direct 0.1 mg/dl (0-0.2); Bilirubin,Total 0.5 mg/dl (0.2-1.0); Total Protein 5.2 gm/dl (6.0-8.3)
[2022-06-08 05:41] LABS: Magnesium 1.5 mg/dl (1.7-2.4)
[2022-06-08] MEDS: ONDANSETRON INJ 2 MG/ML 2 ML VIAL IV PRN ×3 (06:18→19:30)
[2022-06-08] MEDS: KETOROLAC 30 MG/ML VIAL IV PRN ×2 (06:23→19:22)
--- NOTE | 2022-06-08 06:23 | Surgery Progress Note ---
Date of Service June 08, 2022 Assessment & Plan (1) Fever: Plan: Patient has normal affect and does not have any abdominal pain Clinically she looks very good Her abdomen is very mildly distended but she has no peritoneal signs She is moving around in bed normally from side to side She says she has passed significant flatus Fever and tachycardia are of some concern We will check a CAT scan Check chest x-ray and urine, check a.m. lab work Patient is anemic from prior surgery but may need additional IV fluid Admission and Anticipated Discharge Date Admission Date: June 03, 2022 Results & Data Vital Signs (Past 12 Hours) Vital Signs Temp Pulse Resp BP Pulse Ox O2 Del Method 06/08/22 05:04 37.0 C 06/08/22 03:27 123 H 104/65 97 Room Air 06/08/22 03:20 39.5 C H 06/07/22 19:20 Room Air 06/07/22 21:49 37.6 C H 112 H 16 111/71 97 Room Air 06/07/22 19:20 38.3 C H 130 H 16 106/64 97 Room Air PG Care Time/CCT Total # of Minutes Spent Total Time Spent with Patient: Total time spent is greater than 50% in coordination of care (as documented) at patient's floor/unit and/or counseling patient: Coding Level of Care Code None Diagnoses Fever R50.9
[2022-06-08] MEDS ORDERED: OPTIRAY 320 500ml IV ONE ×2 (06:38→09:28)
[2022-06-08 06:43] LABS: Fibrinogen 540 mg/dl (184-400); INR 1.1 (0.9-1.1); Partial Thromboplastin Ratio 1.3; Partial Thromboplastin Time 35.8 Seconds (21.0-31.0); Prothrombin Time 11.9 Seconds (9.0-12.0)
[2022-06-08] MEDS ORDERED: LACTATED RINGER'S 500 ML IV ONE (06:55)
[2022-06-08 06:59] LABS: Appearance Urine Clear (Clear); Bacteria Urine Automated Negative (Negative); Bilirubin Urine Negative (Negative); Blood Urine 3+ (Negative); Color Urine Yellow; Epithelial Cell Urine Auto 20-30 /lpf (0-5); Glucose Urine UA Negative (Negative); Ketones Urine 4+ (Negative); Leukocyte Esterase Urine Negative (Negative); Nitrite Urine Negative (Negative); Protein Urine Trace (Negative); RBC Urine Automated >30 /hpf (0-4); Specific Gravity Urine 1.019 (1.000-1.030); Urobilinogen Urine Negative (Negative)
[2022-06-08 07:15] LABS: D Dimer 2930 ug/L FEU (0-500)
--- NOTE | 2022-06-08 07:18 | Surgery Progress Note ---
Date of Service June 08, 2022 Assessment & Plan (1) Fever: Plan: CT scan does not show significant edema or fluid to my reading-no overt leak Reviewed with Dr. Loredo-minimal pelvic fluid with inflammation consistent with previous perioperative findings No evidence of significant fluid or inflammation around the anastomosis We will give patient an LR bolus Her temperature seems to be coming down Leave NG tube and no changes otherwise She does describe some heaviness in her chest and has some changes in her left lower lobe We will obtain CTA to rule out PE as this could cause fever and tachycardia She is actually walking in the hallway and has mild bloating but no significant abdominal pain We will continue to monitor her closely Admission and Anticipated Discharge Date Admission Date: June 03, 2022 Results & Data Vital Signs (Past 12 Hours) Vital Signs Temp Pulse Resp BP Pulse Ox O2 Del Method 06/08/22 06:00 37.9 C H 109 H 16 113/72 97 Room Air 06/08/22 05:04 37.0 C 06/08/22 03:27 123 H 104/65 97 Room Air 06/08/22 03:20 39.5 C H 06/07/22 19:20 Room Air 06/07/22 21:49 37.6 C H 112 H 16 111/71 97 Room Air 06/07/22 19:20 38.3 C H 130 H 16 106/64 97 Room Air PG Care Time/CCT Total # of Minutes Spent Total Time Spent with Patient: Total time spent is greater than 50% in coordination of care (as documented) at patient's floor/unit and/or counseling patient: Coding Level of Care Code None Diagnoses Fever R50.9
[2022-06-08] MEDS: MAGNESIUM SULFATE / D5W 1 GM/100 ML BAG IV SCH ×4 (07:30→13:20)
--- NOTE | 2022-06-08 07:35 | CT Scan Report ---
CT SCAN OF THE ABDOMEN AND PELVIS WITH IV CONTRAST CLINICAL HISTORY: History bowel perforation. Postoperative fever. COMPARISON STUDY: Abdominal CT dated 06/05/2022. TECHNIQUE: Following the IV administration of 90 cc of Optiray 320, CT scan of the abdomen and pelvi s is performed from the lung bases to the proximal femora. Images are reviewed in the axial, sagittal , and coronal planes. IV contrast was administered without complication. A dose lowering technique wa s utilized adhering to the principles of ALARA. CT DOSE: 339.70 mGy.cm FINDINGS: Lung bases: The heart is normal in size and without pericardial effusion. There are small pleural eff usions with dependent atelectasis. These are new from 06/05/2022. Liver: The contrast-enhanced liver is normal in size, contour, and attenuation. There is no intrahepa tic biliary ductal dilatation. The hepatic veins and portal veins are patent. Gallbladder: Excreted contrast is seen in the gallbladder. There is no CT evidence of acute cholecyst itis. Spleen: Normal in size and attenuation. Pancreas: Unremarkable. Adrenal glands: Unremarkable. Kidneys: The contrast enhanced kidneys are normal in size and without hydronephrosis. The kidneys enh ance symmetrically. Abdominal vasculature: The abdominal aorta is normal in course and caliber. Bowel: An enteric tube terminates in the stomach. There is no bowel obstruction. Residual enteric con trast is seen throughout the colon. A small bowel anastomosis is seen in the anterior pelvis. There a re thick-walled loops of small bowel in the pelvis as well as mild wall thickening of the right colon . The appendix is normal as visualized. Peritoneum: Pneumoperitoneum persists. A surgical drain is in place from a right lower quadrant appro ach. This is coiled in the deep pelvis. There is diffuse infiltration of the mesentery. There is a tr dara perihepatic and perisplenic fluid, as well as trace fluid in the pelvis. The surrounding peritone um is mildly thickened and enhancing. The largest pocket of fluid measures 2.3 cm as seen in the righ t pelvis on image #353. No organized/drainable fluid collection is seen to indicate abscess. Lymphadenopathy: Prominent mesenteric lymph nodes are likely reactive. Pelvic viscera: The bladder is distended and mildly thick walled. There are foci of intraluminal gas. The uterus and adnexa are normal as visualized. Skeletal structures: No lytic or blastic lesions are seen. Soft tissues: There is body wall edema. A midline surgical incision is noted with skin clips in place . There are foci of subcutaneous gas in the ventral abdominal wall. IMPRESSION: 1. A small bowel anastomosis is noted in the anterior pelvis. No obstruction is seen. 2. Pneumoperitoneum persists. The amount of intraperitoneal free air has decreased as compared to 05/12. 3. There are midline skin clips and a surgical drain is in place. 4. There is diffuse infiltration of the mesentery and mild wall thickening of the small bowel loops a nd right colon in the pelvis. This may represent peritonitis. 5. There is trace perihepatic and perisplenic fluid, as well as trace fluid along the mesentery and i n the pelvis. There is associated peritoneal thickening and enhancement. Again, this is likely relate d to peritonitis. No organized/drainable fluid collection is seen at this time. 6. The bladder is distended and mildly thick-walled with foci of intraluminal gas. This may be relate d to instrumentation. Correlate with clinical findings and urinalysis. 7. Small pleural effusions with dependent atelectasis. These are new from previous. 8. Additional findings as above. ACT 112: Negative or not required by law. Electronically signed by: Delta Loredo M.D. 06/08/2022 7:32 AM
--- NOTE | 2022-06-08 07:45 | XRay Report ---
SINGLE VIEW CHEST CLINICAL HISTORY: Fever. FINDINGS: An AP, portable, upright chest radiograph is compared to study dated 06/04/2022. An enteric tube has been placed. This extends below the diaphragm in the tip is not visualized The cardiomediast inal silhouette is unremarkable. There are trace pleural effusions. Developing consolidation is seen at the left lung base. No pneumothorax is seen. The bony thorax is grossly intact. IMPRESSION: 1. An enteric tube is new from previous. 2. There are small pleural effusions with consolidation at the left lung base. This could represent a telectasis versus pneumonia/aspiration pneumonitis. Clinical correlation will be required and radiogr aphic follow-up to resolution is recommended. ACT 112: Negative or not required by law. Electronically signed by: Delta Loredo M.D. 06/08/2022 7:44 AM
--- NOTE | 2022-06-08 10:06 | CT Scan Report ---
CT ANGIOGRAM OF THE CHEST CLINICAL HISTORY: Dyspnea and fever. Recent surgery. COMPARISON STUDY: Chest x-ray and abdominal CT performed the same day 06/08/2022.. TECHNIQUE: Following the IV administration of 120 cc of Optiray 320, CT angiogram of the chest was pe rformed from the upper abdomen to the thoracic inlet utilizing the pulmonary embolus protocol. Images are reviewed in the axial, sagittal, and coronal planes. 3-D MIPS images are created and assessed. I V contrast was administered without complication. A dose lowering technique was utilized adhering to the principles of ALARA. CT DOSE: 232.69 mGy.cm FINDINGS: Thyroid: Imaged portions of the thyroid gland are normal in size and attenuation. Thoracic aorta: The thoracic aorta is normal in caliber and demonstrates standard 3-vessel arch anato my. No dissection is seen. Pulmonary vasculature: The pulmonary trunk is normal in caliber. There are no filling defects identif ied in main, lobar, or segmental pulmonary branches to suggest pulmonary embolus. Heart: The heart is normal in size and without pericardial effusion. Lungs and pleural spaces: There are small pleural effusions with dependent consolidation. The lungs a re otherwise clear. The trachea and central airways are patent. Mediastinum: There is no mediastinal lymphadenopathy. Velia: Clear. Axillae: There is no axillary lymphadenopathy. Upper abdomen: An enteric tube extends below the diaphragm in the stomach. Foci of intraperitoneal fr ee air are again seen below the diaphragm. There is trace free fluid in the upper abdomen. Skeletal structures: No lytic or blastic bony lesions are seen. IMPRESSION: 1. There is no evidence of pulmonary embolus in the main, lobar, or segmental pulmonary arteries. 2. Small pleural effusions with dependent consolidation which likely likely represents atelectasis. C orrelate clinically for evidence of superimposed pneumonia. 3. Thoracic intraperitoneal free air and fluid are again seen below the diaphragm. See report of abdo jimmy CT performed earlier the same day for detailed intra-abdominal findings. 4. Additional findings as above. ACT 112: Negative or not required by law. Electronically signed by: Delta Loredo M.D. 06/08/2022 10:03 AM
[2022-06-08] MEDS: NSS + 20MEQ KCL 20 MEQ/1,000 ML BAG IV SCH ×2 (11:03→19:27)
[2022-06-08] MEDS: ENOXAPARIN INJ 30 MG/0.3 ML SYR SQ SCH (11:05)
[2022-06-08] MEDS: PANTOprazole 40 MG in SYRINGE 0 ML IV SCH (11:15)
[2022-06-08] MEDS ORDERED: TPN/PPN CONSULT PHARMACY PRN (13:05)
[2022-06-08 14:47] LABS: Phosphorus 2.3 mg/dl (2.5-4.9)
[2022-06-08] MEDS: POTASSIUM CHLORIDE / WTR 10 MEQ/100 ML PLCT IV SCH ×4 (15:22→18:08)
--- NOTE | 2022-06-08 16:12 | Hospitalist Progress Note ---
Date of Service June 08, 2022 Assessment & Plan (1) Postoperative fever: Plan: 22 yo POD5 s/p laparoscopic L partial salpingectomy with ectopic removal (06/03) complicated by small bowel perforation, POD2 s/p exploratory laparotomy with small bowel resection/anastomosis with washout (06/06) now presenting with postoperative fever. Hospitalist consultation requested by general surgery. Postoperative Fever -Blood cultures, urine cultures, and abdominal fluid cultures NGTD -WBC 23 downtrend to 19 on repeat CBC, noted consistent downtrend over past few days -D-Dimer, Fibrinogen elevated and patient had some subjective shortness of breath this a.m. -CT Angio Chest negative for PE -Low suspicion for pneumonia, some element of atelectatic fever possible -Encourage use of incentive spirometer -Repeat CTAP without new findings -Continue ciprofloxacin/Flagyl at present. Had diarrhea this morning, low suspicion for c. diff at this time -No urinary symptoms and no signs of cellulitis. Fever most likely secondary to small bowel perforation. -IV Tylenol PRN fever control (2) Tachycardia: Plan: -Sinus tachycardia in setting of postoperative fever and suspected infection -Management as above (3) Hypokalemia: Plan: -K 3.1 noted, magnesium low -Repleted with IV potassium and magnesium -Trend BMP (4) Anemia: Plan: -Hgb 9.3, stable from 9.2 on day prior -Transfuse Hgb < 7 -Trend CBC (5) Small bowel perforation: Plan: -POD5 s/p laparoscopic L partial salpingectomy with ectopic removal (06/03) complicated by small bowel perforation -POD2 s/p exploratory laparotomy with small bowel resection/anastomosis with washout (06/06) -Postoperative management per general surgery -Suspect this is underlying etiology of continued postoperative fever (6) Postoperative ileus: Plan: -Agree with continued NPO, NGT and aggressive IVF- LR 125 cc/hr -NGT removal per general surgery -Nutrition recommending PPN, will start thiamine to prevent refeeding syndrome (7) Ectopic : Plan: -POD5 s/p laparoscopic L partial salpingectomy with ectopic removal (06/03) complicated by small bowel perforation -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 Will start PPN Code status: Full DVT ppx: Lovenox Isolation: None Dispo: Medical/surgical Admission and Anticipated Discharge Date Admission Date: June 03, 2022 Supervising Physician Co-Signing Physician Notes I personally examined the patient and verified all piper points of history and exam, discussed case, and agree with decision making with Dr Harrington. Feeling okay overall. See above. Feverin the end I suspect it is peritoneal inflammation (and she is on appropriate antibiotic coverage and not showing signs of deterioration/decompensation) and atelectasis. With no dysuria, UTI is exce edingly unlikely. Blood cultures are pending but doubt bacteremia. No evidence of pneumonia. Has some diarrhea, but seems to be more return of bowel function than anything consistent with C. difficile. As far as noninfectious cause of feverfortunately PE has been ruled out, and atelectasis appears to be part of the picture. Continue current antibiotics and incentive spirometry. We will continue to follow. Fortunately looks quite stable. Subjective Patient was seen and examined at bedside. At time of encounter, patient had just finished ambulating some around the halls. While sitting in bed she then noted feeling a bid short of breath. Denies body aches, chills. Does note that she has been passing gas and had a bowel movement yesterday- although this morning had some diarrhea. NG tube in place draining small amounts of green/brown fluid. Review of Systems Review of Systems: Per HPI/Subjective Physical Exam Constitutional: WD/WN, vitals as above Eyes: Anicteric Sclerae ENMT: NG tube in place. Moist mucous membranes Respiratory: No increased work of breathing or cough. Good aeration, lungs CTAB. Cardiovascular: Regular rhythm, tachycardic at times to mid 90s. No lower extremity edema. Gastrointestinal (Abdomen): Incision sites bandaged. Abdomen soft, bowel sounds present. Skin: no rashes, warm and dry Psychiatric: A+Ox3, euthymic affect Results & Data Results & Data Vital Signs (Past 12 Hours) Vital Signs Temp Pulse Resp BP Pulse Ox O2 Del Method 06/08/22 15:15 36.7 C 94 H 16 106/68 98 Room Air 06/08/22 14:12 37.8 C H 06/08/22 13:29 38.8 C H 106 H 18 109/69 98 Room Air 06/08/22 08:27 36.5 C 89 18 115/75 98 Room Air 06/08/22 07:27 36.4 C L 94 H 18 110/73 99 Room Air 06/08/22 06:00 37.9 C H 109 H 16 113/72 97 Room Air 06/08/22 05:04 37.0 C Resident Activity Tracking Resident Involvement: Resident Care Provided Care Provided: Adult Hospital Medicine
[2022-06-08] MEDS: THIAMINE HCL 100 MG in SYRINGE 9 ML IV SCH (17:12)
[2022-06-08] MEDS ORDERED: PROMETHAZINE HCL 6.25 MG in SODIUM CHLORIDE 0.9% 50 ML IV PRN (19:20)
[2022-06-08] MEDS ORDERED: POTASSIUM PHOSPHATE 15 MMOL in SODIUM CHLORIDE 0.9% 250 ML IV ONE (20:00)
[2022-06-09] MEDS: metroNIDAZOLE 500 MG/100 ML BAG IV SCH ×3 (01:07→19:25)
[2022-06-09] MEDS: KETOROLAC TROMETHAMINE 15 MG/ML VIAL IV PRN ×2 (01:37→23:22)
[2022-06-09] MEDS: ACETAMINOPHEN 1,000 MG/100 ML VIAL IV PRN (03:54)
[2022-06-09] MEDS: NSS + 20MEQ KCL 20 MEQ/1,000 ML BAG IV SCH ×2 (03:56→13:11)
[2022-06-09] MEDS: CIPROFLOXACIN / D5W 400 MG/200 ML BAG IV SCH ×2 (05:09→16:49)
--- NOTE | 2022-06-09 05:12 | Surgery Progress Note ---
Date of Service June 09, 2022 Assessment & Plan (1) Small bowel perforation: Plan: Patient is status post laparoscopic left partial salpingectomy and removal of ectopic on 06/03/2022 (postop day #6) Patient is status post exploratory laparotomy with bowel resection and abdominal washout on 06/06/2022 (postop day #3) Enteric contents were noted in the abdomen requiring small bowel transection and reanastomosis Patient noted to be febrile on 06/08/2022. Work-up/evaluation and treatment has included the following: CBC revealed persistent leukocytosis with a white blood cell count of 19.3 Urinalysis performed which was not indicative of infection. Gonococcal urine culture was not detected. Urine for chlamydia is pending. Chest x-ray showed small pleural effusions with consolidation at the left lung base representing either atelectasis versus aspiration pneumonitis. CT scan of the abdomen was repeated and showed a small amount of pneumoperitoneum which had decreased from imaging on 06/05/2022. Infiltration of the mesentery and wall thickening of small bowel loops and right colon suggestive of peritonitis was noted. There is trace perihepatic and perisplenic fluid along with trace fluid along the mesentery in the pelvis. There were no organized or drainable fluid collections noted A CT scan of the chest was performed that showed no evidence of pulmonary emboli. Small pleural effusions were noted with some dependent consolidations felt to represent atelectasis or potentially pneumonia. Blood cultures have been sent on 06/08/2022 which are pending Patient has been maintained on antibiotics in form of Cipro and Flagyl Patient has been maintained on intravenous fluids A.m. laboratories are ordered and are pending. We will check these when available Concerning the patient's postoperative care we will continue as follows: Analgesics as needed Antiemetics as needed Continue MIKAELA drain to bulb suction Continue intravenous fluids until oral intake can be advanced and deemed to be adequate The patient has had a bowel movement so consideration can be given to removing her NG tube. The patient has expressed interest in potentially doing a clamping trial prior to removing this in case she does not tolerate not having the NG tube on suction and therefore would not have to be reinserted if needed Continue IV fluids until oral intake can be advanced and deemed to be adequate Electrolytes were supplemented yesterday. These will be reassessed on today's labs and additional supplementation can be ordered if needed. Continue ambulation as able Lovenox is in place for DVT prevention Admission and Anticipated Discharge Date Admission Date: June 03, 2022 Supervising Physician Co-Signing Physician Notes Dr. Kruegerpatient with expected NG output, not significant-we will clamp NG before removal per patient's request She has mild distention but does have some bowel sounds and is nontender She has not had a significant fever over the last 12 to 18 hours No complaint of abdominal pain, some mild occasional nausea Patient now on PPN, IV antibiotics, IV Protonix, Lovenox, encouraged incentive Spyro Encourage ambulation which she appears to be doing well Subjective Patient is currently resting comfortably in bed. She notes that since my visit with her yesterday she has had a bowel movement. She notes that she has very little in the way of abdominal pain. She has not had any high fevers, shakes, or chills. She does report some intermittent waves of nausea that seem to respond to Zofran. She has been ambulating in the hallway without difficulty. She denies any shortness of breath. I discussed with the nurse attending the patient and she notes the patient has not had any high fevers last evening and her highest temperature was approximately 99. She did not report any other concerns at this time. Physical Exam Gastrointestinal (Abdomen): Bowel sounds are present. Abdomen is soft and nondistended. A small amount of tenderness is noted near surgical incision which is appropriate. MIKAELA drain is in place and is drained approximately 360 cc last 24 hours. NG tube is also in place and has drained approximately 600 cc over the last 24 hours. Musculoskeletal: No calf tenderness Results & Data Vital Signs (Past 12 Hours) Vital Signs Temp Pulse Resp BP Pulse Ox O2 Del Method 06/09/22 04:00 37.2 C 06/09/22 01:15 37.3 C 97 H 14 100/66 98 Room Air 06/08/22 21:59 Room Air 06/08/22 21:54 36.9 C 95 H 16 100/67 98 Room Air PG Care Time/CCT Total # of Minutes Spent Total Time Spent with Patient: Total time spent is greater than 50% in coordination of care (as documented) at patient's floor/unit and/or counseling patient: Coding Level of Care Code 83739 Post Operative Follow-Up Diagnoses Small bowel perforation K63.1
--- NOTE | 2022-06-09 06:04 | Billing Data ---
Date of Service June 09, 2022 Coding Level of Care Code 47941 IN/OBS CONSULT LVL 3,45M
--- NOTE | 2022-06-09 06:58 | Hospitalist Progress Note ---
Date of Service June 09, 2022 Assessment & Plan (1) Postoperative fever: Plan: 22 yo POD5 s/p laparoscopic L partial salpingectomy with ectopic removal (06/03) complicated by small bowel perforation, POD2 s/p exploratory laparotomy with small bowel resection/anastomosis with washout (06/06) now presenting with postoperative fever. Hospitalist consultation requested by general surgery. Postoperative Fever -Blood cultures, urine cultures, and abdominal fluid cultures NGTD -WBC downtrending (14 today) -CT Angio Chest negative for PE yesterday, no additional shortness of breath -Low suspicion for pneumonia, some element of atelectatic fever possible -Encourage use of incentive spirometer -Repeat CTAP without new findings -Continue ciprofloxacin/Flagyl at present. -No urinary symptoms and no signs of cellulitis -Fever most likely secondary to small bowel perforation -IV Tylenol PRN fever control * At this point hospitalist service will sign off. Please contact us with any questions. Tachycardia -Sinus tachycardia in setting of postoperative fever and suspected infection -Management as above -Normal rate today Hypokalemia- resolved -K 3.6 noted, magnesium 1.9 -Repleted with IV potassium and magnesium yesterday -Trend BMP Anemia -Hgb 8.9, stable -Transfuse Hgb < 7 -Trend CBC Small Bowel Perforation -POD6 s/p laparoscopic L partial salpingectomy with ectopic removal (06/03) complicated by small bowel perforation -POD3 s/p exploratory laparotomy with small bowel resection/anastomosis with washout (06/06) -Postoperative management per general surgery -Suspect this is underlying etiology of continued postoperative fever Postoperative Ileus -Agree with continued NPO, NGT and aggressive IVF- LR 125 cc/hr -NGT removal per general surgery -Nutrition recommending PPN, started thiamine to prevent refeeding syndrome Ectopic -POD5 s/p laparoscopic L partial salpingectomy with ectopic removal (06/03) complicated by small bowel perforation -Postoperative [employer]ING [employer] PERSON management per OBGYN and outlined above SEBASTIÁNI: NPO, NGT in place, IVF. Will start PPN Code status: Full DVT ppx: Lovenox Isolation: None Dispo: Medical/surgical (2) Tachycardia: (3) Hypokalemia: (4) Anemia: (5) Small bowel perforation: (6) Postoperative ileus: (7) Ectopic : Admission and Anticipated Discharge Date Admission Date: June 03, 2022 Supervising Physician Co-Signing Physician Notes I personally examined the patient and verified all piper points of history and exam, discussed case, and agree with decision making with Dr Harrington. Feeling pretty good. No noted fever since early yesterday afternoon, and she has not felt febrile either. Feels hungry, having bowel movements. Feels like she is improving. Vitals noted, in general she is awake and alert pleasant no distress. NG tube with thin drainage, and nursing notes that it was clamped for several hours without a whole lot of problem. Breathing unlabored no accessory muscle use good effort. Skin shows no rashes no pallor or icterus. Neuro without focal deficits. CBC, BMP noted Feverin the end I suspect it is peritoneal inflammation (and she is on appropriate antibiotic coverage and not showing signs of deterioration/decompensation) and atelectasis. With no dysuria, UTI is exceedingly unlikely. Blood cultures are pending/no growth to date but doubt bacteremia. No evidence of pneumonia. Has some diarrhea, but seems to be more return of bowel function than anything consistent with C. difficile. As far as noninfectious cause of feverfortunately PE has been ruled out, and atelectasis appears to be part of the picture. Continue current antibiotics and incentive spirometry. She looks like she is improving nicely. Hospitalist team will sign off at this timewe are certainly available if further assistance is required. Subjective Patient seen and examined at bedside. Overnight had some change in color of NG tube output (from greenish brown to some red tinged), tube clamped. States she is feeling well, was able to ambulate around the halls this morning. Has had no additional shortness of breath. No body aches/chills, chest pain. Review of Systems Review of Systems: Per HPI/Subjective Physical Exam Constitutional: WD/WN, vitals as above Eyes: Anicteric sclerae ENMT: External ears and nose, moist mucous membranes. NG tube in place. Respiratory: normal respiratory effort, lungs clear to auscultation Cardiovascular: Normal rate, regular rhythm. Minimal lower extremity swelling bilaterally. Gastrointestinal (Abdomen): Surgical incision sites bandaged, no visible erythema. Abdomen soft. Skin: no rashes, warm and dry Psychiatric: A+Ox3, euthymic affect Results & Data Results & Data Vital Signs (Past 12 Hours) Vital Signs Temp Pulse Resp BP Pulse Ox O2 Del Method 06/09/22 04:00 37.2 C 06/09/22 01:15 37.3 C 97 H 14 100/66 98 Room Air 06/08/22 21:59 Room Air 06/08/22 21:54 36.9 C 95 H 16 100/67 98 Room Air Resident Activity Tracking Resident Involvement: Resident Care Provided Care Provided: Adult Hospital Medicine
[2022-06-09 07:21] LABS: Hematocrit (blood only) 26.7 % (37.0-47.0); Hemoglobin 8.9 g/dl (12.0-16.0); Mean Corpuscular Hemoglobin 27.1 pg (25.0-34.0); Mean Corpuscular Hgb Conc 33.3 g/dL (32.0-36.0); Mean Corpuscular Volume 81.2 fL (80.0-100.0); Mean Platelet Volume 8.5 fL (9.4-12.4); Platelet Count 359 K/uL (130-400); RDW Coefficient of Variation 14.5 % (11.5-14.5); RDW Standard Deviation 43.1 fL (36.4-46.3); Red Blood Count 3.29 M/uL (4.20-5.40); White Blood Count 14.18 K/ul (4.8-10.8)
[2022-06-09 07:36] LABS: Anion Gap 7 (3-11); BUN Creatinine Ratio 14.3 (10-20); Blood Urea Nitrogen 6 mg/dl (6-23); Carbon Dioxide 19 mmol/L (21-32); Chloride 107 mmol/L (98-107); Creatinine Clr Calc Pharmacy 181.4 ml/min; Est GFR (African American) > 150.0 ml/min; Est GFR (Non-African American) 145.5 ml/min; Glucose 93 mg/dl (70-99(Fasting)); Magnesium 1.9 mg/dl (1.7-2.4); Phosphorus 2.5 mg/dl (2.5-4.9); Potassium 3.6 mmol/L (3.5-5.1); Sodium 133 mmol/L (136-145)
[2022-06-09 08:06] LABS: Basophils # (auto) 0.06 K/uL (0-0.2); Basophils % (auto) 0.4 %; Echinocytes 2+; Eosinophils % (auto) 0.7 %; Immature Granulocytes # (auto) 0.39 K/uL (0.01-0.20); Immature Granulocytes % (auto) 2.8 %; Lymphocytes # (auto) 2.75 K/uL (1.2-3.4); Lymphocytes % (auto) 19.4 %; Monocytes # (auto) 1.26 K/uL (0.11-0.59); Monocytes % (auto) 8.9 %; Neutrophils # (auto) 9.62 K/uL (1.40-6.50); Neutrophils % (auto) 67.8 %
[2022-06-09 09:09] LABS: Triglycerides 71 mg/dl (0-150)
[2022-06-09] MEDS: THIAMINE HCL 100 MG in SYRINGE 9 ML IV SCH (09:36)
[2022-06-09] MEDS: ENOXAPARIN INJ 30 MG/0.3 ML SYR SQ SCH (09:36)
[2022-06-09] MEDS: PANTOprazole 40 MG in SYRINGE 0 ML IV SCH (11:13)
--- NOTE | 2022-06-09 12:18 | Pharmacy Report ---
Pharmacy PN Initial Consult - Date of Service June 09, 2022 - Scope Pharmacy has been consulted to manage parenteral nutrition orders and order appropriate labs. As part of the Nutrition Support Team guidelines, pharmacy will work in conjunction with dietary when determining the patients caloric needs. - Subjective The patient is a 22 year old F admitted on 06/03/22 20:56 for VAGINAL BLEEDING. - Objective Height: 5 ft 4 in Weight: 58.2 kg Diet: NPO Intake & Output (Last 24Hrs): Intake & Output 06/07/22 06/08/22 06/09/22 06/10/22 06:59 06:59 06:59 06:59 Intake Total 6648.500 / 6648.500 2950 / 3150 4992.500 / 4992.500 300 / 300 Output Total 2175 / 2175 1505 / 1505 631 / 631 Balance 4473.500 / 4473.500 1445 / 1645 4361.500 / 4361.500 300 / 300 Weight 58.2 kg 58.2 kg 58.2 kg Laboratory Data (Last 24 Hrs):: 06/08/22 06/08/22 06/09/22 04:51 14:22 06:49 Sodium 133 L Potassium 3.6 Chloride 107 Carbon Dioxide 19 L BUN 6 Creatinine 0.42 L Glucose 93 Calcium 7.0 L Phosphorus 2.3 L Cancelled 2.5 Magnesium 1.9 Triglycerides 71 Nutrition Assessment:: Please refer to the Notes section of the EMR for 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 - Plan Pharmacy consulted for PPN initiation. Patient presenting to ER with c/o vaginal bleeding, she is s/p laparoscopic L partial salpingectomy with ectopic removed 06/03, complicated by small bowel perforation - s/p exploratory laparotomy with small bowel resection/anastomosis with washout. Concern for postop ileus, prolonged NPO status Discussed with surgery and okay to stop current IV fluids with start of PPN today. Will be limited on what can be added to PPN due to mOsm max with peripheral access For day 1 of PN administration, the following will be ordered: Macronutrients Amino acids 71 grams/day Dextrose 84 grams/day Lipids -- grams/day Micronutrients Sodium phosphate 24 MMol Sodium chloride 60 mEq Sodium acetate 100 mEq Potassium acetate 40 mEq Magnesium sulfate 4.06 mEq Calcium gluconate 9.3 mEq Multivitamins 10 mL Trace Elements 10 mL Additional additives: thiamine 200 mg Total volume 1816 mL to be infused over 24 hrs will provide 571 kcal/day Final osmolarity 886 mOsm/L (maximum for PPN is 900 mOsm/L) Labs to be ordered per PN order protocol Pharmacy will follow and adjust parenteral nutrition orders on a daily basis. Thank you.
--- NOTE | 2022-06-09 15:16 | Progress Note ---
Date of Service June 09, 2022 Assessment & Plan (1) Ectopic : Plan: [employer] s/p POD #4 s/p ectopic and Bowel perforation Pt doing well Improving WBC NGT clamped Tolerating PO food pt feeling better Gen Surg service Plan Continue care as per gen surg and medicine (2) Postoperative ileus: Admission and Anticipated Discharge Date Admission Date: June 03, 2022 Results & Data Vital Signs (Past 12 Hours) Vital Signs Temp Pulse Resp BP Pulse Ox O2 Del Method 06/09/22 14:16 36.8 C 96 H 16 126/78 98 Room Air 06/09/22 07:21 36.9 C 81 16 106/71 99 Room Air 06/09/22 04:00 37.2 C
[2022-06-09] MEDS ORDERED: DEXTROSE 10% 1,000 ML IV PRN (16:00)
[2022-06-09] MEDS ORDERED: [UNRECOGNIZED DRUG - OTHER] IV SCH (16:00)
[2022-06-09] MEDS ORDERED: [UNRECOGNIZED DRUG - REMARK] ONE (16:00)
[2022-06-09] MEDS ORDERED: PERIPHERAL TPN IV SCH (16:00)
--- NOTE | 2022-06-09 16:24 | Billing Data ---
Date of Service June 09, 2022 Coding Level of Care Code 06455 SUB INP/OBS CARE
[2022-06-09] MEDS: ACETAMINOPHEN 325 MG TAB PO PRN (16:51)
[2022-06-09] MEDS: ONDANSETRON INJ 2 MG/ML 2 ML VIAL IV PRN (23:45)
[2022-06-10] MEDS: metroNIDAZOLE 500 MG/100 ML BAG IV SCH (02:03)
[2022-06-10] MEDS: CIPROFLOXACIN / D5W 400 MG/200 ML BAG IV SCH (04:07)
[2022-06-10] MEDS: ONDANSETRON INJ 2 MG/ML 2 ML VIAL IV PRN (05:43)
[2022-06-10 07:10] LABS: Anion Gap 4 (3-11); Blood Urea Nitrogen 7 mg/dl (6-23); Calcium 7.2 mg/dl (8.6-10.3); Carbon Dioxide 22 mmol/L (21-32); Chloride 105 mmol/L (98-107); Creatinine Clr Calc Pharmacy 217.7 ml/min; Est GFR (African American) > 150.0 ml/min; Est GFR (Non-African American) > 150.0 ml/min; Glucose 123 mg/dl (70-99(Fasting)); Magnesium 1.7 mg/dl (1.7-2.4); Phosphorus 2.2 mg/dl (2.5-4.9); Potassium 3.4 mmol/L (3.5-5.1); Sodium 131 mmol/L (136-145)
[2022-06-10] MEDS ORDERED: diphenhydrAMINE 50 MG/ML VIAL IV PRN (09:14)
[2022-06-10] MEDS ORDERED: CALCIUM GLUCONATE 10% 2,000 MG in SODIUM CHLORIDE 0.9% 50 ML IV ONE (09:30)
[2022-06-10 09:38] LABS: Hematocrit (blood only) 26.5 % (37.0-47.0); Hemoglobin 8.8 g/dl (12.0-16.0); Mean Corpuscular Hgb Conc 33.2 g/dL (32.0-36.0); Mean Corpuscular Volume 81.3 fL (80.0-100.0); Mean Platelet Volume 8.4 fL (9.4-12.4); Platelet Count 374 K/uL (130-400); RDW Coefficient of Variation 14.6 % (11.5-14.5); RDW Standard Deviation 43.7 fL (36.4-46.3); Red Blood Count 3.26 M/uL (4.20-5.40); White Blood Count 10.08 K/ul (4.8-10.8)
[2022-06-10] MEDS: IBUPROFEN 600 MG TAB PO PRN ×2 (09:45→19:57)
[2022-06-10] MEDS: ENOXAPARIN INJ 30 MG/0.3 ML SYR SQ SCH (09:46)
[2022-06-10] MEDS: PANTOprazole 40 MG in SYRINGE 0 ML IV SCH (09:46)
[2022-06-10] MEDS: PIPERACILLIN/TAZOBACTAM 4.5 GM in DEXTROSE 5% 100 ML IV SCH ×2 (10:14→17:11)
[2022-06-10] MEDS: MAGNESIUM SULFATE / D5W 1 GM/100 ML BAG IV SCH ×2 (10:14→12:47)
[2022-06-10] MEDS: POTASSIUM CHLORIDE / WTR 10 MEQ/100 ML PLCT IV SCH ×4 (10:14→13:48)
[2022-06-10 10:28] LABS: Basophils # (auto) 0.06 K/uL (0-0.2); Basophils % (auto) 0.6 %; Lymphocytes # (auto) 2.98 K/uL (1.2-3.4); Lymphocytes % (auto) 29.6 %; Monocytes # (auto) 1.24 K/uL (0.11-0.59); Monocytes % (auto) 12.3 %; Neutrophils % (auto) 50.5 %
--- NOTE | 2022-06-10 10:32 | Surgery Progress Note ---
Date of Service June 10, 2022 Assessment & Plan (1) Ectopic : Plan: POD # 7 s/p laparoscopic left partial salpingectomy with removal of ectopic on the left. (2) Small bowel perforation: Plan: POD # 4 s/p ex lap with small bowel resection -Sporadic fevers, this morning 39.1, VSS - leukocytosis improved to 10 K - NGT clamped -Positive flatus and having bowel movements - abdomen still slightly distended but soft, improved Plan: Continue pain management as needed Remove NG tube, sips of clears Continue IV antibioticswe will switch to Zosyn given fevers Continue Antiemetics Continue nigel drain to bulb suction repeat am labs, follow wbc Lovenox and SCDs for DVT prophylaxis Ambulate in halls, aggressive pulmonary toilet Admission and Anticipated Discharge Date Admission Date: June 03, 2022 Subjective Feeling better this morning. NG tube is clamped. She has had some nausea. She is passing flatus and having diarrhea bowel movements. She has been having sporadic fevers. This morning she is 39.1. She is currently on Cipro and Flagyl. White blood cell count is 10, down from 14. Physical Exam Physical Exam: VSS, Tmax 39.1 A&O x3, NAD Abdomen: Soft, mild distention, minimal tenderness to palpation Incision healing well without erythema or discharge; isiah in place NIGEL drain with serous drainage Results & Data Vital Signs (Past 12 Hours) Vital Signs Temp Pulse Resp BP Pulse Ox O2 Del Method 06/10/22 08:15 39.1 C H 89 16 129/81 93 Room Air 06/10/22 04:04 37.2 C 74 16 131/84 95 Room Air 06/09/22 23:27 37.5 C 90 18 128/80 96 Room Air
[2022-06-10] MEDS ORDERED: SODIUM PHOSPHATE 12 MMOL in SODIUM CHLORIDE 0.9% 250 ML IV ONE (14:00)
[2022-06-10] MEDS ORDERED: PERIPHERAL TPN IV SCH (16:00)
[2022-06-10] MEDS ORDERED: [UNRECOGNIZED DRUG - OTHER] IV SCH (16:00)
[2022-06-10] MEDS ORDERED: CLINOLIPID 20% IV FAT EMULSION 250 ML IV SCH (16:00)
--- NOTE | 2022-06-10 20:48 | Gynecologic Progress Note ---
Date of Service June 10, 2022 Assessment & Plan Admission and Anticipated Discharge Date Admission Date: June 03, 2022 Subjective feeling better. tolerating diet and had BM Physical Exam Constitutional: WD/WN, vitals as above Gastrointestinal (Abdomen): normal bowel sounds, soft, nontender, no hepatosplenomegaly incision intact Musculoskeletal: Extremities: extremities normal to inspection Skin: no rashes, warm and dry Neurologic: patellar DTR's 2+ bilat, sensation intact Psychiatric: A+Ox3, euthymic affect Results & Data Vital Signs (Past 12 Hours) Vital Signs Temp Pulse Resp BP Pulse Ox O2 Del Method 06/10/22 19:54 39.1 C H 90 18 137/72 98 Room Air 06/10/22 16:39 37.1 C 80 18 118/73 98 Room Air Laboratory Results 06/03/22 06/03/22 06/03/22 16:18 16:18 16:18 WBC 8.11 RBC 4.41 Hgb 12.1 Hct 36.3 L MCV 82.3 MCH 27.4 MCHC 33.3 RDW Std Deviation 41.3 RDW Coeff of Myra 13.8 Plt Count 329 MPV 8.5 L Immature Gran % (Auto) 0.2 Neut % (Auto) 32.5 Lymph % (Auto) 57.2 [place] % (Auto) 7.4 Eos % (Auto) 1.7 Baso % (Auto) 1.0 Neut # (Auto) 2.63 Lymph # (Auto) 4.64 H [place] # (Auto) 0.60 H Eos # (Auto) 0.14 Baso # (Auto) 0.08 Immature Gran # (Auto) 0.02 Absolute Nucleated RBC Nucleated RBC % (auto) Neutrophils % (Manual) Band Neutrophils % Lymphocytes % (Manual) Prolymphocyte % Reactive Lymphs % (Man) Monocytes % (Manual) Eosinophils % (Manual) Basophils % (Manual) Metamyelocytes % (Man) Myelocytes % (Man) Promyelocytes % (Man) Blast Cells % (Manual) Plasma Cell % (Manual) Other Cells % Nucleated RBC % Neutrophils # (Manual) Band Neutrophils # Total Absolute Neuts Lymphocytes # (Manual) Prolymphocyte # Reactive Lymphs # Total Abs Lymphocytes Monocytes # (Manual) Eosinophils # (Manual) Basophils # (Manual) Metamyelocytes # (Man) Myelocytes # (Manual) Promyelocytes # (Man) Blast Cells # (Man) Plasma Cell # (Manual) Other Cells # Nucleated RBCs # (Man) Hypersegmented Neuts Hyposegmented Neuts Hypogranular Neuts Large Granular Lymphs # Lrg Granular Lymphs Hairy Cells Smudge Cells Toxic Granulation Toxic Vacuolation Dohle Bodies David Rods Platelet Estimate Hypogranular Platelets Giant Platelets Platelet Satelliting RBC Morphology Polychromasia Hypochromasia Poikilocytosis Basophilic Stippling Anisocytosis Microcytosis Macrocytosis Spherocytes Pappenheimer Bodies Sickle Cells Target Cells Tear Drop Cells Ovalocytes Stomatocytes Hunter-Zearing Bodies Echinocytes Acanthocytes (Spur) Rouleaux RBC Agglutinates Schistocytes ESR Sezary Cell PT INR APTT PTT Ratio Fibrinogen D-Dimer Sodium 139 Potassium 3.4 L Chloride 105 Carbon Dioxide 28 Anion Gap 6 BUN 9 Creatinine 0.55 L Est Cr Clr Drug Dosing 138.5 Est GFR ( Amer) > 150.0 Est GFR (Non-Af Amer) 133.1 BUN/Creatinine Ratio 16.4 Glucose 91 POC Glucose Lactate Calcium 9.5 Phosphorus Magnesium Total Bilirubin 0.3 Direct Bilirubin AST 24 ALT 20 Alkaline Phosphatase 50 Total Protein 7.3 Albumin 4.5 Globulin 2.8 Albumin/Globulin Ratio 1.6 Triglycerides Lipase 18 Procalcitonin HCG, Quant 7249 Urine Color Urine Appearance Urine pH Ur Specific [place] Urine Protein Urine Glucose (UA) Urine Ketones Urine Blood Urine Nitrite Urine Bilirubin Urine Urobilinogen Ur Leukocyte Esterase Urine WBC (Auto) Urine RBC (Auto) U Hyaline Cast (Auto) U Epithel Cells (Auto) Urine Bacteria (Auto) Nasal Screen MRSA (PCR) Random Gentamicin C.trachomatis RNA N.gonorrhoeae RNA SARS-CoV-2, RNA, NAAT Blood Parasites ID Blood Type Blood Type Recheck Antibody Screen 06/03/22 06/03/22 06/03/22 18:09 20:42 Unknown WBC RBC Hgb Hct MCV MCH MCHC RDW Std Deviation RDW Coeff of Myra Plt Count MPV Immature Gran % (Auto) Neut % (Auto) Lymph % (Auto) [place] % (Auto) Eos % (Auto) Baso % (Auto) Neut # (Auto) Lymph # (Auto) [place] # (Auto) Eos # (Auto) Baso # (Auto) Immature Gran # (Auto) Absolute Nucleated RBC Nucleated RBC % (auto) Neutrophils % (Manual) Band Neutrophils % Lymphocytes % (Manual) Prolymphocyte % Reactive Lymphs % (Man) Monocytes % (Manual) Eosinophils % (Manual) Basophils % (Manual) Metamyelocytes % (Man) Myelocytes % (Man) Promyelocytes % (Man) Blast Cells % (Manual) Plasma Cell % (Manual) Other Cells % Nucleated RBC % Neutrophils # (Manual) Band Neutrophils # Total Absolute Neuts Lymphocytes # (Manual) Prolymphocyte # Reactive Lymphs # Total Abs Lymphocytes Monocytes # (Manual) Eosinophils # (Manual) Basophils # (Manual) Metamyelocytes # (Man) Myelocytes # (Manual) Promyelocytes # (Man) Blast Cells # (Man) Plasma Cell # (Manual) Other Cells # Nucleated RBCs # (Man) Hypersegmented Neuts Hyposegmented Neuts Hypogranular Neuts Large Granular Lymphs # Lrg Granular Lymphs Hairy Cells Smudge Cells Toxic Granulation Toxic Vacuolation Dohle Bodies David Rods Platelet Estimate Hypogranular Platelets Giant Platelets Platelet Satelliting RBC Morphology Polychromasia Hypochromasia Poikilocytosis Basophilic Stippling Anisocytosis Microcytosis Macrocytosis Spherocytes Pappenheimer Bodies Sickle Cells Target Cells Tear Drop Cells Ovalocytes Stomatocytes Hunter-Zearing Bodies Echinocytes Acanthocytes (Spur) Rouleaux RBC Agglutinates Schistocytes ESR Sezary Cell PT INR APTT PTT Ratio Fibrinogen D-Dimer Sodium Potassium Chloride Carbon Dioxide Anion Gap BUN Creatinine Est Cr Clr Drug Dosing Est GFR ( Amer) Est GFR (Non-Af Amer) BUN/Creatinine Ratio Glucose POC Glucose Lactate Calcium Phosphorus Magnesium Total Bilirubin Direct Bilirubin AST ALT Alkaline Phosphatase Total Protein Albumin Globulin Albumin/Globulin Ratio Triglycerides Lipase Procalcitonin HCG, Quant Urine Color Yellow Urine Appearance Clear Urine pH 7.5 Ur Specific [place] 1.004 Urine Protein Negative Urine Glucose (UA) Negative Urine Ketones Negative Urine Blood Negative Urine Nitrite Negative Urine Bilirubin Negative Urine Urobilinogen Negative Ur Leukocyte Esterase Negative Urine WBC (Auto) Urine RBC (Auto) U Hyaline Cast (Auto) U Epithel Cells (Auto) Urine Bacteria (Auto) Nasal Screen MRSA (PCR) Random Gentamicin C.trachomatis RNA N.gonorrhoeae RNA SARS-CoV-2, RNA, NAAT NEGATIVE Blood Parasites ID Blood Type O Positive Blood Type Recheck Antibody Screen NEGATIVE 06/04/22 06/04/22 06/04/22 05:56 17:30 17:30 WBC 9.84 18.26 H RBC 4.23 4.20 Hgb 11.5 L 11.6 L Hct 34.2 L 35.4 L MCV 80.9 84.3 MCH 27.2 27.6 MCHC 33.6 32.8 RDW Std Deviation 40.1 42.3 RDW Coeff of Myra 13.7 13.7 Plt Count 292 291 MPV 8.5 L 8.8 L Immature Gran % (Auto) 0.3 Neut % (Auto) 73.5 Lymph % (Auto) 20.8 [place] % (Auto) 4.4 Eos % (Auto) 0.4 Baso % (Auto) 0.6 Neut # (Auto) 13.43 H Lymph # (Auto) 3.79 H [place] # (Auto) 0.80 H Eos # (Auto) 0.07 Baso # (Auto) 0.11 Immature Gran # (Auto) 0.06 Absolute Nucleated RBC Nucleated RBC % (auto) Neutrophils % (Manual) Band Neutrophils % Lymphocytes % (Manual) Prolymphocyte % Reactive Lymphs % (Man) Monocytes % (Manual) Eosinophils % (Manual) Basophils % (Manual) Metamyelocytes % (Man) Myelocytes % (Man) Promyelocytes % (Man) Blast Cells % (Manual) Plasma Cell % (Manual) Other Cells % Nucleated RBC % Neutrophils # (Manual) Band Neutrophils # Total Absolute Neuts Lymphocytes # (Manual) Prolymphocyte # Reactive Lymphs # Total Abs Lymphocytes Monocytes # (Manual) Eosinophils # (Manual) Basophils # (Manual) Metamyelocytes # (Man) Myelocytes # (Manual) Promyelocytes # (Man) Blast Cells # (Man) Plasma Cell # (Manual) Other Cells # Nucleated RBCs # (Man) Hypersegmented Neuts Hyposegmented Neuts Hypogranular Neuts Large Granular Lymphs # Lrg Granular Lymphs Hairy Cells Smudge Cells Toxic Granulation Toxic Vacuolation Dohle Bodies David Rods Platelet Estimate Hypogranular Platelets Giant Platelets Platelet Satelliting RBC Morphology Polychromasia Hypochromasia Poikilocytosis Basophilic Stippling Anisocytosis Microcytosis Macrocytosis Spherocytes Pappenheimer Bodies Sickle Cells Target Cells Tear Drop Cells Ovalocytes Stomatocytes Hunter-Zearing Bodies Echinocytes 2+ Acanthocytes (Spur) Rouleaux RBC Agglutinates Schistocytes ESR Sezary Cell PT INR APTT PTT Ratio Fibrinogen D-Dimer Sodium 135 L Potassium 3.8 Chloride 105 Carbon Dioxide 22 Anion Gap 8 BUN 10 Creatinine 0.62 Est Cr Clr Drug Dosing 122.9 Est GFR ( Amer) 148.3 Est GFR (Non-Af Amer) 128.0 BUN/Creatinine Ratio 16.1 Glucose 116 H POC Glucose Lactate Calcium 8.4 L Phosphorus Magnesium Total Bilirubin 0.3 Direct Bilirubin AST 30 ALT 18 Alkaline Phosphatase 41 Total Protein 6.3 Albumin 3.6 Globulin 2.7 Albumin/Globulin Ratio 1.3 Triglycerides Lipase Procalcitonin HCG, Quant Urine Color Urine Appearance Urine pH Ur Specific [place] Urine Protein Urine Glucose (UA) Urine Ketones Urine Blood Urine Nitrite Urine Bilirubin Urine Urobilinogen Ur Leukocyte Esterase Urine WBC (Auto) Urine RBC (Auto) U Hyaline Cast (Auto) U Epithel Cells (Auto) Urine Bacteria (Auto) Nasal Screen MRSA (PCR) Random Gentamicin C.trachomatis RNA N.gonorrhoeae RNA SARS-CoV-2, RNA, NAAT Blood Parasites ID Blood Type Blood Type Recheck Antibody Screen 06/05/22 06/05/22 06/05/22 02:05 05:33 05:53 WBC RBC Hgb Hct MCV MCH MCHC RDW Std Deviation RDW Coeff of Myra Plt Count MPV Immature Gran % (Auto) Neut % (Auto) Lymph % (Auto) [place] % (Auto) Eos % (Auto) Baso % (Auto) Neut # (Auto) Lymph # (Auto) [place] # (Auto) Eos # (Auto) Baso # (Auto) Immature Gran # (Auto) Absolute Nucleated RBC Nucleated RBC % (auto) Neutrophils % (Manual) Band Neutrophils % Lymphocytes % (Manual) Prolymphocyte % Reactive Lymphs % (Man) Monocytes % (Manual) Eosinophils % (Manual) Basophils % (Manual) Metamyelocytes % (Man) Myelocytes % (Man) Promyelocytes % (Man) Blast Cells % (Manual) Plasma Cell % (Manual) Other Cells % Nucleated RBC % Neutrophils # (Manual) Band Neutrophils # Total Absolute Neuts Lymphocytes # (Manual) Prolymphocyte # Reactive Lymphs # Total Abs Lymphocytes Monocytes # (Manual) Eosinophils # (Manual) Basophils # (Manual) Metamyelocytes # (Man) Myelocytes # (Manual) Promyelocytes # (Man) Blast Cells # (Man) Plasma Cell # (Manual) Other Cells # Nucleated RBCs # (Man) Hypersegmented Neuts Hyposegmented Neuts Hypogranular Neuts Large Granular Lymphs # Lrg Granular Lymphs Hairy Cells Smudge Cells Toxic Granulation Toxic Vacuolation Dohle Bodies David Rods Platelet Estimate Hypogranular Platelets Giant Platelets Platelet Satelliting RBC Morphology Polychromasia Hypochromasia Poikilocytosis Basophilic Stippling Anisocytosis Microcytosis Macrocytosis Spherocytes Pappenheimer Bodies Sickle Cells Target Cells Tear Drop Cells Ovalocytes Stomatocytes Hunter-Zearing Bodies Echinocytes Acanthocytes (Spur) Rouleaux RBC Agglutinates Schistocytes ESR Sezary Cell PT INR APTT PTT Ratio Fibrinogen D-Dimer Sodium Potassium Chloride Carbon Dioxide Anion Gap BUN Creatinine Est Cr Clr Drug Dosing Est GFR ( Amer) Est GFR (Non-Af Amer) BUN/Creatinine Ratio Glucose POC Glucose Lactate Calcium Phosphorus Magnesium Total Bilirubin Direct Bilirubin AST ALT Alkaline Phosphatase Total Protein Albumin Globulin Albumin/Globulin Ratio Triglycerides Lipase Procalcitonin HCG, Quant Urine Color Urine Appearance Urine pH Ur Specific [place] Urine Protein Urine Glucose (UA) Urine Ketones Urine Blood Urine Nitrite Urine Bilirubin Urine Urobilinogen Ur Leukocyte Esterase Urine WBC (Auto) Urine RBC (Auto) U Hyaline Cast (Auto) U Epithel Cells (Auto) Urine Bacteria (Auto) Nasal Screen MRSA (PCR) Random Gentamicin 1.15 Cancelled C.trachomatis RNA Not Detected N.gonorrhoeae RNA Not Detected SARS-CoV-2, RNA, NAAT Blood Parasites ID Blood Type Blood Type Recheck Antibody Screen 06/05/22 06/05/22 06/05/22 05:53 05:53 07:09 WBC Cancelled 24.61 H RBC Cancelled 4.00 L Hgb Cancelled 11.0 L Hct Cancelled 32.1 L MCV Cancelled 80.3 MCH Cancelled 27.5 MCHC Cancelled 34.3 RDW Std Deviation Cancelled 40.9 RDW Coeff of Myra Cancelled 14.0 Plt Count Cancelled 283 MPV Cancelled 8.5 L Immature Gran % (Auto) Cancelled 0.8 Neut % (Auto) Cancelled 83.3 Lymph % (Auto) Cancelled 14.1 [place] % (Auto) Cancelled 1.5 Eos % (Auto) Cancelled 0.0 Baso % (Auto) Cancelled 0.3 Neut # (Auto) Cancelled 20.48 H Lymph # (Auto) Cancelled 3.48 H [place] # (Auto) Cancelled 0.38 Eos # (Auto) Cancelled 0.00 Baso # (Auto) Cancelled 0.07 Immature Gran # (Auto) Cancelled 0.20 Absolute Nucleated RBC Cancelled Nucleated RBC % (auto) Cancelled Neutrophils % (Manual) Cancelled Band Neutrophils % Cancelled Lymphocytes % (Manual) Cancelled Prolymphocyte % Cancelled Reactive Lymphs % (Man) Cancelled Monocytes % (Manual) Cancelled Eosinophils % (Manual) Cancelled Basophils % (Manual) Cancelled Metamyelocytes % (Man) Cancelled Myelocytes % (Man) Cancelled Promyelocytes % (Man) Cancelled Blast Cells % (Manual) Cancelled Plasma Cell % (Manual) Cancelled Other Cells % Cancelled Nucleated RBC % Cancelled Neutrophils # (Manual) Cancelled Band Neutrophils # Cancelled Total Absolute Neuts Cancelled Lymphocytes # (Manual) Cancelled Prolymphocyte # Cancelled Reactive Lymphs # Cancelled Total Abs Lymphocytes Cancelled Monocytes # (Manual) Cancelled Eosinophils # (Manual) Cancelled Basophils # (Manual) Cancelled Metamyelocytes # (Man) Cancelled Myelocytes # (Manual) Cancelled Promyelocytes # (Man) Cancelled Blast Cells # (Man) Cancelled Plasma Cell # (Manual) Cancelled Other Cells # Cancelled Nucleated RBCs # (Man) Cancelled Hypersegmented Neuts Cancelled Hyposegmented Neuts Cancelled Hypogranular Neuts Cancelled Large Granular Lymphs Cancelled # Lrg Granular Lymphs Cancelled Hairy Cells Cancelled Smudge Cells Cancelled Toxic Granulation Cancelled Toxic Vacuolation Cancelled Dohle Bodies Cancelled David Rods Cancelled Platelet Estimate Cancelled Hypogranular Platelets Cancelled Giant Platelets Cancelled Platelet Satelliting Cancelled RBC Morphology Cancelled Polychromasia Cancelled Hypochromasia Cancelled Poikilocytosis Cancelled Basophilic Stippling Cancelled Anisocytosis Cancelled Microcytosis Cancelled Macrocytosis Cancelled Spherocytes Cancelled Pappenheimer Bodies Cancelled Sickle Cells Cancelled Target Cells Cancelled Tear Drop Cells Cancelled Ovalocytes Cancelled 1+ Stomatocytes Cancelled Hunter-Zearing Bodies Cancelled Echinocytes Cancelled 1+ Acanthocytes (Spur) Cancelled Rouleaux Cancelled RBC Agglutinates Cancelled Schistocytes Cancelled ESR Sezary Cell Cancelled PT INR APTT PTT Ratio Fibrinogen D-Dimer Sodium 133 L Potassium 3.7 Chloride 103 Carbon Dioxide 19 L Anion Gap 11 BUN 9 Creatinine 0.65 Est Cr Clr Drug Dosing 117.2 Est GFR ( Amer) 146.1 Est GFR (Non-Af Amer) 126.0 BUN/Creatinine Ratio 13.8 Glucose 141 H POC Glucose Lactate Calcium 8.3 L Phosphorus Magnesium Total Bilirubin 0.6 Direct Bilirubin AST 27 ALT 18 Alkaline Phosphatase 35 Total Protein 5.7 L Albumin 3.3 L Globulin 2.4 L Albumin/Globulin Ratio 1.4 Triglycerides Lipase Procalcitonin HCG, Quant Urine Color Urine Appearance Urine pH Ur Specific [place] Urine Protein Urine Glucose (UA) Urine Ketones Urine Blood Urine Nitrite Urine Bilirubin Urine Urobilinogen Ur Leukocyte Esterase Urine WBC (Auto) Urine RBC (Auto) U Hyaline Cast (Auto) U Epithel Cells (Auto) Urine Bacteria (Auto) Nasal Screen MRSA (PCR) Random Gentamicin C.trachomatis RNA N.gonorrhoeae RNA SARS-CoV-2, RNA, NAAT Blood Parasites ID Cancelled Blood Type Blood Type Recheck Antibody Screen 06/05/22 06/05/22 06/05/22 08:16 12:21 18:14 WBC 20.35 H RBC 4.02 L Hgb 10.9 L 11.3 L Hct 32.7 L 33.8 L MCV 81.3 MCH 27.1 MCHC 33.3 RDW Std Deviation 41.7 RDW Coeff of Myra 14.0 Plt Count 274 MPV 8.4 L Immature Gran % (Auto) 0.5 Neut % (Auto) 82.8 Lymph % (Auto) 14.6 [place] % (Auto) 1.7 Eos % (Auto) 0.1 Baso % (Auto) 0.3 Neut # (Auto) 16.82 H Lymph # (Auto) 2.98 [place] # (Auto) 0.35 Eos # (Auto) 0.03 Baso # (Auto) 0.06 Immature Gran # (Auto) 0.11 Absolute Nucleated RBC Nucleated RBC % (auto) Neutrophils % (Manual) Band Neutrophils % Lymphocytes % (Manual) Prolymphocyte % Reactive Lymphs % (Man) Monocytes % (Manual) Eosinophils % (Manual) Basophils % (Manual) Metamyelocytes % (Man) Myelocytes % (Man) Promyelocytes % (Man) Blast Cells % (Manual) Plasma Cell % (Manual) Other Cells % Nucleated RBC % Neutrophils # (Manual) Band Neutrophils # Total Absolute Neuts Lymphocytes # (Manual) Prolymphocyte # Reactive Lymphs # Total Abs Lymphocytes Monocytes # (Manual) Eosinophils # (Manual) Basophils # (Manual) Metamyelocytes # (Man) Myelocytes # (Manual) Promyelocytes # (Man) Blast Cells # (Man) Plasma Cell # (Manual) Other Cells # Nucleated RBCs # (Man) Hypersegmented Neuts Hyposegmented Neuts Hypogranular Neuts Large Granular Lymphs # Lrg Granular Lymphs Hairy Cells Smudge Cells Toxic Granulation Toxic Vacuolation Dohle Bodies David Rods Platelet Estimate Hypogranular Platelets Giant Platelets Platelet Satelliting RBC Morphology Polychromasia 1+ Hypochromasia Poikilocytosis Basophilic Stippling Anisocytosis Microcytosis Macrocytosis Spherocytes Pappenheimer Bodies Sickle Cells Target Cells Tear Drop Cells Ovalocytes Stomatocytes Hunter-Zearing Bodies Echinocytes 1+ Acanthocytes (Spur) Rouleaux RBC Agglutinates Schistocytes ESR Sezary Cell PT INR APTT PTT Ratio Fibrinogen D-Dimer Sodium Potassium Chloride Carbon Dioxide Anion Gap BUN Creatinine Est Cr Clr Drug Dosing Est GFR ( Amer) Est GFR (Non-Af Amer) BUN/Creatinine Ratio Glucose POC Glucose Lactate 1.3 Calcium Phosphorus Magnesium Total Bilirubin Direct Bilirubin AST ALT Alkaline Phosphatase Total Protein Albumin Globulin Albumin/Globulin Ratio Triglycerides Lipase Procalcitonin HCG, Quant Urine Color Urine Appearance Urine pH Ur Specific [place] Urine Protein Urine Glucose (UA) Urine Ketones Urine Blood Urine Nitrite Urine Bilirubin Urine Urobilinogen Ur Leukocyte Esterase Urine WBC (Auto) Urine RBC (Auto) U Hyaline Cast (Auto) U Epithel Cells (Auto) Urine Bacteria (Auto) Nasal Screen MRSA (PCR) Random Gentamicin C.trachomatis RNA N.gonorrhoeae RNA SARS-CoV-2, RNA, NAAT Blood Parasites ID Blood Type Blood Type Recheck Antibody Screen 06/06/22 06/06/22 06/06/22 00:45 05:33 05:33 WBC 26.39 H RBC 3.98 L Hgb 11.0 L 10.9 L Hct 32.6 L 32.4 L MCV 81.4 MCH 27.4 MCHC 33.6 RDW Std Deviation 42.2 RDW Coeff of Myra 14.3 Plt Count 317 MPV 8.8 L Immature Gran % (Auto) 3.2 Neut % (Auto) 85.6 Lymph % (Auto) 8.3 [place] % (Auto) 2.6 Eos % (Auto) 0.0 Baso % (Auto) 0.3 Neut # (Auto) 22.58 H Lymph # (Auto) 2.20 [place] # (Auto) 0.68 H Eos # (Auto) 0.01 Baso # (Auto) 0.08 Immature Gran # (Auto) 0.84 H Absolute Nucleated RBC Nucleated RBC % (auto) Neutrophils % (Manual) Band Neutrophils % Lymphocytes % (Manual) Prolymphocyte % Reactive Lymphs % (Man) Monocytes % (Manual) Eosinophils % (Manual) Basophils % (Manual) Metamyelocytes % (Man) Myelocytes % (Man) Promyelocytes % (Man) Blast Cells % (Manual) Plasma Cell % (Manual) Other Cells % Nucleated RBC % Neutrophils # (Manual) Band Neutrophils # Total Absolute Neuts Lymphocytes # (Manual) Prolymphocyte # Reactive Lymphs # Total Abs Lymphocytes Monocytes # (Manual) Eosinophils # (Manual) Basophils # (Manual) Metamyelocytes # (Man) Myelocytes # (Manual) Promyelocytes # (Man) Blast Cells # (Man) Plasma Cell # (Manual) Other Cells # Nucleated RBCs # (Man) Hypersegmented Neuts Hyposegmented Neuts Hypogranular Neuts Large Granular Lymphs # Lrg Granular Lymphs Hairy Cells Smudge Cells Toxic Granulation Toxic Vacuolation Dohle Bodies 1+ David Rods Platelet Estimate Hypogranular Platelets Giant Platelets Platelet Satelliting RBC Morphology Polychromasia Hypochromasia Poikilocytosis Basophilic Stippling Anisocytosis Microcytosis Macrocytosis Spherocytes Pappenheimer Bodies Sickle Cells Target Cells Tear Drop Cells Ovalocytes Stomatocytes Hunter-Zearing Bodies Echinocytes Acanthocytes (Spur) Rouleaux RBC Agglutinates Schistocytes ESR Sezary Cell PT INR APTT PTT Ratio Fibrinogen D-Dimer Sodium 131 L Potassium 3.5 Chloride 101 Carbon Dioxide 20 L Anion Gap 10 BUN 12 Creatinine 0.69 Est Cr Clr Drug Dosing 110.4 Est GFR ( Amer) 143.2 Est GFR (Non-Af Amer) 123.6 BUN/Creatinine Ratio 17.4 Glucose 111 H POC Glucose Lactate Calcium 8.2 L Phosphorus Magnesium Total Bilirubin 0.7 Direct Bilirubin AST 19 ALT 15 Alkaline Phosphatase 52 Total Protein 5.7 L Albumin 3.1 L Globulin 2.6 Albumin/Globulin Ratio 1.2 Triglycerides Lipase Procalcitonin HCG, Quant Urine Color Urine Appearance Urine pH Ur Specific [place] Urine Protein Urine Glucose (UA) Urine Ketones Urine Blood Urine Nitrite Urine Bilirubin Urine Urobilinogen Ur Leukocyte Esterase Urine WBC (Auto) Urine RBC (Auto) U Hyaline Cast (Auto) U Epithel Cells (Auto) Urine Bacteria (Auto) Nasal Screen MRSA (PCR) Random Gentamicin C.trachomatis RNA N.gonorrhoeae RNA SARS-CoV-2, RNA, NAAT Blood Parasites ID Blood Type Blood Type Recheck Antibody Screen 06/06/22 06/06/22 06/06/22 05:33 09:39 09:39 WBC 26.64 H RBC 4.18 L Hgb 11.3 L Hct 34.6 L MCV 82.8 MCH 27.0 MCHC 32.7 RDW Std Deviation 43.6 RDW Coeff of Myra 14.5 Plt Count 339 MPV 8.8 L Immature Gran % (Auto) 5.3 Neut % (Auto) 84.6 Lymph % (Auto) 7.1 [place] % (Auto) 2.6 Eos % (Auto) 0.0 Baso % (Auto) 0.4 Neut # (Auto) 22.52 H Lymph # (Auto) 1.90 [place] # (Auto) 0.70 H Eos # (Auto) 0.01 Baso # (Auto) 0.10 Immature Gran # (Auto) 1.41 H Absolute Nucleated RBC Nucleated RBC % (auto) Neutrophils % (Manual) Band Neutrophils % Lymphocytes % (Manual) Prolymphocyte % Reactive Lymphs % (Man) Monocytes % (Manual) Eosinophils % (Manual) Basophils % (Manual) Metamyelocytes % (Man) Myelocytes % (Man) Promyelocytes % (Man) Blast Cells % (Manual) Plasma Cell % (Manual) Other Cells % Nucleated RBC % Neutrophils # (Manual) Band Neutrophils # Total Absolute Neuts Lymphocytes # (Manual) Prolymphocyte # Reactive Lymphs # Total Abs Lymphocytes Monocytes # (Manual) Eosinophils # (Manual) Basophils # (Manual) Metamyelocytes # (Man) Myelocytes # (Manual) Promyelocytes # (Man) Blast Cells # (Man) Plasma Cell # (Manual) Other Cells # Nucleated RBCs # (Man) Hypersegmented Neuts Hyposegmented Neuts Hypogranular Neuts Large Granular Lymphs # Lrg Granular Lymphs Hairy Cells Smudge Cells Toxic Granulation Toxic Vacuolation 1+ Dohle Bodies 1+ David Rods Platelet Estimate Hypogranular Platelets Giant Platelets Platelet Satelliting RBC Morphology Polychromasia Hypochromasia Poikilocytosis Basophilic Stippling Anisocytosis Microcytosis Macrocytosis Spherocytes Pappenheimer Bodies Sickle Cells Target Cells Tear Drop Cells Ovalocytes Stomatocytes Hunter-Zearing Bodies Echinocytes Acanthocytes (Spur) Rouleaux RBC Agglutinates Schistocytes ESR Sezary Cell PT 14.5 H INR 1.3 H APTT 39.1 H PTT Ratio 1.4 Fibrinogen 558 H D-Dimer Sodium Potassium Chloride Carbon Dioxide Anion Gap BUN Creatinine Est Cr Clr Drug Dosing Est GFR ( Amer) Est GFR (Non-Af Amer) BUN/Creatinine Ratio Glucose POC Glucose Lactate Calcium Phosphorus Magnesium Total Bilirubin Direct Bilirubin AST ALT Alkaline Phosphatase Total Protein Albumin Globulin Albumin/Globulin Ratio Triglycerides Lipase Procalcitonin HCG, Quant Urine Color Urine Appearance Urine pH Ur Specific [place] Urine Protein Urine Glucose (UA) Urine Ketones Urine Blood Urine Nitrite Urine Bilirubin Urine Urobilinogen Ur Leukocyte Esterase Urine WBC (Auto) Urine RBC (Auto) U Hyaline Cast (Auto) U Epithel Cells (Auto) Urine Bacteria (Auto) Nasal Screen MRSA (PCR) Random Gentamicin C.trachomatis RNA N.gonorrhoeae RNA SARS-CoV-2, RNA, NAAT Blood Parasites ID Blood Type Blood Type Recheck O Positive Antibody Screen 06/06/22 06/06/22 06/07/22 09:39 Unknown 09:10 WBC 22.94 H RBC 3.35 L Hgb 9.2 L Hct 26.7 L MCV 79.7 L MCH 27.5 MCHC 34.5 RDW Std Deviation 41.8 RDW Coeff of Myra 14.4 Plt Count 319 MPV 8.9 L Immature Gran % (Auto) 2.4 Neut % (Auto) 83.8 Lymph % (Auto) 9.5 [place] % (Auto) 3.9 Eos % (Auto) 0.2 Baso % (Auto) 0.2 Neut # (Auto) 19.22 H Lymph # (Auto) 2.19 [place] # (Auto) 0.90 H Eos # (Auto) 0.04 Baso # (Auto) 0.04 Immature Gran # (Auto) 0.55 H Absolute Nucleated RBC Nucleated RBC % (auto) Neutrophils % (Manual) Band Neutrophils % Lymphocytes % (Manual) Prolymphocyte % Reactive Lymphs % (Man) Monocytes % (Manual) Eosinophils % (Manual) Basophils % (Manual) Metamyelocytes % (Man) Myelocytes % (Man) Promyelocytes % (Man) Blast Cells % (Manual) Plasma Cell % (Manual) Other Cells % Nucleated RBC % Neutrophils # (Manual) Band Neutrophils # Total Absolute Neuts Lymphocytes # (Manual) Prolymphocyte # Reactive Lymphs # Total Abs Lymphocytes Monocytes # (Manual) Eosinophils # (Manual) Basophils # (Manual) Metamyelocytes # (Man) Myelocytes # (Manual) Promyelocytes # (Man) Blast Cells # (Man) Plasma Cell # (Manual) Other Cells # Nucleated RBCs # (Man) Hypersegmented Neuts Hyposegmented Neuts Hypogranular Neuts Large Granular Lymphs # Lrg Granular Lymphs Hairy Cells Smudge Cells Toxic Granulation Toxic Vacuolation Dohle Bodies David Rods Platelet Estimate Hypogranular Platelets Giant Platelets Platelet Satelliting RBC Morphology Polychromasia Hypochromasia Poikilocytosis Basophilic Stippling Anisocytosis Microcytosis Macrocytosis Spherocytes Pappenheimer Bodies Sickle Cells Target Cells Tear Drop Cells Ovalocytes Stomatocytes Hunter-Zearing Bodies Echinocytes Acanthocytes (Spur) Rouleaux RBC Agglutinates Schistocytes ESR Sezary Cell PT INR APTT PTT Ratio Fibrinogen D-Dimer Sodium Potassium Chloride Carbon Dioxide Anion Gap BUN Creatinine Est Cr Clr Drug Dosing Est GFR ( Amer) Est GFR (Non-Af Amer) BUN/Creatinine Ratio Glucose POC Glucose Lactate 2.1 H* 2.0 Calcium Phosphorus Magnesium Total Bilirubin Direct Bilirubin AST ALT Alkaline Phosphatase Total Protein Albumin Globulin Albumin/Globulin Ratio Triglycerides Lipase Procalcitonin HCG, Quant Urine Color Urine Appearance Urine pH Ur Specific [place] Urine Protein Urine Glucose (UA) Urine Ketones Urine Blood Urine Nitrite Urine Bilirubin Urine Urobilinogen Ur Leukocyte Esterase Urine WBC (Auto) Urine RBC (Auto) U Hyaline Cast (Auto) U Epithel Cells (Auto) Urine Bacteria (Auto) Nasal Screen MRSA (PCR) Random Gentamicin C.trachomatis RNA N.gonorrhoeae RNA SARS-CoV-2, RNA, NAAT Blood Parasites ID Blood Type Blood Type Recheck Antibody Screen 06/07/22 06/08/22 06/08/22 09:10 04:26 04:26 WBC 19.37 H RBC 3.40 L Hgb 9.3 L Hct 27.4 L MCV 80.6 MCH 27.4 MCHC 33.9 RDW Std Deviation 42.7 RDW Coeff of Myra 14.5 Plt Count 343 MPV 8.3 L Immature Gran % (Auto) 0.8 Neut % (Auto) 80.9 Lymph % (Auto) 11.7 [place] % (Auto) 6.1 Eos % (Auto) 0.1 Baso % (Auto) 0.4 Neut # (Auto) 15.70 H Lymph # (Auto) 2.26 [place] # (Auto) 1.18 H Eos # (Auto) 0.01 Baso # (Auto) 0.07 Immature Gran # (Auto) 0.15 Absolute Nucleated RBC Nucleated RBC % (auto) Neutrophils % (Manual) Band Neutrophils % Lymphocytes % (Manual) Prolymphocyte % Reactive Lymphs % (Man) Monocytes % (Manual) Eosinophils % (Manual) Basophils % (Manual) Metamyelocytes % (Man) Myelocytes % (Man) Promyelocytes % (Man) Blast Cells % (Manual) Plasma Cell % (Manual) Other Cells % Nucleated RBC % Neutrophils # (Manual) Band Neutrophils # Total Absolute Neuts Lymphocytes # (Manual) Prolymphocyte # Reactive Lymphs # Total Abs Lymphocytes Monocytes # (Manual) Eosinophils # (Manual) Basophils # (Manual) Metamyelocytes # (Man) Myelocytes # (Manual) Promyelocytes # (Man) Blast Cells # (Man) Plasma Cell # (Manual) Other Cells # Nucleated RBCs # (Man) Hypersegmented Neuts Hyposegmented Neuts Hypogranular Neuts Large Granular Lymphs # Lrg Granular Lymphs Hairy Cells Smudge Cells Toxic Granulation Toxic Vacuolation Dohle Bodies David Rods Platelet Estimate Hypogranular Platelets Giant Platelets Platelet Satelliting RBC Morphology Polychromasia Hypochromasia Poikilocytosis Basophilic Stippling Anisocytosis Microcytosis Macrocytosis Spherocytes Pappenheimer Bodies Sickle Cells Target Cells Tear Drop Cells Ovalocytes Stomatocytes Hunter-Zearing Bodies Echinocytes Acanthocytes (Spur) Rouleaux RBC Agglutinates Schistocytes ESR Sezary Cell PT INR APTT PTT Ratio Fibrinogen D-Dimer Sodium 138 135 L Potassium 3.4 L 3.1 L Chloride 107 104 Carbon Dioxide 24 20 L Anion Gap 7 11 BUN 9 7 Creatinine 0.47 L 0.50 L Est Cr Clr Drug Dosing 162.1 152.4 Est GFR ( Amer) > 150.0 > 150.0 Est GFR (Non-Af Amer) 140.2 137.4 BUN/Creatinine Ratio 19.1 14.0 Glucose 94 96 POC Glucose Lactate Calcium 8.3 L 7.7 L Phosphorus Magnesium Total Bilirubin Direct Bilirubin AST ALT Alkaline Phosphatase Total Protein Albumin Globulin Albumin/Globulin Ratio Triglycerides Lipase Procalcitonin HCG, Quant Urine Color Urine Appearance Urine pH Ur Specific [place] Urine Protein Urine Glucose (UA) Urine Ketones Urine Blood Urine Nitrite Urine Bilirubin Urine Urobilinogen Ur Leukocyte Esterase Urine WBC (Auto) Urine RBC (Auto) U Hyaline Cast (Auto) U Epithel Cells (Auto) Urine Bacteria (Auto) Nasal Screen MRSA (PCR) Random Gentamicin C.trachomatis RNA N.gonorrhoeae RNA SARS-CoV-2, RNA, NAAT Blood Parasites ID Blood Type Blood Type Recheck Antibody Screen 06/08/22 06/08/22 06/08/22 04:51 04:51 04:51 WBC RBC Hgb Hct MCV MCH MCHC RDW Std Deviation RDW Coeff of Myra Plt Count MPV Immature Gran % (Auto) Neut % (Auto) Lymph % (Auto) [place] % (Auto) Eos % (Auto) Baso % (Auto) Neut # (Auto) Lymph # (Auto) [place] # (Auto) Eos # (Auto) Baso # (Auto) Immature Gran # (Auto) Absolute Nucleated RBC Nucleated RBC % (auto) Neutrophils % (Manual) Band Neutrophils % Lymphocytes % (Manual) Prolymphocyte % Reactive Lymphs % (Man) Monocytes % (Manual) Eosinophils % (Manual) Basophils % (Manual) Metamyelocytes % (Man) Myelocytes % (Man) Promyelocytes % (Man) Blast Cells % (Manual) Plasma Cell % (Manual) Other Cells % Nucleated RBC % Neutrophils # (Manual) Band Neutrophils # Total Absolute Neuts Lymphocytes # (Manual) Prolymphocyte # Reactive Lymphs # Total Abs Lymphocytes Monocytes # (Manual) Eosinophils # (Manual) Basophils # (Manual) Metamyelocytes # (Man) Myelocytes # (Manual) Promyelocytes # (Man) Blast Cells # (Man) Plasma Cell # (Manual) Other Cells # Nucleated RBCs # (Man) Hypersegmented Neuts Hyposegmented Neuts Hypogranular Neuts Large Granular Lymphs # Lrg Granular Lymphs Hairy Cells Smudge Cells Toxic Granulation Toxic Vacuolation Dohle Bodies David Rods Platelet Estimate Hypogranular Platelets Giant Platelets Platelet Satelliting RBC Morphology Polychromasia Hypochromasia Poikilocytosis Basophilic Stippling Anisocytosis Microcytosis Macrocytosis Spherocytes Pappenheimer Bodies Sickle Cells Target Cells Tear Drop Cells Ovalocytes Stomatocytes Hunter-Zearing Bodies Echinocytes Acanthocytes (Spur) Rouleaux RBC Agglutinates Schistocytes ESR 44 H Sezary Cell PT 11.9 INR 1.1 APTT 35.8 H PTT Ratio 1.3 Fibrinogen 540 H D-Dimer 2930 H* Sodium Potassium Chloride Carbon Dioxide Anion Gap BUN Creatinine Est Cr Clr Drug Dosing Est GFR ( Amer) Est GFR (Non-Af Amer) BUN/Creatinine Ratio Glucose POC Glucose Lactate Calcium Phosphorus 2.3 L Magnesium 1.5 L Total Bilirubin 0.5 Direct Bilirubin 0.1 AST 18 ALT 10 Alkaline Phosphatase 58 Total Protein 5.2 L Albumin 2.7 L Globulin Albumin/Globulin Ratio Triglycerides Lipase Procalcitonin HCG, Quant Urine Color Urine Appearance Urine pH Ur Specific [place] Urine Protein Urine Glucose (UA) Urine Ketones Urine Blood Urine Nitrite Urine Bilirubin Urine Urobilinogen Ur Leukocyte Esterase Urine WBC (Auto) Urine RBC (Auto) U Hyaline Cast (Auto) U Epithel Cells (Auto) Urine Bacteria (Auto) Nasal Screen MRSA (PCR) Random Gentamicin C.trachomatis RNA N.gonorrhoeae RNA SARS-CoV-2, RNA, NAAT Blood Parasites ID Blood Type Blood Type Recheck Antibody Screen 06/08/22 06/08/22 06/08/22 04:51 04:51 04:57 WBC RBC Hgb Hct MCV MCH MCHC RDW Std Deviation RDW Coeff of Myra Plt Count MPV Immature Gran % (Auto) Neut % (Auto) Lymph % (Auto) [place] % (Auto) Eos % (Auto) Baso % (Auto) Neut # (Auto) Lymph # (Auto) [place] # (Auto) Eos # (Auto) Baso # (Auto) Immature Gran # (Auto) Absolute Nucleated RBC Nucleated RBC % (auto) Neutrophils % (Manual) Band Neutrophils % Lymphocytes % (Manual) Prolymphocyte % Reactive Lymphs % (Man) Monocytes % (Manual) Eosinophils % (Manual) Basophils % (Manual) Metamyelocytes % (Man) Myelocytes % (Man) Promyelocytes % (Man) Blast Cells % (Manual) Plasma Cell % (Manual) Other Cells % Nucleated RBC % Neutrophils # (Manual) Band Neutrophils # Total Absolute Neuts Lymphocytes # (Manual) Prolymphocyte # Reactive Lymphs # Total Abs Lymphocytes Monocytes # (Manual) Eosinophils # (Manual) Basophils # (Manual) Metamyelocytes # (Man) Myelocytes # (Manual) Promyelocytes # (Man) Blast Cells # (Man) Plasma Cell # (Manual) Other Cells # Nucleated RBCs # (Man) Hypersegmented Neuts Hyposegmented Neuts Hypogranular Neuts Large Granular Lymphs # Lrg Granular Lymphs Hairy Cells Smudge Cells Toxic Granulation Toxic Vacuolation Dohle Bodies David Rods Platelet Estimate Hypogranular Platelets Giant Platelets Platelet Satelliting RBC Morphology Polychromasia Hypochromasia Poikilocytosis Basophilic Stippling Anisocytosis Microcytosis Macrocytosis Spherocytes Pappenheimer Bodies Sickle Cells Target Cells Tear Drop Cells Ovalocytes Stomatocytes Hunter-Zearing Bodies Echinocytes Acanthocytes (Spur) Rouleaux RBC Agglutinates Schistocytes ESR Sezary Cell PT INR APTT PTT Ratio Fibrinogen D-Dimer Sodium Potassium Chloride Carbon Dioxide Anion Gap BUN Creatinine Est Cr Clr Drug Dosing Est GFR ( Amer) Est GFR (Non-Af Amer) BUN/Creatinine Ratio Glucose POC Glucose Lactate 1.1 Calcium Phosphorus Magnesium Total Bilirubin Direct Bilirubin AST ALT Alkaline Phosphatase Total Protein Albumin Globulin Albumin/Globulin Ratio Triglycerides Lipase Procalcitonin 2.30 H HCG, Quant Urine Color Urine Appearance Urine pH Ur Specific [place] Urine Protein Urine Glucose (UA) Urine Ketones Urine Blood Urine Nitrite Urine Bilirubin Urine Urobilinogen Ur Leukocyte Esterase Urine WBC (Auto) Urine RBC (Auto) U Hyaline Cast (Auto) U Epithel Cells (Auto) Urine Bacteria (Auto) Nasal Screen MRSA (PCR) Negative Random Gentamicin C.trachomatis RNA N.gonorrhoeae RNA SARS-CoV-2, RNA, NAAT Blood Parasites ID Blood Type Blood Type Recheck Antibody Screen 06/08/22 06/08/22 06/09/22 05:44 14:22 06:49 WBC 14.18 H RBC 3.29 L Hgb 8.9 L Hct 26.7 L MCV 81.2 MCH 27.1 MCHC 33.3 RDW Std Deviation 43.1 RDW Coeff of Myra 14.5 Plt Count 359 MPV 8.5 L Immature Gran % (Auto) 2.8 Neut % (Auto) 67.8 Lymph % (Auto) 19.4 [place] % (Auto) 8.9 Eos % (Auto) 0.7 Baso % (Auto) 0.4 Neut # (Auto) 9.62 H Lymph # (Auto) 2.75 [place] # (Auto) 1.26 H Eos # (Auto) 0.10 Baso # (Auto) 0.06 Immature Gran # (Auto) 0.39 H Absolute Nucleated RBC Nucleated RBC % (auto) Neutrophils % (Manual) Band Neutrophils % Lymphocytes % (Manual) Prolymphocyte % Reactive Lymphs % (Man) Monocytes % (Manual) Eosinophils % (Manual) Basophils % (Manual) Metamyelocytes % (Man) Myelocytes % (Man) Promyelocytes % (Man) Blast Cells % (Manual) Plasma Cell % (Manual) Other Cells % Nucleated RBC % Neutrophils # (Manual) Band Neutrophils # Total Absolute Neuts Lymphocytes # (Manual) Prolymphocyte # Reactive Lymphs # Total Abs Lymphocytes Monocytes # (Manual) Eosinophils # (Manual) Basophils # (Manual) Metamyelocytes # (Man) Myelocytes # (Manual) Promyelocytes # (Man) Blast Cells # (Man) Plasma Cell # (Manual) Other Cells # Nucleated RBCs # (Man) Hypersegmented Neuts Hyposegmented Neuts Hypogranular Neuts Large Granular Lymphs # Lrg Granular Lymphs Hairy Cells Smudge Cells Toxic Granulation Toxic Vacuolation Dohle Bodies David Rods Platelet Estimate Hypogranular Platelets Giant Platelets Platelet Satelliting RBC Morphology Polychromasia Hypochromasia Poikilocytosis Basophilic Stippling Anisocytosis Microcytosis Macrocytosis Spherocytes Pappenheimer Bodies Sickle Cells Target Cells Tear Drop Cells Ovalocytes Stomatocytes Hunter-Zearing Bodies Echinocytes 2+ Acanthocytes (Spur) Rouleaux RBC Agglutinates Schistocytes ESR Sezary Cell PT INR APTT PTT Ratio Fibrinogen D-Dimer Sodium Potassium Chloride Carbon Dioxide Anion Gap BUN Creatinine Est Cr Clr Drug Dosing Est GFR ( Amer) Est GFR (Non-Af Amer) BUN/Creatinine Ratio Glucose POC Glucose Lactate Calcium Phosphorus Cancelled Magnesium Total Bilirubin Direct Bilirubin AST ALT Alkaline Phosphatase Total Protein Albumin Globulin Albumin/Globulin Ratio Triglycerides Lipase Procalcitonin HCG, Quant Urine Color Yellow Urine Appearance Clear Urine pH 7.0 Ur Specific [place] 1.019 Urine Protein Trace H Urine Glucose (UA) Negative Urine Ketones 4+ H Urine Blood 3+ H Urine Nitrite Negative Urine Bilirubin Negative Urine Urobilinogen Negative Ur Leukocyte Esterase Negative Urine WBC (Auto) 1-5 Urine RBC (Auto) >30 H U Hyaline Cast (Auto) 1-5 U Epithel Cells (Auto) 20-30 H Urine Bacteria (Auto) Negative Nasal Screen MRSA (PCR) Random Gentamicin C.trachomatis RNA N.gonorrhoeae RNA SARS-CoV-2, RNA, NAAT Blood Parasites ID Blood Type Blood Type Recheck Antibody Screen 06/09/22 06/09/22 06/10/22 06:49 23:35 06:05 WBC RBC Hgb Hct MCV MCH MCHC RDW Std Deviation RDW Coeff of Myra Plt Count MPV Immature Gran % (Auto) Neut % (Auto) Lymph % (Auto) [place] % (Auto) Eos % (Auto) Baso % (Auto) Neut # (Auto) Lymph # (Auto) [place] # (Auto) Eos # (Auto) Baso # (Auto) Immature Gran # (Auto) Absolute Nucleated RBC Nucleated RBC % (auto) Neutrophils % (Manual) Band Neutrophils % Lymphocytes % (Manual) Prolymphocyte % Reactive Lymphs % (Man) Monocytes % (Manual) Eosinophils % (Manual) Basophils % (Manual) Metamyelocytes % (Man) Myelocytes % (Man) Promyelocytes % (Man) Blast Cells % (Manual) Plasma Cell % (Manual) Other Cells % Nucleated RBC % Neutrophils # (Manual) Band Neutrophils # Total Absolute Neuts Lymphocytes # (Manual) Prolymphocyte # Reactive Lymphs # Total Abs Lymphocytes Monocytes # (Manual) Eosinophils # (Manual) Basophils # (Manual) Metamyelocytes # (Man) Myelocytes # (Manual) Promyelocytes # (Man) Blast Cells # (Man) Plasma Cell # (Manual) Other Cells # Nucleated RBCs # (Man) Hypersegmented Neuts Hyposegmented Neuts Hypogranular Neuts Large Granular Lymphs # Lrg Granular Lymphs Hairy Cells Smudge Cells Toxic Granulation Toxic Vacuolation Dohle Bodies David Rods Platelet Estimate Hypogranular Platelets Giant Platelets Platelet Satelliting RBC Morphology Polychromasia Hypochromasia Poikilocytosis Basophilic Stippling Anisocytosis Microcytosis Macrocytosis Spherocytes Pappenheimer Bodies Sickle Cells Target Cells Tear Drop Cells Ovalocytes Stomatocytes Hunter-Zearing Bodies Echinocytes Acanthocytes (Spur) Rouleaux RBC Agglutinates Schistocytes ESR Sezary Cell PT INR APTT PTT Ratio Fibrinogen D-Dimer Sodium 133 L Potassium 3.6 Chloride 107 Carbon Dioxide 19 L Anion Gap 7 BUN 6 Creatinine 0.42 L Est Cr Clr Drug Dosing 181.4 Est GFR ( Amer) > 150.0 Est GFR (Non-Af Amer) 145.5 BUN/Creatinine Ratio 14.3 Glucose 93 POC Glucose 104 H 133 H Lactate Calcium 7.0 L Phosphorus 2.5 Magnesium 1.9 Total Bilirubin Direct Bilirubin AST ALT Alkaline Phosphatase Total Protein Albumin Globulin Albumin/Globulin Ratio Triglycerides 71 Lipase Procalcitonin HCG, Quant Urine Color Urine Appearance Urine pH Ur Specific [place] Urine Protein Urine Glucose (UA) Urine Ketones Urine Blood Urine Nitrite Urine Bilirubin Urine Urobilinogen Ur Leukocyte Esterase Urine WBC (Auto) Urine RBC (Auto) U Hyaline Cast (Auto) U Epithel Cells (Auto) Urine Bacteria (Auto) Nasal Screen MRSA (PCR) Random Gentamicin C.trachomatis RNA N.gonorrhoeae RNA SARS-CoV-2, RNA, NAAT Blood Parasites ID Blood Type Blood Type Recheck Antibody Screen 06/10/22 06/10/22 06/10/22 06:23 06:30 12:09 WBC 10.08 RBC 3.26 L Hgb 8.8 L Hct 26.5 L MCV 81.3 MCH 27.0 MCHC 33.2 RDW Std Deviation 43.7 RDW Coeff of Myra 14.6 H Plt Count 374 MPV 8.4 L Immature Gran % (Auto) 6.0 Neut % (Auto) 50.5 Lymph % (Auto) 29.6 [place] % (Auto) 12.3 Eos % (Auto) 1.0 Baso % (Auto) 0.6 Neut # (Auto) 5.10 Lymph # (Auto) 2.98 [place] # (Auto) 1.24 H Eos # (Auto) 0.10 Baso # (Auto) 0.06 Immature Gran # (Auto) 0.60 H Absolute Nucleated RBC Nucleated RBC % (auto) Neutrophils % (Manual) Band Neutrophils % Lymphocytes % (Manual) Prolymphocyte % Reactive Lymphs % (Man) Monocytes % (Manual) Eosinophils % (Manual) Basophils % (Manual) Metamyelocytes % (Man) Myelocytes % (Man) Promyelocytes % (Man) Blast Cells % (Manual) Plasma Cell % (Manual) Other Cells % Nucleated RBC % Neutrophils # (Manual) Band Neutrophils # Total Absolute Neuts Lymphocytes # (Manual) Prolymphocyte # Reactive Lymphs # Total Abs Lymphocytes Monocytes # (Manual) Eosinophils # (Manual) Basophils # (Manual) Metamyelocytes # (Man) Myelocytes # (Manual) Promyelocytes # (Man) Blast Cells # (Man) Plasma Cell # (Manual) Other Cells # Nucleated RBCs # (Man) Hypersegmented Neuts Hyposegmented Neuts Hypogranular Neuts Large Granular Lymphs # Lrg Granular Lymphs Hairy Cells Smudge Cells Toxic Granulation Toxic Vacuolation Dohle Bodies David Rods Platelet Estimate Hypogranular Platelets Giant Platelets Platelet Satelliting RBC Morphology Polychromasia Hypochromasia Poikilocytosis Basophilic Stippling Anisocytosis Microcytosis Macrocytosis Spherocytes Pappenheimer Bodies Sickle Cells Target Cells Tear Drop Cells Ovalocytes Stomatocytes Hunter-Zearing Bodies Echinocytes Acanthocytes (Spur) Rouleaux RBC Agglutinates Schistocytes ESR Sezary Cell PT INR APTT PTT Ratio Fibrinogen D-Dimer Sodium 131 L Potassium 3.4 L Chloride 105 Carbon Dioxide 22 Anion Gap 4 BUN 7 Creatinine 0.35 L Est Cr Clr Drug Dosing 217.7 Est GFR ( Amer) > 150.0 Est GFR (Non-Af Amer) > 150.0 BUN/Creatinine Ratio 20.0 Glucose 123 H POC Glucose 133 H Lactate Calcium 7.2 L Phosphorus 2.2 L Magnesium 1.7 Total Bilirubin Direct Bilirubin AST ALT Alkaline Phosphatase Total Protein Albumin Globulin Albumin/Globulin Ratio Triglycerides Lipase Procalcitonin HCG, Quant Urine Color Urine Appearance Urine pH Ur Specific [place] Urine Protein Urine Glucose (UA) Urine Ketones Urine Blood Urine Nitrite Urine Bilirubin Urine Urobilinogen Ur Leukocyte Esterase Urine WBC (Auto) Urine RBC (Auto) U Hyaline Cast (Auto) U Epithel Cells (Auto) Urine Bacteria (Auto) Nasal Screen MRSA (PCR) Random Gentamicin C.trachomatis RNA N.gonorrhoeae RNA SARS-CoV-2, RNA, NAAT Blood Parasites ID Blood Type Blood Type Recheck Antibody Screen 06/10/22 17:18 WBC RBC Hgb Hct MCV MCH MCHC RDW Std Deviation RDW Coeff of Myra Plt Count MPV Immature Gran % (Auto) Neut % (Auto) Lymph % (Auto) [place] % (Auto) Eos % (Auto) Baso % (Auto) Neut # (Auto) Lymph # (Auto) [place] # (Auto) Eos # (Auto) Baso # (Auto) Immature Gran # (Auto) Absolute Nucleated RBC Nucleated RBC % (auto) Neutrophils % (Manual) Band Neutrophils % Lymphocytes % (Manual) Prolymphocyte % Reactive Lymphs % (Man) Monocytes % (Manual) Eosinophils % (Manual) Basophils % (Manual) Metamyelocytes % (Man) Myelocytes % (Man) Promyelocytes % (Man) Blast Cells % (Manual) Plasma Cell % (Manual) Other Cells % Nucleated RBC % Neutrophils # (Manual) Band Neutrophils # Total Absolute Neuts Lymphocytes # (Manual) Prolymphocyte # Reactive Lymphs # Total Abs Lymphocytes Monocytes # (Manual) Eosinophils # (Manual) Basophils # (Manual) Metamyelocytes # (Man) Myelocytes # (Manual) Promyelocytes # (Man) Blast Cells # (Man) Plasma Cell # (Manual) Other Cells # Nucleated RBCs # (Man) Hypersegmented Neuts Hyposegmented Neuts Hypogranular Neuts Large Granular Lymphs # Lrg Granular Lymphs Hairy Cells Smudge Cells Toxic Granulation Toxic Vacuolation Dohle Bodies David Rods Platelet Estimate Hypogranular Platelets Giant Platelets Platelet Satelliting RBC Morphology Polychromasia Hypochromasia Poikilocytosis Basophilic Stippling Anisocytosis Microcytosis Macrocytosis Spherocytes Pappenheimer Bodies Sickle Cells Target Cells Tear Drop Cells Ovalocytes Stomatocytes Hunter-Zearing Bodies Echinocytes Acanthocytes (Spur) Rouleaux RBC Agglutinates Schistocytes ESR Sezary Cell PT INR APTT PTT Ratio Fibrinogen D-Dimer Sodium Potassium Chloride Carbon Dioxide Anion Gap BUN Creatinine Est Cr Clr Drug Dosing Est GFR ( Amer) Est GFR (Non-Af Amer) BUN/Creatinine Ratio Glucose POC Glucose 119 H Lactate Calcium Phosphorus Magnesium Total Bilirubin Direct Bilirubin AST ALT Alkaline Phosphatase Total Protein Albumin Globulin Albumin/Globulin Ratio Triglycerides Lipase Procalcitonin HCG, Quant Urine Color Urine Appearance Urine pH Ur Specific [place] Urine Protein Urine Glucose (UA) Urine Ketones Urine Blood Urine Nitrite Urine Bilirubin Urine Urobilinogen Ur Leukocyte Esterase Urine WBC (Auto) Urine RBC (Auto) U Hyaline Cast (Auto) U Epithel Cells (Auto) Urine Bacteria (Auto) Nasal Screen MRSA (PCR) Random Gentamicin C.trachomatis RNA N.gonorrhoeae RNA SARS-CoV-2, RNA, NAAT Blood Parasites ID Blood Type Blood Type Recheck Antibody Screen
[2022-06-10] MEDS: STOP CLINOLIPID SCH (22:00)
[2022-06-11] MEDS: PIPERACILLIN/TAZOBACTAM 4.5 GM in DEXTROSE 5% 100 ML IV SCH ×3 (02:09→18:46)
[2022-06-11] MEDS: KETOROLAC TROMETHAMINE 15 MG/ML VIAL IV PRN (02:26)
[2022-06-11] MEDS: ACETAMINOPHEN 325 MG TAB PO PRN (07:58)
[2022-06-11] MEDS: ENOXAPARIN INJ 30 MG/0.3 ML SYR SQ SCH (07:59)
[2022-06-11 08:13] LABS: Anion Gap 7 (3-11); BUN Creatinine Ratio 12.8 (10-20); Blood Urea Nitrogen 6 mg/dl (6-23); Calcium 7.8 mg/dl (8.6-10.3); Carbon Dioxide 24 mmol/L (21-32); Chloride 100 mmol/L (98-107); Creatinine Clr Calc Pharmacy 162.1 ml/min; Est GFR (African American) > 150.0 ml/min; Est GFR (Non-African American) 140.2 ml/min; Glucose 106 mg/dl (70-99(Fasting)); Magnesium 1.9 mg/dl (1.7-2.4); Phosphorus 3.2 mg/dl (2.5-4.9); Potassium 3.9 mmol/L (3.5-5.1); Sodium 131 mmol/L (136-145)
--- NOTE | 2022-06-11 09:57 | Surgery Progress Note ---
Date of Service June 11, 2022 Assessment & Plan (1) Ectopic : Plan: POD # 8 s/p laparoscopic left partial salpingectomy with removal of ectopic on the left. (2) Small bowel perforation: Plan: POD # 5 s/p ex lap with small bowel resection -Sporadic fevers, VSS - leukocytosis improved to 10 K - on clears -Positive flatus and having bowel movements - abdomen still slightly distended but soft, improved Plan: Continue pain management as needed advance diet as tolerated Continue IV Zosyn Continue Antiemetics Continue nigel drain to bulb suction repeat am labs, follow wbc Lovenox and SCDs for DVT prophylaxis Ambulate in halls, aggressive pulmonary toilet Admission and Anticipated Discharge Date Admission Date: June 03, 2022 Subjective feeling better this am. passing flatus and small BM. no nausea/vomiting. continues to spike fevers. changed to Zosyn yesterday afternoon Physical Exam Physical Exam: VSS, Tmax 39.1 A&O x3, NAD Abdomen: Soft, mild distention, minimal tenderness to palpation Incision healing well without erythema or discharge; isiah in place NIGEL drain with serous drainage Results & Data Vital Signs (Past 12 Hours) Vital Signs Temp Pulse Resp BP Pulse Ox O2 Del Method 06/11/22 07:46 38.5 C H 106 H 18 116/72 96 Room Air 06/11/22 04:03 37.8 C H 93 H 15 116/75 95 Room Air 06/10/22 23:53 37.1 C 79 18 124/72 98 Room Air
[2022-06-11] MEDS: PANTOprazole 40 MG in SYRINGE 0 ML IV SCH (10:30)
[2022-06-11 11:26] LABS: Hematocrit (blood only) 27.8 % (37.0-47.0); Hemoglobin 9.4 g/dl (12.0-16.0); Mean Corpuscular Hemoglobin 26.9 pg (25.0-34.0); Mean Corpuscular Hgb Conc 33.8 g/dL (32.0-36.0); Mean Corpuscular Volume 79.7 fL (80.0-100.0); Mean Platelet Volume 8.3 fL (9.4-12.4); Platelet Count 417 K/uL (130-400); RDW Coefficient of Variation 14.5 % (11.5-14.5); RDW Standard Deviation 42.5 fL (36.4-46.3); Red Blood Count 3.49 M/uL (4.20-5.40); White Blood Count 12.19 K/ul (4.8-10.8)
[2022-06-11 11:53] LABS: Basophils # (auto) 0.09 K/uL (0-0.2); Basophils % (auto) 0.7 %; Eosinophils # (auto) 0.07 K/uL (0-0.50); Eosinophils % (auto) 0.6 %; Immature Granulocytes # (auto) 0.78 K/uL (0.01-0.20); Immature Granulocytes % (auto) 6.4 %; Lymphocytes # (auto) 4.27 K/uL (1.2-3.4); Monocytes # (auto) 1.28 K/uL (0.11-0.59); Monocytes % (auto) 10.5 %; Neutrophils % (auto) 46.8 %; RBC Morphology Unremarkable
[2022-06-11] MEDS ORDERED: PERIPHERAL TPN IV SCH (16:00)
[2022-06-11] MEDS ORDERED: [UNRECOGNIZED DRUG - OTHER] IV SCH (16:00)
[2022-06-11] MEDS ORDERED: CLINOLIPID 20% IV FAT EMULSION 250 ML IV SCH (16:00)
[2022-06-11] MEDS: IBUPROFEN 600 MG TAB PO PRN (16:41)
[2022-06-11] MEDS: STOP CLINOLIPID SCH (22:09)
[2022-06-12] MEDS: PIPERACILLIN/TAZOBACTAM 4.5 GM in DEXTROSE 5% 100 ML IV SCH ×3 (01:52→17:29)
[2022-06-12] MEDS: IBUPROFEN 600 MG TAB PO PRN (03:56)
[2022-06-12] MEDS: KETOROLAC TROMETHAMINE 15 MG/ML VIAL IV PRN ×2 (05:04→13:17)
[2022-06-12 07:17] LABS: Hematocrit (blood only) 28.5 % (37.0-47.0); Hemoglobin 9.4 g/dl (12.0-16.0); Mean Corpuscular Hemoglobin 26.9 pg (25.0-34.0); Mean Corpuscular Volume 81.4 fL (80.0-100.0); Mean Platelet Volume 8.9 fL (9.4-12.4); Platelet Count 417 K/uL (130-400); RDW Coefficient of Variation 14.4 % (11.5-14.5); RDW Standard Deviation 42.6 fL (36.4-46.3)
[2022-06-12 07:51] LABS: Anion Gap 6 (3-11); Blood Urea Nitrogen 8 mg/dl (6-23); Calcium 7.7 mg/dl (8.6-10.3); Carbon Dioxide 24 mmol/L (21-32); Chloride 104 mmol/L (98-107); Creatinine Clr Calc Pharmacy 181.4 ml/min; Est GFR (African American) > 150.0 ml/min; Est GFR (Non-African American) 145.5 ml/min; Glucose 114 mg/dl (70-99(Fasting)); Magnesium 2.1 mg/dl (1.7-2.4); Potassium 3.8 mmol/L (3.5-5.1); Sodium 134 mmol/L (136-145)
[2022-06-12 08:05] LABS: ALC (manual) 4.75 K/uL (1.2-3.4); Eosinophils # (manual) 0.38 K/uL (0-0.50); Eosinophils % (manual) 3 %; Lymphocytes # (manual) 1.75 K/uL (1.2-3.4); Lymphocytes % (manual) 14 %; Metamyelocytes # (manual) 0.38 K/uL (0-0); Metamyelocytes % (manual) 3 %; Monocytes % (manual) 4 %; Myelocytes % (manual) 4 %; Neutrophils % (manual) 48 %; Reactive Lymphocytes % (manual) 24 %
[2022-06-12] MEDS: ENOXAPARIN INJ 30 MG/0.3 ML SYR SQ SCH (09:48)
[2022-06-12] MEDS: PANTOprazole 40 MG in SYRINGE 0 ML IV SCH (11:05)
--- NOTE | 2022-06-12 15:35 | Surgery Progress Note ---
Date of Service June 12, 2022 Assessment & Plan (1) Ectopic : Plan: POD # 9 s/p laparoscopic left partial salpingectomy with removal of ectopic on the left. (2) Small bowel perforation: Plan: POD # 6 s/p ex lap with small bowel resection -one fever overnight, VSS - leukocytosis 12K today - on clears -Positive flatus and having bowel movements - abdomen still slightly distended but soft, improved Plan: Continue pain management as needed advance diet as tolerated Continue IV Zosyn Continue Antiemetics may remove MIKAELA tomorrow repeat am labs, follow wbc Lovenox and SCDs for DVT prophylaxis Ambulate in halls, aggressive pulmonary toilet Admission and Anticipated Discharge Date Admission Date: June 03, 2022 Subjective feeling ok. passing flatus and small BM. no nausea/vomiting. one fever overnight Physical Exam Physical Exam: VSS, Tmax 39.1 A&O x3, NAD Abdomen: Soft, mild distention, minimal tenderness to palpation Incision healing well without erythema or discharge; isiah in place MIKAELA drain with serous drainage Results & Data Vital Signs (Past 12 Hours) Vital Signs Temp Pulse Resp BP BP Pulse Ox O2 Del Method 06/12/22 14:55 37.0 C 78 16 108/68 99 Room Air 06/12/22 07:20 37.0 C 80 16 105/65 98 Room Air 06/12/22 03:53 38.6 C H 98 H 18 114/69 96 Room Air
[2022-06-12] MEDS: ACETAMINOPHEN 325 MG TAB PO PRN (16:34)
--- NOTE | 2022-06-12 17:43 | Gynecologic Progress Note ---
Date of Service June 12, 2022 Assessment & Plan Admission and Anticipated Discharge Date Admission Date: June 03, 2022 Subjective Patient is seen and examined Feels well, no complaints other than fever spikes. Pain is under control with oral meds No CP/ SOB/ Dizziness/ N&V/ VB/ Leg pain OOB to BR and hallway many times Tolerating regular diet Flatus +, BM + She had questions about her tube and/ or ovary removed. Explained that only left tube was removed , not the left ovary. Vital Signs Temp Pulse Resp BP Pulse Ox O2 Del Method 06/12/22 17:35 38.2 C H 06/12/22 14:55 37.0 C 78 16 108/68 99 Room Air 06/12/22 07:20 37.0 C 80 16 105/65 98 Room Air 06/12/22 06/12/22 Range/Units 06:29 06:29 WBC 12.50 H (4.8-10.8) K/ul RBC 3.50 L (4.20-5.40) M/uL Hgb 9.4 L (12.0-16.0) g/dl Hct 28.5 L (37.0-47.0) % MCV 81.4 (80.0-100.0) fL MCH 26.9 (25.0-34.0) pg MCHC 33.0 (32.0-36.0) g/dL RDW Std Deviation 42.6 (36.4-46.3) fL RDW Coeff of Myra 14.4 (11.5-14.5) % Plt Count 417 H (130-400) K/uL MPV 8.9 L (9.4-12.4) fL Neutrophils % (Manual) 48 % Lymphocytes % (Manual) 14 % Reactive Lymphs % (Man) 24 % Monocytes % (Manual) 4 % Eosinophils % (Manual) 3 % Metamyelocytes % (Man) 3 % Myelocytes % (Man) 4 % Neutrophils # (Manual) 6.00 (1.40-6.50) K/uL Total Absolute Neuts 6.00 (1.4-6.5) K/uL Lymphocytes # (Manual) 1.75 (1.2-3.4) K/uL Reactive Lymphs # 3.00 K/uL Total Abs Lymphocytes 4.75 H (1.2-3.4) K/uL Monocytes # (Manual) 0.50 (0.11-0.59) K/uL Eosinophils # (Manual) 0.38 (0-0.50) K/uL Metamyelocytes # (Man) 0.38 H (0-0) K/uL Myelocytes # (Manual) 0.50 H (0-0) K/uL Sodium 134 L (136-145) mmol/L Potassium 3.8 (3.5-5.1) mmol/L Chloride 104 (98-107) mmol/L Carbon Dioxide 24 (21-32) mmol/L Anion Gap 6 (3-11) BUN 8 (6-23) mg/dl Creatinine 0.42 L (0.6-1.2) mg/dl Est Cr Clr Drug Dosing 181.4 ml/min Est GFR ( Amer) > 150.0 ml/min Est GFR (Non-Af Amer) 145.5 ml/min BUN/Creatinine Ratio 19.0 (10-20) Glucose 114 H (70-99(Fasting)) mg/dl Calcium 7.7 L (8.6-10.3) mg/dl Phosphorus 4.0 (2.5-4.9) mg/dl Magnesium 2.1 (1.7-2.4) mg/dl PE: General: Alert, orientedx3, NAD CVS: S1S2 RRR Lungs: CTAB Abd: much softer than before, NT, ND, BS+, / Dressing C/D/I, MIKAELA drain still in, small serous fluid in it. Minimal VB Ext: NT, no edema/ erythema AP: 22 yo female s/p Laparoscopy, Left salpingectomy for ectopic on 06/03, and then laparotomy for s. bowel resection on 06/[address] Palm VSS still fever spikes, on Zosyn, per G surgery Plan per Dr Palm Continue to monitor closely Results & Data Vital Signs (Past 12 Hours) Vital Signs Temp Pulse Resp BP Pulse Ox O2 Del Method 06/12/22 17:35 38.2 C H 06/12/22 14:55 37.0 C 78 16 108/68 99 Room Air 06/12/22 07:20 37.0 C 80 16 105/65 98 Room Air
[2022-06-13] MEDS: PIPERACILLIN/TAZOBACTAM 4.5 GM in DEXTROSE 5% 100 ML IV SCH ×3 (02:00→17:53)
[2022-06-13] MEDS: KETOROLAC TROMETHAMINE 15 MG/ML VIAL IV PRN ×2 (02:00→14:43)
[2022-06-13] MEDS: ENOXAPARIN INJ 30 MG/0.3 ML SYR SQ SCH (07:57)
[2022-06-13] MEDS: ACETAMINOPHEN 325 MG TAB PO PRN (07:57)
--- NOTE | 2022-06-13 08:47 | Surgery Progress Note ---
Date of Service June 13, 2022 Assessment & Plan (1) Ectopic : Plan: POD # 10 s/p laparoscopic left partial salpingectomy with removal of ectopic on the left. (2) Small bowel perforation: Plan: POD # 7 s/p ex lap with small bowel resection -no fevers overnight, VSS - Diet advanced as tolerated -Positive flatus and having bowel movements - abdomen still slightly distended but soft, improved Plan: Continue pain management as needed advance diet as tolerated Continue IV Zosyn -we will consider switch to oral antibiotics if no fevers today Continue Antiemetics remove MIKAELA drain today repeat am labs, follow wbc Lovenox and SCDs for DVT prophylaxis Ambulate in halls, aggressive pulmonary toilet possible home tomorrow Admission and Anticipated Discharge Date Admission Date: June 03, 2022 Subjective Feeling better this morning. No fevers overnight. Continues to pass flatus and tolerate a regular diet. No nausea vomiting. Feels less bloated. Physical Exam Physical Exam: VSS, Tmax 39.1 A&O x3, NAD Abdomen: Soft, mild distention, minimal tenderness to palpation Incision healing well without erythema or discharge; isiah in place MIKAELA drain with serous drainage Results & Data Vital Signs (Past 12 Hours) Vital Signs Temp Pulse Resp BP BP Pulse Ox O2 Del Method 06/13/22 07:32 36.8 C 90 16 110/62 98 Room Air 06/12/22 21:48 36.8 C 92 H 16 103/60 98 Room Air
[2022-06-13 08:58] LABS: Hematocrit (blood only) 27.7 % (37.0-47.0); Hemoglobin 9.4 g/dl (12.0-16.0); Mean Corpuscular Hemoglobin 26.7 pg (25.0-34.0); Mean Corpuscular Hgb Conc 33.9 g/dL (32.0-36.0); Mean Corpuscular Volume 78.7 fL (80.0-100.0); Mean Platelet Volume 8.7 fL (9.4-12.4); Platelet Count 534 K/uL (130-400); RDW Coefficient of Variation 14.6 % (11.5-14.5); Red Blood Count 3.52 M/uL (4.20-5.40); White Blood Count 16.22 K/ul (4.8-10.8)
[2022-06-13 08:59] LABS: Anion Gap 5 (3-11); Blood Urea Nitrogen 6 mg/dl (6-23); Calcium 7.8 mg/dl (8.6-10.3); Carbon Dioxide 24 mmol/L (21-32); Chloride 100 mmol/L (98-107); Creatinine Clr Calc Pharmacy 177.2 ml/min; Est GFR (African American) > 150.0 ml/min; Est GFR (Non-African American) 144.4 ml/min; Glucose 97 mg/dl (70-99(Fasting)); Magnesium 1.9 mg/dl (1.7-2.4); Phosphorus 3.2 mg/dl (2.5-4.9); Potassium 4.1 mmol/L (3.5-5.1); Sodium 129 mmol/L (136-145)
[2022-06-13] MEDS: PANTOprazole 40 MG TAB PO SCH (09:18)
[2022-06-13 10:02] LABS: ALC (manual) 9.08 K/uL (1.2-3.4); ANC (manual) 6.49 K/uL (1.4-6.5); Basophils # (manual) 0.16 K/uL (0-0.2); Basophils % (manual) 1 %; Eosinophils # (manual) 0.49 K/uL (0-0.50); Eosinophils % (manual) 3 %; Lymphocytes # (manual) 1.14 K/uL (1.2-3.4); Lymphocytes % (manual) 7 %; Monocytes # (manual) 0.16 K/uL (0.11-0.59); Monocytes % (manual) 1 %; Neutrophils # (manual) 6.49 K/uL (1.40-6.50); Neutrophils % (manual) 40 %; RBC Morphology Unremarkable; Reactive Lymphocytes # (manual) 7.95 K/uL; Reactive Lymphocytes % (manual) 49 %
[2022-06-13] MEDS: IBUPROFEN 600 MG TAB PO PRN (18:37)
[2022-06-14] MEDS: PIPERACILLIN/TAZOBACTAM 4.5 GM in DEXTROSE 5% 100 ML IV SCH ×3 (01:53→18:37)
[2022-06-14] MEDS: IBUPROFEN 600 MG TAB PO PRN ×3 (04:21→21:31)
[2022-06-14 06:56] LABS: Hematocrit (blood only) 30.9 % (37.0-47.0); Hemoglobin 10.1 g/dl (12.0-16.0); Mean Corpuscular Hemoglobin 26.6 pg (25.0-34.0); Mean Corpuscular Hgb Conc 32.7 g/dL (32.0-36.0); Mean Corpuscular Volume 81.5 fL (80.0-100.0); Mean Platelet Volume 8.7 fL (9.4-12.4); Platelet Count 608 K/uL (130-400); RDW Coefficient of Variation 14.6 % (11.5-14.5); RDW Standard Deviation 43.8 fL (36.4-46.3); Red Blood Count 3.79 M/uL (4.20-5.40)
[2022-06-14 07:02] LABS: Smudge Cells Present
[2022-06-14 07:24] LABS: Anion Gap 7 (3-11); BUN Creatinine Ratio 13.3 (10-20); Blood Urea Nitrogen 6 mg/dl (6-23); Calcium 8.1 mg/dl (8.6-10.3); Carbon Dioxide 25 mmol/L (21-32); Chloride 103 mmol/L (98-107); Creatinine Clr Calc Pharmacy 169.3 ml/min; Est GFR (African American) > 150.0 ml/min; Est GFR (Non-African American) 142.2 ml/min; Glucose 107 mg/dl (70-99(Fasting)); Phosphorus 3.2 mg/dl (2.5-4.9); Potassium 3.6 mmol/L (3.5-5.1); Sodium 135 mmol/L (136-145)
[2022-06-14 07:27] LABS: Basophils # (auto) 0.12 K/uL (0-0.2); Basophils % (auto) 0.8 %; Echinocytes 1+; Eosinophils % (auto) 1.3 %; Immature Granulocytes # (auto) 0.51 K/uL (0.01-0.20); Immature Granulocytes % (auto) 3.3 %; Lymphocytes # (auto) 7.39 K/uL (1.2-3.4); Lymphocytes % (auto) 47.7 %; Monocytes # (auto) 1.05 K/uL (0.11-0.59); Monocytes % (auto) 6.8 %; Neutrophils # (auto) 6.23 K/uL (1.40-6.50); Neutrophils % (auto) 40.1 %; Ovalocytes 1+
[2022-06-14] MEDS: PANTOprazole 40 MG TAB PO SCH (08:00)
[2022-06-14] MEDS: ENOXAPARIN INJ 30 MG/0.3 ML SYR SQ SCH (08:02)
[2022-06-14] MEDS: ACETAMINOPHEN 325 MG TAB PO PRN (10:26)
[2022-06-14] MEDS ORDERED: OPTIRAY 320 500ml IV ONE (11:09)
--- NOTE | 2022-06-14 11:40 | CT Scan Report ---
CT SCAN OF THE ABDOMEN AND PELVIS WITH IV CONTRAST CLINICAL HISTORY: Leukocytosis. Fever. COMPARISON STUDY: Abdominal CT dated 06/08/2022. TECHNIQUE: Following the IV administration of 94 cc of Optiray 320, CT scan of the abdomen and pelvi s is performed from the lung bases to the proximal femora. Images are reviewed in the axial, sagittal , and coronal planes. IV contrast was administered without complication. Oral contrast was utilized. A dose lowering technique was utilized adhering to the principles of ALARA. CT DOSE: 309.54 mGy.cm FINDINGS: Lung bases: The heart is normal in size and without pericardial effusion. There are small left and tr dara right pleural effusions. These have decreased in size from previous. The lung bases are otherwise clear noting dependent atelectasis. Liver: The contrast-enhanced liver is normal in size, contour, and attenuation. There is no intrahepa tic biliary ductal dilatation. The hepatic veins and portal veins are patent. Gallbladder: Contracted. Spleen: Normal in size and attenuation. Pancreas: Unremarkable. Adrenal glands: Unremarkable. Kidneys: The contrast enhanced kidneys are normal in size and without hydronephrosis. The kidneys enh ance symmetrically. Abdominal vasculature: The abdominal aorta is normal in course and caliber. Bowel: There is no bowel obstruction. Enteric contrast reaches the distal small bowel. A small bowel anastomosis is noted in the pelvis. The appendix is normal as visualized. Mild wall thickening is ag ain seen involving loops of bowel in the pelvis. This has improved as compared to 06/08/2022. Peritoneum: There are small residual foci of intracranial failure since the left hemidiaphragm. This has decreased from previous. The surgical drain seen on 06/08/2022 has been removed. There is a thick walled and peripherally enhancing loculated fluid collection identified deep to the peritoneal reflec tion in the right mid abdomen. This extends from the inferior margin of the liver into the right lowe r quadrant, and measures approximately 9.5 x 6 x 1.5 cm in maximum dimension as seen on axial image # 236. This is typical for abscess. A second multiloculated fluid collection is seen in the posterior p sanchez between the uterus and the rectosigmoid colon. A loculation to the right of midline on image #3 61 measures 3.7 x 1.4 cm, and a loculation posteriorly the uterus on image #399 measures 1.4 x 4.1 cm . The collection measures approximately 6 cm in craniocaudal length. A trace similar appearing collec tion in the left lateral midabdomen on image #1262 measures approximately 4 x 2.5 x 0.5 cm. A loculat ed collection in the left lower quadrant closely approximating bowel on image #352 measures 0 x 3.4 x 1.2 cm. Lymphadenopathy: There are numerous mildly enlarged mesenteric lymph nodes which measure up to 1.8 cm in length. Pelvic viscera: The bladder is partially decompressed and appears thick walled. The uterus and adnexa are normal as visualized. Skeletal structures: No lytic or blastic lesions are seen. Soft tissues: There is body wall edema. A midline surgical incision is noted with skin clips in place . There are foci of subcutaneous gas in the ventral abdominal wall. IMPRESSION: 1. A small bowel anastomosis is seen in the anterior pelvis. No obstruction is identified. 2. The surgical drain seen previously has been removed. There are tiny residual foci of pneumoperiton eum below the diaphragm. 3. There are at least 4 multiloculated and peripherally enhancing intraperitoneal fluid collections a s detailed above. These are typical for abscesses. 4. Mesenteric edema has improved from previous. There is persistent wall thickening seen involving lo ops of bowel in the pelvis as well as mildly enlarged mesenteric lymph nodes. These findings are like ly related to peritonitis. 5. Small left and trace right pleural effusions. These have decreased in size from 06/08/2022. Left lo wer lobe consolidation has resolved. 6. The bladder wall remains mildly thickened. Correlate with clinical findings and urinalysis. 7. Additional findings as above. ACT 112: Negative or not required by law. Electronically signed by: Delta Loredo M.D. 06/14/2022 11:39 AM
--- NOTE | 2022-06-14 15:13 | Surgery Progress Note ---
Date of Service June 14, 2022 Assessment & Plan (1) Ectopic : Plan: POD # 11 s/p laparoscopic left partial salpingectomy with removal of ectopic on the left. (2) Small bowel perforation: Plan: POD # 8 s/p ex lap with small bowel resection -no fevers overnight, VSS - WBC 15 - Diet advanced as tolerated -Positive flatus and having bowel movements - abdomen still slightly distended but soft, improved - CT scan with small fluid collections/abscesses Plan: Continue pain management as needed discussed CT findings with radiology - collections to small for drainage as she is continuing to improve, we will continue IV antibiotics for now through the weekend if any deterioration may need re-scan repeat am labs, follow wbc Lovenox and SCDs for DVT prophylaxis Ambulate in halls, aggressive pulmonary toilet [facility] covering for the weekend Admission and Anticipated Discharge Date Admission Date: June 03, 2022 Subjective She continues to feel better every day. more energy. no n/v. continues to pass flatus. + BMs. still some fevers; but less and lower temps. Physical Exam Physical Exam: NAD A&Ox3 AFVSS Abd - soft, mild TTP; incision healing well isiah in place Results & Data Vital Signs (Past 12 Hours) Vital Signs Temp Pulse Resp BP BP Pulse Ox O2 Del Method 06/14/22 14:37 36.8 C 98 H 16 100/62 98 Room Air 06/14/22 07:16 36.9 C 103 H 16 99/58 L 98 Room Air
[2022-06-15] MEDS: PIPERACILLIN/TAZOBACTAM 4.5 GM in DEXTROSE 5% 100 ML IV SCH ×3 (02:20→17:38)
[2022-06-15 07:09] LABS: Hematocrit (blood only) 28.6 % (37.0-47.0); Hemoglobin 9.3 g/dl (12.0-16.0); Mean Corpuscular Hemoglobin 26.4 pg (25.0-34.0); Mean Corpuscular Hgb Conc 32.5 g/dL (32.0-36.0); Mean Corpuscular Volume 81.3 fL (80.0-100.0); Mean Platelet Volume 8.6 fL (9.4-12.4); Platelet Count 653 K/uL (130-400); RDW Coefficient of Variation 14.6 % (11.5-14.5); RDW Standard Deviation 43.3 fL (36.4-46.3); Red Blood Count 3.52 M/uL (4.20-5.40)
[2022-06-15] MEDS: IBUPROFEN 600 MG TAB PO PRN ×2 (08:42→15:36)
[2022-06-15] MEDS: ENOXAPARIN INJ 30 MG/0.3 ML SYR SQ SCH (08:42)
[2022-06-15] MEDS: PANTOprazole 40 MG TAB PO SCH (08:42)
--- NOTE | 2022-06-15 11:06 | Surgery Progress Note ---
Date of Service June 15, 2022 Assessment & Plan (1) Ectopic : Plan: POD #12 s/p laparoscopic left partial salpingectomy with removal of ectopic on the left. POD # 11 s/p laparoscopic left partial salpingectomy with removal of ectopic on the left. (2) Small bowel perforation: Plan: 06/15/2025 POD #9 s/p Ex Lap with Small Bowel Resection Vital signs are stable, she remains afebrile. She is tolerating regular diet, passing flatus, moving her bowels. WBC continues to trend down. Abdominal incision is clean, dry, intact and well-approximated with isiah in place. She can continue to ambulate in the halls and may even go outside if she would like. Will continue to keep her inpatient throughout weekend for IV abx. 06/14/2022 POD # 8 s/p ex lap with small bowel resection -no fevers overnight, VSS - WBC 15 - Diet advanced as tolerated -Positive flatus and having bowel movements - abdomen still slightly distended but soft, improved - CT scan with small fluid collections/abscesses Plan: Continue pain management as needed discussed CT findings with radiology - collections to small for drainage as she is continuing to improve, we will continue IV antibiotics for now through the weekend if any deterioration may need re-scan repeat am labs, follow wbc Lovenox and SCDs for DVT prophylaxis Ambulate in halls, aggressive pulmonary toilet [facility] covering for the weekend Admission and Anticipated Discharge Date Admission Date: June 03, 2022 Supervising Physician Co-Signing Physician Notes Patient seen and examined, agree with above. 22-year-old female status post laparotomy and bowel resection, CT yesterday showed some small fluid collection concerning for abscesses, not amenable to drainage. She is feeling much better than she did a few days ago and has been afebrile. Her energy levels are returning. She is tolerating a diet. On exam afebrile with stable vitals, incision without infection, abdomen appropriately tender to palpation. We will continue with regular diet and IV antibiotics throughout the weekend. Continue daily CBC Subjective Myeong is feeling well. She reports that her pain is much improved. She is passing flatus, moving her bowels. She is tolerating a regular diet without issue. She has been walking the hallway. Review of Systems Gastrointestinal: no abdominal pain, no nausea and no vomiting Physical Exam Physical Exam: Vital signs stable. Abd - soft, mild TTP; incision is healing well isiah in place Respiratory: normal respiratory effort; no respiratory distress and no labored breathing Psychiatric: A+Ox3, euthymic affect Results & Data Vital Signs (Past 12 Hours) Vital Signs Temp Pulse Resp BP Pulse Ox O2 Del Method 06/15/22 09:00 Room Air 06/15/22 07:54 36.9 C 93 H 16 93/58 L 99 Room Air PG Care Time/CCT Total # of Minutes Spent Total Time Spent with Patient: Total time spent is greater than 50% in coordination of care (as documented) at patient's floor/unit and/or counseling patient: Coding Level of Care Code 21481 Post Operative Follow-Up Diagnoses Ectopic O00.90 Small bowel perforation K63.1
[2022-06-15] MEDS: ACETAMINOPHEN 325 MG TAB PO PRN (16:37)
[2022-06-16] MEDS: PIPERACILLIN/TAZOBACTAM 4.5 GM in DEXTROSE 5% 100 ML IV SCH ×3 (02:39→17:16)
[2022-06-16] MEDS: IBUPROFEN 600 MG TAB PO PRN ×3 (02:41→17:12)
[2022-06-16 06:12] LABS: Hematocrit (blood only) 27.8 % (37.0-47.0); Mean Corpuscular Hemoglobin 26.4 pg (25.0-34.0); Mean Corpuscular Hgb Conc 32.4 g/dL (32.0-36.0); Mean Corpuscular Volume 81.5 fL (80.0-100.0); Mean Platelet Volume 8.5 fL (9.4-12.4); Platelet Count 753 K/uL (130-400); RDW Coefficient of Variation 14.6 % (11.5-14.5); RDW Standard Deviation 43.4 fL (36.4-46.3); Red Blood Count 3.41 M/uL (4.20-5.40); White Blood Count 12.99 K/ul (4.8-10.8)
[2022-06-16] MEDS: PANTOprazole 40 MG TAB PO SCH (08:44)
[2022-06-16] MEDS: ENOXAPARIN INJ 30 MG/0.3 ML SYR SQ SCH (08:45)
--- NOTE | 2022-06-16 09:36 | Surgery Progress Note ---
Date of Service June 16, 2022 Assessment & Plan (1) Small bowel perforation: Plan: Status post small bowel resection with small presumed abscesses being treated with antibiotics Continue current management Continue IV antibiotics Dr. Palm returns tomorrow Admission and Anticipated Discharge Date Admission Date: June 03, 2022 Subjective Status post small bowel resection, being treated for small presumed abscesses not amenable to drainage. Continues to feel better, she spent some time outside yesterday but felt very tired in the afternoon. She thought she might develop a fever but had some Tylenol and ibuprofen. Otherwise no change Physical Exam Constitutional: WD/WN, vitals as above Gastrointestinal (Abdomen): normal bowel sounds, soft, nontender, no hepatosplenomegaly Inspection/Auscultation: + abdominal surgical incision (No infection) Results & Data Vital Signs (Past 12 Hours) Vital Signs Temp Pulse Resp BP Pulse Ox O2 Del Method 06/16/22 08:25 37 C 81 20 101/64 98 Room Air Laboratory Results Laboratory Results - last 24 hr 06/16/22 05:15 WBC 12.99 H RBC 3.41 L Hgb 9.0 L Hct 27.8 L MCV 81.5 MCH 26.4 MCHC 32.4 RDW Std Deviation 43.4 RDW Coeff of Myra 14.6 H Plt Count 753 H MPV 8.5 L PG Care Time/CCT Total # of Minutes Spent Total Time Spent with Patient: Total time spent is greater than 50% in coordination of care (as documented) at patient's floor/unit and/or counseling patient: Coding Level of Care Code None Diagnoses Small bowel perforation K63.1
[2022-06-17] MEDS: PIPERACILLIN/TAZOBACTAM 4.5 GM in DEXTROSE 5% 100 ML IV SCH ×2 (02:14→09:31)
[2022-06-17] MEDS: IBUPROFEN 600 MG TAB PO PRN (07:21)
[2022-06-17] MEDS: ACETAMINOPHEN 325 MG TAB PO PRN (08:27)
[2022-06-17] MEDS: PANTOprazole 40 MG TAB PO SCH (08:28)
[2022-06-17] MEDS: ENOXAPARIN INJ 30 MG/0.3 ML SYR SQ SCH (08:29)
--- NOTE | 2022-06-21 09:51 | Discharge Summary ---
Date of Service June 21, 2022 Admission HPI Per Admitting Provider 22 F P0010 LMP 04/15/22 regular with unprotected intercourse and no control use had positvei home test and c/o vaginal bleeding with passage of small clot 05/29. No abdominal pain or any significant heavy vaginal bleeding. She thought she had a spontaneous miscarriage and wanted to come to ER to see if she was still . Had what she describes as chemical last year with no treatment. No prior control use. Principal Diagnosis Left ectopic unruptured Small bowel perforation Discharge Data Allergies Allergy/AdvReac Type Severity Reaction Status Date / Time amoxicillin Allergy Rash Unverified 04/04/22 11:29 Consultations 06/05/22 14:07 Consult Hospitalist Stat 06/05/22 16:12 Consult General Surgery Routine 06/08/22 03:53 Consult Hospitalist Routine Procedures Performed Operation Date: 06/06/22 10:50 Actual Procedures s Laparoscopy, Irrigation of Pelvis and Abdomen - Gem Ramírez MD p Exploratory Laparotomy, Bowel Resection, and Washout(Left) - Jack Palm MD Ordered Studies 06/03/22 16:00 US OB transvaginal Stat 06/03/22 16:01 US ectopic Stat 06/05/22 08:09 CT abd pelvis oral and IV con Stat 06/06/22 08:00 US pelvic complete Stat 06/08/22 05:22 CT abd pelvis IV con only Stat 06/08/22 08:09 CT for pulmonary embolism PE [CT angio chest PE protocol] Stat 06/14/22 08:34 CT abd pelvis oral and IV con Urgent Hospital Course (1) Ectopic : (2) Small bowel perforation: Plan Patient presented to emergency room on 06/03/2022 with complaint of vaginal bleeding with a positive home test. She was found to have left ectopic unruptured. She was taken to operating room for Left partial salpingectomy with removal of ectopic by Dr. Matos on 06/03/2022. She was transferred to women's health floor for postoperative care. POD # 1 she was feeling well, having no pain, no vaginal bleeding, and her diet was advanced to clear liquids and then advanced as tolerated. In afternoon on POD#1 she started having lower pelvic pain requiring pain medication. Fever of 38.4. She was started on IV abx. WBC elevated at 18,000. POD # 2 she continued to have fevers with increasing wbc of 24k. IV gentamycin and clindamycin was started. CT scan of abdomen and pelvis obtained which showed concern for possible hemoperitoneum. Surgery consulted in which NPO for bowel rest recommended, serial abdominal examinations, H&H every 6 hours, NGT for abdominal distention were recommended. POD # 3 patient continued to have pain and fevers and became tachycardic with HR of 120-130's even with 1 liter fluid bolus. Bedside ultrasound obtained which showed large complex fluid collection throughout abdomen concern for hemoperitoneum vs superinfection which was larger compared to CT scan 1 day earlier. Lactate elevated at 2.1 (1.3 on POD # 2) H&H stable even with fluid bolus. Patient was taken to operating room by primary [employer]OLOG[employer]INE[employer] surgery team for laparoscopic exploration. She was found to have purulent/bowel like contents throughout abdomen and conveted to ex lap in which she was found to have a small bowel perforation. Dr. Palm performed small bowel resection with primary anastomosis. IV antibiotics switched to Cipro/Flagyl, NGT was continued, edmond drain placed. POD #4/#1, still febrile, wbc improved to 22K, and NGT with bilious output. Passed small amount of flatus in afternoon on POD#1, pain controlled and feeling well. POD#5/#2 continued to have fevers with tmax of 39.5, wbc 19K, CT scan repeated due to elevated HR and fever which showed minim al pelvic fluid, postoperative changes, no sign of leak and possible left lower lung atelectasis. CTA of chest negative for PE. IV fluids continued, NGT continued through to POD #7/#4. She continued to have sporadic fevers in which IV Zosyn was started. NGT removed and started sips of clears. Diet advanced on POD#9/6 as she was having bowel function. Edmond drain was removed on POD#10/7. IV zosyn was continued as she started having increase in WBC again with sporadic fevers. CT scan repeated on POD#11/8 which smalled small intraabdominal abscess to small for drainage. IV zosyn continued until POD#14/11 in which patient was discharged home in stable condition with two week course of oral Augmentin and close follow-up in surgery office. Total Time Total Time Spent Total Time Spent (In Minutes): 60 Total Time Includes: Examination of the Patient, Discharge Planning, Medication Reconciliation and Communication With Other Providers Discharge Plan Discharge Items Patient Disposition: Home - Self-Care Reason For Visit: VAGINAL BLEEDING Discharge Diagnosis: left ectopic small bowel perforation s/p repair Activity: Per Instructions section Lifting: Gradually increase as tolerated and No more than 10 pounds Sexual Activity: Wait until after follow-up appointment Exercise/Sports: Wait until after follow-up appointment Non-emergency contact: Primary Care Provider, Surgeon and Stoner Hand Call non-emergency contact if: you have any medication questions, your pain is not controlled, your pain is worsening, your pain is concerning for you, you have a fever, your temperature is above 101, your wound has increased redness, your wound has increased drainage and your wound pain has increased Follow-up/Referrals: Jack Palm MD [Physician] - 06/26/22 9:45 am (follow-up in 1 week) [facility] [Primary Care Provider] - (FOLLOW UP WITH [facility] 7-10 DAYS FOR HOSPITAL FOLLOW UP) Cliff Matos MD [Physician] - 06/27/22 3:15 pm Diet: Low Fiber Addtl Attending Provider Instructions: OBGYN ACTIVITY RECOMMENDATIONS: * Nothing in the vagina (no intercourse, tampons, or douching) for 4 weeks * You may walk up and down steps as necessary. * You may drive a car in 2 weeks. * Hot shower daily SPECIAL CARE INSTRUCTIONS: * Check temperature twice daily for one week. Report any elevation over 100.4 degrees Fahrenheit (38.0 degrees Celsius). * Call your doctor if bleeding becomes heavier than the heaviest part of your period - saturating a sanitary pad within an hour. * If you develop a red, hard, warm swollen lump on your incision or if you develop any separation of or drainage from your incision, notify your doctor. Addtl [employer] Lead Provider Instructions: Post-Surgical ~Discharge Instructions Activity Recommendations: - lifting limitation: (10 pounds for 5-6 weeks), - exercise/sex/sports limit: (nonstrenuous for 4 weeks), - driving or machine use limit: (none for 1 week or until pain free), - Shower/bathe limit: (may shower, no submerging your incision underwater for 2 weeks) Diet: - Low fiber diet for 1 week and then slowly increase fiber in diet SPECIAL CARE INSTRUCTIONS: - May shower. Let water run over area and pat dry. - Leave steri strips on for one week and then remove. They may fall off on their own that is okay. - Call the surgeon's office with any questions or concerns - - (ex. temperature higher than 101 degrees F, excessive bleeding or pain). MEDICATIONS: - Resume previous medications unless instructed otherwise by your surgeon. - May alternate extra strength Tylenol and Ibuprofen as needed for mild to moderate pain -650 mg Tylenol every 6 hours as needed - Ibuprofen 600 mg every 6 hours as needed (take with food) - Oxycodone every 4-6 hours as needed for moderate to severe pain. - Take antibiotics (Augmentin) for 2 weeks, complete total course of antibiotics. Call office if you develop rash given the penicillin antibiotic however you were on Zosyn during your hospitalization and tolerated well. FOLLOW UP VISIT: - If not already scheduled, please call the office to schedule a one week follow-up appointment. Office number Pending Studies at Discharge: No Stand-Alone Forms: My [facility], Work/School Release Medications and DC Order Prescriptions: New ibuprofen 600 mg tablet 600 mg PO Q6H PRN (Reason: pain) Qty: 30 2RF oxycodone 5 mg Tablet 5 mg PO Q4H Qty: 12 0RF amoxicillin-pot clavulanate 875-125 mg tablet 1 tab PO BID Qty: 28 0RF Continued methylphenidate HCl 10 mg tablet 0 mg PO UD methylphenidate HCl 27 mg tablet extended release 24hr 27 mg PO DAILY Discontinued sulfamethoxazole-trimethoprim [Bactrim DS] 800-160 mg tablet 1 tab PO Q12H Qty: 14 0RF Discharge Orders: Discharge Order (Routine); Ordered 06/17/22 Ordered By: Destinee Jones/Other Patient Handouts: Ectopic , Anatomy of the Digestive System Admission Data Admit Date/Time: 06/03/22 20:56 Attending Provider: Cliff Matos Admit Provider: Cliff Matos Primary Care Provider: [facility] Other Providers: Uzma Chavez ; Jack Palm ; Joshua Robbins ; Lynette Vásquez ; Yamilex [place] ; Narayan Colmenares ; Vern Nichols ; Ana Rodriguez ; Destinee Cho ; Marquis Marcum Jr ; Colette Cochran ; Joshua Quesada ; Dang Rueda ; Torres Jang ; Manuel Dudley Other Interventions: Discharge Summary Assessment (RN) Last Done: 06/17/22 10:37
--- NOTE | 2022-07-24 07:04 | Coding Query ---
Your help is needed for correct coding of this account; please clarify if the patients Post-operative Ileus was: (x ) expected out of the surgery ( ) unexpected complication from the surgery ( )other please specify Thank you Destinee COLIN
== END 2022-06-17 16:20 | disposition home or self-care (01) | DRG 817 ==
LOC: ED 15:49 → OR 20:55 → 4E1 20:56 → 3W 06-06 16:19